=== PATIENT | male | born 1950 | race Caucasian/White ===

== ENCOUNTER 2017-09-23 08:48 | Day surgery (SDC) | payer MEDICARE, BC ==
[2017-09-20 10:02] VITALS: BMI 47.3
[~2017-09-23 08:48] MED LIST: DEXAMETHASONE SOD PHOSPHATE 10 MG/ML 1 ML VIAL IV ONE; HEPARIN SODIUM,PORCINE 5,000 UNIT/ML 1 ML VIAL SQ ONE; LIDOCAINE 1% 20 ML VIAL (10MG/ML) FOR IV START INTRADERMA PRN; ONDANSETRON 4 MG/2 ML VIAL IVP ONE; SCOPOLAMINE 1.5MG/72HR PATCH TRANSDERM ONE; ceFAZolin 3 GM in SODIUM CHLORIDE 0.9% 100 ML IVPB ONE
[2017-09-23 09:59] LABS: Glucose,Whole Blood 196 mg/dL (75-99)
[2017-09-23] MEDS: LACTATED RINGERS 1,000 ML IV SCH (09:59)
--- NOTE | 2017-09-23 10:13 | P.GSHP ---
History of Present Illness H&P Date: 09/23/17 Chief Complaint: Right upper quadrant pain, cholelithiasis This is a 66-year-old male cut. Patient notes today for laparoscopic cholecystectomy. He's had issues with rectal quadrant pain. Patient was seen at [facility] and found have evidence of cholelithiasis. Past Medical History Past Medical History: Heart Failure, COPD, Diabetes Mellitus, Hyperlipidemia, Hypertension, Prostate Disorder, Sleep Apnea/CPAP/BIPAP Additional Past Medical History / Comment(s): hx of christianne leg neuropathy, hx. colon polyps, hx of sepsis post tonsillitis 04/2017 History of Any Multi-Drug Resistant Organisms: None Reported Past Surgical History: Hernia Repair, Orthopedic Surgery Additional Past Surgical History / Comment(s): carpal tunnel left wrist, TURP, umbilical hernia repair Past Anesthesia/Blood Transfusion Reactions: No Reported Reaction Smoking Status: Former smoker - Past Family History Mother Family Medical History: No Reported History Medications and Allergies Home Medications Medication Instructions Recorded Confirmed Type Atorvastatin [Lipitor] 40 mg PO HS 09/11/14 09/20/17 History Furosemide [Lasix] 40 mg PO BID 09/11/14 09/20/17 History Quinapril HCl [Accupril] 10 mg PO BID 09/11/14 09/20/17 History Tamsulosin HCl [Flomax] 0.4 mg PO BID 09/11/14 09/20/17 History Omeprazole [PriLOSEC] 20 mg PO AC-BRKFST 09/03/15 09/20/17 History Acetaminophen with Codeine 0.5 - 1 tab PO Q6HR PRN 09/20/17 09/20/17 History [Tylenol w/codeine #4] Albuterol Nebulized [Ventolin 2.5 mg INHALATION Q6H PRN 09/20/17 09/20/17 History Nebulized] Albuterol Sulfate [Proair 1 puff INHALATION QID PRN 09/20/17 09/23/17 History Respiclick] Beclomethasone Dipropionate [Qvar 1 puff INHALATION DAILY PRN 09/20/17 09/20/17 History 80 mcg] Calcitriol 0.5 mcg PO MO 09/20/17 09/23/17 History Ciprofloxacin HCl [Cipro] 500 mg PO Q12HR 09/20/17 09/20/17 History Insulin NPH/Reg Insulin 70/30 100 unit SQ AC-LUNCH 09/20/17 09/20/17 History [humuLIN 70/30 VIAL] Insulin NPH/Reg Insulin 70/30 126 unit SQ BID 09/20/17 09/20/17 History [humuLIN 70/30 VIAL] Miconazole Nitrate [Lotrimin AF 1 applic TOPICAL DAILY PRN 09/20/17 09/20/17 History Powder] Montelukast Sodium [Singulair] 10 mg PO HS 09/20/17 09/20/17 History Multivitamins, Thera [Multivitamin 1 tab PO DAILY 09/20/17 09/20/17 History (formulary)] Omeprazole 20 mg PO DAILY 09/20/17 09/20/17 History Ondansetron [Zofran] 4 mg PO Q8HR PRN 09/20/17 09/23/17 History Tamsulosin [Flomax] 0.4 mg PO BID 09/20/17 09/20/17 History amLODIPine BESYLATE [Norvasc] 5 mg PO BID 09/20/17 09/20/17 History metroNIDAZOLE [Flagyl] 500 mg PO TID 09/20/17 09/20/17 History Allergies Allergy/AdvReac Type Severity Reaction Status Date / Time No Known Allergies Allergy Verified 09/23/17 09:43 Surgical - Exam Vital Signs Temp Pulse Resp BP Pulse Ox 98 F 102 H 18 163/66 95 09/23/17 09:40 09/23/17 09:40 09/23/17 09:40 09/23/17 09:40 09/23/17 09:40 - General well developed, no distress - Eyes PERRL - ENT normal pinna - Neck no masses - Respiratory normal expansion - Cardiovascular Rhythm: regular - Abdomen Abdomen: soft, non tender Results - Labs Abnormal Lab Results - Last 24 Hours (Table) 09/23/17 Range/Units 09:48 POC Glucose (mg/dL) 196 H (75-99) mg/dL Assessment and Plan Assessment: Right upper quadrant pain Cholelithiasis We'll perform laparoscopic cholecystectomy
[2017-09-23] MEDS ORDERED: GLYCOPYRROLATE 0.2 MG/ML 2 ML VIAL ONE (10:42)
[2017-09-23] MEDS ORDERED: PROPOFOL 10 MG/ML 20 ML VIAL IV ONE (10:42)
[2017-09-23] MEDS ORDERED: NEOSTIGMINE 1 MG/ML 10 ML VIAL ONE (10:42)
[2017-09-23] MEDS ORDERED: ROCURONIUM BROMIDE 10 MG/ML 10 ML VIAL IV ONE (10:42)
[2017-09-23] MEDS ORDERED: SUCCINYLCHOLINE CHLORIDE 100 MG/5 ML SYR IV ONE (10:42)
[2017-09-23] MEDS ORDERED: MIDAZOLAM 2 MG/2 ML VIAL ONE (10:42)
[2017-09-23] MEDS ORDERED: ePHEDrine SULFATE/0.9% NACL/PF 50 MG/5 ML SYRINGE IV ONE (10:42)
[2017-09-23] MEDS ORDERED: LIDOCAINE 1% INJ 10MG/ML (20 ML MDV) ONE (10:42)
[2017-09-23] MEDS ORDERED: fentaNYL (PF) 50 MCG/ML 2 ML AMP ONE (10:42)
[2017-09-23] MEDS ORDERED: BUPIVACAINE (PF) 0.25% 30 ML VIAL SQ ONE ×2 (10:55→11:11)
[2017-09-23] MEDS ORDERED: ACETAMINOPHEN TAB 325 MG TAB PO PRN (11:44)
[2017-09-23] MEDS ORDERED: ONDANSETRON 4 MG/2 ML VIAL IVP PRN (11:44)
[2017-09-23] MEDS ORDERED: LACTATED RINGERS 1,000 ML IV ONE (11:44)
[2017-09-23] MEDS ORDERED: HYDROcodone/APAP 5-325MG 1 EACH TAB PO PRN (11:44)
[2017-09-23] MEDS ORDERED: NALOXONE 0.4 MG/ML 1 ML VIAL IV PRN (11:44)
--- NOTE | 2017-09-23 12:08 | P.OP ---
Date of Procedure: 09/23/17 Preoperative Diagnosis: Cholelithiasis Postoperative Diagnosis: Cholelithiasis Cirrhosis of liver Procedure(s) Performed: Laparoscopic cholecystectomy Anesthesia: ERIC Surgeon: Jean Ayala Estimated Blood Loss (ml): 20 Pathology: other (Gallbladder) Condition: stable Disposition: PACU Description of Procedure: The patient was placed on the operating table. The patient received a general endotracheal tube anesthesia. The patients abdomen was prepped and draped in the usual sterile fashion. Through an infraumbilical stab incision, the fascia of the anterior abdominal wall was grasped with a pair of Kochers and then the Veress needle was placed in the peritoneal cavity. Position of the Veress needle was confirmed with positive drop test. The abdomen was then insufflated. After adequate insufflation, the 10 mm trocar was placed in the peritoneal cavity. Following this the laparoscope was placed in the peritoneal cavity. The patient was placed in the head-up, right side up position and then a 5 mm trocar was placed in the right lateral and right subcostal position under direct visualization. A 8 mm trocar was placed in the epigastric position. The gallbladder was grasped in the fundus and infundibulum. Traction on the gallbladder was placed in the lateral and the cephalad positions. The liver was quite large. There is evidence of fatty liver with cirrhosis. The liver was firm and was not easily removed. The triangle of Calot was visualized.. The cystic duct was bluntly dissected until the union of the cystic duct and common bile duct was seen. The cystic duct was visualized and then the cystic duct was ligated with a 2 Ethibond and a timeout device. 2 sutures were used to ligate the cystic duct. The cystic duct was then divided and sealed with the Harmonic scissors. . The cystic artery divided and sealed with the Harmonic scissors. The gallbladder was then removed from the liver bed using Harmonic scissors. The gallbladder was then extracted through the epigastric port site. Operative field was checked for any bleeding spots and Harmonic scissors was used to coagulate the liver bed. The abdomen was irrigated. The trocars were removed. The skin was closed using interrupted 3-0 Vicryl suture. Dermabond dressing were applied. The patient tolerated the procedure well. He was sent to recovery room stable condition.
[2017-09-23] MEDS: HYDROmorphone 0.5 MG/0.5 ML SYRINGE IVP PRN ×5 (12:20→20:34)
[2017-09-23 12:29] LABS: Glucose,Whole Blood 256 mg/dL (75-99)
[2017-09-23] MEDS ORDERED: INSULIN ASPART 100 UNIT/ML 1 ML 10 ML VIAL SQ ONE (12:30)
[2017-09-23] MEDS ORDERED: NYSTATIN 100,000 UNIT/GM POWD 15 GM TOPICAL PRN (15:11)
[2017-09-23] MEDS ORDERED: ALBUTEROL NEBULIZED 2.5 MG/3 ML INHALATION PRN (15:11)
[2017-09-23] MEDS ORDERED: BECLOMETHASONE DIP 80 MCG/PUFF INHALER INHALATION PRN (15:11)
--- NOTE | 2017-09-23 15:57 | P.CONS ---
History of Present Illness - Reason for Consult Consult date: 09/23/17 medical management - Chief Complaint SOB, Hyperglycemia - History of Present Illness 66 years old male the past medical history ofcongestive heart failure , unknown ejection fraction, COPD, obstructive sleep apnea on CPAP, type 2 diabetes on insulin, hyperlipidemia, hypertension, prostate enlargement presents for an elective laparoscopic cholecystectomy today with Dr. Ayala. Patient is evaluated postoperatively, lying comfortably in bed. Patient is currently on 3 L of oxygen with saturations 93-95%. He complains of shortness of breath, diffuse abdominal soreness but denies any chest pain, nausea or vomiting. Patient wears no oxygen at home but does wear CPAP in the night. he denies any fever or chills.no postoperative complications. Glucose 196 and 256 per charting. Review of Systems Constitutional: Denies chills, Denies fever, Denies lethargy, Denies malaise, Denies poor appetite, Denies weakness, Denies weight loss Eyes: denies decreased vision, denies diplopia, denies discharge, denies pain Ears: deny: decreased hearing Ears, nose, mouth and throat: Denies dental pain, Denies headache, Denies nasal discharge, Denies nose pain Cardiovascular: Denies chest pain, Denies decreased exercise tolerance, Denies edema, Denies high blood pressure, Denies irregular heart beat, Denies palpitations, Denies paroxysmal nocturnal dyspnea, Denies rapid heart beat, endorses shortness of breath Respiratory: Denies congestion, Denies cough, Denies cough with sputum, Denies home oxygen, Denies wheezing Gastrointestinal: endorsesabdominal pain, Denies change in bowel habits, Denies coffee ground emesis, Denies early satiety, Denies excessive gas, Denies heartburn, Denies hematemesis, Denies hematochezia, Denies loss of appetite, Denies nausea, Denies vomiting Genitourinary: Denies dysuria, Denies flank pain, Denies kidney stones, Denies menorrhagia, Denies urgency, Denies urinary frequency Musculoskeletal: Denies gait dysfunction, Denies limitation of motion, Denies morning stiffness, Denies muscle cramps Integumentary: Denies rash, Denies wounds, Denies brittle nails, Denies change in hair/nails, Denies darkening of skin Neurological: Denies balance difficulties, Denies change in speech, Denies double vision, Denies gait dysfunction, Denies loss of vision, Denies motor disturbance, Denies numbness, Denies paralysis, Denies paresthesias, Denies seizures Psychiatric: Denies anxiety, Denies depression Endocrine: Denies excessive sweating, Denies excessive thirst, Denies high blood sugars, Denies palpitations Hematologic/Lymphatic: Denies easy bruising, Denies lymphadenopathy Past Medical History Past Medical History: Heart Failure, COPD, Diabetes Mellitus, Hyperlipidemia, Hypertension, Prostate Disorder, Sleep Apnea/CPAP/BIPAP Additional Past Medical History / Comment(s): hx of christianne leg neuropathy, hx. colon polyps, hx of sepsis post tonsillitis 04/2017 History of Any Multi-Drug Resistant Organisms: None Reported Past Surgical History: Hernia Repair, Orthopedic Surgery Additional Past Surgical History / Comment(s): carpal tunnel left wrist, TURP, umbilical hernia repair Past Anesthesia/Blood Transfusion Reactions: No Reported Reaction Past Psychological History: No Psychological Hx Reported Smoking Status: Former smoker (smoked 20 years ago, 2-3 packs a day) Past Alcohol Use History: None Reported Additional Past Alcohol Use History / Comment(s): quit smoking approx 1996, smoked almost 3ppd from age 16 (1966) Past Drug Use History: None Reported - Past Family History Mother Family Medical History: No Reported History, Dementia (Parkinson disease) Additional Family Medical History / Comment(s): father is alive, 87 years old, no medical problems. Patient has a sister with no significant medical history. He is has 2 kids, son has type 2 diabetes, daughter had gestational diabetes Medications and Allergies Home Medications Medication Instructions Recorded Confirmed Type Atorvastatin [Lipitor] 40 mg PO HS 09/11/14 09/20/17 History Furosemide [Lasix] 40 mg PO BID 09/11/14 09/20/17 History Quinapril HCl [Accupril] 10 mg PO BID 09/11/14 09/20/17 History Tamsulosin HCl [Flomax] 0.4 mg PO BID 09/11/14 09/20/17 History Omeprazole [PriLOSEC] 20 mg PO AC-BRKFST 09/03/15 09/20/17 History Acetaminophen with Codeine 0.5 - 1 tab PO Q6HR PRN 09/20/17 09/20/17 History [Tylenol w/codeine #4] Albuterol Nebulized [Ventolin 2.5 mg INHALATION Q6H PRN 09/20/17 09/20/17 History Nebulized] Albuterol Sulfate [Proair 1 puff INHALATION QID PRN 09/20/17 09/23/17 History Respiclick] Beclomethasone Dipropionate [Qvar 1 puff INHALATION DAILY PRN 09/20/17 09/20/17 History 80 mcg] Calcitriol 0.5 mcg PO MO 09/20/17 09/23/17 History Ciprofloxacin HCl [Cipro] 500 mg PO Q12HR 09/20/17 09/20/17 History Insulin NPH/Reg Insulin 70/30 100 unit SQ AC-LUNCH 09/20/17 09/20/17 History [humuLIN 70/30 VIAL] Insulin NPH/Reg Insulin 70/30 126 unit SQ BID 09/20/17 09/20/17 History [humuLIN 70/30 VIAL] Miconazole Nitrate [Lotrimin AF 1 applic TOPICAL DAILY PRN 09/20/17 09/20/17 History Powder] Montelukast Sodium [Singulair] 10 mg PO HS 09/20/17 09/20/17 History Multivitamins, Thera [Multivitamin 1 tab PO DAILY 09/20/17 09/20/17 History (formulary)] Omeprazole 20 mg PO DAILY 09/20/17 09/20/17 History Ondansetron [Zofran] 4 mg PO Q8HR PRN 09/20/17 09/23/17 History Tamsulosin [Flomax] 0.4 mg PO BID 09/20/17 09/20/17 History amLODIPine BESYLATE [Norvasc] 5 mg PO BID 09/20/17 09/20/17 History metroNIDAZOLE [Flagyl] 500 mg PO TID 09/20/17 09/20/17 History Docusate [Colace] 100 mg PO BID #20 capsule 09/23/17 Rx HYDROcodone/APAP 7.5-325MG [[place] 1 each PO Q4H PRN #30 tab 09/23/17 Rx 7.5] Allergies Allergy/AdvReac Type Severity Reaction Status Date / Time No Known Allergies Allergy Verified 09/23/17 09:43 Physical Exam Vitals: Vital Signs Temp Pulse Pulse Pulse Resp BP BP 09/23/17 14:01 98.5 F 87 18 153/71 09/23/17 13:30 83 16 152/67 09/23/17 13:15 81 16 151/67 09/23/17 13:00 82 16 154/69 09/23/17 12:45 85 16 151/67 09/23/17 12:30 84 16 152/69 09/23/17 12:15 90 16 148/67 09/23/17 12:00 100 20 167/76 09/23/17 09:40 98 F 102 H 18 BP Pulse Ox 09/23/17 14:01 93 L 09/23/17 13:30 97 09/23/17 13:15 97 09/23/17 13:00 95 09/23/17 12:45 93 L 09/23/17 12:30 96 09/23/17 12:15 93 L 09/23/17 12:00 94 L 09/23/17 09:40 163/66 95 Intake and Output 09/23/17 09/23/17 09/23/17 06:59 14:59 22:59 Intake Total 1200 Output Total 10 Balance 1190 Intake: IV 1200 Output: Estimated Blood Loss 10 - Constitutional General appearance: cooperative, no acute distress, obese - EENT Eyes: anicteric sclerae, PERRLA, normal appearance ENT: hearing grossly normal - Neck Neck: no lymphadenopathy, normal ROM, no other, no rigidity, no stridor, no thyromegaly - Respiratory Respiratory: bilateral diminished, no crackles, rales, rhonchiappreciated due to body habitus - Cardiovascular Rhythm: regular Heart sounds: normal: S1, S2 Abnormal Heart Sounds: no systolic murmur, no diastolic murmur, no rub, no S3 Gallop, no S4 Gallop, no click, no other - Gastrointestinal General gastrointestinal: normal bowel sounds, soft,, tender to palpate diffusely, incision sites without any sign of infection with mild inflammation and erythema at the site of LAPAROSCOPIC port - Integumentary Integumentary: no rash, chronic venous stasis bilaterally, with 1+ pitting edema on the right, trace pitting edema on the left lower extremity - Neurologic Neurologic: CNII-XII intact - Musculoskeletal Musculoskeletal: gait not assessed, strength equal bilaterally - Psychiatric Psychiatric: A&O x's 3, appropriate affect Results Labs: Abnormal Lab Results - Last 24 Hours (Table) 09/23/17 09/23/17 Range/Units 09:48 12:26 POC Glucose (mg/dL) 196 H 256 H (75-99) mg/dL Assessment and Plan Plan: #1 postoperative day 0 laparoscopic cholecystectomy for cholelithiasis - continue PT OT, pain management, incentive spirometry,pantoprazole 20 for GI prophylaxis and enoxaparin for DVT prophylaxis #2 acute hypoxic respiratory failure on 3 L, patient does complain of shortness of breath would evaluate with a chest x-ray. Continue Lasix 40 mg twice daily, monitor I&O's daily weight #3 type 2 insulin-dependent diabetes-patient on 100 units with lunch 70/30, 126 units BID, glucose check before meals and at bedtime, patient sees Dr. Jones from endocrinolgy. We will switch to Lantus 35 units twice a day, NovoLog 10 units with meal along with sliding scale as patient is on clear liquid diet, suggest depending upon glucose numbers #4 congestive heart failure- continue Lasix 40 milligrams twice daily quinapril 10 mg twice a day, Lipitor 40 mg daily, amlodipine 5 mg twice daily, maintain daily weights and strict I and os #5 BPH continue Flomax, patient has a history of TURP in the past #6 hypertension - continue Norvasc, quinapril and Lasix #7 CODE STATUS full code Thank you for the consult. We will be happy to assist the medical needs of the patient. Let us know if he could be of any other help.
--- NOTE | 2017-09-23 16:38 | XR ---
EXAMINATION TYPE: XR chest 1V DATE OF EXAM: 09/23/2017 COMPARISON: NONE HISTORY: Acute hypoxic respiratory failure TECHNIQUE: Single frontal view of the chest is obtained. FINDINGS: There is no focal air space opacity, pleural effusion, or pneumothorax seen. Copious soft tissues partially obscure the lung bases The cardiac silhouette size is enlarged. The osseous stru ctures are intact. Mild multilevel degenerative changes of the thoracic spine, right acromio clavicul ar joint and right glenohumeral joint are noted. IMPRESSION: Obscuration of the left cardiophrenic angle is likely due to copious overlying soft tiss ues. No focal consolidation or acute cardiac pulmonary process is seen.
[2017-09-23 16:47] LABS: Anion Gap 9 mmol/L; Blood Urea Nitrogen 23 mg/dL (9-20); Calcium 8.5 mg/dL (8.4-10.2); Carbon Dioxide 23 mmol/L (22-30); Chloride 101 mmol/L (98-107); Glucose 343 mg/dL (74-99); Non-African American GFR(MDRD) 58 (>60 ml/min/1.73 sqM); Potassium 5.9 mmol/L (3.5-5.1); Sodium 133 mmol/L (137-145)
[2017-09-23 17:18] LABS: Glucose,Whole Blood 366 mg/dL (75-99)
[2017-09-23] MEDS: INSULIN ASPART 100 UNIT/ML 1 ML 10 ML VIAL SQ SCH ×3 (17:26→21:45)
[2017-09-23] MEDS: FUROSEMIDE 40 MG TAB PO SCH (17:27)
[2017-09-23] MEDS ORDERED: INSULIN ASPART 100 UNIT/ML 1 ML 10 ML VIAL SQ SCH (17:30)
[2017-09-23 20:35] LABS: Glucose,Whole Blood 399 mg/dL (75-99)
[2017-09-23] MEDS: amLODIPine 5 MG TAB PO SCH (20:39)
[2017-09-23] MEDS: LISINOPRIL 10 MG TAB PO SCH (20:39)
[2017-09-23] MEDS: TAMSULOSIN 0.4 MG CAP.ER.24H PO SCH (20:39)
[2017-09-23] MEDS ORDERED: ATORVASTATIN 40 MG TAB PO SCH (21:00)
[2017-09-23] MEDS ORDERED: MONTELUKAST 10 MG TAB PO SCH (21:00)
[2017-09-23] MEDS: INSULIN DETEMIR 100 UNIT/ML 10 ML VIAL SQ SCH (21:45)
[2017-09-23 22:41] VITALS: RESP 18
[2017-09-24] MEDS: LACTATED RINGERS 1,000 ML IV SCH (02:08)
[2017-09-24] MEDS: HYDROmorphone 0.5 MG/0.5 ML SYRINGE IVP PRN (06:52)
[2017-09-24 07:00] LABS: Glucose,Whole Blood 404 mg/dL (75-99)
[2017-09-24] MEDS ORDERED: PANTOPRAZOLE 40 MG TABLET PO SCH (07:30)
[2017-09-24] MEDS: INSULIN ASPART 100 UNIT/ML 1 ML 10 ML VIAL SQ SCH ×4 (07:31→12:23)
[2017-09-24] MEDS: FUROSEMIDE 40 MG TAB PO SCH (07:35)
[2017-09-24] MEDS: amLODIPine 5 MG TAB PO SCH (07:35)
[2017-09-24] MEDS: LISINOPRIL 10 MG TAB PO SCH (07:35)
[2017-09-24] MEDS: TAMSULOSIN 0.4 MG CAP.ER.24H PO SCH (07:35)
[2017-09-24] MEDS ORDERED: ENOXAPARIN 40 MG/0.4 ML SYRINGE SQ SCH (09:00)
[2017-09-24] MEDS: INSULIN DETEMIR 100 UNIT/ML 10 ML VIAL SQ SCH (09:36)
[2017-09-24] MEDS ORDERED: DOCUSATE 100 MG CAP PO SCH (09:45)
[2017-09-24] MEDS ORDERED: MULTIVITAMINS, THERA 1 EACH TAB PO SCH (12:00)
[2017-09-24 12:01] LABS: Glucose,Whole Blood 418 mg/dL (75-99)
--- NOTE | 2017-09-24 12:29 | P.PN ---
Subjective Progress Note Date: 09/24/17 66 years old male the past medical history ofcongestive heart failure , unknown ejection fraction, COPD, obstructive sleep apnea on CPAP, type 2 diabetes on insulin, hyperlipidemia, hypertension, prostate enlargement presents for an elective laparoscopic cholecystectomy today with Dr. Ayala. Patient is evaluated postoperatively, lying comfortably in bed. Patient is currently on 3 L of oxygen with saturations 93-95%. He complains of shortness of breath, diffuse abdominal soreness but denies any chest pain, nausea or vomiting. Patient wears no oxygen at home but does wear CPAP in the night. he denies any fever or chills.no postoperative complications. Glucose 196 and 256 per charting. 09/24: He is now off oxygen and denies any shortness of breath, cough, chest pain. Chest x-ray was negative for any acute findings. He states he is hungry and wants to eat more than clear liquids. Patient did have nausea and vomiting this morning for which he is improved with Zofran. Blood sugars have been quite elevated for which his insulins have been adjusted while he is here. Patient may resume his home regime at discharge. Medically patient is stable for discharge home today. Objective - Vital Signs Vital signs: Vital Signs Temp 97.8 F 09/24/17 04:00 Pulse 100 09/24/17 04:00 Resp 18 09/24/17 04:00 BP 185/67 09/24/17 04:00 Pulse Ox 98 09/24/17 04:00 Intake & Output 09/23/17 09/24/17 09/24/17 18:59 06:59 18:59 Intake Total 1610 1050 Output Total 10 2160 Balance 1600 -1110 Intake: IV 1200 Intake, IV Titration 50 200 Amount Lactated Ringers 1,000 ml 50 @ 100 mls/hr IV .Q10H ONE Rx#:[id number] Lactated Ringers 1,000 ml 200 @ 20 mls/hr IV .Q24H ROLAND Rx#:[id number] Oral 360 850 Output: Urine 2160 Estimated Blood Loss 10 Other: # Voids 2 # Emeses 1 - Exam General appearance: cooperative, no acute distress, obese - EENT Eyes: anicteric sclerae, PERRLA, normal appearance ENT: hearing grossly normal - Neck Neck: no lymphadenopathy, normal ROM, no other, no rigidity, no stridor, no thyromegaly - Respiratory Respiratory: bilateral diminished, no crackles, rales, rhonchi appreciated due to body habitus - Cardiovascular Rhythm: regular Heart sounds: normal: S1, S2 Abnormal Heart Sounds: no systolic murmur, no diastolic murmur, no rub, no S3 Gallop, no S4 Gallop, no click, no other - Gastrointestinal General gastrointestinal: normal bowel sounds, soft,, tender to palpate diffusely, incision sites without any sign of infection with mild inflammation and erythema at the site of LAPAROSCOPIC port - Integumentary Integumentary: no rash, chronic venous stasis bilaterally, with 1+ pitting edema on the right, trace pitting edema on the left lower extremity - Neurologic Neurologic: CNII-XII intact - Musculoskeletal Musculoskeletal: gait not assessed, strength equal bilaterally - Psychiatric Psychiatric: A&O x's 3, appropriate affect - Labs CBC & Chem 7: 09/23/17 15:59 Labs: Abnormal Lab Results - Last 24 Hours (Table) 09/23/17 09/23/17 09/23/17 Range/Units 09:48 12:26 15:59 Sodium 133 L (137-145) mmol/L Potassium 5.9 H (3.5-5.1) mmol/L BUN 23 H (9-20) mg/dL Creatinine 1.26 H (0.66-1.25) mg/dL Glucose 343 H (74-99) mg/dL POC Glucose (mg/dL) 196 H 256 H (75-99) mg/dL 09/23/17 09/23/17 09/24/17 Range/Units 17:02 20:27 06:58 Sodium (137-145) mmol/L Potassium (3.5-5.1) mmol/L BUN (9-20) mg/dL Creatinine (0.66-1.25) mg/dL Glucose (74-99) mg/dL POC Glucose (mg/dL) 366 H 399 H 404 H (75-99) mg/dL Assessment and Plan Plan: #1 status post laparoscopic cholecystectomy for cholelithiasis - continue PT OT , pain management, incentive spirometry,pantoprazole 20 for GI prophylaxis and enoxaparin for DVT prophylaxis #2 acute hypoxic respiratory failure on 3 L, patient does complain of shortness of breath would evaluate with a chest x-ray negative. Continue Lasix 40 mg twice daily, monitor I&O's daily weight #3 type 2 insulin-dependent diabetes-patient on 100 units with lunch 70/30, 126 units BID, glucose check before meals and at bedtime, patient sees Dr. Jones from endocrinolgy. Levemir increased to 75 units twice a day, NPH 50 units at lunch , NovoLog 10 units with meal along with sliding scale as patient is on clear liquid diet and advance by Dr. Ayala #4 congestive heart failure- continue Lasix 40 milligrams twice daily quinapril 10 mg twice a day, Lipitor 40 mg daily, amlodipine 5 mg twice daily, maintain daily weights and strict I and os #5 BPH continue Flomax, patient has a history of TURP in the past #6 hypertension - continue Norvasc, quinapril and Lasix #7 CODE STATUS full code Impression and plan of care have been directed as dictated by the signing physician. Candy Magana nurse practitioner acting as scribe for signing physician.
[2017-09-24 12:30] VITALS: BP 162/66; PULSE 86; TEMP 98
[2017-09-24] MEDS ORDERED: INSULIN NPH/REG INSULIN 70/30 300 UNIT/3 ML VIAL SQ SCH (12:30)
--- NOTE | 2017-09-24 12:54 | P.PN ---
Subjective Progress Note Date: 09/24/17 Principal diagnosis: Cholecystitis Patient's postoperative day 1 from left scalp cholecystectomy. He states he's feeling much better today he is ambulating back to his baseline he says is baseline shortness of breath after ambulating. He is sitting up in bed cooperating comfortable. He is requesting more food and tolerating his clear liquid diet. No fevers or chills no shortness of breath or chest pain no other complaints Objective - Vital Signs Vital signs: Vital Signs Temp 98.0 F 09/24/17 12:00 Pulse 86 09/24/17 12:00 Resp 18 09/24/17 12:00 BP 162/66 09/24/17 12:00 Pulse Ox 95 09/24/17 12:00 Intake & Output 09/23/17 09/24/17 09/24/17 18:59 06:59 18:59 Intake Total 1610 1050 Output Total 10 2160 900 Balance 1600 -1110 -900 Intake: IV 1200 Intake, IV Titration 50 200 Amount Lactated Ringers 1,000 ml 50 @ 100 mls/hr IV .Q10H ONE Rx#:[id number] Lactated Ringers 1,000 ml 200 @ 20 mls/hr IV .Q24H ROLAND Rx#:[id number] Oral 360 850 Output: Urine 2160 900 Estimated Blood Loss 10 Other: # Voids 2 # Emeses 1 - Constitutional General appearance: Present: cooperative - EENT Eyes: Present: PERRLA - Respiratory Details: Nonlabored breathing - Cardiovascular Rhythm: regular - Gastrointestinal Gastrointestinal Comment(s): Soft nontender nondistended incisions are clean dry and intact - Musculoskeletal Musculoskeletal: Present: gait normal - Psychiatric Psychiatric: Present: A&O x's 3 - Labs CBC & Chem 7: 09/23/17 15:59 Labs: Abnormal Lab Results - Last 24 Hours (Table) 09/23/17 09/23/17 09/23/17 Range/Units 15:59 17:02 20:27 Sodium 133 L (137-145) mmol/L Potassium 5.9 H (3.5-5.1) mmol/L BUN 23 H (9-20) mg/dL Creatinine 1.26 H (0.66-1.25) mg/dL Glucose 343 H (74-99) mg/dL POC Glucose (mg/dL) 366 H 399 H (75-99) mg/dL 09/24/17 09/24/17 Range/Units 06:58 11:59 Sodium (137-145) mmol/L Potassium (3.5-5.1) mmol/L BUN (9-20) mg/dL Creatinine (0.66-1.25) mg/dL Glucose (74-99) mg/dL POC Glucose (mg/dL) 404 H 418 H (75-99) mg/dL Assessment and Plan Assessment: Postop day 1 endoscopic cholecystectomy Plan: I'll advance patient a soft diet. Diabetic and cardiac diet. If he tolerates this and is still able to ambulate later today he may be discharged.
[2017-09-24] MEDS ORDERED: INSULIN DETEMIR 100 UNIT/ML 10 ML VIAL SQ SCH (21:00)
[2017-09-26] MEDS ORDERED: CALCITRIOL 0.25 MCG CAP PO SCH (09:00)
== END 2017-09-24 14:07 | disposition home or self-care (01) ==
LOC: OR 08:48 → 3OBS 12:00 → OR 09-24 14:07
PROVIDERS: ATTEND Surgery
DX: K80.10 Calculus of gallbladder with chronic cholecystitis without obstruction (principal); J96.01 Acute respiratory failure with hypoxia; K76.0 Fatty (change of) liver, not elsewhere classified; K74.60 Unspecified cirrhosis of liver; R11.2 Nausea with vomiting, unspecified; E11.9 Type 2 diabetes mellitus without complications; I11.0 Hypertensive heart disease with heart failure; I50.9 Heart failure, unspecified; N40.0 Benign prostatic hyperplasia without lower urinary tract symptoms; J44.9 Chronic obstructive pulmonary disease, unspecified; G47.33 Obstructive sleep apnea (adult) (pediatric); E78.00 Pure hypercholesterolemia, unspecified; R26.9 Unspecified abnormalities of gait and mobility; G56.02 Carpal tunnel syndrome, left upper limb; M54.5 Low back pain; M62.81 Muscle weakness (generalized); Z99.89 Dependence on other enabling machines and devices; K21.9 Gastro-esophageal reflux disease without esophagitis; Z79.4 Long term (current) use of insulin; Z79.899 Other long term (current) drug therapy; Z79.2 Long term (current) use of antibiotics; Z79.51 Long term (current) use of inhaled steroids; Z87.891 Personal history of nicotine dependence
CPT/HCPCS: 88304; 83880; 80048; 83036; 71010; 47562; J2250; J1644; J1100; J2710; J0690; J2405; J2001; J1650; J3010; J0330; J2704; J1170 ×2

== ENCOUNTER → 2017-10-24 | Outpatient (CLI) | payer MEDICARE, BC ==
[2017-10-24 14:46] VITALS: BP 177/57; PULSE 98; RESP 16; TEMP 97.9; BMI 50.0
[2017-10-24 16:10] LABS: Anisocytosis Slight; CH 26.7; CHCM 31.1; HDW 3.33; Hypochromasia Moderate; MCH 26.6 pg (25.0-35.0); MCHC 30.9 g/dL (31.0-37.0); Mean Platelet Volume 8.6; RBC 3.38 m/uL (4.30-5.90); RDW 17.8 % (11.5-15.5); WBC 6.8 k/uL (3.8-10.6)
--- NOTE | 2017-10-24 16:21 | P.HPBAR ---
Bariatric H&P - History & Physicial H&P Date: 10/24/17 History & Physicial: Visit/CC: sleeve consult (Attended seminar 10/2017) Patient initial contact: Initial weight: 171.912 kg Initial weight in pounds: 379.00 Height: 6 ft 1 in Initial BMI: 50.0 Last weight: Current weight: 171.912 kg Current weight in pounds: 379.00 Current BMI: 50.0 [place] body weight (based on NIH guidelines): 83.461 kg Excess body weight loss: 0.0% The patient is a 66 year-old M who presents for Bariatric Assessment. A # presents today for new patient consultation for laparoscopic sleeve gastrectomy. Patient has had lifetime problems obesity. His BMI is 50. He has multiple comorbidities related to morbid obesity. The patient states he partially went through the bariatric program at [facility]. He Has Not Done a Psychologic Evaluation. Past Medical History Past Medical History: Heart Failure, COPD, Diabetes Mellitus, Hyperlipidemia, Hypertension, Prostate Disorder, Sleep Apnea/CPAP/BIPAP Additional Past Medical History / Comment(s): hx of christianne leg neuropathy, hx. colon polyps, hx of sepsis post tonsillitis 04/2017 History of Any Multi-Drug Resistant Organisms: None Reported Past Surgical History: Cholecystectomy, Hernia Repair, Orthopedic Surgery Additional Past Surgical History / Comment(s): carpal tunnel left wrist, TURP, umbilical hernia repair x2 (developed infection after 1st repair), Cholecystectomy 2016 Past Anesthesia/Blood Transfusion Reactions: No Reported Reaction Past Psychological History: No Psychological Hx Reported Smoking Status: Former smoker Past Alcohol Use History: None Reported Additional Past Alcohol Use History / Comment(s): quit smoking approx 1996, smoked almost 3ppd from age 16 (1966). Patient states he "partied a lot" when he was younger, has not had a drink since 1983 Past Drug Use History: None Reported - Past Family History Mother Family Medical History: No Reported History, Dementia Additional Family Medical History / Comment(s): father is alive, 87 years old, no medical problems. Patient has a sister with no significant medical history. He is has 2 kids, son has type 2 diabetes, daughter had gestational diabetes Surgical - Exam Vital Signs Temp Pulse Resp BP 97.9 F 98 16 177/57 10/24/17 14:39 10/24/17 14:39 10/24/17 14:39 10/24/17 14:39 BMI 50 - General well developed, no distress - Eyes PERRL - ENT normal pinna - Neck no masses - Respiratory normal expansion - Cardiovascular Rhythm: regular - Abdomen Abdomen: soft, non tender Results - Labs 10/24/17 15:57 Abnormal Lab Results - Last 24 Hours (Table) 10/24/17 Range/Units 15:57 RBC 3.38 L (4.30-5.90) m/uL Hgb 9.0 L (13.0-17.5) gm/dL Hct 29.0 L (39.0-53.0) % MCHC 30.9 L (31.0-37.0) g/dL RDW 17.8 H (11.5-15.5) % Plt Count 146 L (150-450) k/uL Bariatric Assessment & Plan Plan: Morbid obesity with multiple coronary disease. Patient will undergo EGD. He' ll follow-up in 8 weeks. We will attempt insurance authorization once his paperwork is completed. Bariatric Checklist Checklist: Plan: Checklist: EGD: 1. Hiatal hernia: 2. H. Pylori: HgbA1c: Vitamin D: Smoking: Former smoker Primary care physician referral: Dr. Benjamin Johnson Psychiatry clearance: Cardiology clearance: Sleep study: Diet journal: VTE risk score: VTE risk level: Rehab needs at discharge:
[2017-10-24 16:25] LABS: ALT 44 U/L (21-72); AST 31 U/L (17-59); Alkaline Phosphatase 123 U/L (38-126); Anion Gap 12 mmol/L; Blood Urea Nitrogen 19 mg/dL (9-20); Calcium 9.2 mg/dL (8.4-10.2); Carbon Dioxide 26 mmol/L (22-30); Chloride 97 mmol/L (98-107); Glucose 376 mg/dL (74-99); Non-African American GFR(MDRD) >60 (>60 ml/min/1.73 sqM); Potassium 4.4 mmol/L (3.5-5.1); Sodium 135 mmol/L (137-145); Total Bilirubin 0.5 mg/dL (0.2-1.3); Total Protein 7.3 g/dL (6.3-8.2)
== END | disposition home or self-care (01) ==
LOC: BARWHC3 14:21
PROVIDERS: ATTEND Surgery
DX: E66.01 Morbid (severe) obesity due to excess calories (principal); I25.10 Atherosclerotic heart disease of native coronary artery without angina pectoris; G47.30 Sleep apnea, unspecified; E55.9 Vitamin D deficiency, unspecified; E44.0 Moderate protein-calorie malnutrition; Z68.43 Body mass index [BMI] 50.0-59.9, adult; Z98.890 Other specified postprocedural states; Z99.89 Dependence on other enabling machines and devices; Z90.49 Acquired absence of other specified parts of digestive tract
CPT/HCPCS: 80053; 84443; 85027; 82306; 83036; 36415; G0463; 99211

== ENCOUNTER → 2017-11-21 | Day surgery (SDC) | payer MEDICARE, BC ==
[2017-11-18 11:09] VITALS: BMI 46.8
[~2017-11-21] MED LIST changes: -DEXAMETHASONE SOD PHOSPHATE 10 MG/ML 1 ML VIAL IV ONE; -HEPARIN SODIUM,PORCINE 5,000 UNIT/ML 1 ML VIAL SQ ONE; +KETAMINE 10 MG/ML 20 ML VIAL ONE; +LIDOCAINE 1% 20 ML VIAL (10MG/ML) FOR IV START INTRADERMA ONE; -LIDOCAINE 1% 20 ML VIAL (10MG/ML) FOR IV START INTRADERMA PRN; +MIDAZOLAM 2 MG/2 ML VIAL ONE; -ONDANSETRON 4 MG/2 ML VIAL IVP ONE; +PROPOFOL 10 MG/ML 20 ML VIAL IV ONE; -SCOPOLAMINE 1.5MG/72HR PATCH TRANSDERM ONE; +SODIUM CHLORIDE 0.9% 1,000 ML IV ONE; -ceFAZolin 3 GM in SODIUM CHLORIDE 0.9% 100 ML IVPB ONE
[2017-11-21 10:58] VITALS: PULSE 89; RESP 16; TEMP 98.4
[2017-11-21 11:12] LABS: Glucose,Whole Blood 241 mg/dL (75-99)
--- NOTE | 2017-11-21 12:22 | P.GSHP ---
History of Present Illness H&P Date: 11/21/17 Chief Complaint: GERD, screening colonoscopy Is a 67-year-old male referred from Dr. mohamud. Patient presents today for EGD and screening colonoscopy. He's had complaints of GERD. He is currently undergoing workup for sleeve gastrectomy. He is morbidly obese BMI 47. Past Medical History Past Medical History: Heart Failure, COPD, Diabetes Mellitus, Hyperlipidemia, Hypertension, Prostate Disorder, Sleep Apnea/CPAP/BIPAP Additional Past Medical History / Comment(s): hx of christianne leg neuropathy, hx. colon polyps, hx of sepsis post tonsillitis 04/2017 History of Any Multi-Drug Resistant Organisms: None Reported Past Surgical History: Cholecystectomy, Hernia Repair, Orthopedic Surgery Additional Past Surgical History / Comment(s): carpal tunnel left wrist, TURP, umbilical hernia repair x2 (developed infection after 1st repair), Cholecystectomy 2016, COLONOSCOPY Past Anesthesia/Blood Transfusion Reactions: No Reported Reaction Smoking Status: Former smoker - Past Family History Mother Family Medical History: No Reported History, Dementia Additional Family Medical History / Comment(s): father is alive, 87 years old, no medical problems. Patient has a sister with no significant medical history. He is has 2 kids, son has type 2 diabetes, daughter had gestational diabetes Medications and Allergies Home Medications Medication Instructions Recorded Confirmed Type Atorvastatin [Lipitor] 40 mg PO HS 09/11/14 11/18/17 History Furosemide [Lasix] 40 mg PO BID 09/11/14 11/18/17 History Quinapril HCl [Accupril] 10 mg PO BID 09/11/14 11/18/17 History Omeprazole [PriLOSEC] 20 mg PO AC-BRKFST 09/03/15 11/18/17 History Acetaminophen with Codeine 0.5 - 1 tab PO Q6HR PRN 09/20/17 11/21/17 History [Tylenol w/codeine #4] Albuterol Nebulized [Ventolin 2.5 mg INHALATION Q6H PRN 09/20/17 11/21/17 History Nebulized] Albuterol Sulfate [Proair 1 puff INHALATION QID PRN 09/20/17 11/21/17 History Respiclick] Beclomethasone Dipropionate [Qvar 1 puff INHALATION DAILY PRN 09/20/17 11/21/17 History 80 mcg] Calcitriol 0.5 mcg PO MO 09/20/17 11/18/17 History Insulin NPH/Reg Insulin 70/30 100 unit SQ AC-LUNCH 09/20/17 11/18/17 History [humuLIN 70/30 VIAL] Insulin NPH/Reg Insulin 70/30 126 unit SQ BID 09/20/17 11/18/17 History [humuLIN 70/30 VIAL] Montelukast Sodium [Singulair] 10 mg PO HS 09/20/17 11/18/17 History Multivitamins, Thera [Multivitamin 1 tab PO DAILY 09/20/17 11/18/17 History (formulary)] Tamsulosin [Flomax] 0.4 mg PO HS 09/20/17 11/18/17 History amLODIPine BESYLATE [Norvasc] 5 mg PO BID 09/20/17 11/18/17 History Gabapentin [Neurontin] 300 mg PO BID 10/24/17 11/18/17 History Allergies Allergy/AdvReac Type Severity Reaction Status Date / Time No Known Allergies Allergy Verified 11/18/17 11:06 Surgical - Exam Vital Signs Temp Pulse Resp BP Pulse Ox 98.4 F 89 16 202/75 98 11/21/17 10:55 11/21/17 10:55 11/21/17 10:55 11/21/17 10:55 11/21/17 10:55 - General well developed, no distress - Eyes PERRL - ENT normal pinna - Neck no masses - Respiratory normal expansion - Cardiovascular Rhythm: regular - Abdomen Abdomen: soft, non tender Results - Labs Abnormal Lab Results - Last 24 Hours (Table) 11/21/17 Range/Units 11:09 POC Glucose (mg/dL) 241 H (75-99) mg/dL Assessment and Plan Assessment: GERD, morbid obesity we'll perform EGD and screening colonoscopy.
--- NOTE | 2017-11-21 12:46 | P.OP ---
Date of Procedure: 11/21/17 Preoperative Diagnosis: Morbid obesity GERD Screening colonoscopy Postoperative Diagnosis: Morbid obesity Antral gastritis Small sliding hiatal hernia Mild esophagitis Internal and external hemorrhoids Procedure(s) Performed: EGD Colonoscopy Anesthesia: MAC Surgeon: Jean Ayala Pathology: other (Antrum, esophagus) Condition: stable Disposition: PACU Description of Procedure: A shunt placed on the endoscopy table in the lateral position. He received IV sedation. The gastric was placed oropharynx and passed in the esophagus into the stomach. Scope was then placed through the pylorus. The first and second portion of duodenum appeared normal. Scope was then brought back the antrum. Mildly inflamed. A biopsies performed. Cold was then retroflexed and remainder stomach appeared normal. There was a small sliding hiatal hernia. The GE junction was at 39 cm. Distal esophagus was minimal inflamed and a biopsy performed. The proximal esophagus appeared normal. Scope was then withdrawn for patient. Next digital rectal exam was performed which revealed internal and external hemorrhoids. The flexible colonoscope then placed patient anus passed throughout the entire colon. The ileocecal valve was visualized. The cecum, ascending and transverse colon appeared normal. The descending; appeared normal. The scope was brought back the sigmoid colon was normal. Scope was brought back the rectum and this was normal the scope was withdrawn for patient to the rectum appeared normal. The internal shunt was removed noted.
[2017-11-21 12:57] VITALS: BP 145/66
[2017-11-21 13:10] LABS: Glucose,Whole Blood 246 mg/dL (75-99)
== END ==
LOC: ORWHC2ENDO 10:10
PROVIDERS: ATTEND Surgery
DX: Z12.11 Encounter for screening for malignant neoplasm of colon (principal); K29.70 Gastritis, unspecified, without bleeding; K44.9 Diaphragmatic hernia without obstruction or gangrene; K21.0 Gastro-esophageal reflux disease with esophagitis; K64.8 Other hemorrhoids; K64.4 Residual hemorrhoidal skin tags; Z86.010 Personal history of colon polyps; E66.01 Morbid (severe) obesity due to excess calories; Z68.42 Body mass index [BMI] 45.0-49.9, adult; I11.0 Hypertensive heart disease with heart failure; I50.9 Heart failure, unspecified; J44.9 Chronic obstructive pulmonary disease, unspecified; E11.9 Type 2 diabetes mellitus without complications; E78.5 Hyperlipidemia, unspecified; N40.0 Benign prostatic hyperplasia without lower urinary tract symptoms; N28.9 Disorder of kidney and ureter, unspecified; G47.33 Obstructive sleep apnea (adult) (pediatric); Z99.89 Dependence on other enabling machines and devices; Z79.4 Long term (current) use of insulin; Z79.51 Long term (current) use of inhaled steroids; Z79.899 Other long term (current) drug therapy; Z87.891 Personal history of nicotine dependence
CPT/HCPCS: 88305; 88342; 43239; J2250; J2704; G0105; 45378

== ENCOUNTER → 2017-12-22 | Outpatient (CLI) | payer MEDICARE, BC ==
[2017-12-22 15:21] LABS: Blood Urea Nitrogen 20 mg/dL (9-20)
--- NOTE | 2017-12-22 18:55 | CT ---
EXAMINATION TYPE: CT ChestAbdPelvis w con DATE OF EXAM: 12/22/2017 COMPARISON: NONE HISTORY: SOB, abd/pelvic pain. CT DLP: 3405.8 mGycm Automated exposure control for dose reduction was used. CONTRAST: CT scan of the chest, abdomen and pelvis is performed with Oral Contrast and with IV Contrast, patien t injected with 80ml mL of Visipaque 320. FINDINGS: The lungs are clear of consolidation. There is some mild reticular infiltrate in the right paraspinal right lower lobe in the superior segment. There is no evidence of a pulmonary mass. There is no pleu ral effusion. Heart size is fairly normal. There is no mediastinal adenopathy. There is no evidence o f bronchial adenopathy. Thoracic aorta has normal size. There is a small hiatal hernia. The liver appears normal. The spleen is enlarged and measures 20 cm i n length. Bile ducts are not dilated. There are clips from cholecystectomy. There is no evidence of a pancreatic mass. There is no adrenal mass. Exam is limited by the patient's size. There is a 2 cm low-density area in the posterior right kidney that is probably a cortical cyst. There is no retroperitoneal adenopathy. There is no hydronephrosis. There is no sign of ascites. Bladder distends smoothly. I see no intestin al wall thickening. There are no dilated loops. There is mild fat stranding in the right lower quadrant that is posterior to the cecum. Appendix is n ot definitely visualized. There is no evidence of a pelvic mass. I see no bony destructive process. U rinary bladder is mildly dilated. IMPRESSION: Mildly dilated urinary bladder could relate to bladder outlet obstruction. There is probably a cyst or a lipoma on the posterior right kidney. There is some fat stranding posterior to the cecum in the right lower quadrant. This is localized inf lammatory process and the possibility of appendicitis should be considered. The appendix is not defin itely visualized. Splenomegaly. Minimal reticular right lower lobe pulmonary infiltrate.
== END | disposition home or self-care (01) ==
LOC: RADCTMAIN 14:40
PROVIDERS: ATTEND Internal Medicine Hematology & Oncology
DX: N32.89 Other specified disorders of bladder (principal); R16.1 Splenomegaly, not elsewhere classified
CPT/HCPCS: 82565; 84520; 71260; 74177; 36415; Q9967

== ENCOUNTER → 2018-01-09 | Outpatient (CLI) | payer MEDICARE, BC ==
[2018-01-09 14:39] VITALS: BP 157/60; PULSE 95; RESP 15; TEMP 97.9; BMI 51.4
--- NOTE | 2018-01-09 15:09 | P.HPBAR ---
Bariatric H&P - History & Physicial H&P Date: 01/09/18 History & Physicial: Visit/CC: sleeve consult Patient initial contact: 10/17/17 Initial weight: 171.912 kg Initial weight in pounds: 379.00 Height: 6 ft 1 in Initial BMI: 50.0 Last weight: Current weight: 176.81 kg Current weight in pounds: 389.80 Current BMI: 51.4 [place] body weight (based on NIH guidelines): 83.461 kg Excess body weight loss: The patient is a 67 year-old M who presents for Bariatric Assessment. Patient presents today for preoperative consultation. He has been performed his psychiatric evaluation. The report is still pending. He is undergone EGD and colonoscopy. He is still morbidly obese with BMI 51. He has GERD. Past Medical History Past Medical History: Heart Failure, COPD, Diabetes Mellitus, Hyperlipidemia, Hypertension, Prostate Disorder, Sleep Apnea/CPAP/BIPAP Additional Past Medical History / Comment(s): hx of christianne leg neuropathy, hx. colon polyps, hx of sepsis post tonsillitis 04/2017 History of Any Multi-Drug Resistant Organisms: None Reported Past Surgical History: Cholecystectomy, Hernia Repair, Orthopedic Surgery Additional Past Surgical History / Comment(s): carpal tunnel left wrist, TURP, umbilical hernia repair x2 (developed infection after 1st repair), Cholecystectomy 2016, COLONOSCOPY Past Anesthesia/Blood Transfusion Reactions: No Reported Reaction Past Psychological History: No Psychological Hx Reported Smoking Status: Former smoker Past Alcohol Use History: None Reported Additional Past Alcohol Use History / Comment(s): quit smoking approx 1996, smoked almost 3ppd from age 16 (1966). Patient states he "partied a lot" when he was younger, has not had a drink since 1983 Past Drug Use History: None Reported - Past Family History Mother Family Medical History: No Reported History, Dementia Additional Family Medical History / Comment(s): father is alive, 87 years old, no medical problems. Patient has a sister with no significant medical history. He is has 2 kids, son has type 2 diabetes, daughter had gestational diabetes Surgical - Exam Vital Signs Temp Pulse Resp BP 97.9 F 95 15 157/60 01/09/18 14:30 01/09/18 14:30 01/09/18 14:30 01/09/18 14:30 - General well developed, no distress - Eyes PERRL - ENT normal pinna - Neck no masses - Respiratory normal expansion - Abdomen Abdomen: soft, non tender Bariatric Assessment & Plan Plan: Morbid obesity with BMI 51. GERD. Patient will be scheduled for sleeve gastrectomy once his report has been completed and his insurance has been authorized. He'll follow-up in 4 weeks. Bariatric Checklist Checklist: Plan: Checklist: EGD: 1. Hiatal hernia: 2. H. Pylori: HgbA1c: Vitamin D: Smoking: Former smoker Primary care physician referral: Dr. Benjamin Johnson Psychiatry clearance: Cardiology clearance: Sleep study: Diet journal: VTE risk score: VTE risk level: Rehab needs at discharge:
== END | disposition home or self-care (01) ==
LOC: BARWHC3 13:52
PROVIDERS: ATTEND Surgery
DX: E66.01 Morbid (severe) obesity due to excess calories (principal); K21.9 Gastro-esophageal reflux disease without esophagitis; I11.0 Hypertensive heart disease with heart failure; I50.9 Heart failure, unspecified; J44.9 Chronic obstructive pulmonary disease, unspecified; E78.5 Hyperlipidemia, unspecified; G47.30 Sleep apnea, unspecified; N42.9 Disorder of prostate, unspecified; E11.40 Type 2 diabetes mellitus with diabetic neuropathy, unspecified; Z90.49 Acquired absence of other specified parts of digestive tract; Z99.89 Dependence on other enabling machines and devices; Z68.43 Body mass index [BMI] 50.0-59.9, adult; Z98.890 Other specified postprocedural states; Z87.891 Personal history of nicotine dependence
CPT/HCPCS: 99211

== ENCOUNTER → 2018-01-16 | Outpatient (CLI) | payer MEDICARE, BC ==
[2018-01-16 10:51] VITALS: BMI 51.0
== END | disposition home or self-care (01) ==
LOC: BARWHC3 08:19
PROVIDERS: ATTEND Surgery
DX: E66.01 Morbid (severe) obesity due to excess calories (principal)
CPT/HCPCS: 97804

== ENCOUNTER 2018-02-13 10:32 | Inpatient (IN) | payer MEDICARE, BC ==
[2018-02-13] MEDS ORDERED: ASPIRIN 81 MG PO STA (11:05)
[2018-02-13] MEDS ORDERED: NITROGLYCERIN OINT 1 INCH/GM PACKET TOPICAL STA (11:05)
--- NOTE | 2018-02-13 11:10 | ED ---
General Adult HPI - General Chief complaint: Chest Pain Stated complaint: gurpreet x 1 week Time Seen by Provider: 02/13/18 10:45 Source: patient, RN notes reviewed Mode of arrival: ambulatory Limitations: no limitations - History of Present Illness Initial comments: This is a 67-year-old male with a past medical history significant for congestive heart failure diabetes high cholesterol high blood pressure. Patient states over the last week he's having intermittent chest pain which is described as a heaviness on his chest. Patient states she's also short of breath. Patient states over the last 2 days been almost constant. Patient states lying down makes the difficulty breathing worsen heaviness worse. Patient denies any radiation of the pain. Patient denies any nausea. Patient denies any sweating. Patient denies any recent fever chills or cough. Patient denies abdominal pain patient denies nausea vomiting diarrhea. Patient denies lightheadedness dizziness or near syncopal episode. Patient denies a headache patient denies any numbness or weakness. Patient denies any increased edema to his legs. Patient states she's got chronic cellulitis and as of this morning his legs look the same as they always do. agrees with this. - Related Data Home Medications Medication Instructions Recorded Confirmed Atorvastatin [Lipitor] 40 mg PO HS 09/11/14 02/13/18 Furosemide [Lasix] 40 mg PO BID 09/11/14 02/13/18 Omeprazole [PriLOSEC] 20 mg PO AC-BRKFST 09/03/15 02/13/18 Albuterol Nebulized [Ventolin 2.5 mg INHALATION Q6H PRN 09/20/17 02/13/18 Nebulized] Albuterol Sulfate [Proair 1 puff INHALATION RT-QID PRN 09/20/17 02/13/18 Respiclick] Beclomethasone Dipropionate [Qvar 1 puff INHALATION RT-BID PRN 09/20/17 02/13/18 80 mcg] Calcitriol 0.5 mcg PO MO 09/20/17 02/13/18 Montelukast Sodium [Singulair] 10 mg PO HS 09/20/17 02/13/18 Multivitamins, Thera [Multivitamin 1 tab PO DAILY 09/20/17 02/13/18 (formulary)] Tamsulosin [Flomax] 0.4 mg PO HS 09/20/17 02/13/18 amLODIPine BESYLATE [Norvasc] 10 mg PO QAM 09/20/17 02/13/18 Gabapentin [Neurontin] 300 mg PO BID 10/24/17 02/13/18 Cholecalciferol (Vitamin D3) 10,000 unit PO DAILY 01/09/18 02/13/18 [Vitamin D3] Ferrous Sulfate [Feosol] 650 mg PO DAILY 01/09/18 02/13/18 amLODIPine [Norvasc] 5 mg PO AC-SUPPER 01/09/18 02/13/18 metFORMIN HCL 1,000 mg PO BID 01/09/18 02/13/18 Insulin NPH Hum/Reg Insulin Hm 100 unit SQ AC-LUNCH 02/13/18 02/13/18 [NovoLIN 70-30 100 UNIT/ML VIAL] Insulin NPH Hum/Reg Insulin Hm 126 unit SQ AC-BRKFST 02/13/18 02/13/18 [NovoLIN 70-30 100 UNIT/ML VIAL] Insulin NPH Hum/Reg Insulin Hm 126 unit SQ AC-SUPPER 02/13/18 02/13/18 [NovoLIN 70-30 100 UNIT/ML VIAL] Ipratropium-Albuterol Nebulize 3 ml INHALATION RT-QID PRN 02/13/18 02/13/18 [Duoneb 0.5 mg-3 mg/3 ml Soln] Magnesium Oxide [Mag-Oxide] 200 mg PO DAILY 02/13/18 02/13/18 Quinapril HCl 10 mg PO HS 02/13/18 02/13/18 Quinapril HCl 20 mg PO DAILY 02/13/18 02/13/18 Allergies Allergy/AdvReac Type Severity Reaction Status Date / Time No Known Allergies Allergy Verified 02/13/18 11:06 Review of Systems ROS Statement: Those systems with pertinent positive or pertinent negative responses have been documented in the HPI. ROS Other: All systems not noted in ROS Statement are negative. Past Medical History Past Medical History: Heart Failure, COPD, Diabetes Mellitus, Hyperlipidemia, Hypertension, Prostate Disorder, Sleep Apnea/CPAP/BIPAP Additional Past Medical History / Comment(s): hx of christianne leg neuropathy, hx. colon polyps, hx of sepsis post tonsillitis 04/2017 History of Any Multi-Drug Resistant Organisms: None Reported Past Surgical History: Cholecystectomy, Hernia Repair, Orthopedic Surgery Additional Past Surgical History / Comment(s): carpal tunnel left wrist, TURP, umbilical hernia repair x2 (developed infection after 1st repair), Cholecystectomy 2016, COLONOSCOPY Past Anesthesia/Blood Transfusion Reactions: No Reported Reaction Past Psychological History: No Psychological Hx Reported Smoking Status: Former smoker Past Alcohol Use History: None Reported Past Drug Use History: None Reported - Past Family History Mother Family Medical History: No Reported History, Dementia Additional Family Medical History / Comment(s): father is alive, 87 years old, no medical problems. Patient has a sister with no significant medical history. He is has 2 kids, son has type 2 diabetes, daughter had gestational diabetes General Exam - General Exam Comments Initial Comments: GENERAL: Patient is well-developed and well-nourished. Patient is nontoxic and well- hydrated and is in mild distress. ENT: Neck is soft and supple. No significant lymphadenopathy is noted. Oropharynx is clear. Moist mucous membranes. Neck has full range of motion without eliciting any pain. EYES: The sclera were anicteric and conjunctiva were pink and moist. Extraocular movements were intact and pupils were equal round and reactive to light. Eyelids were unremarkable. PULMONARY: Unlabored respirations. Patient has diminished breath sounds on the right base CARDIOVASCULAR: There is a regular rate and rhythm without any murmurs gallops or rubs. ABDOMEN: Soft and nontender with normal bowel sounds. No palpable organomegaly was noted. There is no palpable pulsatile mass. SKIN: Skin is clear with no lesions or rashes and otherwise unremarkable. NEUROLOGIC: Patient is alert and oriented x3. Cranial nerves II through XII are grossly intact. Motor and sensory are also intact. Normal speech, volume and content. Symmetrical smile. MUSCULOSKELETAL: Normal extremities with adequate strength and full range of motion. Patient's chronic cellulitis bilateral legs. LYMPHATICS: No significant lymphadenopathy is noted PSYCHIATRIC: Normal psychiatric evaluation. Normal interpersonal interactions appears functionally intact in deals appropriately with others. No signs of depression. No signs of anxiety. Limitations: no limitations Course Vital Signs 02/13/18 02/13/18 02/13/18 10:42 11:03 11:45 Temperature 98.7 F Pulse Rate 96 95 Pulse Rate [ 65 Jtac ] Respiratory 18 22 18 Rate Blood Pressure 146/65 162/71 O2 Sat by Pulse 96 96 Oximetry Medical Decision Making - Medical Decision Making EKG shows normal sinus rhythm at [address] interval is 170 QRS is 80 QT interval 460 QTC is 469. Patient's EKG shows no ST segment elevation. Chest x-ray shows some fullness in the right hilar area but the patient is not complaining of coughing and there is no white count to correlate for pneumonia. Patient's chest pain is intermittent and unusual for the patient so I believe he is having unstable angina so I will start the patient on heparin. I spoke with Dr. Covington she agrees to admit the patient I wrote admitting orders to continue the heparin Nitropaste and aspirin on the floor. I also consult to cardiology. - Lab Data Result diagrams: 02/13/18 10:50 02/13/18 10:50 Lab Results 02/13/18 02/13/18 02/13/18 Range/Units 10:50 10:50 10:50 WBC 7.3 (3.8-10.6) k/uL RBC 3.33 L (4.30-5.90) m/uL Hgb 8.9 L (13.0-17.5) gm/dL Hct 28.2 L (39.0-53.0) % MCV 84.6 (80.0-100.0) fL MCH 26.6 (25.0-35.0) pg MCHC 31.4 (31.0-37.0) g/dL RDW 18.1 H (11.5-15.5) % Plt Count 153 (150-450) k/uL Neutrophils % 78 % Lymphocytes % 16 % Monocytes % 4 % Eosinophils % 1 % Basophils % 0 % Neutrophils # 5.7 (1.3-7.7) k/uL Lymphocytes # 1.1 (1.0-4.8) k/uL Monocytes # 0.3 (0-1.0) k/uL Eosinophils # 0.1 (0-0.7) k/uL Basophils # 0.0 (0-0.2) k/uL Hypochromasia Moderate Anisocytosis Slight PT (9.0-12.0) sec INR (<1.2) APTT (22.0-30.0) sec Sodium 142 (137-145) mmol/L Potassium 4.3 (3.5-5.1) mmol/L Chloride 102 (98-107) mmol/L Carbon Dioxide 23 (22-30) mmol/L Anion Gap 17 mmol/L BUN 20 (9-20) mg/dL Creatinine 1.54 H (0.66-1.25) mg/dL Est GFR (CKD-EPI)AfAm 54 (>60 ml/min/1.73 sqM) Est GFR (CKD-EPI)NonAf 47 (>60 ml/min/1.73 sqM) Glucose 142 H (74-99) mg/dL Calcium 8.6 (8.4-10.2) mg/dL Magnesium 1.4 L (1.6-2.3) mg/dL Total Bilirubin 0.6 (0.2-1.3) mg/dL AST 32 (17-59) U/L ALT 34 (21-72) U/L Alkaline Phosphatase 108 (38-126) U/L Total Creatine Kinase 211 H (55-170) U/L CK-MB (CK-2) 2.4 (0.0-2.4) ng/mL CK-MB (CK-2) Rel Index 1.1 Troponin I <0.012 (0.000-0.034) ng/mL Total Protein 7.3 (6.3-8.2) g/dL Albumin 3.6 (3.5-5.0) g/dL 02/13/18 Range/Units 10:50 WBC (3.8-10.6) k/uL RBC (4.30-5.90) m/uL Hgb (13.0-17.5) gm/dL Hct (39.0-53.0) % MCV (80.0-100.0) fL MCH (25.0-35.0) pg MCHC (31.0-37.0) g/dL RDW (11.5-15.5) % Plt Count (150-450) k/uL Neutrophils % % Lymphocytes % % Monocytes % % Eosinophils % % Basophils % % Neutrophils # (1.3-7.7) k/uL Lymphocytes # (1.0-4.8) k/uL Monocytes # (0-1.0) k/uL Eosinophils # (0-0.7) k/uL Basophils # (0-0.2) k/uL Hypochromasia Anisocytosis PT 9.8 (9.0-12.0) sec INR 1.0 (<1.2) APTT 24.1 (22.0-30.0) sec Sodium (137-145) mmol/L Potassium (3.5-5.1) mmol/L Chloride (98-107) mmol/L Carbon Dioxide (22-30) mmol/L Anion Gap mmol/L BUN (9-20) mg/dL Creatinine (0.66-1.25) mg/dL Est GFR (CKD-EPI)AfAm (>60 ml/min/1.73 sqM) Est GFR (CKD-EPI)NonAf (>60 ml/min/1.73 sqM) Glucose (74-99) mg/dL Calcium (8.4-10.2) mg/dL Magnesium (1.6-2.3) mg/dL Total Bilirubin (0.2-1.3) mg/dL AST (17-59) U/L ALT (21-72) U/L Alkaline Phosphatase (38-126) U/L Total Creatine Kinase (55-170) U/L CK-MB (CK-2) (0.0-2.4) ng/mL CK-MB (CK-2) Rel Index Troponin I (0.000-0.034) ng/mL Total Protein (6.3-8.2) g/dL Albumin (3.5-5.0) g/dL Critical Care Time Critical Care Time: Yes Total Critical Care Time: 35 Disposition Clinical Impression: Unstable angina pectoris Disposition: ADMITTED IP TO THIS HOSP Referrals: Benjamin Johnson MD [Primary Care Provider] - 1-2 days Time of Disposition: 13:20
[2018-02-13 11:30] LABS: Anisocytosis Slight; Basophils % (A) 0 %; Eosinophils # (A) 0.1 k/uL (0-0.7); Eosinophils % (A) 1 %; HCT 28.2 % (39.0-53.0); HGB 8.9 gm/dL (13.0-17.5); Hypochromasia Moderate; Lymphocytes # (A) 1.1 k/uL (1.0-4.8); Lymphocytes % (A) 16 %; MCH 26.6 pg (25.0-35.0); MCHC 31.4 g/dL (31.0-37.0); MCV 84.6 fL (80.0-100.0); Mean Platelet Volume 8.4; Monocytes # (A) 0.3 k/uL (0-1.0); Monocytes % (A) 4 %; Neutrophils # (A) 5.7 k/uL (1.3-7.7); Neutrophils % (A) 78 %; Platelet Count 153 k/uL (150-450); RBC 3.33 m/uL (4.30-5.90); RDW 18.1 % (11.5-15.5); WBC 7.3 k/uL (3.8-10.6)
--- NOTE | 2018-02-13 11:46 | XR ---
EXAMINATION TYPE: XR chest 2V DATE OF EXAM: 02/13/2018 COMPARISON: NONE HISTORY: Shortness of breath TECHNIQUE: Frontal and lateral views of the chest are obtained. FINDINGS: Scattered senescent parenchymal changes noted. Right upper lobe and right perihilar infiltrate noted. Correlate for pneumonia. Follow-up until resol ution is advised to exclude other processes. Heart size is stable. Mediastinal structures are stable and grossly unremarkable. No evidence for hilar prominence. Degenerative changes dorsal spine. IMPRESSION: 1. Right upper lobe and right perihilar infiltrate noted. Correlate for pneumonia. Follow-up until re solution is advised to exclude other processes.
[2018-02-13 11:47] LABS: Albumin 3.6 g/dL (3.5-5.0); Calcium 8.6 mg/dL (8.4-10.2); Magnesium 1.4 mg/dL (1.6-2.3); Potassium 4.3 mmol/L (3.5-5.1); Total Bilirubin 0.6 mg/dL (0.2-1.3); Total Protein 7.3 g/dL (6.3-8.2)
[2018-02-13 11:55] LABS: Partial Thromboplastin Time 24.1 sec (22.0-30.0); Prothrombin Time 9.8 sec (9.0-12.0)
[2018-02-13 11:57] LABS: Creatine Kinase 211 U/L (55-170)
[2018-02-13 12:09] LABS: Creatine Kinase MB 2.4 ng/mL (0.0-2.4); Troponin I <0.012 ng/mL (0.000-0.034)
[2018-02-13] MEDS ORDERED: NITROGLYCERIN SL TABS 0.4 MG TAB SUBLINGUAL PRN (13:21)
[2018-02-13] MEDS ORDERED: HEPARIN SODIUM,PORCINE 5,000 UNIT/ML 1 ML VIAL IV ONE (14:02)
[2018-02-13] MEDS ORDERED: HEPARIN SOD,PORK IN 0.45% NACL 25,000 UNIT in 0.45% NACL 1 500ML.BAG IV SCH (14:15)
[2018-02-13] MEDS ORDERED: Magnesium Replacement Protocol 1 EACH MISC MISCELLANE PRN (14:45)
[2018-02-13] MEDS ORDERED: PNEUMOCOCCAL VACC-PNEUMOVAX 23 25 MCG/0.5 ML VIAL IM ONE (14:46)
[2018-02-13 14:48] LABS: Glucose,Whole Blood 80 mg/dL (75-99)
[2018-02-13] MEDS: MAGNESIUM SULFATE-D5W PMX 1 GM in DEXTROSE/WATER 1 100ML.BAG IVPB SCH ×3 (17:14→19:06)
[2018-02-13] MEDS: NITROGLYCERIN OINT 1 INCH/GM PACKET TOPICAL SCH (17:18)
[2018-02-13 17:19] LABS: Glucose,Whole Blood 166 mg/dL (75-99)
[2018-02-13] MEDS: amLODIPine 5 MG TAB PO SCH (18:02)
[2018-02-13 18:09] LABS: Creatine Kinase 207 U/L (55-170)
[2018-02-13 18:22] LABS: Troponin I <0.012 ng/mL (0.000-0.034)
[2018-02-13 18:23] LABS: Creatine Kinase MB 2.6 ng/mL (0.0-2.4)
[2018-02-13] MEDS: ACETAMINOPHEN TAB 325 MG TAB PO PRN (19:06)
[2018-02-13] MEDS: LISINOPRIL 10 MG TAB PO SCH (19:54)
[2018-02-13] MEDS: TAMSULOSIN 0.4 MG CAP.ER.24H PO SCH (19:55)
[2018-02-13] MEDS: ATORVASTATIN 40 MG TAB PO SCH (19:55)
[2018-02-13] MEDS: MONTELUKAST 10 MG TAB PO SCH (19:55)
[2018-02-13] MEDS: GABAPENTIN 300 MG CAP PO SCH (19:55)
[2018-02-13 20:58] LABS: Glucose,Whole Blood 279 mg/dL (75-99)
[2018-02-13] MEDS: IPRATROPIUM-ALBUTEROL 3 ML NEB INHALATION PRN (21:31)
[2018-02-13] MEDS: INSULIN ASPART 100 UNIT/ML 1 ML 10 ML VIAL SQ SCH (21:47)
[2018-02-13 23:04] LABS: Creatine Kinase 233 U/L (55-170)
[2018-02-13 23:15] LABS: Troponin I <0.012 ng/mL (0.000-0.034)
[2018-02-13 23:16] LABS: Creatine Kinase MB 2.8 ng/mL (0.0-2.4)
[2018-02-14] MEDS: NITROGLYCERIN OINT 1 INCH/GM PACKET TOPICAL SCH ×2 (01:05→05:54)
[2018-02-14] MEDS: ACETAMINOPHEN TAB 325 MG TAB PO PRN (01:07)
[2018-02-14 06:48] LABS: Glucose,Whole Blood 261 mg/dL (75-99)
[2018-02-14] MEDS: IPRATROPIUM-ALBUTEROL 3 ML NEB INHALATION PRN (07:05)
[2018-02-14] MEDS ORDERED: BUDESONIDE 0.5 MG/2 ML NEBU INHALATION PRN (08:49)
[2018-02-14] MEDS ORDERED: ASPIRIN 325 MG TAB PO SCH (09:00)
--- NOTE | 2018-02-14 10:04 | P.CNPUL ---
<Sirena Macdonald E - Last Filed: 02/14/18 14:40> History of Present Illness Consult date: 02/14/18 Requesting physician: Donald Covington Reason for consult: dyspnea Chief complaint: shortness of breath History of present illness: This is a 67-year-old male patient well known to our services. This patient was in the office yesterday with increasing severity of shortness of breath that had been ongoing over the past week. He also complained of some chest pain that was intermittent over the last few days as well. Patient was directed to the emergency room for further evaluation and workup. EKG was performed and showed no ST segment elevation. His chest x-ray did reveal some right hilar area possible infiltrate however has no fevers, chills, cough or white count at this time. Upon workup in the emergency room the patient was found to have some unstable angina and was admitted for further evaluation. Patient was put on a heparin drip and Nitropaste which seemed to help. Cardiology was put on consult as well. Echocardiogram is currently pending. His magnesium was noted to be 1.4 and is currently being replaced. His troponins were negative however there was an increase in his CK-MB. Upon examination today the patient's resting up in bed on 3 L of supplemental oxygen via nasal cannula. The patient does not utilize home oxygen. He did utilize his CPAP overnight. Patient is an ex-smoker and smoked approximately 1 pack per day for over 30 years. He continues to have some shortness of breath with exertion and activity. Denies any cough or sputum production at this time. He is afebrile, chest heaviness has improved. No further complaints. Review of Systems 14 point review of systems was completed and is negative unless noted above in the HPI Past Medical History Past Medical History: Heart Failure, COPD, Diabetes Mellitus, GERD/Reflux, Hyperlipidemia, Hypertension, Prostate Disorder, Skin Disorder, Sleep Apnea/CPAP /BIPAP Additional Past Medical History / Comment(s): IDDM type II, bilateral lower leg/ feet neuropathy, cellulitis bilateral lower legs bilaterally, GIOVANY with Cpap, BPH , hiatal hernia, urine incontinence/wears depends, benign colon polyp, 2017 tonsillitis with sepsis and had renal failure and temporary dialysis. History of Any Multi-Drug Resistant Organisms: None Reported Past Surgical History: Cholecystectomy, Hernia Repair, Orthopedic Surgery, Prostate Surgery Additional Past Surgical History / Comment(s): Carpal tunnel left wrist, TURP, umbilical hernia repair x2 (developed infection after 1st repair), COLONOSCOPIES/BENIGN POLYPECTOMY, egd. Past Anesthesia/Blood Transfusion Reactions: No Reported Reaction Additional Past Anesthesia/Blood Transfusion Reaction / Comment(s): Pt has received blood in past without reaction. Smoking Status: Former smoker Additional Drug Use History / Comment(s): Patient quit smoking in 1996 and had been a smoker of 3 packs per day since 1966. Possible alcohol abuse and quit drinking in 1983. - Past Family History Mother Family Medical History: Dementia, Neurologic Disorder Additional Family Medical History / Comment(s): Mother has parkinson's dx. Father Family Medical History: No Reported History Additional Family Medical History / Comment(s): Father is alive and 88yrs old with no major medical problems. Son(s) Family Medical History: Diabetes Mellitus Additional Family Medical History / Comment(s): Son has type II diabetes. Daughter(s) Additional Family Medical History / Comment(s): Patient has one daughter with gestational diabetes. Sister(s) Additional Family Medical History / Comment(s): Patient has 1 sister with no significant medical history. Medications and Allergies Home Medications Medication Instructions Recorded Confirmed Type Atorvastatin [Lipitor] 40 mg PO HS 09/11/14 02/13/18 History Furosemide [Lasix] 40 mg PO BID 09/11/14 02/13/18 History Omeprazole [PriLOSEC] 20 mg PO AC-BRKFST 09/03/15 02/13/18 History Albuterol Nebulized [Ventolin 2.5 mg INHALATION Q6H PRN 09/20/17 02/13/18 History Nebulized] Albuterol Sulfate [Proair 1 puff INHALATION RT-QID PRN 09/20/17 02/13/18 History Respiclick] Beclomethasone Dipropionate [Qvar 1 puff INHALATION RT-BID PRN 09/20/17 History 80 mcg] Calcitriol 0.5 mcg PO MO 09/20/17 02/13/18 History Montelukast Sodium [Singulair] 10 mg PO HS 09/20/17 02/13/18 History Multivitamins, Thera [Multivitamin 1 tab PO DAILY 09/20/17 02/13/18 History (formulary)] Tamsulosin [Flomax] 0.4 mg PO HS 09/20/17 02/13/18 History amLODIPine BESYLATE [Norvasc] 10 mg PO QAM 09/20/17 02/13/18 History Gabapentin [Neurontin] 300 mg PO BID 10/24/17 02/13/18 History Cholecalciferol (Vitamin D3) 10,000 unit PO DAILY 01/09/18 02/13/18 History [Vitamin D3] Ferrous Sulfate [Feosol] 650 mg PO DAILY 01/09/18 02/13/18 History amLODIPine [Norvasc] 5 mg PO AC-SUPPER 01/09/18 02/13/18 History metFORMIN HCL 1,000 mg PO BID 01/09/18 02/13/18 History Insulin NPH Hum/Reg Insulin Hm 100 unit SQ AC-LUNCH 02/13/18 02/13/18 History [NovoLIN 70-30 100 UNIT/ML VIAL] Insulin NPH Hum/Reg Insulin Hm 126 unit SQ AC-BRKFST 02/13/18 02/13/18 History [NovoLIN 70-30 100 UNIT/ML VIAL] Insulin NPH Hum/Reg Insulin Hm 126 unit SQ AC-SUPPER 02/13/18 02/13/18 History [NovoLIN 70-30 100 UNIT/ML VIAL] Ipratropium-Albuterol Nebulize 3 ml INHALATION RT-QID PRN 02/13/18 02/13/18 History [Duoneb 0.5 mg-3 mg/3 ml Soln] Magnesium Oxide [Mag-Oxide] 200 mg PO DAILY 02/13/18 02/13/18 History Quinapril HCl 10 mg PO HS 02/13/18 02/13/18 History Quinapril HCl 20 mg PO DAILY 02/13/18 02/13/18 History Aspirin 81 mg PO DAILY chew 02/14/18 Rx Collagenase [Santyl] 1 applic TOPICAL DAILY #1 tube 02/14/18 Rx Levofloxacin [Levaquin] 750 mg PO DAILY #7 tab 02/14/18 Rx Allergies Allergy/AdvReac Type Severity Reaction Status Date / Time No Known Allergies Allergy Verified 02/13/18 11:06 Physical Exam Vitals: Vital Signs Temp Pulse Pulse Pulse Resp BP BP 02/14/18 08:00 98.4 F 96 18 182/72 02/14/18 07:12 96 02/14/18 07:06 95 02/14/18 04:45 166/81 02/14/18 04:00 98.3 F 92 16 183/73 02/14/18 03:42 91 18 02/13/18 23:59 98.2 F 93 18 164/68 02/13/18 23:12 93 16 02/13/18 21:43 90 02/13/18 21:32 91 02/13/18 20:00 95 16 02/13/18 19:39 98.9 F 97 16 174/69 02/13/18 17:30 82 18 153/85 02/13/18 16:00 98 18 02/13/18 14:49 97.6 F 98 18 198/84 02/13/18 13:51 97.5 F L 93 18 160/70 02/13/18 11:45 95 18 162/71 02/13/18 11:03 65 22 02/13/18 10:42 98.7 F 96 18 146/65 Pulse Ox 02/14/18 08:00 93 L 02/14/18 07:12 02/14/18 07:06 95 02/14/18 04:45 02/14/18 04:00 96 02/14/18 03:42 02/13/18 23:59 92 L 02/13/18 23:12 02/13/18 21:43 02/13/18 21:32 02/13/18 20:00 02/13/18 19:39 93 L 02/13/18 17:30 98 02/13/18 16:00 02/13/18 14:49 98 02/13/18 13:51 93 L 02/13/18 11:45 96 02/13/18 11:03 02/13/18 10:42 96 Intake and Output 02/13/18 02/14/18 02/14/18 22:59 06:59 14:59 Intake Total 240 199.226 Balance 240 199.226 Intake: Intake, IV Titration 199.226 Amount Heparin Sod,Pork in 0.45% 199.226 NaCl 25,000 unit In 0.45 % NaCl 1 500ml.bag @ 5.8 UNITS/KG/HR 20.09 mls/hr IV .Q24H [facility] Rx#: [id number] Oral 240 Other: Voiding Method Urinal Urinal # Voids 3 Weight 182.4 kg GENERAL EXAM: Alert, comfortable in no apparent distress. HEAD: Normocephalic. EYES: Normal reaction of pupils, equal size. NOSE: Clear with pink turbinates. THROAT: No erythema or exudates. NECK: No masses, no JVD. CHEST: No chest wall deformity. LUNGS: Poor air entry with no crackles, wheeze, rhonchi or dullness. CVS: S1 and S2 normal with no audible mumurs, regular rhythm. ABDOMEN: No hepatosplenomegaly, normal bowel sounds, no guarding or rigidity. EXTREMITIES: +1 edema noted, pedal pulses palpable. Chronic bilateral lower action a cellulitis CENTRAL NERVOUS SYSTEM: No focal deficits, tone is normal in all 4 extremities. Results - Laboratory Findings CBC and BMP: 02/13/18 10:50 02/13/18 10:50 PT/INR, D-dimer PT 9.8 sec (9.0-12.0) 02/13/18 10:50 INR 1.0 (<1.2) 02/13/18 10:50 Abnormal lab findings: Abnormal Labs 02/13/18 02/13/18 02/13/18 10:50 10:50 10:50 RBC 3.33 L Hgb 8.9 L Hct 28.2 L RDW 18.1 H Creatinine 1.54 H Glucose 142 H POC Glucose (mg/dL) Magnesium 1.4 L Total Creatine Kinase 211 H CK-MB (CK-2) HDL Cholesterol 02/13/18 02/13/18 02/13/18 17:13 17:16 20:56 RBC Hgb Hct RDW Creatinine Glucose POC Glucose (mg/dL) 166 H 279 H Magnesium Total Creatine Kinase 207 H CK-MB (CK-2) 2.6 H* HDL Cholesterol 02/13/18 02/14/18 02/14/18 22:13 06:46 08:20 RBC Hgb Hct RDW Creatinine Glucose POC Glucose (mg/dL) 261 H Magnesium Total Creatine Kinase 233 H CK-MB (CK-2) 2.8 H* HDL Cholesterol 39 L - Diagnostic Findings Chest x-ray: report reviewed, image reviewed Assessment and Plan Assessment: Assessment Unstable angina Acute hypoxic respiratory failure requiring supplemental oxygen Right side pneumonia COPD Hypomagnesemia GIOVANY Diabetes mellitus Hyperlipidemia Hypertension History of CHF Plan Medications have been reviewed and will be continued as ordered. Antibiotics. We 'll add scheduled DuoNeb to his current nebulizer treatments. Heparin per cardiology's recommendations. Continue to monitor and replace electrolytes. Echocardiogram pending. Continue with pulmonary hygiene, coughing and deep breathing exercises, and supportive care. Supplemental oxygen to maintain oxygen saturations of 92% or better. Use his home CPAP every night. Continue nebulizer treatments. GI and DVT prophylaxis. We will continue to monitor labs/ results and adjust treatment as necessary. Further recommendations pending. I performed an examination of the patient and discussed their management with the nurse practitioner. I have reviewed the nurse practitioner's note and agree with the documented findings and plan of care. <Ame Oneil - Last Filed: 02/14/18 15:15> Physical Exam Osteopathic Statement: *. No significant issues noted on an osteopathic structural exam other than those noted in the History and Physical/Consult. Vitals: Vital Signs Temp Pulse Pulse Pulse Resp BP Pulse Ox 02/14/18 13:45 88 L 02/14/18 11:56 97.5 F L 98 18 184/72 95 02/14/18 11:00 93 02/14/18 10:52 92 02/14/18 08:00 98.4 F 96 18 182/72 93 L 02/14/18 07:12 96 02/14/18 07:06 95 95 02/14/18 04:45 166/81 02/14/18 04:00 98.3 F 92 16 183/73 96 02/14/18 03:42 91 18 02/13/18 23:59 98.2 F 93 18 164/68 92 L 02/13/18 23:12 93 16 02/13/18 21:43 90 02/13/18 21:32 91 02/13/18 20:00 95 16 02/13/18 19:39 98.9 F 97 16 174/69 93 L 02/13/18 17:30 82 18 153/85 98 02/13/18 16:00 98 18 Intake and Output 02/14/18 02/14/18 02/14/18 06:59 14:59 22:59 Intake Total 199.226 360 Balance 199.226 360 Intake: Intake, IV Titration 199.226 Amount Heparin Sod,Pork in 0.45% 199.226 NaCl 25,000 unit In 0.45 % NaCl 1 500ml.bag @ 5.8 UNITS/KG/HR 20.09 mls/hr IV .Q24H [facility] Rx#: [id number] Oral 360 Other: Voiding Method Urinal # Voids 3 Weight 182.4 kg Results - Laboratory Findings CBC and BMP: 02/13/18 10:50 02/13/18 10:50 PT/INR, D-dimer PT 9.8 sec (9.0-12.0) 02/13/18 10:50 INR 1.0 (<1.2) 02/13/18 10:50 D-Dimer 1.49 mg/L FEU (<0.60) H 02/14/18 08:20 Abnormal lab findings: Abnormal Labs 02/13/18 02/13/18 02/13/18 10:50 10:50 10:50 RBC 3.33 L Hgb 8.9 L Hct 28.2 L RDW 18.1 H D-Dimer Creatinine 1.54 H Glucose 142 H POC Glucose (mg/dL) Hemoglobin A1c Magnesium 1.4 L Total Creatine Kinase 211 H CK-MB (CK-2) HDL Cholesterol 02/13/18 02/13/18 02/13/18 17:13 17:16 20:56 RBC Hgb Hct RDW D-Dimer Creatinine Glucose POC Glucose (mg/dL) 166 H 279 H Hemoglobin A1c Magnesium Total Creatine Kinase 207 H CK-MB (CK-2) 2.6 H* HDL Cholesterol 02/13/18 02/13/18 02/14/18 22:13 22:13 06:46 RBC Hgb Hct RDW D-Dimer Creatinine Glucose POC Glucose (mg/dL) 261 H Hemoglobin A1c 7.8 H Magnesium Total Creatine Kinase 233 H CK-MB (CK-2) 2.8 H* HDL Cholesterol 02/14/18 02/14/18 02/14/18 08:20 08:20 12:19 RBC Hgb Hct RDW D-Dimer 1.49 H Creatinine Glucose POC Glucose (mg/dL) 346 H Hemoglobin A1c Magnesium Total Creatine Kinase CK-MB (CK-2) HDL Cholesterol 39 L Assessment and Plan Assessment: Doubt PE, Wells Score 0, low risk group. We will order lower extremity dopplers. Continue ABX. Repeat CXR in AM. Increase Pulmicort to 1mg BID. Avoid systemic steroids due to hyperglycemia and uncontrolled DM2. CPAP nightly. Sputum culture. ~Ame Oneil DO
[2018-02-14] MEDS: INSULIN ASPART 100 UNIT/ML 1 ML 10 ML VIAL SQ SCH ×5 (10:05→20:40)
[2018-02-14] MEDS: amLODIPine 10 MG TAB PO SCH (10:07)
[2018-02-14] MEDS: ASPIRIN 81 MG PO SCH (10:07)
[2018-02-14] MEDS: PANTOPRAZOLE 40 MG TABLET PO SCH (10:07)
[2018-02-14] MEDS: CHOLECALCIFEROL 1,000 UNIT TAB PO SCH (10:08)
[2018-02-14] MEDS: GABAPENTIN 300 MG CAP PO SCH ×2 (10:09→20:39)
[2018-02-14] MEDS: FERROUS SULFATE 325 MG TAB PO SCH (10:09)
[2018-02-14] MEDS: LISINOPRIL 20 MG TAB PO SCH (10:09)
[2018-02-14] MEDS: MAGNESIUM OXIDE 400 MG TAB PO SCH (10:10)
--- NOTE | 2018-02-14 10:40 | ECHOF ---
Referral Reason:cp, sob MEASUREMENTS -------- HEIGHT: 190.5 cm WEIGHT: 181.4 kg BP: 198/84 RVIDd: 4.0 cm (< 3.3) IVSd: 1.1 cm (0.6 - 1.1) LVIDd: 5.7 cm (3.9 - 5.3) LVPWd: 1.0 cm (0.6 - 1.1) IVSs: 1.6 cm LVIDs: 2.7 cm LVPWs: 1.5 cm LAESV Index (A-L): 24.43 ml/m Ao Diam: 3.5 cm (2.0 - 3.7) AV Cusp: 2.0 cm (1.5 - 2.6) LA Diam: 3.4 cm (2.7 - 3.8) MV E Rogelio: 1.37 m/s MV DecT: 354 ms MV A Rogelio: 0.98 m/s MV E/A Ratio: 1.39 AV maxP.08 mmHg AV meanP.62 mmHg RAP: 5.00 mmHg RVSP: 15.22 mmHg FINDINGS -------- Sinus rhythm. This was a technically difficult study with suboptimal views. The left ventricular size is normal. Left ventricular wall thickness is normal. Overall left vent ricular systolic function is normal with, an EF between 60 - 65 %. The right ventricle is moderately enlarged. Normal LA size by volume 22+/-6 ml/m2. The right atrium is normal in size. 3ml of Lumason was utilized for enhancement of images. There is mild aortic valve sclerosis. There is no evidence of aortic regurgitation. There is no e vidence of aortic stenosis. The mitral valve leaflets are mildly thickened. There is trace to mild mitral regurgitation. Trace tricuspid regurgitation present. Right ventricular systolic pressure is normal at < 35 mmHg. There is no evidence of pulmonary hypertension. The pulmonic valve was not well visualized. The aortic root size is normal. IVC Not well visulized. There is no pericardial effusion. CONCLUSIONS -------- 1. Sinus rhythm. 2. This was a technically difficult study with suboptimal views. 3. The left ventricular size is normal. 4. Left ventricular wall thickness is normal. 5. Overall left ventricular systolic function is normal with, an EF between 60 - 65 %. 6. The right ventricle is moderately enlarged. 7. Normal LA size by volume 22+/-6 ml/m2. 8. 3ml of Lumason was utilized for enhancement of images. 9. There is mild aortic valve sclerosis. 10. The mitral valve leaflets are mildly thickened. 11. There is trace to mild mitral regurgitation. 12. Trace tricuspid regurgitation present. 13. Right ventricular systolic pressure is normal at < 35 mmHg. 14. There is no evidence of pulmonary hypertension. 15. The pulmonic valve was not well visualized. 16. The aortic root size is normal. 17. IVC Not well visulized. 18. There is no pericardial effusion. CIRCULATION TENDER: Fernandez Dsouza RDCS
[2018-02-14] MEDS: IPRATROPIUM-ALBUTEROL 3 ML NEB INHALATION SCH ×2 (10:52→20:18)
--- NOTE | 2018-02-14 11:51 | P.CRDCN ---
History of Present Illness Consult date: 02/14/18 History of present illness: Mr. Castaneda is a pleasant 67-year-old male past medical history significant for COPD, diabetes mellitus, hyperlipidemia, hypertension, sleep apnea, former tobacco use and morbid obesity. He follows with Dr. Fierro in the office. He was just seen in the office in December for pre-surgical clearance for a gastric sleeve procedure and was cleared for surgery. We have been asked to see him today for complaints of chest pain. 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 He states since around Tuesday of last week he has been feeling increasingly short of breath, worse than his baseline, along with a heavy feeling in his chest in the left precordial region. The pain was intermittent in nature and seemed to be associated with his breathing. The pain is worse with deep inspiration and worse when he is trying to catch his breath. Since being admitted he has been receiving breathing treatments and has been bringing up yellow sputum with tinges of red. He denies any further symptoms of chest heaviness although continues to have shortness of breath. He states his chest feels as though things are breaking up but he is continuing to cough. EKG reveals sinus mechanism with non-specific ST abnormalities, these are consistent with old EKGs. Chest xray reveals evidence of right upper lobe infiltrate. Echocardiogram performed reveals preserved left ventricular systolic function with ejection fraction 60-65%. Laboratory data reviewed, cardiac enzymes negative 3, LDL 33, hemoglobin 8.9, platelets 153, creatinine 1.54, potassium 4.3, magnesium on admission 1.4 was replaced repeat this morning 2.0. Current cardiac medications include atorvastatin 40 mg daily, Lasix 40 mg twice a day, quinapril 20 mg in the morning 10 mg at night and amlodipine 10 mg in the morning and 5 mg at night. Most recent Lexiscan stress test performed March 2017 was negative for reversible cardiac ischemia. Review of Systems At the time my exam: CONSTITUTIONAL: Denies fever. Complains of chills. EYES: Denies blurred vision. Denies vision changes. Denies eye pain. EARS, NOSE, MOUTH & THROAT: Denies headache. Denies sore throat. Denies ear pain. CARDIOVASCULAR: Denies chest pain. Complains of shortness of breath. Denies orthopnea. Denies PND. Denies palpitations. RESPIRATORY: Complains of cough. GASTROINTESTINAL: Denies abdominal pain. Denies diarrhea. Denies constipation. Denies nausea. Denies vomiting. MUSCULOSKELETAL: Denies myalgias. INTEGUMENTARY: Denies pruitis. Denies rash. NEUROLOGIC: Denies numbness. Denies tingling. Denies weakness. PSYCHIATRIC: Denies anxiety. Denies depression. ENDOCRINE: Denies fatigue. Denies weight change. Denies polydipsia. Denies polyurina. GENITOURINARY: Denies burning, hematuria or urgency with micturation. HEMATOLOGIC: Denies history of anemia. Denies bleeding. Past Medical History Past Medical History: Heart Failure, COPD, Diabetes Mellitus, GERD/Reflux, Hyperlipidemia, Hypertension, Prostate Disorder, Skin Disorder, Sleep Apnea/CPAP /BIPAP Additional Past Medical History / Comment(s): IDDM type II, bilateral lower leg/ feet neuropathy, cellulitis bilateral lower legs bilaterally, GIOVANY with Cpap, BPH , hiatal hernia, urine incontinence/wears depends, benign colon polyp, 2017 tonsillitis with sepsis and had renal failure and temporary dialysis. History of Any Multi-Drug Resistant Organisms: None Reported Past Surgical History: Cholecystectomy, Hernia Repair, Orthopedic Surgery, Prostate Surgery Additional Past Surgical History / Comment(s): Carpal tunnel left wrist, TURP, umbilical hernia repair x2 (developed infection after 1st repair), COLONOSCOPIES/BENIGN POLYPECTOMY, egd. Past Anesthesia/Blood Transfusion Reactions: No Reported Reaction Additional Past Anesthesia/Blood Transfusion Reaction / Comment(s): Pt has received blood in past without reaction. Smoking Status: Former smoker - Past Family History Mother Family Medical History: Dementia, Neurologic Disorder Additional Family Medical History / Comment(s): Mother has parkinson's dx. Father Family Medical History: No Reported History Additional Family Medical History / Comment(s): Father is alive and 88yrs old. Son(s) Family Medical History: Diabetes Mellitus Additional Family Medical History / Comment(s): Son has type II diabetes. Daughter(s) Additional Family Medical History / Comment(s): Patient has one daughter with gestational diabetes. Sister(s) Additional Family Medical History / Comment(s): Patient has 1 sister with no significant medical history. Medications and Allergies Home Medications Medication Instructions Recorded Confirmed Type Atorvastatin [Lipitor] 40 mg PO HS 09/11/14 02/13/18 History Furosemide [Lasix] 40 mg PO BID 09/11/14 02/13/18 History Omeprazole [PriLOSEC] 20 mg PO AC-BRKFST 09/03/15 02/13/18 History Albuterol Nebulized [Ventolin 2.5 mg INHALATION Q6H PRN 09/20/17 02/13/18 History Nebulized] Albuterol Sulfate [Proair 1 puff INHALATION RT-QID PRN 09/20/17 02/13/18 History Respiclick] Beclomethasone Dipropionate [Qvar 1 puff INHALATION RT-BID PRN 09/20/17 History 80 mcg] Calcitriol 0.5 mcg PO MO 09/20/17 02/13/18 History Montelukast Sodium [Singulair] 10 mg PO HS 09/20/17 02/13/18 History Multivitamins, Thera [Multivitamin 1 tab PO DAILY 09/20/17 02/13/18 History (formulary)] Tamsulosin [Flomax] 0.4 mg PO HS 09/20/17 02/13/18 History amLODIPine BESYLATE [Norvasc] 10 mg PO QAM 09/20/17 02/13/18 History Gabapentin [Neurontin] 300 mg PO BID 10/24/17 02/13/18 History Cholecalciferol (Vitamin D3) 10,000 unit PO DAILY 01/09/18 02/13/18 History [Vitamin D3] Ferrous Sulfate [Feosol] 650 mg PO DAILY 01/09/18 02/13/18 History amLODIPine [Norvasc] 5 mg PO AC-SUPPER 01/09/18 02/13/18 History metFORMIN HCL 1,000 mg PO BID 01/09/18 02/13/18 History Insulin NPH Hum/Reg Insulin Hm 100 unit SQ AC-LUNCH 02/13/18 02/13/18 History [NovoLIN 70-30 100 UNIT/ML VIAL] Insulin NPH Hum/Reg Insulin Hm 126 unit SQ AC-BRKFST 02/13/18 02/13/18 History [NovoLIN 70-30 100 UNIT/ML VIAL] Insulin NPH Hum/Reg Insulin Hm 126 unit SQ AC-SUPPER 02/13/18 02/13/18 History [NovoLIN 70-30 100 UNIT/ML VIAL] Ipratropium-Albuterol Nebulize 3 ml INHALATION RT-QID PRN 02/13/18 02/13/18 History [Duoneb 0.5 mg-3 mg/3 ml Soln] Magnesium Oxide [Mag-Oxide] 200 mg PO DAILY 02/13/18 02/13/18 History Quinapril HCl 10 mg PO HS 02/13/18 02/13/18 History Quinapril HCl 20 mg PO DAILY 02/13/18 02/13/18 History Allergies Allergy/AdvReac Type Severity Reaction Status Date / Time No Known Allergies Allergy Verified 02/13/18 11:06 Physical Exam Vitals: Vital Signs Temp Pulse Pulse Pulse Resp BP BP 02/14/18 07:12 96 02/14/18 07:06 95 02/14/18 04:45 166/81 02/14/18 04:00 98.3 F 92 16 183/73 02/14/18 03:42 91 18 02/13/18 23:59 98.2 F 93 18 164/68 02/13/18 23:12 93 16 02/13/18 21:43 90 02/13/18 21:32 91 02/13/18 20:00 95 16 02/13/18 19:39 98.9 F 97 16 174/69 02/13/18 17:30 82 18 153/85 02/13/18 16:00 98 18 02/13/18 14:49 97.6 F 98 18 198/84 02/13/18 13:51 97.5 F L 93 18 160/70 02/13/18 11:45 95 18 162/71 02/13/18 11:03 65 22 02/13/18 10:42 98.7 F 96 18 146/65 Pulse Ox 02/14/18 07:12 02/14/18 07:06 95 02/14/18 04:45 02/14/18 04:00 96 02/14/18 03:42 02/13/18 23:59 92 L 02/13/18 23:12 02/13/18 21:43 02/13/18 21:32 02/13/18 20:00 02/13/18 19:39 93 L 02/13/18 17:30 98 02/13/18 16:00 02/13/18 14:49 98 04/09/18 13:51 93 L 02/13/18 11:45 96 02/13/18 11:03 02/13/18 10:42 96 Intake and Output 02/13/18 02/14/18 02/14/18 22:59 06:59 14:59 Intake Total 240 199.226 Balance 240 199.226 Intake: Intake, IV Titration 199.226 Amount Heparin Sod,Pork in 0.45% 199.226 NaCl 25,000 unit In 0.45 % NaCl 1 500ml.bag @ 5.8 UNITS/KG/HR 20.09 mls/hr IV .Q24H [facility] Rx#: [id number] Oral 240 Other: Voiding Method Urinal Urinal # Voids 3 Weight 182.4 kg Blood pressure 166/81 heart rate 92 afebrile maintaining oxygen saturation on 3 L nasal cannula GENERAL: This is a 67-year-old occasion male in no apparent distress at the time of my examination. Morbidly obese. HEENT: Head is atraumatic, normocephalic. Pupils are equal, round. Sclerae anicteric. Conjunctivae are clear. Mucous membranes of the mouth are moist. Neck is supple. There is no jugular venous distention. No carotid bruit is heard. LUNGS: Rhonchi. No wheezes or rales. No chest wall tenderness is noted on palpation or with deep breathing. Diminished bilaterally possibly secondary to body habitus. HEART: Regular rate and rhythm without murmurs, rubs or gallops. S1 and S2 heard. ABDOMEN: Soft, nontender. Bowel sounds are heard. No organomegaly noted. EXTREMITIES: No evidence of peripheral edema and no calf tenderness noted. VASCULAR: Radial and dorsalis pedis pulses palpated, no evidence of clubbing. NEUROLOGIC: Patient is awake, alert and oriented x3. Results 02/13/18 10:50 02/13/18 10:50 Cardiac Enzymes 02/13/18 02/13/18 02/13/18 Range/Units 10:50 10:50 17:13 AST 32 (17-59) U/L CK-MB (CK-2) 2.4 2.6 H* (0.0-2.4) ng/mL Troponin I <0.012 <0.012 (0.000-0.034) ng/mL 02/13/18 Range/Units 22:13 AST (17-59) U/L CK-MB (CK-2) 2.8 H* (0.0-2.4) ng/mL Troponin I <0.012 (0.000-0.034) ng/mL Coagulation 02/13/18 02/14/18 Range/Units 10:50 01:14 PT 9.8 (9.0-12.0) sec APTT 24.1 26.6 (22.0-30.0) sec CBC 02/13/18 Range/Units 10:50 WBC 7.3 (3.8-10.6) k/uL RBC 3.33 L (4.30-5.90) m/uL Hgb 8.9 L (13.0-17.5) gm/dL Hct 28.2 L (39.0-53.0) % Plt Count 153 (150-450) k/uL Comprehensive Metabolic Panel 02/13/18 Range/Units 10:50 Sodium 142 (137-145) mmol/L Potassium 4.3 (3.5-5.1) mmol/L Chloride 102 (98-107) mmol/L Carbon Dioxide 23 (22-30) mmol/L BUN 20 (9-20) mg/dL Creatinine 1.54 H (0.66-1.25) mg/dL Glucose 142 H (74-99) mg/dL Calcium 8.6 (8.4-10.2) mg/dL AST 32 (17-59) U/L ALT 34 (21-72) U/L Alkaline Phosphatase 108 (38-126) U/L Total Protein 7.3 (6.3-8.2) g/dL Albumin 3.6 (3.5-5.0) g/dL Current Medications Generic Name Dose Route Start Last Admin Trade Name Freq PRN Reason Stop Dose Admin Acetaminophen 650 mg 02/13/18 18:55 02/14/18 01:07 Tylenol Tab PO 650 mg Q4HR PRN Administration Fever and/ or Pain Albuterol/Ipratropium 3 ml 02/13/18 18:56 02/14/18 07:05 Duoneb 0.5 Mg-3 Mg/3 Ml Soln INHALATION 3 ml RT-QID PRN Administration Shortness Of Breath Amlodipine Besylate 5 mg 02/13/18 17:30 02/13/18 18:02 Norvasc PO 5 mg AC-SUPPER [facility] Administration Amlodipine Besylate 10 mg 02/14/18 09:00 Norvasc PO QAM [facility] Aspirin 81 mg 02/14/18 09:00 Aspirin PO DAILY [facility] Atorvastatin Calcium 40 mg 02/13/18 21:00 02/13/18 19:55 Lipitor PO 40 mg HS [facility] Administration Cholecalciferol 10,000 unit 02/14/18 09:00 Vitamin D3 PO DAILY [facility] Ferrous Sulfate 650 mg 02/14/18 09:00 Feosol PO DAILY [facility] Gabapentin 300 mg 02/13/18 21:00 02/13/18 19:55 Neurontin PO 300 mg BID [facility] Administration Heparin Sodium/Sodium Chloride 500 mls @ 20.09 mls/hr 02/13/18 14:15 02:41 25,000 unit/ Sodium Chloride IV 8.97 units/kg/hr .Q24H [facility] 31.1 mls/hr Protocol Titration 5.8 UNITS/KG/HR Insulin Aspart 0 unit 02/13/18 21:00 02/13/18 21:47 Novolog SQ 11 unit ACHS [facility] Administration Protocol Lisinopril 10 mg 02/13/18 21:00 02/13/18 19:54 Zestril PO 10 mg HS [facility] Administration Lisinopril 20 mg 02/14/18 09:00 Zestril PO DAILY [facility] Magnesium Oxide 200 mg 02/14/18 09:00 Mag-Ox PO DAILY [facility] Miscellaneous Information 1 each 02/13/18 14:45 Magnesium Per Protocol MISCELLANE DAILY PRN Per Protocol Protocol Montelukast Sodium 10 mg 02/13/18 21:00 02/13/18 19:55 Singulair PO 10 mg HS [facility] Administration Multivitamins 1 each 02/14/18 12:00 Theragran PO DAILY@1200 [facility] Nitroglycerin 1 inch 02/13/18 18:00 02/14/18 05:54 Nitro-Bid Oint TOPICAL Not Given Q6HR [facility] Nitroglycerin 0.4 mg 02/13/18 13:21 Nitrostat SUBLINGUAL Q5M PRN Chest Pain Pantoprazole Sodium 40 mg 02/14/18 07:30 Protonix PO AC-BRKFST [facility] Tamsulosin HCl 0.4 mg 02/13/18 21:00 02/13/18 19:55 Flomax PO 0.4 mg HS [facility] Administration Intake and Output 02/13/18 02/14/18 02/14/18 22:59 06:59 14:59 Intake Total 240 199.226 Balance 240 199.226 Intake: Intake, IV Titration 199.226 Amount Heparin Sod,Pork in 0.45% 199.226 NaCl 25,000 unit In 0.45 % NaCl 1 500ml.bag @ 5.8 UNITS/KG/HR 20.09 mls/hr IV .Q24H [facility] Rx#: [id number] Oral 240 Other: Voiding Method Urinal Urinal # Voids 3 Weight 182.4 kg 02/13/18 10:50 02/13/18 10:50 Assessment and Plan Assessment: ASSESSMENT 1. Chest pain, atypical. An acute coronary event has been ruled out with negative cardiac enzymes and no EKG signs of ischemia. 2. Hypertension 3. Hyperlipidemia 4. Diabetes mellitus 5. COPD 6. Former tobacco use 7. Morbid obesity PLAN 2D echocardiogram has been reviewed. An acute coronary event has been ruled out. Check D-dimer. Medical management for probable lung infection causing increasing shortness of breath and pleuritic chest pain. No further cardiac work-up. Follow up with Dr. Fierro. Thank you kindly for this consultation. Nurse Practitioner note has been reviewed, I agree with a documented findings and plan of care. Patient was seen and examined.
[2018-02-14 12:23] LABS: Glucose,Whole Blood 346 mg/dL (75-99)
[2018-02-14] MEDS: MULTIVITAMINS, THERA 1 EACH TAB PO SCH (13:18)
[2018-02-14] MEDS: COLLAGENASE 250 UNIT/GM OINTMENT 30 GM TUBE TOPICAL SCH (13:19)
[2018-02-14 13:50] LABS: Hemoglobin A1C 7.8 % (4.0-6.0)
[2018-02-14] MEDS ORDERED: LEVOFLOXACIN 750MG-D5W PMX 750 MG in DEXTROSE/WATER 1 150ML.BAG IVPB SCH (14:00)
--- NOTE | 2018-02-14 14:01 | P.HPIM ---
History of Present Illness H&P Date: 02/14/18 Chief Complaint: Chest pain difficulty breathing This is a 67-year-old male patient of Dr. Johnson with a past medical history of chronic heart failure, COPD, diabetes mellitus type 2 insulin requiring, hypertension, benign prostatic hypertrophy, gastroesophageal reflux disease, hyperlipidemia, obstructive sleep apnea with CPAP, morbid obesity with planned for gastric sleeve with Dr. Ayala in the near future. Patient complains of heaviness on his chest and his breathing difficulty. He denies any pain with deep breathing. His chest pain occurs when he is laying down. He denies any nausea vomiting or diarrhea. There's been no abdominal pain. He denies any cough or fever or chills. He denies any recent smoke exposure. Patient presented to [facility] emergency center. Chest x-ray showed right upper lobe and right perihilar infiltrate. Correlate for pneumonia. EKG was normal sinus rhythm with no ST elevation. Hemoglobin was 8.9, creatinine 1.54. Troponins have been negative on 3 draws. Patient was started on heparin drip, Nitropaste and aspirin and placed in the observation unit and cardiology consult requested. Consult with pulmonary medicine for shortness of breath, echocardiogram has been ordered as well as lipid panel and hemoglobin A1c. His last hemoglobin A1c in October was 9.6. Repeat hemoglobin A1c will be obtained. Patient is currently on large dose of 7033 times daily with meals and follows with Dr. Schmidt. He last saw her one half to 2 months ago for clearance for his bariatric surgery. He has been diabetic for more than 30 years. Patient was ambulated and pulse ox dropped down to 85% and patient has been started on IV Levaquin for pneumonia as well as nebulizer treatments. Patient has brought his CPAP from home which she is last night. Patient has a diabetic ulcer on the left heel that is present on admission. He states he has had this since last summer when he was in a longterm and he had to move himself by lifting himself with his heels. He does not see anyone for treatment of this. Review of Systems All systems: negative Constitutional: Denies chills, Denies fever Eyes: denies blurred vision, denies pain Ears, nose, mouth and throat: Denies headache, Denies sore throat Cardiovascular: Reports chest pain, Reports decreased exercise tolerance, Reports dyspnea on exertion, Reports leg edema, Reports shortness of breath, Denies lightheadedness, Denies syncope Respiratory: Reports dyspnea, Denies cough, Denies cough with sputum, Denies excessive sputum, Denies hemoptysis, Denies home oxygen, Denies wheezing Gastrointestinal: Denies abdominal pain, Denies diarrhea, Denies nausea, Denies vomiting Musculoskeletal: Denies myalgias Integumentary: Reports wounds, Denies pruritus, Denies rash Neurological: Denies numbness, Denies weakness Psychiatric: Denies anxiety, Denies depression Endocrine: Denies fatigue, Denies weight change Past Medical History Past Medical History: Heart Failure, COPD, Diabetes Mellitus, GERD/Reflux, Hyperlipidemia, Hypertension, Prostate Disorder, Skin Disorder, Sleep Apnea/CPAP /BIPAP Additional Past Medical History / Comment(s): IDDM type II, bilateral lower leg/ feet neuropathy, cellulitis bilateral lower legs bilaterally, GIOVANY with Cpap, BPH , hiatal hernia, urine incontinence/wears depends, benign colon polyp, 2017 tonsillitis with sepsis and had renal failure and temporary dialysis. History of Any Multi-Drug Resistant Organisms: None Reported Past Surgical History: Cholecystectomy, Hernia Repair, Orthopedic Surgery, Prostate Surgery Additional Past Surgical History / Comment(s): Carpal tunnel left wrist, TURP, umbilical hernia repair x2 (developed infection after 1st repair), COLONOSCOPIES/BENIGN POLYPECTOMY, egd. Past Anesthesia/Blood Transfusion Reactions: No Reported Reaction Additional Past Anesthesia/Blood Transfusion Reaction / Comment(s): Pt has received blood in past without reaction. Smoking Status: Former smoker Additional Drug Use History / Comment(s): Patient quit smoking in 1996 and had been a smoker of 3 packs per day since 1966. Possible alcohol abuse and quit drinking in 1983. - Past Family History Mother Family Medical History: Dementia, Neurologic Disorder Additional Family Medical History / Comment(s): Mother has parkinson's dx. Father Family Medical History: No Reported History Additional Family Medical History / Comment(s): Father is alive and 88yrs old with no major medical problems. Son(s) Family Medical History: Diabetes Mellitus Additional Family Medical History / Comment(s): Son has type II diabetes. Daughter(s) Additional Family Medical History / Comment(s): Patient has one daughter with gestational diabetes. Sister(s) Additional Family Medical History / Comment(s): Patient has 1 sister with no significant medical history. Medications and Allergies Home Medications Medication Instructions Recorded Confirmed Type Atorvastatin [Lipitor] 40 mg PO HS 09/11/14 02/13/18 History Furosemide [Lasix] 40 mg PO BID 09/11/14 02/13/18 History Omeprazole [PriLOSEC] 20 mg PO AC-BRKFST 09/03/15 02/13/18 History Albuterol Nebulized [Ventolin 2.5 mg INHALATION Q6H PRN 09/20/17 02/13/18 History Nebulized] Albuterol Sulfate [Proair 1 puff INHALATION RT-QID PRN 09/20/17 02/13/18 History Respiclick] Beclomethasone Dipropionate [Qvar 1 puff INHALATION RT-BID PRN 09/20/17 History 80 mcg] Calcitriol 0.5 mcg PO MO 09/20/17 02/13/18 History Montelukast Sodium [Singulair] 10 mg PO HS 09/20/17 02/13/18 History Multivitamins, Thera [Multivitamin 1 tab PO DAILY 09/20/17 02/13/18 History (formulary)] Tamsulosin [Flomax] 0.4 mg PO HS 09/20/17 02/13/18 History amLODIPine BESYLATE [Norvasc] 10 mg PO QAM 09/20/17 02/13/18 History Gabapentin [Neurontin] 300 mg PO BID 10/24/17 02/13/18 History Cholecalciferol (Vitamin D3) 10,000 unit PO DAILY 01/09/18 02/13/18 History [Vitamin D3] Ferrous Sulfate [Feosol] 650 mg PO DAILY 01/09/18 02/13/18 History amLODIPine [Norvasc] 5 mg PO AC-SUPPER 01/09/18 02/13/18 History metFORMIN HCL 1,000 mg PO BID 01/09/18 02/13/18 History Insulin NPH Hum/Reg Insulin Hm 100 unit SQ AC-LUNCH 02/13/18 02/13/18 History [NovoLIN 70-30 100 UNIT/ML VIAL] Insulin NPH Hum/Reg Insulin Hm 126 unit SQ AC-BRKFST 02/13/18 02/13/18 History [NovoLIN 70-30 100 UNIT/ML VIAL] Insulin NPH Hum/Reg Insulin Hm 126 unit SQ AC-SUPPER 02/13/18 02/13/18 History [NovoLIN 70-30 100 UNIT/ML VIAL] Ipratropium-Albuterol Nebulize 3 ml INHALATION RT-QID PRN 02/13/18 02/13/18 History [Duoneb 0.5 mg-3 mg/3 ml Soln] Magnesium Oxide [Mag-Oxide] 200 mg PO DAILY 02/13/18 02/13/18 History Quinapril HCl 10 mg PO HS 02/13/18 02/13/18 History Quinapril HCl 20 mg PO DAILY 02/13/18 02/13/18 History Aspirin 81 mg PO DAILY chew 02/14/18 Rx Collagenase [Santyl] 1 applic TOPICAL DAILY #1 tube 02/14/18 Rx Levofloxacin [Levaquin] 750 mg PO DAILY #7 tab 02/14/18 Rx Allergies Allergy/AdvReac Type Severity Reaction Status Date / Time No Known Allergies Allergy Verified 02/13/18 11:06 Physical Exam Vitals: Vital Signs Temp Pulse Pulse Pulse Resp BP BP 02/14/18 08:00 98.4 F 96 18 182/72 02/14/18 07:12 96 02/14/18 07:06 95 02/14/18 04:45 166/81 02/14/18 04:00 98.3 F 92 16 183/73 02/14/18 03:42 91 18 02/13/18 23:59 98.2 F 93 18 164/68 02/13/18 23:12 93 16 02/13/18 21:43 90 02/13/18 21:32 91 02/13/18 20:00 95 16 02/13/18 19:39 98.9 F 97 16 174/69 02/13/18 17:30 82 18 153/85 02/13/18 16:00 98 18 02/13/18 14:49 97.6 F 98 18 198/84 02/13/18 13:51 97.5 F L 93 18 160/70 02/13/18 11:45 95 18 162/71 02/13/18 11:03 65 22 02/13/18 10:42 98.7 F 96 18 146/65 Pulse Ox 02/14/18 08:00 93 L 02/14/18 07:12 02/14/18 07:06 95 02/14/18 04:45 02/14/18 04:00 96 02/14/18 03:42 02/13/18 23:59 92 L 02/13/18 23:12 02/13/18 21:43 02/13/18 21:32 02/13/18 20:00 02/13/18 19:39 93 L 02/13/18 17:30 98 02/13/18 16:00 02/13/18 14:49 98 02/13/18 13:51 93 L 02/13/18 11:45 96 02/13/18 11:03 02/13/18 10:42 96 Intake and Output 02/13/18 02/14/18 02/14/18 22:59 06:59 14:59 Intake Total 240 199.226 Balance 240 199.226 Intake: Intake, IV Titration 199.226 Amount Heparin Sod,Pork in 0.45% 199.226 NaCl 25,000 unit In 0.45 % NaCl 1 500ml.bag @ 5.8 UNITS/KG/HR 20.09 mls/hr IV .Q24H [facility] Rx#: [id number] Oral 240 Other: Voiding Method Urinal Urinal # Voids 3 Weight 182.4 kg General appearance: cooperative, no acute distress, morbidly obese - EENT Eyes: anicteric sclerae, PERRLA, normal appearance ENT: hearing grossly normal - Neck Neck: no lymphadenopathy, normal ROM, no other, no rigidity, no stridor, no thyromegaly - Respiratory Respiratory: bilateral diminished, + rhonchi bilateral, diminished bilaterally due to body habitus - Cardiovascular Rhythm: regular Heart sounds: normal: S1, S2 Abnormal Heart Sounds: no systolic murmur, no diastolic murmur, no rub, no S3 Gallop, no S4 Gallop, no click, no other - Gastrointestinal General gastrointestinal: normal bowel sounds, soft, nontender - Integumentary Integumentary: no rash, chronic venous stasis bilaterally, with 1+ pitting edema on the bilateral lower extremity, ulcer to the left heel with serous drainage - Neurologic Neurologic: CNII-XII intact - Musculoskeletal Musculoskeletal: gait not assessed, strength equal bilaterally - Psychiatric Psychiatric: A&O x's 3, appropriate affect Results CBC & Chem 7: 02/16/18 09:11 02/16/18 09:11 Labs: Abnormal Lab Results - Last 24 Hours (Table) 02/13/18 02/13/18 02/13/18 Range/Units 10:50 10:50 10:50 RBC 3.33 L (4.30-5.90) m/uL Hgb 8.9 L (13.0-17.5) gm/dL Hct 28.2 L (39.0-53.0) % RDW 18.1 H (11.5-15.5) % Creatinine 1.54 H (0.66-1.25) mg/dL Glucose 142 H (74-99) mg/dL POC Glucose (mg/dL) (75-99) mg/dL Magnesium 1.4 L (1.6-2.3) mg/dL Total Creatine Kinase 211 H (55-170) U/L CK-MB (CK-2) (0.0-2.4) ng/mL 02/13/18 02/13/18 02/13/18 Range/Units 17:13 17:16 20:56 RBC (4.30-5.90) m/uL Hgb (13.0-17.5) gm/dL Hct (39.0-53.0) % RDW (11.5-15.5) % Creatinine (0.66-1.25) mg/dL Glucose (74-99) mg/dL POC Glucose (mg/dL) 166 H 279 H (75-99) mg/dL Magnesium (1.6-2.3) mg/dL Total Creatine Kinase 207 H (55-170) U/L CK-MB (CK-2) 2.6 H* (0.0-2.4) ng/mL 02/13/18 02/14/18 Range/Units 22:13 06:46 RBC (4.30-5.90) m/uL Hgb (13.0-17.5) gm/dL Hct (39.0-53.0) % RDW (11.5-15.5) % Creatinine (0.66-1.25) mg/dL Glucose (74-99) mg/dL POC Glucose (mg/dL) 261 H (75-99) mg/dL Magnesium (1.6-2.3) mg/dL Total Creatine Kinase 233 H (55-170) U/L CK-MB (CK-2) 2.8 H* (0.0-2.4) ng/mL Thrombosis Risk Factor Assmnt - DVT/VTE Prophylaxis DVT/VTE Prophylaxis: Pharmacologic Prophylaxis ordered - Choose All That Apply Any of the Below Risk Factors Present?: Yes Each Factor Represents 1 point: Abnormal pulmonary function (COPD), Obesity ( BMI >25) Other Risk Factors: Yes Each Risk Factor Represents 2 Points: Age 61-74 years Other congenital or acquired thrombophilia - If yes, enter type in comment: No Thrombosis Risk Factor Assessment Total Risk Factor Score: 4 Thrombosis Risk Factor Assessment Level: Moderate Risk Assessment and Plan Plan: 1. Chest pain with normal troponins. Patient was initially started on heparin drip, aspirin and Nitropaste. Cardiology consult is appreciated. Echocardiogram as above. Acute coronary syndrome has been ruled out. Patient is to follow with Dr. Jefferson 2. Acute on chronic hypoxic respiratory failure with pulse ox of 85% with activity on room air secondary to right-sided pneumonia, possible gram-negative pneumonia. Patient will be started on Levaquin 750 mg IV piggyback every day, DuoNeb treatments 3 times daily scheduled and albuterol as needed. 3. Diabetes mellitus type 2 uncontrolled, insulin requiring with diabetic neuropathy. Patient placed on Humalog scale before meals and at bedtime. Patient will be placed on Lantus 20 units at bedtime and NovoLog 5 units with meals scheduled. Continue gabapentin 300 mg twice daily. Hemoglobin A1c will be checked. Previous one was 9.6 4. Hypertension. Continue Norvasc 10 mg in morning and 5 mg at supper, lisinopril 20 mg daily and 10 mg at bedtime. 5. Hyperlipidemia. Continue Lipitor 40 mg at bedtime. 6. Benign prostatic hypertrophy continue Flomax 0.4 mg at bedtime. 7. Obstructive sleep apnea on CPAP. Patient to continue to use CPAP while hospitalized 8. Diabetic ulcer left heel. Local wound care will be in the form of Santyl. Wound culture to be obtained. [facility] he has [facility] problems. 9. Morbidly obesity with BMI of 50 with plan for bariatric surgery with Dr. Ayala. 10. Chronic kidney disease stage IIIA. Baseline creatinine is 1.5. 11. DVT prophylaxis. Patient on heparin. 12. GI prophylaxis and gastroesophageal reflux disease and hiatal hernia. Continue Protonix. Patient will be admitted to the hospital for a minimum of 2 night stay. Discharge plan: Return home with home care and possibly oxygen. Case management is following Impression and plan of care have been directed as dictated by the signing physician. Candy Magana nurse practitioner acting as scribe for signing physician.
[2018-02-14 17:17] LABS: Glucose,Whole Blood 376 mg/dL (75-99)
[2018-02-14] MEDS: amLODIPine 5 MG TAB PO SCH (18:46)
--- NOTE | 2018-02-14 19:54 | US ---
EXAMINATION TYPE: US venous doppler duplex LE DATE OF EXAM: 02/14/2018 4:35 PM COMPARISON: NONE CLINICAL HISTORY: rule out DVT. SIDE PERFORMED: Bilateral TECHNIQUE: The lower extremity deep venous system is examined utilizing real time linear array sonog chema with graded compression, doppler sonography and color-flow sonography. VESSELS IMAGED: External Iliac Vein (EIV) Common Femoral Vein Deep Femoral Vein Greater Saphenous Vein * Femoral Vein Popliteal Vein Small Saphenous Vein * Proximal Calf Veins (* superficial vessels) Morbidly obese patient over 400lbs. Pitting edema, thick edematous skin, very large abdomen, patient had to sit upright because he was severely short of breath. Severe technical limitations. Right Leg: Unable to visualize EIV, CFV, GSV, SSV, Mid or distal Popliteal v due to limitations liste d above. Only able to see vein with color doppler. No thrombus identified in this severely limited ex am. Left Leg: Unable to visualize EIV, CFV, GSV, SSV, Mid or distal Popliteal v due to limitations liste d above. Only able to see vein with color doppler. No thrombus identified in this severely limited ex am. IMPRESSION: Limited exam. Deep venous thrombosis is not identified.
[2018-02-14] MEDS ORDERED: BUDESONIDE 0.5 MG/2 ML NEBU INHALATION SCH (20:00)
[2018-02-14] MEDS: BUDESONIDE 1 MG/2 ML NEBU INHALATION SCH (20:18)
[2018-02-14 20:34] LABS: Glucose,Whole Blood 346 mg/dL (75-99)
[2018-02-14] MEDS: ATORVASTATIN 40 MG TAB PO SCH (20:39)
[2018-02-14] MEDS: LISINOPRIL 10 MG TAB PO SCH (20:39)
[2018-02-14] MEDS: MONTELUKAST 10 MG TAB PO SCH (20:39)
[2018-02-14] MEDS: TAMSULOSIN 0.4 MG CAP.ER.24H PO SCH (20:39)
[2018-02-14] MEDS ORDERED: INSULIN DETEMIR 100 UNIT/ML 10 ML VIAL SQ SCH (21:00)
[2018-02-14] MEDS ORDERED: RX INFO: IV CONTRAST WAS GIVEN 1 EACH MISC MISCELLANE PRN (21:03)
--- NOTE | 2018-02-14 22:41 | CT ---
EXAMINATION TYPE: CT angio chest DATE OF EXAM: 02/14/2018 10:22 PM COMPARISON: NONE HISTORY: Elevated d-dimer and SOB. CT DLP: 928.2 mGycm Automated exposure control for dose reduction was used. CONTRAST: CTA scan of the thorax is performed with IV Contrast, patient injected with 80ml mL of Isovue M300, p ulmonary embolism protocol. There are 3-D post processed images.. FINDINGS: There are bilateral pleural effusions. Exam is limited by the patient's size. As best as one can tell there are no filling defects in the pulmonary arteries. There is no evidence of thoracic aortic aneu rysm or dissection. I see no mediastinal adenopathy. There are no hilar masses. There is some infiltr ate at the left posterior lung base. There is similar mild change at the right posterior lung base. IMPRESSION: NO EVIDENCE OF PULMONARY EMBOLISM. BILATERAL PLEURAL EFFUSIONS WITH IS A PULMONARY MILD INFILTRATE AN D ATELECTASIS.
[2018-02-15 06:39] LABS: Glucose,Whole Blood 334 mg/dL (75-99)
[2018-02-15 07:51] LABS: Anisocytosis Slight; Basophils % (A) 0 %; Eosinophils # (A) 0.1 k/uL (0-0.7); Eosinophils % (A) 1 %; HCT 26.2 % (39.0-53.0); Hypochromasia Marked; Lymphocytes # (A) 0.9 k/uL (1.0-4.8); Lymphocytes % (A) 15 %; MCH 26.5 pg (25.0-35.0); MCHC 30.5 g/dL (31.0-37.0); MCV 87.1 fL (80.0-100.0); Mean Platelet Volume 8.5; Monocytes # (A) 0.3 k/uL (0-1.0); Monocytes % (A) 5 %; Neutrophils # (A) 4.9 k/uL (1.3-7.7); Neutrophils % (A) 77 %; Platelet Count 156 k/uL (150-450); RBC 3.01 m/uL (4.30-5.90); WBC 6.4 k/uL (3.8-10.6)
[2018-02-15] MEDS: MAGNESIUM OXIDE 400 MG TAB PO SCH (07:59)
[2018-02-15] MEDS: amLODIPine 10 MG TAB PO SCH (08:00)
[2018-02-15] MEDS: ASPIRIN 81 MG PO SCH (08:00)
[2018-02-15] MEDS: GABAPENTIN 300 MG CAP PO SCH ×2 (08:00→21:36)
[2018-02-15] MEDS: LISINOPRIL 20 MG TAB PO SCH (08:00)
[2018-02-15] MEDS: CHOLECALCIFEROL 1,000 UNIT TAB PO SCH (08:00)
[2018-02-15] MEDS: FERROUS SULFATE 325 MG TAB PO SCH (08:00)
[2018-02-15] MEDS: PANTOPRAZOLE 40 MG TABLET PO SCH (08:00)
[2018-02-15] MEDS: INSULIN ASPART 100 UNIT/ML 1 ML 10 ML VIAL SQ SCH ×7 (08:01→21:37)
[2018-02-15 08:04] LABS: Albumin 3.5 g/dL (3.5-5.0); Calcium 8.4 mg/dL (8.4-10.2); Potassium 4.4 mmol/L (3.5-5.1); Total Bilirubin 0.8 mg/dL (0.2-1.3); Total Protein 7.1 g/dL (6.3-8.2)
[2018-02-15] MEDS: IPRATROPIUM-ALBUTEROL 3 ML NEB INHALATION SCH ×3 (09:35→21:42)
[2018-02-15] MEDS: BUDESONIDE 1 MG/2 ML NEBU INHALATION SCH ×2 (09:42→21:42)
--- NOTE | 2018-02-15 09:58 | P.PN ---
<Sirena Macdonald E - Last Filed: 02/15/18 09:51> Subjective Progress Note Date: 02/15/18 HPI: This is a 67-year-old male patient well known to our services. This patient was in the office yesterday with increasing severity of shortness of breath that had been ongoing over the past week. He also complained of some chest pain that was intermittent over the last few days as well. Patient was directed to the emergency room for further evaluation and workup. EKG was performed and showed no ST segment elevation. His chest x-ray did reveal some right hilar area possible infiltrate however has no fevers, chills, cough or white count at this time. Upon workup in the emergency room the patient was found to have some unstable angina and was admitted for further evaluation. Patient was put on a heparin drip and Nitropaste which seemed to help. Cardiology was put on consult as well. Echocardiogram is currently pending. His magnesium was noted to be 1.4 and is currently being replaced. His troponins were negative however there was an increase in his CK-MB. Upon examination today the patient's resting up in bed on 3 L of supplemental oxygen via nasal cannula. The patient does not utilize home oxygen. He did utilize his CPAP overnight. Patient is an ex-smoker and smoked approximately 1 pack per day for over 30 years. He continues to have some shortness of breath with exertion and activity. Denies any cough or sputum production at this time. He is afebrile, chest heaviness has improved. No further complaints. Interval Hx: 02/15/18- patient is being seen and examined and evaluated today on rounds. He states he continues to have significant shortness of breath with activity exertion and extensive conversation. The patient did have an elevated d-dimer yesterday and did go for a CTA which revealed no PE however did show bilateral pleural effusions with mild infiltrates and atelectasis in the left lower base. An ultrasound of the effusions has been ordered. The patient has been educated on the possibility of undergoing a thoracentesis if appropriate pending results of ultrasound. He is afebrile no further complaints. Heparin drip has been stopped. We'll place him on subcu heparin for DVT prophylaxis. Doppler of the bilateral lower extremities revealed no DVT however was a limited exam. Objective - Vital Signs Vital signs: Vital Signs Temp 98.2 F 02/15/18 07:58 Pulse 96 02/15/18 09:42 Resp 18 02/15/18 07:58 BP 171/87 02/15/18 07:58 Pulse Ox 97 02/15/18 09:37 Intake & Output 02/14/18 02/15/18 02/15/18 18:59 06:59 18:59 Intake Total 840 Balance 840 Weight 183.1 kg Intake: Oral 840 Other: Voiding Method Urinal # Voids 3 - Exam GENERAL EXAM: Alert, comfortable in no apparent distress. HEAD: Normocephalic. EYES: Normal reaction of pupils, equal size. NOSE: Clear with pink turbinates. THROAT: No erythema or exudates. NECK: No masses, no JVD. CHEST: No chest wall deformity. LUNGS: Poor air entry with no crackles, wheeze, rhonchi or dullness. CVS: S1 and S2 normal with no audible mumurs, regular rhythm. ABDOMEN: No hepatosplenomegaly, normal bowel sounds, no guarding or rigidity. EXTREMITIES: +1-2 edema noted, pedal pulses palpable. Chronic bilateral lower action a cellulitis CENTRAL NERVOUS SYSTEM: No focal deficits, tone is normal in all 4 extremities. - Labs CBC & Chem 7: 02/15/18 06:58 02/15/18 06:58 Labs: Abnormal Lab Results - Last 24 Hours (Table) 02/13/18 02/14/18 02/14/18 Range/Units 22:13 08:20 12:19 RBC (4.30-5.90) m/uL Hgb (13.0-17.5) gm/dL Hct (39.0-53.0) % MCHC (31.0-37.0) g/dL RDW (11.5-15.5) % Lymphocytes # (1.0-4.8) k/uL D-Dimer 1.49 H (<0.60) mg/L FEU Creatinine (0.66-1.25) mg/dL Glucose (74-99) mg/dL POC Glucose (mg/dL) 346 H (75-99) mg/dL Hemoglobin A1c 7.8 H (4.0-6.0) % 02/14/18 02/14/18 02/15/18 Range/Units 17:04 20:29 06:38 RBC (4.30-5.90) m/uL Hgb (13.0-17.5) gm/dL Hct (39.0-53.0) % MCHC (31.0-37.0) g/dL RDW (11.5-15.5) % Lymphocytes # (1.0-4.8) k/uL D-Dimer (<0.60) mg/L FEU Creatinine (0.66-1.25) mg/dL Glucose (74-99) mg/dL POC Glucose (mg/dL) 376 H 346 H 334 H (75-99) mg/dL Hemoglobin A1c (4.0-6.0) % 02/15/18 02/15/18 Range/Units 06:58 06:58 RBC 3.01 L (4.30-5.90) m/uL Hgb 8.0 L (13.0-17.5) gm/dL Hct 26.2 L (39.0-53.0) % MCHC 30.5 L (31.0-37.0) g/dL RDW 18.0 H (11.5-15.5) % Lymphocytes # 0.9 L (1.0-4.8) k/uL D-Dimer (<0.60) mg/L FEU Creatinine 1.60 H (0.66-1.25) mg/dL Glucose 311 H (74-99) mg/dL POC Glucose (mg/dL) (75-99) mg/dL Hemoglobin A1c (4.0-6.0) % Assessment and Plan Assessment: Assessment Unstable angina Acute hypoxic respiratory failure requiring supplemental oxygen Right side pneumonia COPD Hypomagnesemia GIOVANY Diabetes mellitus Hyperlipidemia Hypertension History of CHF Plan Medications have been reviewed and will be continued as ordered. Antibiotics. We 'll add scheduled DuoNeb to his current nebulizer treatments. Obtain ultrasound of the chest with possible markings for potential thoracentesis, pending results. This procedure risk and benefits have been discussed with the patient, should it be performed. Avoid systemic steroids at this time related to hyperglycemia and uncontrolled diabetes mellitus type 2. Obtain sputum culture. Continue to monitor and replace electrolytes. Echocardiogram pending. Continue with pulmonary hygiene, coughing and deep breathing exercises , and supportive care. Supplemental oxygen to maintain oxygen saturations of 92 % or better. Use his home CPAP every night. Continue nebulizer treatments. GI and DVT prophylaxis. We will continue to monitor labs/results and adjust treatment as necessary. Further recommendations pending. I performed an examination of the patient and discussed their management with the nurse practitioner. I have reviewed the nurse practitioner's note and agree with the documented findings and plan of care. <Ame Oneil - Last Filed: 02/15/18 12:24> Objective - Vital Signs Vital signs: Vital Signs Temp 98.1 F 02/15/18 11:51 Pulse 75 02/15/18 11:51 Resp 18 02/15/18 11:51 BP 154/65 02/15/18 11:51 Pulse Ox 95 02/15/18 11:51 Intake & Output 02/14/18 02/15/18 02/15/18 18:59 06:59 18:59 Intake Total 840 Balance 840 Weight 183.1 kg Intake: Oral 840 Other: Voiding Method Urinal Urinal # Voids 3 - Labs CBC & Chem 7: 02/15/18 06:58 02/15/18 06:58 Labs: Abnormal Lab Results - Last 24 Hours (Table) 02/13/18 02/14/18 02/14/18 Range/Units 22:13 12:19 17:04 RBC (4.30-5.90) m/uL Hgb (13.0-17.5) gm/dL Hct (39.0-53.0) % MCHC (31.0-37.0) g/dL RDW (11.5-15.5) % Lymphocytes # (1.0-4.8) k/uL Creatinine (0.66-1.25) mg/dL Glucose (74-99) mg/dL POC Glucose (mg/dL) 346 H 376 H (75-99) mg/dL Hemoglobin A1c 7.8 H (4.0-6.0) % 02/14/18 02/15/18 02/15/18 Range/Units 20:29 06:38 06:58 RBC 3.01 L (4.30-5.90) m/uL Hgb 8.0 L (13.0-17.5) gm/dL Hct 26.2 L (39.0-53.0) % MCHC 30.5 L (31.0-37.0) g/dL RDW 18.0 H (11.5-15.5) % Lymphocytes # 0.9 L (1.0-4.8) k/uL Creatinine (0.66-1.25) mg/dL Glucose (74-99) mg/dL POC Glucose (mg/dL) 346 H 334 H (75-99) mg/dL Hemoglobin A1c (4.0-6.0) % 02/15/18 02/15/18 Range/Units 06:58 12:06 RBC (4.30-5.90) m/uL Hgb (13.0-17.5) gm/dL Hct (39.0-53.0) % MCHC (31.0-37.0) g/dL RDW (11.5-15.5) % Lymphocytes # (1.0-4.8) k/uL Creatinine 1.60 H (0.66-1.25) mg/dL Glucose 311 H (74-99) mg/dL POC Glucose (mg/dL) 383 H (75-99) mg/dL Hemoglobin A1c (4.0-6.0) % Assessment and Plan Assessment: Patient would benefit from diuresis, however, this needs to be done gently as the patient did receive contrast dye yesterday. No evidence of PE. Consult nephrology given VINH/CKD. Chest ultrasound reviewed, no plan for thoracentesis. ~Ame Oneil DO
--- NOTE | 2018-02-15 10:42 | US ---
EXAMINATION TYPE: US chest DATE OF EXAM: 02/15/2018 COMPARISON: CTA chest from yesterday. CLINICAL HISTORY: bilaterally pl effusions. Shortness of breath EXAM MEASUREMENTS: Right Pleural Effusion fluid pocket: 3.7 cm Right skin to fluid thickness: 6.1 cm Left Pleural Effusion fluid pocket: 3.5 cm Left skin to fluid thickness: 5.8 cm Bilateral chest not marked due to not large enough clear pocket Pulmonologists are able to review the images in the patient?s EMR. Small bilateral pleural effusions are confirmed on 7 images saved which correlates with CT from yeste rday. IMPRESSIONS: As above.
[2018-02-15] MEDS: HEPARIN SODIUM,PORCINE 5,000 UNIT/ML 1 ML VIAL SQ SCH ×2 (10:47→21:37)
[2018-02-15 12:11] LABS: Glucose,Whole Blood 383 mg/dL (75-99)
[2018-02-15] MEDS: MULTIVITAMINS, THERA 1 EACH TAB PO SCH (13:15)
[2018-02-15] MEDS: FUROSEMIDE 10 MG/ML 4 ML VIAL IV SCH ×2 (13:15→22:14)
[2018-02-15] MEDS ORDERED: LEVOFLOXACIN 750 MG TAB PO SCH (14:00)
--- NOTE | 2018-02-15 15:57 | P.PN ---
Subjective Progress Note Date: 02/15/18 This is a 67-year-old male patient of Dr. Johnson with a past medical history of chronic heart failure, COPD, diabetes mellitus type 2 insulin requiring, hypertension, benign prostatic hypertrophy, gastroesophageal reflux disease, hyperlipidemia, obstructive sleep apnea with CPAP, morbid obesity with planned for gastric sleeve with Dr. Ayala in the near future. Patient complains of heaviness on his chest and his breathing difficulty. He denies any pain with deep breathing. His chest pain occurs when he is laying down. He denies any nausea vomiting or diarrhea. There's been no abdominal pain. He denies any cough or fever or chills. He denies any recent smoke exposure. Patient presented to [facility] emergency center. Chest x-ray showed right upper lobe and right perihilar infiltrate. Correlate for pneumonia. EKG was normal sinus rhythm with no ST elevation. Hemoglobin was 8.9, creatinine 1.54. Troponins have been negative on 3 draws. Patient was started on heparin drip, Nitropaste and aspirin and placed in the observation unit and cardiology consult requested. Consult with pulmonary medicine for shortness of breath, echocardiogram has been ordered as well as lipid panel and hemoglobin A1c. His last hemoglobin A1c in October was 9.6. Repeat hemoglobin A1c will be obtained. Patient is currently on large dose of 7033 times daily with meals and follows with Dr. Schmidt. He last saw her one half to 2 months ago for clearance for his bariatric surgery. He has been diabetic for more than 30 years. Patient was ambulated and pulse ox dropped down to 85% and patient has been started on IV Levaquin for pneumonia as well as nebulizer treatments. Patient has brought his CPAP from home which she is last night. Patient has a diabetic ulcer on the left heel that is present on admission. He states he has had this since last summer when he was in a fdc and he had to move himself by lifting himself with his heels. He does not see anyone for treatment of this. 02/15: Echocardiogram reveals EF of 60-65% with mild aortic valve sclerosis, mild mitral regurgitation, trace tricuspid regurgitation, no pulmonary hypertension. Due to elevated d-dimer, lower extremity duplex was negative for DVT. CTA of the chest showed no evidence of pulmonary embolism. Bilateral pleural effusions with pulmonary mild infiltrate and atelectasis. Chest ultrasound revealed mild bilateral pleural effusions. White count is normal, hemoglobin 8.0, creatinine is 1.6. Blood sugars have been elevated in the 300s for which we will increase Lantus to 40 units at bedtime and NovoLog to 10 units 3 times daily along with scale. Pulse ox is 95% on room air at rest. Nursing to check room air pulse ox with ambulation in the morning. Note: Patient gives history that he has heart failure and is on Lasix at home but discussed with cardiology and reviewed patient's records in the hospital and there is been no previous diagnosis of heart failure documented. Objective - Vital Signs Vital signs: Vital Signs Temp 98.1 F 02/15/18 11:51 Pulse 75 02/15/18 11:51 Resp 18 02/15/18 11:51 BP 154/65 02/15/18 11:51 Pulse Ox 95 02/15/18 11:51 Intake & Output 02/14/18 02/15/18 02/15/18 18:59 06:59 18:59 Intake Total 840 Balance 840 Weight 183.1 kg Intake: Oral 840 Other: Voiding Method Urinal Urinal # Voids 3 - Exam General appearance: cooperative, no acute distress, morbidly obese - EENT Eyes: anicteric sclerae, PERRLA, normal appearance ENT: hearing grossly normal - Neck Neck: no lymphadenopathy, normal ROM, no other, no rigidity, no stridor, no thyromegaly - Respiratory Respiratory: bilateral diminished, + rhonchi bilateral, diminished bilaterally due to body habitus - Cardiovascular Rhythm: regular Heart sounds: normal: S1, S2 Abnormal Heart Sounds: no systolic murmur, no diastolic murmur, no rub, no S3 Gallop, no S4 Gallop, no click, no other - Gastrointestinal General gastrointestinal: normal bowel sounds, soft, nontender - Integumentary Integumentary: no rash, chronic venous stasis bilaterally, with 1+ pitting edema on the bilateral lower extremity, ulcer to the left heel with serous drainage - Neurologic Neurologic: CNII-XII intact - Musculoskeletal Musculoskeletal: gait not assessed, strength equal bilaterally - Psychiatric Psychiatric: A&O x's 3, appropriate affect - Labs CBC & Chem 7: 02/15/18 06:58 02/15/18 06:58 Labs: Abnormal Lab Results - Last 24 Hours (Table) 02/13/18 02/14/18 02/14/18 Range/Units 22:13 17:04 20:29 RBC (4.30-5.90) m/uL Hgb (13.0-17.5) gm/dL Hct (39.0-53.0) % MCHC (31.0-37.0) g/dL RDW (11.5-15.5) % Lymphocytes # (1.0-4.8) k/uL Creatinine (0.66-1.25) mg/dL Glucose (74-99) mg/dL POC Glucose (mg/dL) 376 H 346 H (75-99) mg/dL Hemoglobin A1c 7.8 H (4.0-6.0) % 02/15/18 02/15/18 02/15/18 Range/Units 06:38 06:58 06:58 RBC 3.01 L (4.30-5.90) m/uL Hgb 8.0 L (13.0-17.5) gm/dL Hct 26.2 L (39.0-53.0) % MCHC 30.5 L (31.0-37.0) g/dL RDW 18.0 H (11.5-15.5) % Lymphocytes # 0.9 L (1.0-4.8) k/uL Creatinine 1.60 H (0.66-1.25) mg/dL Glucose 311 H (74-99) mg/dL POC Glucose (mg/dL) 334 H (75-99) mg/dL Hemoglobin A1c (4.0-6.0) % 02/15/18 Range/Units 12:06 RBC (4.30-5.90) m/uL Hgb (13.0-17.5) gm/dL Hct (39.0-53.0) % MCHC (31.0-37.0) g/dL RDW (11.5-15.5) % Lymphocytes # (1.0-4.8) k/uL Creatinine (0.66-1.25) mg/dL Glucose (74-99) mg/dL POC Glucose (mg/dL) 383 H (75-99) mg/dL Hemoglobin A1c (4.0-6.0) % Assessment and Plan Plan: 1. Chest pain with normal troponins. Patient was initially started on heparin drip, aspirin and Nitropaste. Cardiology consult is appreciated. Echocardiogram as above. Acute coronary syndrome has been ruled out. Patient is to follow with Dr. Fierro 2. Acute on chronic hypoxic respiratory failure with pulse ox of 85% with activity on room air secondary to right-sided pneumonia, possible gram-negative pneumonia and bilateral pleural effusions canary to pneumonia. Patient will be started on Levaquin 750 mg IV piggyback every day, DuoNeb treatments 3 times daily scheduled and albuterol as needed. 3. Diabetes mellitus type 2 uncontrolled, insulin requiring with diabetic neuropathy. Patient placed on Humalog scale before meals and at bedtime. Patient will be placed on Lantus 40 units at bedtime and NovoLog 10 units with meals scheduled. Continue gabapentin 300 mg twice daily. Hemoglobin A1c will be checked. Previous one was 9.6 4. Hypertension. Continue Norvasc 10 mg in morning and 5 mg at supper, lisinopril 20 mg daily and 10 mg at bedtime. 5. Hyperlipidemia. Continue Lipitor 40 mg at bedtime. 6. Benign prostatic hypertrophy continue Flomax 0.4 mg at bedtime. 7. Obstructive sleep apnea on CPAP. Patient to continue to use CPAP while hospitalized 8. Diabetic ulcer left heel. Local wound care will be in the form of Santyl. Wound culture to be obtained. [facility] as he has transportation problems. 9. Morbidly obesity with BMI of 50 with plan for bariatric surgery with Dr. Ayala. 10. DVT prophylaxis. Patient on heparin. 11. GI prophylaxis and gastroesophageal reflux disease and hiatal hernia. Continue Protonix. Discharge plan: Return home with home care and possibly oxygen. Case management is following Impression and plan of care have been directed as dictated by the signing physician. Candy Magana nurse practitioner acting as scribe for signing physician.
[2018-02-15] MEDS: COLLAGENASE 250 UNIT/GM OINTMENT 30 GM TUBE TOPICAL SCH (16:03)
[2018-02-15 17:57] LABS: Glucose,Whole Blood 415 mg/dL (75-99)
[2018-02-15] MEDS: amLODIPine 5 MG TAB PO SCH (18:05)
[2018-02-15 21:00] LABS: Glucose,Whole Blood 354 mg/dL (75-99)
[2018-02-15] MEDS ORDERED: INSULIN DETEMIR 100 UNIT/ML 10 ML VIAL SQ SCH (21:00)
[2018-02-15] MEDS: MONTELUKAST 10 MG TAB PO SCH (21:36)
[2018-02-15] MEDS: TAMSULOSIN 0.4 MG CAP.ER.24H PO SCH (21:36)
[2018-02-15] MEDS: ATORVASTATIN 40 MG TAB PO SCH (21:36)
[2018-02-16] MEDS: ALBUTEROL NEBULIZED 2.5 MG/3 ML INHALATION PRN (03:57)
[2018-02-16] MEDS: INSULIN ASPART 100 UNIT/ML 1 ML 10 ML VIAL SQ SCH ×5 (07:53→21:45)
[2018-02-16] MEDS: COLLAGENASE 250 UNIT/GM OINTMENT 30 GM TUBE TOPICAL SCH ×2 (07:56→20:48)
[2018-02-16] MEDS: CHOLECALCIFEROL 1,000 UNIT TAB PO SCH (07:56)
[2018-02-16] MEDS: PANTOPRAZOLE 40 MG TABLET PO SCH (07:56)
[2018-02-16] MEDS: amLODIPine 10 MG TAB PO SCH (07:56)
[2018-02-16] MEDS: ASPIRIN 81 MG PO SCH (07:56)
[2018-02-16] MEDS: FERROUS SULFATE 325 MG TAB PO SCH (07:57)
[2018-02-16] MEDS: FUROSEMIDE 10 MG/ML 4 ML VIAL IV SCH ×2 (07:57→20:37)
[2018-02-16] MEDS: GABAPENTIN 300 MG CAP PO SCH ×2 (07:57→20:46)
[2018-02-16] MEDS: MAGNESIUM OXIDE 400 MG TAB PO SCH (07:58)
[2018-02-16] MEDS: HEPARIN SODIUM,PORCINE 5,000 UNIT/ML 1 ML VIAL SQ SCH ×2 (07:58→20:37)
[2018-02-16] MEDS: MULTIVITAMINS, THERA 1 EACH TAB PO SCH (07:59)
[2018-02-16 08:01] LABS: Glucose,Whole Blood 391 mg/dL (75-99)
[2018-02-16] MEDS: IPRATROPIUM-ALBUTEROL 3 ML NEB INHALATION SCH ×3 (08:12→20:24)
[2018-02-16] MEDS: BUDESONIDE 1 MG/2 ML NEBU INHALATION SCH ×2 (08:12→20:24)
[2018-02-16 09:43] LABS: Anisocytosis Slight; Basophils % (A) 1 %; Eosinophils # (A) 0.1 k/uL (0-0.7); Eosinophils % (A) 1 %; HCT 24.1 % (39.0-53.0); HGB 7.4 gm/dL (13.0-17.5); Hypochromasia Marked; Lymphocytes # (A) 1.2 k/uL (1.0-4.8); Lymphocytes % (A) 19 %; MCH 26.7 pg (25.0-35.0); MCHC 30.8 g/dL (31.0-37.0); MCV 86.7 fL (80.0-100.0); Mean Platelet Volume 8.4; Monocytes # (A) 0.3 k/uL (0-1.0); Monocytes % (A) 5 %; Neutrophils # (A) 4.3 k/uL (1.3-7.7); Neutrophils % (A) 71 %; Platelet Count 142 k/uL (150-450); RBC 2.78 m/uL (4.30-5.90)
[2018-02-16 10:01] LABS: Albumin 3.2 g/dL (3.5-5.0); Calcium 8.3 mg/dL (8.4-10.2); Potassium 4.5 mmol/L (3.5-5.1); Total Bilirubin 0.4 mg/dL (0.2-1.3); Total Protein 6.6 g/dL (6.3-8.2)
--- NOTE | 2018-02-16 10:34 | P.PN ---
<Sirena Macdonald E - Last Filed: 02/16/18 10:20> Subjective Progress Note Date: 02/16/18 HPI: This is a 67-year-old male patient well known to our services. This patient was in the office yesterday with increasing severity of shortness of breath that had been ongoing over the past week. He also complained of some chest pain that was intermittent over the last few days as well. Patient was directed to the emergency room for further evaluation and workup. EKG was performed and showed no ST segment elevation. His chest x-ray did reveal some right hilar area possible infiltrate however has no fevers, chills, cough or white count at this time. Upon workup in the emergency room the patient was found to have some unstable angina and was admitted for further evaluation. Patient was put on a heparin drip and Nitropaste which seemed to help. Cardiology was put on consult as well. Echocardiogram is currently pending. His magnesium was noted to be 1.4 and is currently being replaced. His troponins were negative however there was an increase in his CK-MB. Upon examination today the patient's resting up in bed on 3 L of supplemental oxygen via nasal cannula. The patient does not utilize home oxygen. He did utilize his CPAP overnight. Patient is an ex-smoker and smoked approximately 1 pack per day for over 30 years. He continues to have some shortness of breath with exertion and activity. Denies any cough or sputum production at this time. He is afebrile, chest heaviness has improved. No further complaints. Interval Hx: 02/15/18- patient is being seen and examined and evaluated today on rounds. He states he continues to have significant shortness of breath with activity exertion and extensive conversation. The patient did have an elevated d-dimer yesterday and did go for a CTA which revealed no PE however did show bilateral pleural effusions with mild infiltrates and atelectasis in the left lower base. An ultrasound of the effusions has been ordered. The patient has been educated on the possibility of undergoing a thoracentesis if appropriate pending results of ultrasound. He is afebrile no further complaints. Heparin drip has been stopped. We'll place him on subcu heparin for DVT prophylaxis. Doppler of the bilateral lower extremities revealed no DVT however was a limited exam. 02/16/18-patient is being seen and examined and evaluated today on rounds. He is resting up in bed on 3 L of supplemental oxygen via nasal cannula. He states his breathing is somewhat improved today. Patient's wound culture results are currently pending. His labs have been reviewed. His BUN is 26 his creatinine is 2.51, hemoglobin noted to be 7.4 today, denies any overt signs of bleeding. He is hemodynamically stable. We will continue to watch his hemoglobin, as well as kidney function. He continues to have shortness of breath with exertion and activity. Does have an occasional productive cough with TMs sputum. He has been able to give us a sputum which will be sent down to the lab for culture. Objective - Vital Signs Vital signs: Vital Signs Temp 98.2 F 02/16/18 06:25 Pulse 94 02/16/18 08:29 Resp 24 02/16/18 06:25 BP 129/46 02/16/18 06:25 Pulse Ox 92 L 02/16/18 09:48 Intake & Output 02/15/18 02/16/18 02/16/18 18:59 06:59 18:59 Intake Total 100 Output Total 1900 Balance -1800 Weight 184.5 kg Intake: Oral 100 Output: Urine 1900 Straight 1150 Other: Voiding Method Urinal Urinal # Voids 0 - Exam GENERAL EXAM: Alert, comfortable in no apparent distress. HEAD: Normocephalic. EYES: Normal reaction of pupils, equal size. NOSE: Clear with pink turbinates. THROAT: No erythema or exudates. NECK: No masses, no JVD. CHEST: No chest wall deformity. LUNGS: Poor air entry with no crackles, wheeze, rhonchi or dullness. CVS: S1 and S2 normal with no audible mumurs, regular rhythm. ABDOMEN: No hepatosplenomegaly, normal bowel sounds, no guarding or rigidity. EXTREMITIES: +1-2 edema noted, pedal pulses palpable. Chronic bilateral lower action a cellulitis CENTRAL NERVOUS SYSTEM: No focal deficits, tone is normal in all 4 extremities. - Labs CBC & Chem 7: 02/16/18 09:11 02/16/18 09:11 Labs: Abnormal Lab Results - Last 24 Hours (Table) 02/15/18 02/15/18 02/15/18 Range/Units 12:06 17:52 20:56 RBC (4.30-5.90) m/uL Hgb (13.0-17.5) gm/dL Hct (39.0-53.0) % MCHC (31.0-37.0) g/dL RDW (11.5-15.5) % Plt Count (150-450) k/uL BUN (9-20) mg/dL Creatinine (0.66-1.25) mg/dL Glucose (74-99) mg/dL POC Glucose (mg/dL) 383 H 415 H 354 H (75-99) mg/dL Calcium (8.4-10.2) mg/dL Albumin (3.5-5.0) g/dL 02/16/18 02/16/18 02/16/18 Range/Units 07:47 09:11 09:11 RBC 2.78 L (4.30-5.90) m/uL Hgb 7.4 L (13.0-17.5) gm/dL Hct 24.1 L (39.0-53.0) % MCHC 30.8 L (31.0-37.0) g/dL RDW 18.0 H (11.5-15.5) % Plt Count 142 L (150-450) k/uL BUN 26 H (9-20) mg/dL Creatinine 2.51 H (0.66-1.25) mg/dL Glucose 369 H (74-99) mg/dL POC Glucose (mg/dL) 391 H (75-99) mg/dL Calcium 8.3 L (8.4-10.2) mg/dL Albumin 3.2 L (3.5-5.0) g/dL Microbiology - Last 24 Hours (Table) 02/15/18 16:14 Gram Stain - Preliminary Foot - Left Wound Culture - Preliminary 02/15/18 16:14 Anaerobic Culture - Preliminary Foot - Left Assessment and Plan Assessment: Assessment Unstable angina Acute hypoxic respiratory failure requiring supplemental oxygen Right side pneumonia COPD Hypomagnesemia GIOVANY Diabetes mellitus Hyperlipidemia Hypertension History of CHF Plan Medications have been reviewed and will be continued as ordered. Antibiotics. Scheduled DuoNeb and budesonide. Ultrasound of the chest was not significant enough to undergo a thoracentesis at this time. Avoid systemic steroids at this time related to hyperglycemia and uncontrolled diabetes mellitus type 2, as well as reserve kidney function. Obtain sputum culture. Continue to monitor and replace electrolytes. Continue with pulmonary hygiene, coughing and deep breathing exercises, and supportive care. Supplemental oxygen to maintain oxygen saturations of 92% or better. Use his home CPAP every night. Continue nebulizer treatments. GI and DVT prophylaxis. We will continue to monitor labs/ results and adjust treatment as necessary. Further recommendations pending. I performed an examination of the patient and discussed their management with the nurse practitioner. I have reviewed the nurse practitioner's note and agree with the documented findings and plan of care. <Ame Oneil - Last Filed: 02/17/18 13:35> Objective - Vital Signs Vital signs: Vital Signs Temp 97.7 F 02/17/18 06:07 Pulse 92 02/17/18 08:26 Resp 22 02/17/18 06:07 BP 143/74 02/17/18 06:07 Pulse Ox 96 02/17/18 08:15 Intake & Output 02/16/18 02/17/18 02/17/18 18:59 06:59 18:59 Intake Total 240 300 Output Total 300 450 Balance -60 -150 Weight 188 kg 188 kg Intake: Oral 240 300 Output: Urine 300 450 Straight 300 Other: Voiding Method Urinal # Voids 0 1 - Labs CBC & Chem 7: 02/17/18 09:31 02/17/18 09:31 Labs: Abnormal Lab Results - Last 24 Hours (Table) 02/16/18 02/16/18 02/16/18 Range/Units 09:11 17:34 20:38 RBC (4.30-5.90) m/uL Hgb (13.0-17.5) gm/dL Hct (39.0-53.0) % MCHC (31.0-37.0) g/dL RDW (11.5-15.5) % Plt Count (150-450) k/uL Sodium (137-145) mmol/L BUN (9-20) mg/dL Creatinine (0.66-1.25) mg/dL Glucose (74-99) mg/dL POC Glucose (mg/dL) 326 H 213 H (75-99) mg/dL Calcium (8.4-10.2) mg/dL Iron 47 L (65-175) ug/dL C-Reactive Protein (<10.0) mg/L Albumin (3.5-5.0) g/dL Ur Random Sodium (30-90) mmol/L 02/17/18 02/17/18 02/17/18 Range/Units 06:56 09:31 09:31 RBC 2.79 L (4.30-5.90) m/uL Hgb 7.3 L (13.0-17.5) gm/dL Hct 23.9 L (39.0-53.0) % MCHC 30.5 L (31.0-37.0) g/dL RDW 18.5 H (11.5-15.5) % Plt Count 122 L (150-450) k/uL Sodium 136 L (137-145) mmol/L BUN 32 H (9-20) mg/dL Creatinine 3.25 H (0.66-1.25) mg/dL Glucose 184 H (74-99) mg/dL POC Glucose (mg/dL) 159 H (75-99) mg/dL Calcium 8.3 L (8.4-10.2) mg/dL Iron (65-175) ug/dL C-Reactive Protein (<10.0) mg/L Albumin 3.2 L (3.5-5.0) g/dL Ur Random Sodium (30-90) mmol/L 02/17/18 02/17/18 02/17/18 Range/Units 09:31 11:15 11:52 RBC (4.30-5.90) m/uL Hgb (13.0-17.5) gm/dL Hct (39.0-53.0) % MCHC (31.0-37.0) g/dL RDW (11.5-15.5) % Plt Count (150-450) k/uL Sodium (137-145) mmol/L BUN (9-20) mg/dL Creatinine (0.66-1.25) mg/dL Glucose (74-99) mg/dL POC Glucose (mg/dL) 168 H (75-99) mg/dL Calcium (8.4-10.2) mg/dL Iron (65-175) ug/dL C-Reactive Protein 25.2 H (<10.0) mg/L Albumin (3.5-5.0) g/dL Ur Random Sodium 23 L (30-90) mmol/L Microbiology - Last 24 Hours (Table) 02/15/18 16:14 Gram Stain - Preliminary Foot - Left Wound Culture - Preliminary Presumptive Staph aureus Strep agalactiae - (group b) Assessment and Plan Assessment: CPAP adjusted. Hold diuresis, await nephrology recommendations. CPAP nightly. Add Prednisone. Continue ABX. Sputum culture pending. ~Ame Oneil DO
[2018-02-16 12:30] LABS: Glucose,Whole Blood 410 mg/dL (75-99)
--- NOTE | 2018-02-16 12:46 | P.PN ---
Subjective Progress Note Date: 02/16/18 This is a 67-year-old male patient of Dr. Johnson with a past medical history of chronic heart failure, COPD, diabetes mellitus type 2 insulin requiring, hypertension, benign prostatic hypertrophy, gastroesophageal reflux disease, hyperlipidemia, obstructive sleep apnea with CPAP, morbid obesity with planned for gastric sleeve with Dr. Ayala in the near future. Patient complains of heaviness on his chest and his breathing difficulty. He denies any pain with deep breathing. His chest pain occurs when he is laying down. He denies any nausea vomiting or diarrhea. There's been no abdominal pain. He denies any cough or fever or chills. He denies any recent smoke exposure. Patient presented to [facility] emergency center. Chest x-ray showed right upper lobe and right perihilar infiltrate. Correlate for pneumonia. EKG was normal sinus rhythm with no ST elevation. Hemoglobin was 8.9, creatinine 1.54. Troponins have been negative on 3 draws. Patient was started on heparin drip, Nitropaste and aspirin and placed in the observation unit and cardiology consult requested. Consult with pulmonary medicine for shortness of breath, echocardiogram has been ordered as well as lipid panel and hemoglobin A1c. His last hemoglobin A1c in October was 9.6. Repeat hemoglobin A1c will be obtained. Patient is currently on large dose of 7033 times daily with meals and follows with Dr. Schmidt. He last saw her one half to 2 months ago for clearance for his bariatric surgery. He has been diabetic for more than 30 years. Patient was ambulated and pulse ox dropped down to 85% and patient has been started on IV Levaquin for pneumonia as well as nebulizer treatments. Patient has brought his CPAP from home which she is last night. Patient has a diabetic ulcer on the left heel that is present on admission. He states he has had this since last summer when he was in a retirement and he had to move himself by lifting himself with his heels. He does not see anyone for treatment of this. 02/15: Echocardiogram reveals EF of 60-65% with mild aortic valve sclerosis, mild mitral regurgitation, trace tricuspid regurgitation, no pulmonary hypertension. Due to elevated d-dimer, lower extremity duplex was negative for DVT. CTA of the chest showed no evidence of pulmonary embolism. Bilateral pleural effusions with pulmonary mild infiltrate and atelectasis. Chest ultrasound revealed mild bilateral pleural effusions. White count is normal, hemoglobin 8.0, creatinine is 1.6. Blood sugars have been elevated in the 300s for which we will increase Lantus to 40 units at bedtime and NovoLog to 10 units 3 times daily along with scale. Pulse ox is 95% on room air at rest. Nursing to check room air pulse ox with ambulation in the morning. Note: Patient gives history that he has heart failure and is on Lasix at home but discussed with cardiology and reviewed patient's records in the hospital and there is been no previous diagnosis of heart failure documented. 02/16: Patient is noted to have a drop in his hemoglobin and he gives history that he has had a workup with Dr. Webb in the past an unknown reason for the anemia. Occult stool will be ordered. He denies having any blood or dark stools. Iron studies ordered. Patient did require straight cath this morning he is status post TURP. BUN is 26 and creatinine 2.51. Incentive spirometry added. Blood sugars and now in the 304 100s and patient will be resumed on his home dose of 7030 insulin. Room air pulse ox with ambulation was 88%. Patient may require home oxygen. Patient encouraged to use incentive spirometry over the next 24 hours and most likely discharge home. Objective - Vital Signs Vital signs: Vital Signs Temp 98.2 F 02/16/18 06:25 Pulse 94 02/16/18 08:29 Resp 24 02/16/18 06:25 BP 129/46 02/16/18 06:25 Pulse Ox 88 L 02/16/18 09:48 Intake & Output 02/15/18 02/16/18 02/16/18 18:59 06:59 18:59 Intake Total 100 Output Total 1900 300 Balance -1800 -300 Weight 184.5 kg Intake: Oral 100 Output: Urine 1900 300 Straight 1150 300 Other: Voiding Method Urinal Urinal # Voids 0 - Exam General appearance: cooperative, no acute distress, morbidly obese - EENT Eyes: anicteric sclerae, PERRLA, normal appearance ENT: hearing grossly normal - Neck Neck: no lymphadenopathy, normal ROM, no other, no rigidity, no stridor, no thyromegaly - Respiratory Respiratory: bilateral diminished, + rhonchi bilateral, diminished bilaterally due to body habitus - Cardiovascular Rhythm: regular Heart sounds: normal: S1, S2 Abnormal Heart Sounds: no systolic murmur, no diastolic murmur, no rub, no S3 Gallop, no S4 Gallop, no click, no other - Gastrointestinal General gastrointestinal: normal bowel sounds, soft, nontender - Integumentary Integumentary: no rash, chronic venous stasis bilaterally, with 1+ pitting edema on the bilateral lower extremity, ulcer to the left heel with serous drainage - Neurologic Neurologic: CNII-XII intact - Musculoskeletal Musculoskeletal: gait not assessed, strength equal bilaterally - Psychiatric Psychiatric: A&O x's 3, appropriate affect - Labs CBC & Chem 7: 02/16/18 09:11 02/16/18 09:11 Labs: Abnormal Lab Results - Last 24 Hours (Table) 02/15/18 02/15/18 02/16/18 Range/Units 17:52 20:56 07:47 RBC (4.30-5.90) m/uL Hgb (13.0-17.5) gm/dL Hct (39.0-53.0) % MCHC (31.0-37.0) g/dL RDW (11.5-15.5) % Plt Count (150-450) k/uL BUN (9-20) mg/dL Creatinine (0.66-1.25) mg/dL Glucose (74-99) mg/dL POC Glucose (mg/dL) 415 H 354 H 391 H (75-99) mg/dL Calcium (8.4-10.2) mg/dL Albumin (3.5-5.0) g/dL 02/16/18 02/16/18 02/16/18 Range/Units 09:11 09:11 12:28 RBC 2.78 L (4.30-5.90) m/uL Hgb 7.4 L (13.0-17.5) gm/dL Hct 24.1 L (39.0-53.0) % MCHC 30.8 L (31.0-37.0) g/dL RDW 18.0 H (11.5-15.5) % Plt Count 142 L (150-450) k/uL BUN 26 H (9-20) mg/dL Creatinine 2.51 H (0.66-1.25) mg/dL Glucose 369 H (74-99) mg/dL POC Glucose (mg/dL) 410 H (75-99) mg/dL Calcium 8.3 L (8.4-10.2) mg/dL Albumin 3.2 L (3.5-5.0) g/dL Microbiology - Last 24 Hours (Table) 02/15/18 16:14 Gram Stain - Preliminary Foot - Left Wound Culture - Preliminary 02/15/18 16:14 Anaerobic Culture - Preliminary Foot - Left Assessment and Plan Plan: 1. Chest pain with normal troponins. Patient was initially started on heparin drip, aspirin and Nitropaste. Cardiology consult is appreciated. Echocardiogram as above. Acute coronary syndrome has been ruled out. Patient is to follow with Dr. Fierro 2. Acute on chronic hypoxic respiratory failure with pulse ox of 85% with activity on room air secondary to right-sided pneumonia, possible gram-negative pneumonia and bilateral pleural effusions canary to pneumonia. Patient will be started on Levaquin 750 mg IV piggyback every day, DuoNeb treatments 3 times daily scheduled and albuterol as needed. 3. Diabetes mellitus type 2 uncontrolled, insulin requiring with diabetic neuropathy. Patient placed on Humalog scale before meals and at bedtime. Patient will be resumed on his home dose of 7030 with 126 units at breakfast, 100 units at lunch, 126 units at supper. Continue gabapentin 300 mg twice daily. Hemoglobin A1c will be checked. Previous one was 9.6 4. Acute kidney injury with chronic kidney disease stage IIIA. Continue to monitor. 5. Hypertension. Continue Norvasc 10 mg in morning and 5 mg at supper, lisinopril 20 mg daily and 10 mg at bedtime. 6. Hyperlipidemia. Continue Lipitor 40 mg at bedtime. 7. Benign prostatic hypertrophy continue Flomax 0.4 mg at bedtime. 8. Obstructive sleep apnea on CPAP. Patient to continue to use CPAP while hospitalized 9. Diabetic ulcer left heel. Local wound care will be in the form of Santyl. Wound culture to be obtained. [facility] as he has transportation problems. 10. Morbidly obesity with BMI of 50 with plan for bariatric surgery with Dr. Ayala. 11. DVT prophylaxis. Patient on heparin. 12. GI prophylaxis and gastroesophageal reflux disease and hiatal hernia. Continue Protonix. Discharge plan: Return home with home care and possibly oxygen. Case management is following Impression and plan of care have been directed as dictated by the signing physician. Candy Magana nurse practitioner acting as scribe for signing physician.
[2018-02-16] MEDS: INSULIN NPH/REG INSULIN 70/30 300 UNIT/3 ML VIAL SQ SCH ×2 (13:04→18:21)
--- NOTE | 2018-02-16 15:25 | XR ---
EXAMINATION TYPE: XR chest 2V DATE OF EXAM: 02/16/2018 COMPARISON: CTA chest from 2 days ago. Chest x-ray from 3 days ago. HISTORY: Infiltrates. TECHNIQUE: Frontal and lateral views of the chest are obtained. FINDINGS: Exam particular lateral view remains suboptimal secondary to patient's large body habitus. There are persistent small bilateral pleural effusions with blunting of posterior costophrenic angle s. The cardiac silhouette size remains mildly enlarged. No suspicious new focal airspace opacity or pneumothorax is seen bilaterally. The osseous structures are intact. IMPRESSION: Persistent cardiomegaly with small bilateral pleural effusions. Correlate for fluid over load state or CHF exacerbation. No new suspicious focal infiltrate is seen.
[2018-02-16] MEDS: BISACODYL 5 MG TABLET.DR PO PRN (16:38)
[2018-02-16] MEDS: amLODIPine 5 MG TAB PO SCH (16:41)
[2018-02-16 17:01] LABS: Iron Saturation 15.51 (15.00-50.00)
[2018-02-16 17:47] LABS: Glucose,Whole Blood 326 mg/dL (75-99)
[2018-02-16] MEDS: TAMSULOSIN 0.4 MG CAP.ER.24H PO SCH (20:46)
[2018-02-16] MEDS: MONTELUKAST 10 MG TAB PO SCH (20:46)
[2018-02-16] MEDS: ATORVASTATIN 40 MG TAB PO SCH (20:46)
[2018-02-16 20:51] LABS: Glucose,Whole Blood 213 mg/dL (75-99)
[2018-02-17] MEDS: ALBUTEROL NEBULIZED 2.5 MG/3 ML INHALATION PRN (03:19)
[2018-02-17 07:24] LABS: Glucose,Whole Blood 159 mg/dL (75-99)
[2018-02-17] MEDS: FUROSEMIDE 10 MG/ML 4 ML VIAL IV SCH (08:01)
[2018-02-17] MEDS: FERROUS SULFATE 325 MG TAB PO SCH (08:02)
[2018-02-17] MEDS: CHOLECALCIFEROL 1,000 UNIT TAB PO SCH (08:02)
[2018-02-17] MEDS: HEPARIN SODIUM,PORCINE 5,000 UNIT/ML 1 ML VIAL SQ SCH ×2 (08:02→20:46)
[2018-02-17] MEDS: INSULIN NPH/REG INSULIN 70/30 300 UNIT/3 ML VIAL SQ SCH ×3 (08:03→18:03)
[2018-02-17] MEDS: amLODIPine 10 MG TAB PO SCH (08:03)
[2018-02-17] MEDS: PANTOPRAZOLE 40 MG TABLET PO SCH (08:03)
[2018-02-17] MEDS: ASPIRIN 81 MG PO SCH (08:03)
[2018-02-17] MEDS: GABAPENTIN 300 MG CAP PO SCH ×2 (08:03→20:46)
[2018-02-17] MEDS: INSULIN ASPART 100 UNIT/ML 1 ML 10 ML VIAL SQ SCH ×4 (08:04→18:02)
[2018-02-17] MEDS: BUDESONIDE 1 MG/2 ML NEBU INHALATION SCH ×2 (08:13→19:41)
[2018-02-17] MEDS: IPRATROPIUM-ALBUTEROL 3 ML NEB INHALATION SCH ×3 (08:14→19:41)
[2018-02-17] MEDS: BISACODYL 5 MG TABLET.DR PO PRN (08:26)
[2018-02-17 09:45] LABS: Anisocytosis Slight; Basophils % (A) 0 %; Eosinophils # (A) 0.1 k/uL (0-0.7); Eosinophils % (A) 2 %; HCT 23.9 % (39.0-53.0); HGB 7.3 gm/dL (13.0-17.5); Hypochromasia Moderate; Lymphocytes # (A) 1.3 k/uL (1.0-4.8); Lymphocytes % (A) 19 %; MCH 26.2 pg (25.0-35.0); MCHC 30.5 g/dL (31.0-37.0); Mean Platelet Volume 10.6; Monocytes # (A) 0.4 k/uL (0-1.0); Monocytes % (A) 5 %; Neutrophils # (A) 5.1 k/uL (1.3-7.7); Neutrophils % (A) 73 %; Platelet Count 122 k/uL (150-450); RBC 2.79 m/uL (4.30-5.90); RDW 18.5 % (11.5-15.5); WBC 7.1 k/uL (3.8-10.6)
--- NOTE | 2018-02-17 10:10 | P.PN ---
Subjective Progress Note Date: 02/17/18 HPI: This is a 67-year-old male patient well known to our services. This patient was in the office yesterday with increasing severity of shortness of breath that had been ongoing over the past week. He also complained of some chest pain that was intermittent over the last few days as well. Patient was directed to the emergency room for further evaluation and workup. EKG was performed and showed no ST segment elevation. His chest x-ray did reveal some right hilar area possible infiltrate however has no fevers, chills, cough or white count at this time. Upon workup in the emergency room the patient was found to have some unstable angina and was admitted for further evaluation. Patient was put on a heparin drip and Nitropaste which seemed to help. Cardiology was put on consult as well. Echocardiogram is currently pending. His magnesium was noted to be 1.4 and is currently being replaced. His troponins were negative however there was an increase in his CK-MB. Upon examination today the patient's resting up in bed on 3 L of supplemental oxygen via nasal cannula. The patient does not utilize home oxygen. He did utilize his CPAP overnight. Patient is an ex-smoker and smoked approximately 1 pack per day for over 30 years. He continues to have some shortness of breath with exertion and activity. Denies any cough or sputum production at this time. He is afebrile, chest heaviness has improved. No further complaints. Interval Hx: 02/15/18- patient is being seen and examined and evaluated today on rounds. He states he continues to have significant shortness of breath with activity exertion and extensive conversation. The patient did have an elevated d-dimer yesterday and did go for a CTA which revealed no PE however did show bilateral pleural effusions with mild infiltrates and atelectasis in the left lower base. An ultrasound of the effusions has been ordered. The patient has been educated on the possibility of undergoing a thoracentesis if appropriate pending results of ultrasound. He is afebrile no further complaints. Heparin drip has been stopped. We'll place him on subcu heparin for DVT prophylaxis. Doppler of the bilateral lower extremities revealed no DVT however was a limited exam. 02/16/18-patient is being seen and examined and evaluated today on rounds. He is resting up in bed on 3 L of supplemental oxygen via nasal cannula. He states his breathing is somewhat improved today. Patient's wound culture results are currently pending. His labs have been reviewed. His BUN is 26 his creatinine is 2.51, hemoglobin noted to be 7.4 today, denies any overt signs of bleeding. He is hemodynamically stable. We will continue to watch his hemoglobin, as well as kidney function. He continues to have shortness of breath with exertion and activity. Does have an occasional productive cough with TMs sputum. He has been able to give us a sputum which will be sent down to the lab for culture. 02/17/18- patient has been seen and examined and evaluated today on rounds. He is resting up in bed on 3-4 L of supplemental oxygen via nasal cannula. The patient did not utilize his CPAP overnight. States he just was not feeling well and felt like it wasn't giving him enough air study did not use it. Current labs are pending. He does have some preliminary results on his left foot wound and it is positive for staph aureus and positive for strep group B. Patient continues to be short of breath with exertion and activity. Continues to have his cough. Obtain Sputum culture. Objective - Vital Signs Vital signs: Vital Signs Temp 97.7 F 02/17/18 06:07 Pulse 92 02/17/18 08:26 Resp 22 02/17/18 06:07 BP 143/74 02/17/18 06:07 Pulse Ox 96 02/17/18 08:15 Intake & Output 02/16/18 02/17/18 02/17/18 18:59 06:59 18:59 Intake Total 240 300 Output Total 300 450 Balance -60 -150 Weight 188 kg Intake: Oral 240 300 Output: Urine 300 450 Straight 300 Other: Voiding Method Urinal # Voids 0 1 - Exam GENERAL EXAM: Alert, comfortable in no apparent distress. HEAD: Normocephalic. EYES: Normal reaction of pupils, equal size. NOSE: Clear with pink turbinates. THROAT: No erythema or exudates. NECK: No masses, no JVD. CHEST: No chest wall deformity. LUNGS: Poor air entry with no crackles, wheeze, rhonchi or dullness. CVS: S1 and S2 normal with no audible mumurs, regular rhythm. ABDOMEN: No hepatosplenomegaly, normal bowel sounds, no guarding or rigidity. EXTREMITIES: +1-2 edema noted, pedal pulses palpable. Chronic bilateral lower action a cellulitis CENTRAL NERVOUS SYSTEM: No focal deficits, tone is normal in all 4 extremities. - Labs CBC & Chem 7: 02/17/18 09:31 02/16/18 09:11 Labs: Abnormal Lab Results - Last 24 Hours (Table) 02/16/18 02/16/18 02/16/18 Range/Units 09:11 09:11 12:28 RBC (4.30-5.90) m/uL Hgb (13.0-17.5) gm/dL Hct (39.0-53.0) % MCHC (31.0-37.0) g/dL RDW (11.5-15.5) % Plt Count (150-450) k/uL BUN 26 H (9-20) mg/dL Creatinine 2.51 H (0.66-1.25) mg/dL Glucose 369 H (74-99) mg/dL POC Glucose (mg/dL) 410 H (75-99) mg/dL Calcium 8.3 L (8.4-10.2) mg/dL Iron 47 L (65-175) ug/dL Albumin 3.2 L (3.5-5.0) g/dL 02/16/18 02/16/18 02/17/18 Range/Units 17:34 20:38 06:56 RBC (4.30-5.90) m/uL Hgb (13.0-17.5) gm/dL Hct (39.0-53.0) % MCHC (31.0-37.0) g/dL RDW (11.5-15.5) % Plt Count (150-450) k/uL BUN (9-20) mg/dL Creatinine (0.66-1.25) mg/dL Glucose (74-99) mg/dL POC Glucose (mg/dL) 326 H 213 H 159 H (75-99) mg/dL Calcium (8.4-10.2) mg/dL Iron (65-175) ug/dL Albumin (3.5-5.0) g/dL 02/17/18 Range/Units 09:31 RBC 2.79 L (4.30-5.90) m/uL Hgb 7.3 L (13.0-17.5) gm/dL Hct 23.9 L (39.0-53.0) % MCHC 30.5 L (31.0-37.0) g/dL RDW 18.5 H (11.5-15.5) % Plt Count 122 L (150-450) k/uL BUN (9-20) mg/dL Creatinine (0.66-1.25) mg/dL Glucose (74-99) mg/dL POC Glucose (mg/dL) (75-99) mg/dL Calcium (8.4-10.2) mg/dL Iron (65-175) ug/dL Albumin (3.5-5.0) g/dL Microbiology - Last 24 Hours (Table) 02/15/18 16:14 Gram Stain - Preliminary Foot - Left Wound Culture - Preliminary Presumptive Staph aureus Strep agalactiae - (group b) Assessment and Plan Assessment: Assessment Unstable angina Acute hypoxic respiratory failure requiring supplemental oxygen Right side pneumonia COPD Hypomagnesemia GIOVANY Diabetes mellitus Hyperlipidemia Hypertension History of CHF Left foot wound with positive staph aureus and positive strep group B Plan Awaiting pending labs from today. Left foot wound with positive staph aureus and positive strep group B. Medications have been reviewed and will be continued as ordered. Antibiotics. Scheduled DuoNeb and budesonide. Ultrasound of the chest was not significant enough to undergo a thoracentesis at this time. Avoid systemic steroids at this time related to hyperglycemia and uncontrolled diabetes mellitus type 2, as well as reserve kidney function. Obtain sputum culture. Continue to monitor and replace electrolytes. Continue with pulmonary hygiene, coughing and deep breathing exercises, and supportive care. Supplemental oxygen to maintain oxygen saturations of 92% or better. Use his home CPAP every night. Continue nebulizer treatments. GI and DVT prophylaxis. We will continue to monitor labs/results and adjust treatment as necessary. Further recommendations pending. I performed an examination of the patient and discussed their management with the nurse practitioner. I have reviewed the nurse practitioner's note and agree with the documented findings and plan of care.
[2018-02-17 10:14] LABS: Calcium 8.3 mg/dL (8.4-10.2); Potassium 4.2 mmol/L (3.5-5.1); Total Bilirubin 0.5 mg/dL (0.2-1.3); Total Protein 6.7 g/dL (6.3-8.2)
[2018-02-17 10:19] LABS: Albumin 3.2 g/dL (3.5-5.0)
[2018-02-17] MEDS ORDERED: SODIUM CHLORIDE 0.9% 1,000 ML IV SCH ×2 (10:30→10:45)
[2018-02-17] MEDS ORDERED: SODIUM CHLORIDE 0.9% 500 ML IV ONE (10:30)
[2018-02-17 10:34] VITALS: BMI 51.7
--- NOTE | 2018-02-17 11:19 | XR ---
EXAMINATION TYPE: XR foot limited LT DATE OF EXAM: 02/17/2018 COMPARISON: NONE HISTORY: Pain in left foot TECHNIQUE: Three-view left foot. Artifact from the patient's sock is present causing limitation of th e evaluation. FINDINGS: Plantar calcaneal heel spur is present. There is diffuse soft tissue swelling present. An a cute osseous fracture is not identified. Proximal medial distal phalanx great toe cortical erosion is not excluded. Joint spaces appear preserved. IMPRESSION: 1. Cortical erosion along the medial proximal portion distal phalanx left great toe may be present. Correlate for osteomyelitis at this location. 2. Diffuse soft tissue swelling.
[2018-02-17 11:58] LABS: Glucose,Whole Blood 168 mg/dL (75-99)
[2018-02-17] MEDS ORDERED: LEVOFLOXACIN 750 MG TAB PO SCH (12:00)
[2018-02-17] MEDS: MULTIVITAMINS, THERA 1 EACH TAB PO SCH (13:08)
[2018-02-17] MEDS: MAGNESIUM OXIDE 400 MG TAB PO SCH (13:08)
[2018-02-17] MEDS ORDERED: VANCOMYCIN IV PER PHARMACY 1 EACH MISC MISCELLANE PRN (13:24)
[2018-02-17] MEDS ORDERED: VANCOMYCIN IVPB ONE (13:45)
[2018-02-17] MEDS ORDERED: SODIUM CHLORIDE 0.9% IVPB ONE (13:45)
--- NOTE | 2018-02-17 15:03 | P.PN ---
Subjective Progress Note Date: 02/17/18 This is a 67-year-old male patient of Dr. Johnson with a past medical history of chronic heart failure, COPD, diabetes mellitus type 2 insulin requiring, hypertension, benign prostatic hypertrophy, gastroesophageal reflux disease, hyperlipidemia, obstructive sleep apnea with CPAP, morbid obesity with planned for gastric sleeve with Dr. Ayala in the near future. Patient complains of heaviness on his chest and his breathing difficulty. He denies any pain with deep breathing. His chest pain occurs when he is laying down. He denies any nausea vomiting or diarrhea. There's been no abdominal pain. He denies any cough or fever or chills. He denies any recent smoke exposure. Patient presented to [facility] emergency center. Chest x-ray showed right upper lobe and right perihilar infiltrate. Correlate for pneumonia. EKG was normal sinus rhythm with no ST elevation. Hemoglobin was 8.9, creatinine 1.54. Troponins have been negative on 3 draws. Patient was started on heparin drip, Nitropaste and aspirin and placed in the observation unit and cardiology consult requested. Consult with pulmonary medicine for shortness of breath, echocardiogram has been ordered as well as lipid panel and hemoglobin A1c. His last hemoglobin A1c in October was 9.6. Repeat hemoglobin A1c will be obtained. Patient is currently on large dose of 7033 times daily with meals and follows with Dr. Schmidt. He last saw her one half to 2 months ago for clearance for his bariatric surgery. He has been diabetic for more than 30 years. Patient was ambulated and pulse ox dropped down to 85% and patient has been started on IV Levaquin for pneumonia as well as nebulizer treatments. Patient has brought his CPAP from home which she is last night. Patient has a diabetic ulcer on the left heel that is present on admission. He states he has had this since last summer when he was in a correction and he had to move himself by lifting himself with his heels. He does not see anyone for treatment of this. 02/15: Echocardiogram reveals EF of 60-65% with mild aortic valve sclerosis, mild mitral regurgitation, trace tricuspid regurgitation, no pulmonary hypertension. Due to elevated d-dimer, lower extremity duplex was negative for DVT. CTA of the chest showed no evidence of pulmonary embolism. Bilateral pleural effusions with pulmonary mild infiltrate and atelectasis. Chest ultrasound revealed mild bilateral pleural effusions. White count is normal, hemoglobin 8.0, creatinine is 1.6. Blood sugars have been elevated in the 300s for which we will increase Lantus to 40 units at bedtime and NovoLog to 10 units 3 times daily along with scale. Pulse ox is 95% on room air at rest. Nursing to check room air pulse ox with ambulation in the morning. Note: Patient gives history that he has heart failure and is on Lasix at home but discussed with cardiology and reviewed patient's records in the hospital and there is been no previous diagnosis of heart failure documented. 02/16: Patient is noted to have a drop in his hemoglobin and he gives history that he has had a workup with Dr. Webb in the past an unknown reason for the anemia. Occult stool will be ordered. He denies having any blood or dark stools. Iron studies ordered. Patient did require straight cath this morning he is status post TURP. BUN is 26 and creatinine 2.51. Incentive spirometry added. Blood sugars and now in the 304 100s and patient will be resumed on his home dose of 7030 insulin. Room air pulse ox with ambulation was 88%. Patient may require home oxygen. Patient encouraged to use incentive spirometry over the next 24 hours and most likely discharge home. 02/17 patient examined bedside denies any complains of shortness of breath, chest pain, abdominal pain, nausea or vomiting. Denies any decreased urinary output. Hemoglobin 7.3. Fecal occult blood pending. Ferritin, iron, iron binding capacity, reticulocyte ordered. Patient has increasing creatinine from 2.5-3.25 on IV Lasix twice a day. 500 mL of IV fluid given. Monitor input and output. Nephrology agree with holding Lasix and fluid for now and monitoring CMP. Infectious disease was consulted for a draining infective callus. Dr. Reis consulted for further recommendation and possible debridement Objective - Vital Signs Vital signs: Vital Signs Temp 97.7 F 02/17/18 06:07 Pulse 92 02/17/18 08:26 Resp 22 02/17/18 06:07 BP 143/74 02/17/18 06:07 Pulse Ox 96 02/17/18 08:15 Intake & Output 02/16/18 02/17/18 02/17/18 18:59 06:59 18:59 Intake Total 240 300 Output Total 300 450 Balance -60 -150 Weight 188 kg 188 kg Intake: Oral 240 300 Output: Urine 300 450 Straight 300 Other: Voiding Method Urinal # Voids 0 1 - Exam General appearance: cooperative, no acute distress, morbidly obese - EENT Eyes: anicteric sclerae, PERRLA, normal appearance ENT: hearing grossly normal - Neck Neck: no lymphadenopathy, normal ROM, no other, no rigidity, no stridor, no thyromegaly - Respiratory Respiratory: bilateral diminished, + rhonchi bilateral, diminished bilaterally due to body habitus - Cardiovascular Rhythm: regular Heart sounds: normal: S1, S2 Abnormal Heart Sounds: no systolic murmur, no diastolic murmur, no rub, no S3 Gallop, no S4 Gallop, no click, no other - Gastrointestinal General gastrointestinal: normal bowel sounds, soft, nontender - Integumentary Integumentary: no rash, chronic venous stasis bilaterally, with 1+ pitting edema on the bilateral lower extremity, ulcer to the left heel with serous drainage - Neurologic Neurologic: CNII-XII intact - Musculoskeletal Musculoskeletal: gait not assessed, strength equal bilaterally - Psychiatric Psychiatric: A&O x's 3, appropriate affect - Labs CBC & Chem 7: 02/17/18 09:31 02/17/18 09:31 Labs: Abnormal Lab Results - Last 24 Hours (Table) 02/16/18 02/16/18 02/16/18 Range/Units 09:11 17:34 20:38 RBC (4.30-5.90) m/uL Hgb (13.0-17.5) gm/dL Hct (39.0-53.0) % MCHC (31.0-37.0) g/dL RDW (11.5-15.5) % Plt Count (150-450) k/uL ESR (0-15) mm/hr Sodium (137-145) mmol/L BUN (9-20) mg/dL Creatinine (0.66-1.25) mg/dL Glucose (74-99) mg/dL POC Glucose (mg/dL) 326 H 213 H (75-99) mg/dL Calcium (8.4-10.2) mg/dL Iron 47 L (65-175) ug/dL C-Reactive Protein (<10.0) mg/L Albumin (3.5-5.0) g/dL Ur Random Sodium (30-90) mmol/L 02/17/18 02/17/18 02/17/18 Range/Units 06:56 09:31 09:31 RBC 2.79 L (4.30-5.90) m/uL Hgb 7.3 L (13.0-17.5) gm/dL Hct 23.9 L (39.0-53.0) % MCHC 30.5 L (31.0-37.0) g/dL RDW 18.5 H (11.5-15.5) % Plt Count 122 L (150-450) k/uL ESR (0-15) mm/hr Sodium 136 L (137-145) mmol/L BUN 32 H (9-20) mg/dL Creatinine 3.25 H (0.66-1.25) mg/dL Glucose 184 H (74-99) mg/dL POC Glucose (mg/dL) 159 H (75-99) mg/dL Calcium 8.3 L (8.4-10.2) mg/dL Iron (65-175) ug/dL C-Reactive Protein (<10.0) mg/L Albumin 3.2 L (3.5-5.0) g/dL Ur Random Sodium (30-90) mmol/L 02/17/18 02/17/18 02/17/18 Range/Units 09:31 09:31 11:15 RBC (4.30-5.90) m/uL Hgb (13.0-17.5) gm/dL Hct (39.0-53.0) % MCHC (31.0-37.0) g/dL RDW (11.5-15.5) % Plt Count (150-450) k/uL ESR 124 H (0-15) mm/hr Sodium (137-145) mmol/L BUN (9-20) mg/dL Creatinine (0.66-1.25) mg/dL Glucose (74-99) mg/dL POC Glucose (mg/dL) (75-99) mg/dL Calcium (8.4-10.2) mg/dL Iron (65-175) ug/dL C-Reactive Protein 25.2 H (<10.0) mg/L Albumin (3.5-5.0) g/dL Ur Random Sodium 23 L (30-90) mmol/L 02/17/18 Range/Units 11:52 RBC (4.30-5.90) m/uL Hgb (13.0-17.5) gm/dL Hct (39.0-53.0) % MCHC (31.0-37.0) g/dL RDW (11.5-15.5) % Plt Count (150-450) k/uL ESR (0-15) mm/hr Sodium (137-145) mmol/L BUN (9-20) mg/dL Creatinine (0.66-1.25) mg/dL Glucose (74-99) mg/dL POC Glucose (mg/dL) 168 H (75-99) mg/dL Calcium (8.4-10.2) mg/dL Iron (65-175) ug/dL C-Reactive Protein (<10.0) mg/L Albumin (3.5-5.0) g/dL Ur Random Sodium (30-90) mmol/L Microbiology - Last 24 Hours (Table) 02/15/18 16:14 Gram Stain - Preliminary Foot - Left Wound Culture - Preliminary Presumptive Staph aureus Strep agalactiae - (group b) Assessment and Plan Plan: 1. Chest pain with normal troponins. Patient was initially started on heparin drip, aspirin and Nitropaste. Cardiology consult is appreciated. Echocardiogram as above. Acute coronary syndrome has been ruled out. Patient is to follow with Dr. Fierro 2. Acute on chronic hypoxic respiratory failure with pulse ox of 85% with activity on room air secondary to right-sided pneumonia, possible gram-negative pneumonia and bilateral pleural effusions canary to pneumonia. Patient will be started on Levaquin 750 mg IV piggyback every day, DuoNeb treatments 3 times daily scheduled and albuterol as needed. 3. Diabetes mellitus type 2 uncontrolled, insulin requiring with diabetic neuropathy. Patient placed on Humalog scale before meals and at bedtime. Patient will be resumed on his home dose of 7030 with 126 units at breakfast, 100 units at lunch, 126 units at supper. Continue gabapentin 300 mg twice daily. Hemoglobin A1c will be checked. Previous one was 9.6 4. Acute kidney injury with chronic kidney disease stage IIIA. Continue to monitor. 500 mL bolus given. Urine sodium and urine creatinine ordered. Nephrology following 5. Hypertension. Continue Norvasc 10 mg in morning and 5 mg at supper, lisinopril 20 mg daily and 10 mg at bedtime. 6. Hyperlipidemia. Continue Lipitor 40 mg at bedtime. 7. Benign prostatic hypertrophy continue Flomax 0.4 mg at bedtime. 8. Obstructive sleep apnea on CPAP. Patient to continue to use CPAP while hospitalized 9. Diabetic ulcer left heel. Local wound care will be in the form of Santyl. Wound culture positive for probable staph. Dr. Eduardo consulted for debridement and possible imaging patient is [facility] as he has transportation problems. 10. Morbidly obesity with BMI of 50 with plan for bariatric surgery with Dr. Ayala. 11. DVT prophylaxis. Patient on heparin. 12. GI prophylaxis and gastroesophageal reflux disease and hiatal hernia. Continue Protonix. 13. Anemia of chronic disease. Hemoglobin trending down. Iron panel ordered. Nephrology following. Fecal occult ordered pending result Discharge plan: Return home with home care and possibly oxygen. Case management is following
[2018-02-17] MEDS: DOCUSATE 100 MG CAP PO SCH ×2 (15:08→20:47)
[2018-02-17] MEDS: POLYETHYLENE GLYCOL 3350 17 GM POWD.PACK PO SCH (15:08)
[2018-02-17] MEDS: predniSONE 20 MG TAB PO SCH (15:10)
[2018-02-17 15:16] LABS: Reticulocyte % 3.5 % (0.5-2.0)
[2018-02-17] MEDS ORDERED: LIDOCAINE 1% INJ 10MG/ML (20 ML MDV) SQ ONE (15:19)
--- NOTE | 2018-02-17 15:43 | CONS ---
CONSULTATION Mr. Castaneda is a 67-year-old diabetic male who has been admitted with history of chest pain, acute chronic respiratory failure. Patient has had an infected callus on the left heel for more than a year. Patient also has history of chronic venous hypertension. I was consulted for wound debridement. MEDICAL HISTORY: 1. History of obstructive sleep apnea. 2. History of diabetes. 3. History of hypertension. 4. History of acute kidney injury. 5. History of obesity. PHYSICAL EXAMINATION: Patient was seen in his room. NECK: Supple. CHEST: Crackles bilaterally. Abdomen is protuberant. Femorals are 1+. Posterior dorsalis pedis not palpable. Patient has chronic venous hypertension with infected callus on the left heel. PLAN: Debridement of the wound and deep culture. MMODL / IJN: [id number] /
--- NOTE | 2018-02-17 16:55 | OP ---
OPERATIVE REPORT PREOPERATIVE DIAGNOSIS: Necrotic wound with callus formation, left foot heel area. Measurement is 4 x 3 cm. PROCEDURE: Debridement of the wound down to subcutaneous tissue. Deep culture was sent for culture and sensitivity, left heel. DESCRIPTION OF PROCEDURE: This left foot was prepped and draped in usual sterile manner. Lidocaine 1% was infiltrated in the heel area. Using a sharp knife, we excised the necrotic wound down to subcutaneous tissue. All the necrotic tissue was removed. The wound was copiously irrigated with saline and Medihoney was applied to the wound. Dressing applied. No active bleeding was noted. Patient tolerated the procedure well. PLAN: Continue with Medihoney gel, which will be changed daily. Patient will be non- weightbearing on the left heel. If the patient goes home on the weekend, he will follow in the wound clinic. Patient will need a home care nurse for change of dressing. SEUN / ARI: [id number] /
[2018-02-17] MEDS ORDERED: DARBEPOETIN ALFA 40 MCG/0.4 ML SYRINGE SQ SCH (17:00)
--- NOTE | 2018-02-17 17:25 | CONS ---
CONSULTATION REASON FOR CONSULT: Renal failure. HISTORY OF PRESENT ILLNESS: Patient is a 67-year-old male with history of CKD stage III secondary to diabetic kidney disease with baseline creatinine about 1.5 to 1.6 mg/dL. He was admitted to the hospital with complaints of shortness of breath and chest pain. He had chest heaviness. The patient also had increased edema in his lower extremities prior to admission. Patient also has a left heel ulcer which is currently being treated. Chest x-ray on admission showed right upper lobe and right perihilar infiltrate. The patient is maintained on antibiotics. He had a chest CTA which showed no evidence of pulmonary embolism. The contrast was given on 02/14/2018. The patient has not been hypotensive. He was initially diuresed and then subsequently Lasix was decreased, and this morning patient had a 500 mL bolus. Serum creatinine on admission was 1.5 mg/dL. It did go up to 3.25 mg/dL today. The patient has been voiding. He denies any urinary symptoms. PAST MEDICAL HISTORY: 1. CKD stage III secondary to diabetic kidney disease. Baseline creatinine about 1.5 to 1.6 mg/dL. 2. Hypertension. 3. Obesity. 4. Diabetes. 5. COPD. 6. Obstructive sleep apnea. 7. History of BPH. 8. History of dialysis-dependent acute kidney injury with sepsis. 9. Tonsillar abscess. PAST SURGICAL HISTORY: 1. Cholecystectomy. 2. Hernia repair. 3. Prostatic surgery. 4. Carpal tunnel surgery. 5. TURP. 6. Umbilical hernia repair. 7. Colonoscopies. 8. EGD. 9. Polypectomy. SOCIAL HISTORY: Patient is a former smoker. No history of drug abuse or alcohol abuse. MEDICATIONS AT HOME PRIOR TO ADMISSION: 1. Lipitor. 2. Lasix. 3. Prilosec. 4. Calcitriol. 5. Singulair. 6. Flomax. 7. Neurontin. 8. Vitamin D3. 9. Iron. 10.Norvasc. 11.Insulin. 12.Quinapril. 13.Aspirin. 14.Levaquin. 15.Magnesium. 16.DuoNeb. ALLERGIES: NONE. REVIEW OF SYSTEMS: As per HPI. Other systems negative. PHYSICAL EXAMINATION: Patient is currently comfortable, awake. He is not in any acute distress. He wants to go home. Blood pressure was this morning 145/74, heart rate about 90 per minute. Patient is afebrile. EXAMINATION OF THE HEART: S1, S2. EXAMINATION OF LUNGS: Bilateral breath sounds are heard. Decreased breath sounds at bases. ABDOMEN: Soft, morbidly obese. Examination of lower extremities shows chronic edema with chronic skin changes, ulceration. Some lymphedema is also noted. CROSS COUNTRY/[employer] FI[employer]ACH exam is grossly intact. LABS: Sodium 136, potassium 4.2, chloride 99, BUN 22, serum creatinine 3.25, hemoglobin 7.3 g/dL. Calcium was 8.3, random urine sodium 23. ASSESSMENT: 1. Acute kidney injury secondary to contrast nephropathy, currently nonoliguric, and also secondary to anemia. Patient was recently diuresed; however, he did receive a fluid bolus this morning. IV fluids were discontinued. The patient has not been hypotensive. He is currently not on any MARTI inhibitors. I will check a post-void residual and avoid any further nephrotoxic agents. Discontinue IV fluids and hold off on diuretics as well for now. Repeat labs in a.m. Avoid hypotension. Patient is also on vancomycin, should be discontinued if not absolutely indicated. 2. Chronic kidney disease secondary to diabetic kidney disease. Baseline creatinine 1.5 to 1.6 mg/dL. 3. Right lung pneumonia, maintained on antibiotics. 4. Left foot wound with wound cultures positive for Strep agalactiae or group B strep, presumptive Staphylococcus. 5. Morbid obesity. 6. Chest pain on admission, atypical, with negative cardiac enzymes with no EKG changes. PLAN: Continue antibiotics for pneumonia. The patient has received 1 dose of vancomycin. Recommend to avoid further vancomycin if possible. Avoid hypotension. Start patient on Aranesp to treat anemia and rule out iron deficiency. Repeat labs in a.m. Thank you for this consultation. Will continue to follow the patient with you during his hospitalization. MMODL / IJN: [id number] /
[2018-02-17 17:27] LABS: Glucose,Whole Blood 75 mg/dL (75-99)
[2018-02-17 17:55] LABS: Glucose,Whole Blood 85 mg/dL (75-99)
[2018-02-17] MEDS: amLODIPine 5 MG TAB PO SCH (18:03)
[2018-02-17 20:32] LABS: Glucose,Whole Blood 164 mg/dL (75-99)
[2018-02-17] MEDS: MONTELUKAST 10 MG TAB PO SCH (20:46)
[2018-02-17] MEDS: ATORVASTATIN 40 MG TAB PO SCH (20:46)
[2018-02-17] MEDS: TAMSULOSIN 0.4 MG CAP.ER.24H PO SCH (20:47)
--- NOTE | 2018-02-17 22:54 | CONS ---
CONSULTATION DATE OF SERVICE: 02/17/2018. REASON FOR CONSULTATION: Left heel infected pressure ulcer with Staph aureus. HISTORY OF PRESENT ILLNESS: The patient is a 67-year-old morbidly obese diabetic presenting to the [facility] ER on 02/13/2018 for evaluation of chest pain, intermittent, which has been off and on for 2 days prior to admission to the hospital. The patient also complaining of increasing shortness of breath. With worsening symptoms, the patient came to the hospital, where the patient has been evaluated by the ER physician, admitted, subsequently seen by pulmonary service. He did have a CT angiogram that was negative for a PE. Lower extremity Doppler was negative. The patient did have a wound on his left medial foot area which apparently has been going on for about 2 weeks per the patient. The patient said he has been picking on it has been becoming more swollen, red and painful. Pain is more of a dull aching pain 3/10-4/10 and no radiation. The patient did have slight drainage from it. The patient did have cultures obtained from the same, which were showing Staph aureus. Hence, Infectious Disease was consulted for further recommendation regarding antibiotic therapy. REVIEW OF SYSTEMS: CONSTITUTIONAL: Positive for weakness. No fever. EYES: No complaint. ENT: No complaint. RESPIRATORY: As per HPI. CARDIOVASCULAR: As per HPI. GENITOURINARY: No complaint. GASTROINTESTINAL: No complaint. MUSCULOSKELETAL: No complaint. INTEGUMENTARY: As per HPI. PSYCHOLOGICAL: No complaint. ENDOCRINE: No complaint. NEUROLOGIC: No complaint. PAST MEDICAL HISTORY: Hypertension, hyperlipidemia, diabetes mellitus, COPD, history of congestive heart failure, sleep apnea and prostate disorder. PAST SURGICAL HISTORY: Cholecystectomy, hernia repair, carpal tunnel release, TURP, umbilical hernia repair. SOCIAL HISTORY: Remote history of smoking. No drinking or drug use. FAMILY HISTORY: Mother with history of dementia. Father lived to be 87 with no medical problems. ALLERGIES: No known drug allergies. MEDICATIONS: The patient is currently on: 1. Tylenol. 2. Ventolin. 3. DuoNeb. 4. Norvasc. 5. Aspirin. 6. Lipitor. 7. Dulcolax. 8. Pulmicort. 9. Vitamin D3. 10. . 11.Colace. 12.Iron sulfate. 13.Neurontin. 14.Heparin. 15.NovoLog. 16.Levaquin. 17.Mag oxide. 18.Vancomycin. Pharmacy to dose. 19.Singulair 10 mg. 20.Prednisone and. 21.Flomax. EXAMINATION: Blood pressure is 140/62 with a pulse of 90, temperature of 98.8. He is 91% on 4L nasal cannula. General description is an elderly male lying in bed in no distress. No tachypnea or accessory muscle for respiration use. HEENT shows pallor. No scleral icterus. Oral mucous membranes dry. NECK: Trachea central. There is no thyromegaly. LUNGS: Unlabored breathing. Clear to auscultation with decreased breath sounds at the bases. No wheeze or crackle. HEART: S1, S2. Regular rate and rhythm. No added sound. ABDOMEN: Soft. No tenderness. No guarding. No rigidity. No organomegaly. Extremities did show chronic discoloration. No active cellulitis. He did have a wound on the left the medial foot. It is likely an infected callus with some foul-smelling drainage. NEUROLOGICAL: Patient is awake, alert, oriented. Mood and affect normal. LABS: Hemoglobin is 7.8, white count of 7.1. BUN of 32 with a creatinine of 3.25, GFR of 19. Note the patient presented with a creatinine 1.5 on admission. Wound culture with MSSA and group B Strep. Anaerobic culture currently pending. DIAGNOSTIC IMPRESSION: 1. Patient with left diabetic foot infection with an infected callus, left foot medial border. Culture with methicillin-sensitive Staphylococcus aureus likely in a patient noted to have x-rays of the foot that showed diffuse soft tissue swelling, cortical erosion along the medial proximal portion of the distal phalanx left big toe. Patient with left diabetic foot infection. Culture positive for methicillin- sensitive Staphylococcus aureus and group B strep. 2. Infected callus with history of only 2 weeks, making it to be less likely underlying bone infection. X-ray was suspicious for left big toe. Currently, there is no ulceration at that spot and could be related to possible osteoarthritis rather than an infection. 3. The patient with complicating factors of adrenal insufficiency, bringing high risk of nephrotoxicity from the vancomycin. 4. Diabetes mellitus, uncontrolled. PLAN: 1. We will discontinue the vancomycin, as the cultures were finalized with MSSA rather than MRSA. 2. Care was discussed with the admitting physician to get a Vascular Surgery on the case to look into an I and D of this infected callus and to see the depth of the infection. 3. Cefazolin 2 g. Get trough, will adjust to his kidney function. 4. Local wound care with Medihoney and evaluate the wound tomorrow. 5. We will follow up on the clinical condition and culture to further adjust medication if needed. Thank you for this consultation. Will follow this patient along with you. SEUN / IJN: [id number] /
[2018-02-18] MEDS: ACETAMINOPHEN TAB 325 MG TAB PO PRN (00:11)
[2018-02-18] MEDS: ALBUTEROL NEBULIZED 2.5 MG/3 ML INHALATION PRN (01:44)
[2018-02-18 07:12] LABS: Glucose,Whole Blood 295 mg/dL (75-99)
--- NOTE | 2018-02-18 07:42 | XR ---
EXAMINATION TYPE: XR chest 2V DATE OF EXAM: 02/18/2018 HISTORY: shortness of breath. REFERENCE: Previous study dated 02/16/2018. FINDINGS: The heart is upper limits of normal in size. There is vascular congestion and subtle inters titial change. I suspect a small, left-sided effusion.. IMPRESSION: MILD, CONTINUING CHANGES OF PULMONARY EDEMA.
[2018-02-18] MEDS: CHOLECALCIFEROL 1,000 UNIT TAB PO SCH (08:08)
[2018-02-18] MEDS: HEPARIN SODIUM,PORCINE 5,000 UNIT/ML 1 ML VIAL SQ SCH (08:08)
[2018-02-18] MEDS: MAGNESIUM OXIDE 400 MG TAB PO SCH (08:08)
[2018-02-18] MEDS: GABAPENTIN 300 MG CAP PO SCH (08:09)
[2018-02-18] MEDS: predniSONE 20 MG TAB PO SCH (08:09)
[2018-02-18] MEDS: PANTOPRAZOLE 40 MG TABLET PO SCH (08:09)
[2018-02-18] MEDS: ASPIRIN 81 MG PO SCH (08:09)
[2018-02-18] MEDS: DOCUSATE 100 MG CAP PO SCH (08:09)
[2018-02-18] MEDS: amLODIPine 10 MG TAB PO SCH (08:09)
[2018-02-18] MEDS: POLYETHYLENE GLYCOL 3350 17 GM POWD.PACK PO SCH (08:10)
[2018-02-18] MEDS: INSULIN NPH/REG INSULIN 70/30 300 UNIT/3 ML VIAL SQ SCH ×2 (08:14→12:28)
[2018-02-18] MEDS: INSULIN ASPART 100 UNIT/ML 1 ML 10 ML VIAL SQ SCH ×2 (08:14→12:29)
[2018-02-18] MEDS: BUDESONIDE 1 MG/2 ML NEBU INHALATION SCH (08:29)
[2018-02-18] MEDS: IPRATROPIUM-ALBUTEROL 3 ML NEB INHALATION SCH ×2 (08:30→13:31)
[2018-02-18] MEDS ORDERED: ceFAZolin IN SWFI 2 GM/20 ML SYRINGE IVP SCH (09:00)
[2018-02-18 09:05] LABS: Calcium 8.8 mg/dL (8.4-10.2); Potassium 5.5 mmol/L (3.5-5.1)
[2018-02-18] MEDS: FERROUS SULFATE 325 MG TAB PO SCH (09:06)
[2018-02-18 09:10] LABS: Vancomycin,Random 11.7 ug/mL
--- NOTE | 2018-02-18 11:04 | P.PN ---
Subjective Progress Note Date: 02/18/18 Principal diagnosis: This is a patient seen with JUANITA and VINH. Creatinine is better. He claims he is ready to go home. His SOB is at baseline, on O2. uses Bipap at home. good appetite, No Fever chills. has gen weaknesm no change, Objective - Vital Signs Vital signs: Vital Signs Temp 97.5 F L 02/18/18 05:59 Pulse 92 02/18/18 08:33 Resp 18 02/18/18 08:00 BP 154/72 02/18/18 05:59 Pulse Ox 95 02/18/18 08:33 Intake & Output 02/17/18 02/18/18 02/18/18 18:59 06:59 18:59 Intake Total 200 Output Total 900 800 Balance -900 -800 200 Weight 188 kg 189.5 kg Intake: Oral 200 Output: Urine 900 800 Other: Voiding Method Urinal Urinal Urinal # Voids 2 1 # Bowel Movements 1 HEENT: Normal No JVP HS: mormal S1 and S2. Judith murmur gallop rub Lungs; Clear To Auscultation and percussion Abd; Soft, Obese, non tender Ext: Chronic stasis edema, CULINARY MANAGER: gen weakness stable - Labs CBC & Chem 7: 02/17/18 09:31 02/18/18 09:56 Labs: Abnormal Lab Results - Last 24 Hours (Table) 02/17/18 02/17/18 02/17/18 Range/Units 09:31 09:31 09:31 ESR 124 H (0-15) mm/hr Retic Count (0.5-2.0) % Sodium (137-145) mmol/L Potassium (3.5-5.1) mmol/L Carbon Dioxide (22-30) mmol/L BUN (9-20) mg/dL Creatinine (0.66-1.25) mg/dL Glucose (74-99) mg/dL POC Glucose (mg/dL) (75-99) mg/dL Iron 39 L (65-175) ug/dL Iron Saturation 13.00 L (15.00-50.00) C-Reactive Protein 25.2 H (<10.0) mg/L Ur Random Sodium (30-90) mmol/L 02/17/18 02/17/18 02/17/18 Range/Units 09:31 11:15 11:52 ESR (0-15) mm/hr Retic Count 3.5 H (0.5-2.0) % Sodium (137-145) mmol/L Potassium (3.5-5.1) mmol/L Carbon Dioxide (22-30) mmol/L BUN (9-20) mg/dL Creatinine (0.66-1.25) mg/dL Glucose (74-99) mg/dL POC Glucose (mg/dL) 168 H (75-99) mg/dL Iron (65-175) ug/dL Iron Saturation (15.00-50.00) C-Reactive Protein (<10.0) mg/L Ur Random Sodium 23 L (30-90) mmol/L 02/17/18 02/18/18 02/18/18 Range/Units 20:31 06:53 07:48 ESR (0-15) mm/hr Retic Count (0.5-2.0) % Sodium 134 L (137-145) mmol/L Potassium 5.5 H (3.5-5.1) mmol/L Carbon Dioxide 20 L (22-30) mmol/L BUN 36 H (9-20) mg/dL Creatinine 2.60 H (0.66-1.25) mg/dL Glucose 284 H (74-99) mg/dL POC Glucose (mg/dL) 164 H 295 H (75-99) mg/dL Iron (65-175) ug/dL Iron Saturation (15.00-50.00) C-Reactive Protein (<10.0) mg/L Ur Random Sodium (30-90) mmol/L 02/18/18 Range/Units 09:56 ESR (0-15) mm/hr Retic Count (0.5-2.0) % Sodium (137-145) mmol/L Potassium 5.2 H (3.5-5.1) mmol/L Carbon Dioxide (22-30) mmol/L BUN (9-20) mg/dL Creatinine (0.66-1.25) mg/dL Glucose (74-99) mg/dL POC Glucose (mg/dL) (75-99) mg/dL Iron (65-175) ug/dL Iron Saturation (15.00-50.00) C-Reactive Protein (<10.0) mg/L Ur Random Sodium (30-90) mmol/L Microbiology - Last 24 Hours (Table) 02/17/18 16:00 Gram Stain - Preliminary Foot - Left Tissue Culture - Preliminary 02/17/18 16:00 Anaerobic Culture - Preliminary Foot - Left 02/15/18 16:14 Gram Stain - Final Foot - Left Wound Culture - Final Staphylococcus aureus Strep agalactiae - (group b) Assessment and Plan Assessment: IMP: 1. VINH sec to JUANITA, beter with creat down to 2.6 from 3.2 2. Chronic stasis edema, 3. Chrnic GIOVANY, on Bipap 4. Obesity Plan: Ok for Discharge FU office next week
[2018-02-18 11:48] LABS: Glucose,Whole Blood 392 mg/dL (75-99)
[2018-02-18] MEDS: MULTIVITAMINS, THERA 1 EACH TAB PO SCH (12:31)
--- NOTE | 2018-02-18 15:14 | PN ---
PROGRESS NOTE DATE OF SERVICE: 02/18/18 He was seen on 02/18/2018. He has been hemodynamically stable. He continues to have some shortness of breath. PHYSICAL EXAMINATION: On physical examination respiratory rate is 18, pulse rate of 98, temperature 97.5, blood pressure 150/72, O2 saturation on 3 L by nasal cannula is 97%. HEENT reveals no new changes. Chest is decreased breath sounds at bases. Cardiovascular system is S1, S2. Abdomen is soft. There is 2+ pedal edema. Sodium is 134, potassium 5.5, chloride 98, bicarb 20, BUN 36, creatinine of 2.6, glucose 392. IMPRESSION: 1. Severe obstructive sleep apnea. Continue CPAP. 2. Unstable angina. 3. Pneumonia. 4. Congestive heart failure. 5. Left foot infection with Staph aureus and Strep group B. Continue local wound care, oxygen, CPAP. Optimize his fluid status. Increase activity level. His prognosis at this time is fair. MMODL / IJN: [id number] /
[2018-02-18 15:25] VITALS: RESP 16
[2018-02-18 15:50] VITALS: BP 153/74; PULSE 96; TEMP 97
--- NOTE | 2018-02-18 16:50 | PN ---
PROGRESS NOTE DATE OF SERVICE: 02/18/2018. REASON FOR FOLLOWUP: Left heel diabetic foot infection. INTERVAL HISTORY: The patient is afebrile. He is breathing comfortably. Denies having any chest pain, shortness of breath, no cough, no abdominal pain, or any pain in his left heel area. EXAMINATION: Blood pressure is 153/74 with a pulse of 96, temperature 97. He is 93% on room air. General description is an elderly male up in the bed in no distress. Respiratory system unlabored breathing. Clear to auscultation anteriorly. Heart S1, S2. Regular rate and rhythm. Abdomen soft, no tenderness. Left heel wound looks superficial with some swelling but no redness. LABS: BUN of 36, creatinine 2.60. DIAGNOSTIC IMPRESSION AND PLAN: Patient with left heel infected callus, status post removal of the same. Clinically doubt deep infection as wound looks superficial and there was no abnormality on the axis of the heel or the affect site. The patient is insisting on going home. Antibiotic was switched over to p.o. Keflex 500 mg 3 times a day for another 10 days. Script was sent to the pharmacy. Local wound care to continue with [facility] per the surgeon. Continue supportive care. MMODL / IJN: [id number] /
--- NOTE | 2018-02-18 19:26 | P.DS ---
Providers Date of admission: 02/14/18 14:01 Attending physician: Donald Covington MD Consults: 02/13/18 13:21 Consult Physician Urgent Consulting Provider: [facility] Consult Reason/Comments: Unstable angina Do you want consulting provider notified?: Yes 02/13/18 16:22 Consult Physician Routine Consulting Provider: Ame Oneil Consult Reason/Comments: shortness of breath Do you want consulting provider notified?: Yes 02/16/18 13:02 Consult Physician Routine Consulting Provider: Jemma Connor Consult Reason/Comments: VINH/CKD Do you want consulting provider notified?: Yes 02/17/18 10:33 Consult Physician Routine Consulting Provider: Fernando Ruiz Consult Reason/Comments: left pressure ulcer, draining Do you want consulting provider notified?: Yes 02/17/18 13:23 Consult Physician Routine Consulting Provider: Deepak Eduardo Consult Reason/Comments: infected callus wound debridement Do you want consulting provider notified?: Yes Primary care physician: Benjamin Johnson [place] [facility] Course: This is a 67-year-old male patient of Dr. Johnson with a past medical history of chronic heart failure, COPD, diabetes mellitus type 2 insulin requiring, hypertension, benign prostatic hypertrophy, gastroesophageal reflux disease, hyperlipidemia, obstructive sleep apnea with CPAP, morbid obesity with planned for gastric sleeve with Dr. Ayala in the near future. Patient complains of heaviness on his chest and his breathing difficulty. He denies any pain with deep breathing. His chest pain occurs when he is laying down. He denies any nausea vomiting or diarrhea. There's been no abdominal pain. He denies any cough or fever or chills. He denies any recent smoke exposure. Patient presented to [facility] emergency center. Chest x-ray showed right upper lobe and right perihilar infiltrate. Correlate for pneumonia. EKG was normal sinus rhythm with no ST elevation. Hemoglobin was 8.9, creatinine 1.54. Troponins have been negative on 3 draws. Patient was started on heparin drip, Nitropaste and aspirin and placed in the observation unit and cardiology consult requested. Consult with pulmonary medicine for shortness of breath, echocardiogram has been ordered as well as lipid panel and hemoglobin A1c. His last hemoglobin A1c in October was 9.6. Repeat hemoglobin A1c will be obtained. Patient is currently on large dose of 7033 times daily with meals and follows with Dr. Schmidt. He last saw her one half to 2 months ago for clearance for his bariatric surgery. He has been diabetic for more than 30 years. Patient was ambulated and pulse ox dropped down to 85% and patient has been started on IV Levaquin for pneumonia as well as nebulizer treatments. Patient has brought his CPAP from home which she is last night. Patient has a diabetic ulcer on the left heel that is present on admission. He states he has had this since last summer when he was in a penitentiary and he had to move himself by lifting himself with his heels. He does not see anyone for treatment of this. 02/15: Echocardiogram reveals EF of 60-65% with mild aortic valve sclerosis, mild mitral regurgitation, trace tricuspid regurgitation, no pulmonary hypertension. Due to elevated d-dimer, lower extremity duplex was negative for DVT. CTA of the chest showed no evidence of pulmonary embolism. Bilateral pleural effusions with pulmonary mild infiltrate and atelectasis. Chest ultrasound revealed mild bilateral pleural effusions. White count is normal, hemoglobin 8.0, creatinine is 1.6. Blood sugars have been elevated in the 300s for which we will increase Lantus to 40 units at bedtime and NovoLog to 10 units 3 times daily along with scale. Pulse ox is 95% on room air at rest. Nursing to check room air pulse ox with ambulation in the morning. Note: Patient gives history that he has heart failure and is on Lasix at home but discussed with cardiology and reviewed patient's records in the hospital and there is been no previous diagnosis of heart failure documented. 02/16: Patient is noted to have a drop in his hemoglobin and he gives history that he has had a workup with Dr. Webb in the past an unknown reason for the anemia. Occult stool will be ordered. He denies having any blood or dark stools. Iron studies ordered. Patient did require straight cath this morning he is status post TURP. BUN is 26 and creatinine 2.51. Incentive spirometry added. Blood sugars and now in the 304 100s and patient will be resumed on his home dose of 7030 insulin. Room air pulse ox with ambulation was 88%. Patient may require home oxygen. Patient encouraged to use incentive spirometry over the next 24 hours and most likely discharge home. 02/17 patient examined bedside denies any complains of shortness of breath, chest pain, abdominal pain, nausea or vomiting. Denies any decreased urinary output. Hemoglobin 7.3. Fecal occult blood pending. Ferritin, iron, iron binding capacity, reticulocyte ordered. Patient has increasing creatinine from 2.5-3.25 on IV Lasix twice a day. 500 mL of IV fluid given. Monitor input and output. Nephrology agree with holding Lasix and fluid for now and monitoring CMP. Infectious disease was consulted for a draining infective callus. Dr. Reis consulted for further recommendation and possible debridement 02/18, patient is doing well, patient is anticipating his discharge to home today , Dr. Ruiz recommended cephalexin 10 days for MSSA, cleared by Dr. Eduardo for discharge, grade by pulmonary for discharge, oral tapering prednisone with outpatient monitoring and wound clinic, home O2 today prior to discharge, patient has CPAP at home FINAL DIAGNOSIS 1. Chest pain with normal troponins. Patient was initially started on heparin drip, aspirin and Nitropaste. Cardiology consult is appreciated. Echocardiogram as above. Acute coronary syndrome has been ruled out. Patient is to follow with Dr. Fierro 2. Acute on chronic hypoxic respiratory failure with pulse ox of 85% with activity on room air secondary to right-sided pneumonia, possible gram-negative pneumonia and bilateral pleural effusions canary to pneumonia. Patient will be started on Levaquin 750 mg IV piggyback every day, DuoNeb treatments 3 times daily scheduled and albuterol as needed. Oral tapering prednisone on discharge 3. Diabetes mellitus type 2 uncontrolled, insulin requiring with diabetic neuropathy. Patient placed on Humalog scale before meals and at bedtime. Patient will be resumed on his home dose of 7030 with 126 units at breakfast, 100 units at lunch, 126 units at supper. Continue gabapentin 300 mg twice daily. Hemoglobin A1c will be checked. Previous one was 9.6 4. Acute kidney injury with chronic kidney disease stage IIIA. Continue to monitor. Nephrology following as an outpatient 5. Hypertension. Continue Norvasc 10 mg in morning and 5 mg at supper, lisinopril 20 mg daily and 10 mg at bedtime. 6. Hyperlipidemia. Continue Lipitor 40 mg at bedtime. 7. Benign prostatic hypertrophy continue Flomax 0.4 mg at bedtime. 8. Obstructive sleep apnea on CPAP. Patient to continue to use CPAP while hospitalized 9. Diabetic ulcer left heel MSSA on culture status post debridement by Dr. Eduardo outpatient follow-up with [facility], Dr. Eduardo and Dr Ruiz managing mainly honey on discharge, Santyl was discontinued. Home care nurse. he has transportation problems., Left surgical shoe with offloading weight on the heel 10. Morbidly obesity with BMI of 50 with plan for bariatric surgery with Dr. Ayala. 11. DVT prophylaxis. Patient on heparin. 12. GI prophylaxis and gastroesophageal reflux disease and hiatal hernia. Continue Protonix. 13. Anemia of chronic disease. Hemoglobin trending down. Iron panel ordered. Nephrology following. Discharge plan: Return home with home care and with oxygen. Case management is following Discharge Medication List Atorvastatin [Lipitor] 40 mg PO HS 09/11/14 [History] Furosemide [Lasix] 40 mg PO BID 09/11/14 [History] Omeprazole [PriLOSEC] 20 mg PO AC-BRKFST 09/03/15 [History] Albuterol Nebulized [Ventolin Nebulized] 2.5 mg INHALATION Q6H PRN 09/20/17 [ History] Albuterol Sulfate [Proair Respiclick] 1 puff INHALATION RT-QID PRN 09/20/17 [ History] Beclomethasone Dipropionate [Qvar 80 mcg] 1 puff INHALATION RT-BID PRN 09/20/17 [History] Calcitriol 0.5 mcg PO MO 09/20/17 [History] Montelukast Sodium [Singulair] 10 mg PO HS 09/20/17 [History] Multivitamins, Thera [Multivitamin (formulary)] 1 tab PO DAILY 09/20/17 [History ] Tamsulosin [Flomax] 0.4 mg PO HS 09/20/17 [History] amLODIPine BESYLATE [Norvasc] 10 mg PO QAM 09/20/17 [History] Gabapentin [Neurontin] 300 mg PO BID 10/24/17 [History] Cholecalciferol (Vitamin D3) [Vitamin D3] 10,000 unit PO DAILY 01/09/18 [History ] Ferrous Sulfate [Feosol] 650 mg PO DAILY 01/09/18 [History] amLODIPine [Norvasc] 5 mg PO AC-SUPPER 01/09/18 [History] metFORMIN HCL 1,000 mg PO BID 01/09/18 [History] Insulin NPH Hum/Reg Insulin Hm [NovoLIN 70-30 100 UNIT/ML VIAL] 100 unit SQ AC- LUNCH 02/13/18 [History] Insulin NPH Hum/Reg Insulin Hm [NovoLIN 70-30 100 UNIT/ML VIAL] 126 unit SQ AC- BRKFST 02/13/18 [History] Insulin NPH Hum/Reg Insulin Hm [NovoLIN 70-30 100 UNIT/ML VIAL] 126 unit SQ AC- SUPPER 02/13/18 [History] Ipratropium-Albuterol Nebulize [Duoneb 0.5 mg-3 mg/3 ml Soln] 3 ml INHALATION RT -QID PRN 02/13/18 [History] Magnesium Oxide [Mag-Oxide] 200 mg PO DAILY 02/13/18 [History] Quinapril HCl 10 mg PO HS 02/13/18 [History] Quinapril HCl 20 mg PO DAILY 02/13/18 [History] Aspirin 81 mg PO DAILY chew 02/14/18 [Rx] Collagenase [Santyl] 1 applic TOPICAL DAILY #1 tube 02/14/18 [Rx] Cephalexin [Keflex] 500 mg PO Q8HR #30 cap 02/18/18 [Rx] Docusate [Colace] 100 mg PO BID cap 02/18/18 [Rx] Polyethylene Glycol 3350 [Miralax] 17 gm PO DAILY powd.pack 02/18/18 [Rx] predniSONE 60 mg PO DAILY #33 tab 02/18/18 [Rx] Plan - Discharge Summary Discharge Rx Participant: No New Discharge Prescriptions: New Aspirin 81 mg PO DAILY chew Collagenase [Santyl] 1 applic TOPICAL DAILY #1 tube Cephalexin [Keflex] 500 mg PO Q8HR #30 cap Docusate [Colace] 100 mg PO BID cap Polyethylene Glycol 3350 [Miralax] 17 gm PO DAILY powd.pack predniSONE 60 mg PO DAILY #33 tab Continue Furosemide [Lasix] 40 mg PO BID Atorvastatin [Lipitor] 40 mg PO HS Omeprazole [PriLOSEC] 20 mg PO AC-BRKFST Multivitamins, Thera [Multivitamin (formulary)] 1 tab PO DAILY Montelukast Sodium [Singulair] 10 mg PO HS Albuterol Nebulized [Ventolin Nebulized] 2.5 mg INHALATION Q6H PRN PRN Reason: Shortness Of Breath amLODIPine BESYLATE [Norvasc] 10 mg PO QAM Tamsulosin [Flomax] 0.4 mg PO HS Calcitriol 0.5 mcg PO MO Beclomethasone Dipropionate [Qvar 80 mcg] 1 puff INHALATION RT-BID PRN PRN Reason: Shortness Of Breath Albuterol Sulfate [Proair Respiclick] 1 puff INHALATION RT-QID PRN PRN Reason: Shortness Of Breath Gabapentin [Neurontin] 300 mg PO BID metFORMIN HCL 1,000 mg PO BID Ferrous Sulfate [Feosol] 650 mg PO DAILY amLODIPine [Norvasc] 5 mg PO AC-SUPPER Cholecalciferol (Vitamin D3) [Vitamin D3] 10,000 unit PO DAILY Insulin NPH Hum/Reg Insulin Hm [NovoLIN 70-30 100 UNIT/ML VIAL] 100 unit SQ AC-LUNCH Insulin NPH Hum/Reg Insulin Hm [NovoLIN 70-30 100 UNIT/ML VIAL] 126 unit SQ AC-SUPPER Insulin NPH Hum/Reg Insulin Hm [NovoLIN 70-30 100 UNIT/ML VIAL] 126 unit SQ AC-BRKFST Ipratropium-Albuterol Nebulize [Duoneb 0.5 mg-3 mg/3 ml Soln] 3 ml INHALATION RT-QID PRN PRN Reason: Shortness Of Breath Magnesium Oxide [Mag-Oxide] 200 mg PO DAILY Quinapril HCl 20 mg PO DAILY Quinapril HCl 10 mg PO HS Discharge Medication List Atorvastatin [Lipitor] 40 mg PO HS 09/11/14 [History] Furosemide [Lasix] 40 mg PO BID 09/11/14 [History] Omeprazole [PriLOSEC] 20 mg PO AC-BRKFST 09/03/15 [History] Albuterol Nebulized [Ventolin Nebulized] 2.5 mg INHALATION Q6H PRN 09/20/17 [ History] Albuterol Sulfate [Proair Respiclick] 1 puff INHALATION RT-QID PRN 09/20/17 [ History] Beclomethasone Dipropionate [Qvar 80 mcg] 1 puff INHALATION RT-BID PRN 09/20/17 [History] Calcitriol 0.5 mcg PO MO 09/20/17 [History] Montelukast Sodium [Singulair] 10 mg PO HS 09/20/17 [History] Multivitamins, Thera [Multivitamin (formulary)] 1 tab PO DAILY 09/20/17 [History ] Tamsulosin [Flomax] 0.4 mg PO HS 09/20/17 [History] amLODIPine BESYLATE [Norvasc] 10 mg PO QAM 09/20/17 [History] Gabapentin [Neurontin] 300 mg PO BID 10/24/17 [History] Cholecalciferol (Vitamin D3) [Vitamin D3] 10,000 unit PO DAILY 01/09/18 [History ] Ferrous Sulfate [Feosol] 650 mg PO DAILY 01/09/18 [History] amLODIPine [Norvasc] 5 mg PO AC-SUPPER 01/09/18 [History] metFORMIN HCL 1,000 mg PO BID 01/09/18 [History] Insulin NPH Hum/Reg Insulin Hm [NovoLIN 70-30 100 UNIT/ML VIAL] 100 unit SQ AC- LUNCH 02/13/18 [History] Insulin NPH Hum/Reg Insulin Hm [NovoLIN 70-30 100 UNIT/ML VIAL] 126 unit SQ AC- BRKFST 02/13/18 [History] Insulin NPH Hum/Reg Insulin Hm [NovoLIN 70-30 100 UNIT/ML VIAL] 126 unit SQ AC- SUPPER 02/13/18 [History] Ipratropium-Albuterol Nebulize [Duoneb 0.5 mg-3 mg/3 ml Soln] 3 ml INHALATION RT -QID PRN 02/13/18 [History] Magnesium Oxide [Mag-Oxide] 200 mg PO DAILY 02/13/18 [History] Quinapril HCl 10 mg PO HS 02/13/18 [History] Quinapril HCl 20 mg PO DAILY 02/13/18 [History] Aspirin 81 mg PO DAILY chew 02/14/18 [Rx] Collagenase [Santyl] 1 applic TOPICAL DAILY #1 tube 02/14/18 [Rx] Cephalexin [Keflex] 500 mg PO Q8HR #30 cap 02/18/18 [Rx] Docusate [Colace] 100 mg PO BID cap 02/18/18 [Rx] Polyethylene Glycol 3350 [Miralax] 17 gm PO DAILY powd.pack 02/18/18 [Rx] predniSONE 60 mg PO DAILY #33 tab 02/18/18 [Rx] Follow up Appointment(s)/Referral(s): Ame Oneil DO [Doctor of Osteopathic Medicine] - 1 Week [facility], [NON-STAFF] - Benjamin Johnson MD [Primary Care Provider] - 1 Week Vinayak Ortiz DO [STAFF PHYSICIAN] - 1 Week Deepak Eduardo MD [STAFF PHYSICIAN] - 10 Days Fernando Ruiz MD [STAFF PHYSICIAN] - 1 Week Patient Instructions/Handouts: Type 2 Diabetes in Adults (DC), Diabetic Foot Ulcers (DC) Activity/Diet/Wound Care/Special Instructions: [facility] to be contacted to deliver the Oxygen Concentrator at time of discharge. Their contact number is [phone]. Patient instructed to wear 3L at all times. Per Dr. Eduardo patient needs off-loading boot. Patient to Follow up in wound clinic with Dr. Eduardo post D/C Discharge Disposition: HOME WITH HOME HEALTH SERVICES
--- NOTE | 2018-02-20 16:46 | CDI ---
Last Revision, October 2017 Documentation Clarification Form Date: 02/19/18 From: Acrina Remi Gloria Berman, [employer] Machine Operator between 8:30 am & 5 pm Spike Admit Date: 02/14/2018 2:01:00 PM Patient Name: Mauricio Castaneda Visit Number: [id number] Discharge Date: 02/18/18 ATTENTION: The Clinical Documentation Specialists (CDI) and [facility] Coding Staff appreciate your assistance in clarifying documentation. Please respond to the clarification below the line at the bottom and electronically sign. The CDI & [facility] Coding staff will review the response and follow-up if needed. Please note: Queries are made part of the Legal Health Record. If you have any questions, please contact the author of this message via ITS. Dr. Denys Saunders He has CHF, home meds-Lasix 40mg po BID. BNP: 457. Echo: Systolic function is normal, 60-65% EF. 02/[address]: bilateral pleural effusions 02/16 CXR: persistent cardiomegaly with small bilateral pleural effusions. Correlate for fluid overload state or CHF exacerbation. 02/15 Lasix 40 mg IV Q12HR In your professional opinion, can you please clarify the acuity and type of CHF if known? Type Systolic Heart Failure: Diastolic Heart Failure: Systolic & Diastolic Heart Failure: Acuity Acute Chronic Acute on chronic Unable to Determine Other, please specify Please continue to document in your progress notes and discharge summary in order to capture severity of illness and risk of mortality. Include clinical findings that support your diagnosis. Documentation clarification by Dr. Molina I saw the patient for chest pain and signed off thereafter since it was my medical opinion that chest pain was noncardiac. Unable to determine Clarification Deferred to admitting physicians MARQUES
--- NOTE | 2018-02-24 15:47 | CDI ---
Last Revision, October 2017 Documentation Clarification Form Date: 02/24/18 From: Carina Remi Gloria Berman, Milling Supervisor between 8:30 am & 5 pm Spike Admit Date: 02/14/2018 2:01:00 PM Patient Name: Mauricio Castaneda Visit Number: [id number] Discharge Date: 02/18/18 ATTENTION: The Clinical Documentation Specialists (CDI) and [facility] Coding Staff appreciate your assistance in clarifying documentation. Please respond to the clarification below the line at the bottom and electronically sign. The CDI & [facility] Coding staff will review the response and follow-up if needed. Please note: Queries are made part of the Legal Health Record. If you have any questions, please contact the author of this message via ITS. Dr. Donald Saunders deferrd query to attending physician. He has CHF, home meds-Lasix 40mg po BID. BNP: 457. Echo: Systolic function is normal, 60-65% EF. 02/[address]: bilateral pleural effusions 02/16 CXR: persistent cardiomegaly with small bilateral pleural effusions. Correlate for fluid overload state or CHF exacerbation. 02/15 Lasix 40 mg IV Q12HR In your professional opinion, can you please clarify the acuity and type of CHF if known? Type Systolic Heart Failure: Diastolic Heart Failure: Systolic & Diastolic Heart Failure: Acuity Acute Chronic Acute on chronic Unable to Determine Other, please specify Please continue to document in your progress notes and discharge summary in order to capture severity of illness and risk of mortality. Include clinical findings that support your diagnosis. __Please see documentation in my notes: __Note: Patient gives history that he has heart failure and is on Lasix at home but discussed with cardiology and reviewed patient's records in the hospital and there is been no previous diagnosis of heart failure documented. MTDD
== END 2018-02-18 17:03 | disposition home health service (06) | DRG 166 ==
LOC: EC 10:32 → 3OBS 13:21 → OBSVTOIN 02-14 14:01 → 4MS4W 02-15 22:49
PROVIDERS: ADMIT Internal Medicine; ATTEND Internal Medicine
PROC: 3E0234Z Introduction of Serum, Toxoid and Vaccine into Muscle, Percutaneous Approach (ICD-10-PCS; 2018-02-13)
PROC: 0JBR0ZZ Excision of Left Foot Subcutaneous Tissue and Fascia, Open Approach (ICD-10-PCS; principal; 2018-02-17)
DX: J15.6 Pneumonia due to other Gram-negative bacteria (principal); J96.21 Acute and chronic respiratory failure with hypoxia; N17.9 Acute kidney failure, unspecified; E27.40 Unspecified adrenocortical insufficiency; L03.115 Cellulitis of right lower limb; E11.22 Type 2 diabetes mellitus with diabetic chronic kidney disease; Z68.43 Body mass index [BMI] 50.0-59.9, adult; I13.0 Hypertensive heart and chronic kidney disease with heart failure and stage 1 through stage 4 chronic kidney disease, or unspecified chronic kidney disease; L03.116 Cellulitis of left lower limb; I87.312 Chronic venous hypertension (idiopathic) with ulcer of left lower extremity; J44.0 Chronic obstructive pulmonary disease with (acute) lower respiratory infection; J98.11 Atelectasis; E66.01 Morbid (severe) obesity due to excess calories; Z23 Encounter for immunization; L89.622 Pressure ulcer of left heel, stage 2; E11.621 Type 2 diabetes mellitus with foot ulcer; I50.9 Heart failure, unspecified; E11.41 Type 2 diabetes mellitus with diabetic mononeuropathy; E11.65 Type 2 diabetes mellitus with hyperglycemia; E83.42 Hypomagnesemia; N14.1 Nephropathy induced by other drugs, medicaments and biological substances; N18.3 Chronic kidney disease, stage 3 (moderate); N40.1 Benign prostatic hyperplasia with lower urinary tract symptoms; N39.498 Other specified urinary incontinence; K21.9 Gastro-esophageal reflux disease without esophagitis; I08.0 Rheumatic disorders of both mitral and aortic valves; G47.33 Obstructive sleep apnea (adult) (pediatric); T50.8X5A Adverse effect of diagnostic agents, initial encounter; D63.8 Anemia in other chronic diseases classified elsewhere; K44.9 Diaphragmatic hernia without obstruction or gangrene; F10.11 Alcohol abuse, in remission; E78.5 Hyperlipidemia, unspecified; Z79.4 Long term (current) use of insulin; Z79.51 Long term (current) use of inhaled steroids; Z79.899 Other long term (current) drug therapy; Z86.010 Personal history of colon polyps; Z87.891 Personal history of nicotine dependence; Z71.3 Dietary counseling and surveillance; Z90.49 Acquired absence of other specified parts of digestive tract; Z90.79 Acquired absence of other genital organ(s); Z81.8 Family history of other mental and behavioral disorders; Z83.3 Family history of diabetes mellitus; Z82.0 Family history of epilepsy and other diseases of the nervous system
CPT/HCPCS: 36415; 71046; 71275; 76604; 80048; 80053; 80061; 80202; 82550; 82553; 82728; 83036; 83540; 83550; 83735; 83880; 84132; 84300; 84466; 84484; 85025; 85045; 85379; 85610; 85652; 85730; 86140; 87070; 87075; 87077; 87186; 87205; 93005; 93306; 93970; 94640; 94760; 99291

== ENCOUNTER 2018-03-16 16:00 | Inpatient (IN) | payer MEDICARE, BC ==
[2018-03-16] MEDS ORDERED: SODIUM CHLORIDE 0.9% 500 ML IV STA (17:21)
--- NOTE | 2018-03-16 18:01 | ED ---
SOB HPI - General Chief Complaint: Shortness of Breath Stated Complaint: WOUND ON LEFT HEAL, AND VANESSA Time Seen by Provider: 03/16/18 16:59 Source: patient, family, RN notes reviewed, old records reviewed Mode of arrival: wheelchair Limitations: no limitations - History of Present Illness Initial Comments: Patient is a 67-year-old male with a history of heart failure COPD, diabetes type 2 insulin, hypertension, BPH, GERD hyperlipidemia and sleep apnea with CPAP obesity. He presents today with worsening infection over his right heel. He reports that since discontinuing antibiotics earlier this week she's had a foul odor from his foot. He states he is followed with Dr. louis with a infectious disease. Sayed sent him here for further evaluation. He also reports that he has been having some chest pain in difficulty breathing with lying down. Denies any nausea or vomiting or abdominal pain. No cough. Patient reports that at home he's had to use his oxygen over the past week. He reports that he is discharged from hospital on his last admission he did have to use oxygen. He reports 3 L are not enough. His oxygen saturation was in the upper 80s last night. - Related Data Home Medications Medication Instructions Recorded Confirmed Atorvastatin [Lipitor] 40 mg PO HS 09/11/14 03/16/18 Furosemide [Lasix] 40 mg PO BID 09/11/14 03/16/18 Omeprazole [PriLOSEC] 20 mg PO AC-BRKFST 09/03/15 03/16/18 Albuterol Sulfate [Proair 1 puff INHALATION RT-QID PRN 09/20/17 03/16/18 Respiclick] Beclomethasone Dipropionate [Qvar 1 puff INHALATION RT-BID 09/20/17 03/16/18 80 mcg] Calcitriol 0.5 mcg PO MO 09/20/17 03/16/18 Montelukast Sodium [Singulair] 10 mg PO DAILY 09/20/17 03/16/18 Multivitamins, Thera [Multivitamin 1 tab PO DAILY 09/20/17 03/16/18 (formulary)] Tamsulosin [Flomax] 0.4 mg PO HS 09/20/17 03/16/18 Gabapentin [Neurontin] 300 mg PO BID 10/24/17 03/16/18 Cholecalciferol (Vitamin D3) 10,000 unit PO DAILY 01/09/18 03/16/18 [Vitamin D3] Ferrous Sulfate [Feosol] 325 mg PO BID 01/09/18 03/16/18 amLODIPine [Norvasc] 5 mg PO BID 01/09/18 03/16/18 metFORMIN HCL 1,000 mg PO BID 01/09/18 03/16/18 Insulin NPH Hum/Reg Insulin Hm 100 unit SQ AC-LUNCH 02/13/18 03/16/18 [NovoLIN 70-30 100 UNIT/ML VIAL] Insulin NPH Hum/Reg Insulin Hm 126 unit SQ AC-BRKFST 02/13/18 03/16/18 [NovoLIN 70-30 100 UNIT/ML VIAL] Insulin NPH Hum/Reg Insulin Hm 126 unit SQ AC-SUPPER 02/13/18 03/16/18 [NovoLIN 70-30 100 UNIT/ML VIAL] Ipratropium-Albuterol Nebulize 3 ml INHALATION RT-QID PRN 02/13/18 03/16/18 [Duoneb 0.5 mg-3 mg/3 ml Soln] Magnesium Oxide [Mag-Oxide] 200 mg PO DAILY 02/13/18 03/16/18 Quinapril HCl 10 mg PO HS 02/13/18 03/16/18 Quinapril HCl 20 mg PO DAILY 02/13/18 03/16/18 Allergies Allergy/AdvReac Type Severity Reaction Status Date / Time No Known Allergies Allergy Verified 03/16/18 17:05 Review of Systems ROS Statement: Those systems with pertinent positive or pertinent negative responses have been documented in the HPI. ROS Other: All systems not noted in ROS Statement are negative. Past Medical History Past Medical History: Heart Failure, COPD, Diabetes Mellitus, GERD/Reflux, Hyperlipidemia, Hypertension, Prostate Disorder, Skin Disorder, Sleep Apnea/CPAP /BIPAP Additional Past Medical History / Comment(s): IDDM type II, bilateral lower leg/ feet neuropathy, cellulitis bilateral lower legs bilaterally, GIOVANY with Cpap, BPH , hiatal hernia, urine incontinence/wears depends, benign colon polyp, 2017 tonsillitis with sepsis and had renal failure and temporary dialysis. History of Any Multi-Drug Resistant Organisms: None Reported Past Surgical History: Cholecystectomy, Hernia Repair, Orthopedic Surgery, Prostate Surgery Additional Past Surgical History / Comment(s): Carpal tunnel left wrist, TURP, umbilical hernia repair x2 (developed infection after 1st repair), COLONOSCOPIES/BENIGN POLYPECTOMY, egd. Past Anesthesia/Blood Transfusion Reactions: No Reported Reaction Additional Past Anesthesia/Blood Transfusion Reaction / Comment(s): Pt has received blood in past without reaction. Past Psychological History: No Psychological Hx Reported Smoking Status: Former smoker Past Alcohol Use History: None Reported Past Drug Use History: None Reported - Past Family History Mother Family Medical History: Dementia, Neurologic Disorder Additional Family Medical History / Comment(s): Mother has parkinson's dx. Father Family Medical History: No Reported History Additional Family Medical History / Comment(s): Father is alive and 88yrs old with no major medical problems. Son(s) Family Medical History: Diabetes Mellitus Additional Family Medical History / Comment(s): Son has type II diabetes. Daughter(s) Additional Family Medical History / Comment(s): Patient has one daughter with gestational diabetes. Sister(s) Additional Family Medical History / Comment(s): Patient has 1 sister with no significant medical history. General Exam - General Exam Comments Initial Comments: 67-year-old male. has morbid obesity. Limitations: no limitations General appearance: alert, in no apparent distress Head exam: Present: atraumatic, normocephalic, normal inspection Eye exam: Present: normal appearance, PERRL, EOMI. Absent: scleral icterus, conjunctival injection, periorbital swelling ENT exam: Present: normal exam, mucous membranes moist Neck exam: Present: normal inspection. Absent: tenderness, meningismus, lymphadenopathy Respiratory exam: Present: decreased breath sounds, other (Labored breathing. On 4 L of oxygen.). Absent: normal lung sounds bilaterally, respiratory distress, wheezes, rales, rhonchi, stridor Cardiovascular Exam: Present: regular rate, normal rhythm, normal heart sounds. Absent: systolic murmur, diastolic murmur, rubs, gallop, clicks GI/Abdominal exam: Present: soft, normal bowel sounds. Absent: distended, tenderness, guarding, rebound, rigid Extremities exam: Present: normal inspection, full ROM, pedal edema, other ( Patient has a 3 cm x 4 cm ulceration with foul odor of the left heel. Thickened skin on bilateral lower extremities.). Absent: tenderness, normal capillary refill, joint swelling, calf tenderness Back exam: Present: normal inspection Neurological exam: Present: alert, oriented X3, CN II-XII intact Psychiatric exam: Present: normal affect, normal mood Skin exam: Present: warm, dry, intact, normal color. Absent: rash Course Vital Signs 03/16/18 03/16/18 16:02 19:26 Temperature 98.4 F Pulse Rate 98 89 Respiratory 20 20 Rate Blood Pressure 170/91 146/65 O2 Sat by Pulse 94 L 92 L Oximetry Medical Decision Making - Medical Decision Making 67-year-old male with history of multiple comorbidities presents with chest pain , shortness of breath. He's been having shortness of breath since his last discharge. Reports is feeling like is filling up with fluid. Also complains of increased infection and pain over his left heel. He was sent here by his infectious disease doctor for further evaluation. Patient reports no fever, no significant cough. Chest x-ray shows evidence of pleural effusion concerning for heart failure. BNP elevated at 907. Normal troponin. No significant changes on EKG. Patient white count was within normal limits. He was found to be hypoglycemic at one time here. Given orange juice. We'll start the patient on a heart failure protocol. Nitro paste and Lasix. Also started on vancomycin and Zosyn for infected left heel. Foot x-ray showed no evidence of osteomyelitis. - Lab Data Result diagrams: 03/16/18 17:49 03/16/18 17:49 Lab Results 03/16/18 03/16/18 03/16/18 Range/Units 17:49 17:49 17:49 WBC 6.7 (3.8-10.6) k/uL RBC 3.12 L (4.30-5.90) m/uL Hgb 8.2 L (13.0-17.5) gm/dL Hct 26.6 L (39.0-53.0) % MCV 85.3 (80.0-100.0) fL MCH 26.4 (25.0-35.0) pg MCHC 31.0 (31.0-37.0) g/dL RDW 17.7 H (11.5-15.5) % Plt Count 161 (150-450) k/uL Neutrophils % 75 % Lymphocytes % 16 % Monocytes % 5 % Eosinophils % 2 % Basophils % 0 % Neutrophils # 5.0 (1.3-7.7) k/uL Lymphocytes # 1.1 (1.0-4.8) k/uL Monocytes # 0.3 (0-1.0) k/uL Eosinophils # 0.1 (0-0.7) k/uL Basophils # 0.0 (0-0.2) k/uL Hypochromasia Moderate Anisocytosis Slight PT (9.0-12.0) sec INR (<1.2) APTT (22.0-30.0) sec Sodium 143 (137-145) mmol/L Potassium 4.7 (3.5-5.1) mmol/L Chloride 104 (98-107) mmol/L Carbon Dioxide 26 (22-30) mmol/L Anion Gap 13 mmol/L BUN 36 H (9-20) mg/dL Creatinine 1.50 H (0.66-1.25) mg/dL Est GFR (CKD-EPI)AfAm 56 (>60 ml/min/1.73 sqM) Est GFR (CKD-EPI)NonAf 48 (>60 ml/min/1.73 sqM) Glucose 88 (74-99) mg/dL POC Glucose (mg/dL) (75-99) mg/dL POC Glu Fox Farmer ID Calcium 8.6 (8.4-10.2) mg/dL Magnesium 2.1 (1.6-2.3) mg/dL Total Bilirubin 0.6 (0.2-1.3) mg/dL AST 27 (17-59) U/L ALT 35 (21-72) U/L Alkaline Phosphatase 88 (38-126) U/L Total Creatine Kinase 116 (55-170) U/L CK-MB (CK-2) 3.5 H* (0.0-2.4) ng/mL CK-MB (CK-2) Rel Index 3.0 Troponin I <0.012 (0.000-0.034) ng/mL NT-Pro-B Natriuret Pep pg/mL Total Protein 6.6 (6.3-8.2) g/dL Albumin 3.6 (3.5-5.0) g/dL Amylase 34 (30-110) U/L Lipase 27 (23-300) U/L 03/16/18 03/16/18 03/16/18 Range/Units 17:49 17:49 19:40 WBC (3.8-10.6) k/uL RBC (4.30-5.90) m/uL Hgb (13.0-17.5) gm/dL Hct (39.0-53.0) % MCV (80.0-100.0) fL MCH (25.0-35.0) pg MCHC (31.0-37.0) g/dL RDW (11.5-15.5) % Plt Count (150-450) k/uL Neutrophils % % Lymphocytes % % Monocytes % % Eosinophils % % Basophils % % Neutrophils # (1.3-7.7) k/uL Lymphocytes # (1.0-4.8) k/uL Monocytes # (0-1.0) k/uL Eosinophils # (0-0.7) k/uL Basophils # (0-0.2) k/uL Hypochromasia Anisocytosis PT 9.5 (9.0-12.0) sec INR 1.0 (<1.2) APTT 21.4 L (22.0-30.0) sec Sodium (137-145) mmol/L Potassium (3.5-5.1) mmol/L Chloride (98-107) mmol/L Carbon Dioxide (22-30) mmol/L Anion Gap mmol/L BUN (9-20) mg/dL Creatinine (0.66-1.25) mg/dL Est GFR (CKD-EPI)AfAm (>60 ml/min/1.73 sqM) Est GFR (CKD-EPI)NonAf (>60 ml/min/1.73 sqM) Glucose (74-99) mg/dL POC Glucose (mg/dL) 54 L (75-99) mg/dL POC Glu Fox Farmer ID Alek, Joanne Calcium (8.4-10.2) mg/dL Magnesium (1.6-2.3) mg/dL Total Bilirubin (0.2-1.3) mg/dL AST (17-59) U/L ALT (21-72) U/L Alkaline Phosphatase (38-126) U/L Total Creatine Kinase (55-170) U/L CK-MB (CK-2) (0.0-2.4) ng/mL CK-MB (CK-2) Rel Index Troponin I (0.000-0.034) ng/mL NT-Pro-B Natriuret Pep 907 pg/mL Total Protein (6.3-8.2) g/dL Albumin (3.5-5.0) g/dL Amylase (30-110) U/L Lipase (23-300) U/L 03/16/18 Range/Units 20:04 WBC (3.8-10.6) k/uL RBC (4.30-5.90) m/uL Hgb (13.0-17.5) gm/dL Hct (39.0-53.0) % MCV (80.0-100.0) fL MCH (25.0-35.0) pg MCHC (31.0-37.0) g/dL RDW (11.5-15.5) % Plt Count (150-450) k/uL Neutrophils % % Lymphocytes % % Monocytes % % Eosinophils % % Basophils % % Neutrophils # (1.3-7.7) k/uL Lymphocytes # (1.0-4.8) k/uL Monocytes # (0-1.0) k/uL Eosinophils # (0-0.7) k/uL Basophils # (0-0.2) k/uL Hypochromasia Anisocytosis PT (9.0-12.0) sec INR (<1.2) APTT (22.0-30.0) sec Sodium (137-145) mmol/L Potassium (3.5-5.1) mmol/L Chloride (98-107) mmol/L Carbon Dioxide (22-30) mmol/L Anion Gap mmol/L BUN (9-20) mg/dL Creatinine (0.66-1.25) mg/dL Est GFR (CKD-EPI)AfAm (>60 ml/min/1.73 sqM) Est GFR (CKD-EPI)NonAf (>60 ml/min/1.73 sqM) Glucose (74-99) mg/dL POC Glucose (mg/dL) 60 L (75-99) mg/dL POC Glu Fox Farmer ID Joanne Gaston Calcium (8.4-10.2) mg/dL Magnesium (1.6-2.3) mg/dL Total Bilirubin (0.2-1.3) mg/dL AST (17-59) U/L ALT (21-72) U/L Alkaline Phosphatase (38-126) U/L Total Creatine Kinase (55-170) U/L CK-MB (CK-2) (0.0-2.4) ng/mL CK-MB (CK-2) Rel Index Troponin I (0.000-0.034) ng/mL NT-Pro-B Natriuret Pep pg/mL Total Protein (6.3-8.2) g/dL Albumin (3.5-5.0) g/dL Amylase (30-110) U/L Lipase (23-300) U/L 03/16/18 18:01 EKG at 1725 shows normal sinus rhythm with PACs. Nonspecific T wave abnormality. Abnormal EKG noted. Ventricular rate of 91 bpm. VA interval is 156. QRS duration 86. QT QTc is 334/410 ms. - Radiology Data Radiology results: report reviewed Correlate for CHF exacerbation cardiomegaly with suspected new bilateral pleural effusions more prominent on the mild to moderate central vascular congestion. No convincing radiographic evidence for osteomyelitis. Clinical suspicion persists further investigation with bone scan or MRI be warranted. Slightly suboptimal with demineralization. Soft tissue swelling. Localization of not healing well. Provided on order sheet. Disposition Clinical Impression: Unstable angina pectoris, Congestive heart failure, Diabetic ulcer of left heel , Hypoglycemia Disposition: ADMITTED IP TO THIS HOSP Condition: Stable Is patient prescribed a controlled substance at d/c from ED?: No If prescribed controlled substance>3 days was MAPS reviewed?: No When asked, does pt state using other controlled substances?: No Referrals: Benjamin Johnson MD [Primary Care Provider] - 1-2 days Time of Disposition: 20:02
[2018-03-16 18:15] LABS: Anisocytosis Slight; Basophils % (A) 0 %; Eosinophils # (A) 0.1 k/uL (0-0.7); Eosinophils % (A) 2 %; HCT 26.6 % (39.0-53.0); HGB 8.2 gm/dL (13.0-17.5); Hypochromasia Moderate; Lymphocytes # (A) 1.1 k/uL (1.0-4.8); Lymphocytes % (A) 16 %; MCH 26.4 pg (25.0-35.0); MCV 85.3 fL (80.0-100.0); Mean Platelet Volume 8.4; Monocytes # (A) 0.3 k/uL (0-1.0); Monocytes % (A) 5 %; Neutrophils % (A) 75 %; Platelet Count 161 k/uL (150-450); RBC 3.12 m/uL (4.30-5.90); RDW 17.7 % (11.5-15.5); WBC 6.7 k/uL (3.8-10.6)
[2018-03-16 18:25] LABS: Albumin 3.6 g/dL (3.5-5.0); Calcium 8.6 mg/dL (8.4-10.2); Magnesium 2.1 mg/dL (1.6-2.3); Potassium 4.7 mmol/L (3.5-5.1); Total Bilirubin 0.6 mg/dL (0.2-1.3); Total Protein 6.6 g/dL (6.3-8.2)
[2018-03-16 18:27] LABS: Creatine Kinase 116 U/L (55-170)
[2018-03-16 18:40] LABS: Prothrombin Time 9.5 sec (9.0-12.0); Troponin I <0.012 ng/mL (0.000-0.034)
[2018-03-16 18:43] LABS: Creatine Kinase MB 3.5 ng/mL (0.0-2.4)
--- NOTE | 2018-03-16 18:43 | XR ---
EXAMINATION TYPE: XR chest 1V DATE OF EXAM: 03/16/2018 COMPARISON: Chest x-ray February 18, 2018 HISTORY: Chest pain. TECHNIQUE: Single frontal view of the chest is obtained. FINDINGS: There is cardiomegaly with central vascular congestion and suspected small bilateral pleur al effusions identified on current study. No pneumothorax is seen bilaterally. The osseous structur es are intact. IMPRESSION: Correlate for CHF exacerbation as there is cardiomegaly with suspected new small to tiny bilateral pleural effusions and more prominent mild to moderate central vascular congestion.
--- NOTE | 2018-03-16 18:47 | XR ---
EXAMINATION TYPE: XR foot limited LT DATE OF EXAM: 03/16/2018 CLINICAL HISTORY: Nonhealing wounds left foot. TECHNIQUE: Frontal and lateral images of the left foot are obtained. COMPARISON: Left foot x-ray February 17, 2018 FINDINGS: Osseous structures are demineralized which is noted to lower radiographic sensitivity. The re is moderate to severe diffuse soft tissue swelling redemonstrated. No acute fracture or dislocatio n is seen. There is moderate joint space loss first metatarsal-phalangeal joint. There is pes planus deformity with moderate inferior calcaneal spur. Plantar vascular calcification is seen. No definitiv e new cortical destruction or periosteal reaction. IMPRESSION: There is no convincing radiographic evidence for acute osteomyelitis. If clinical suspic ion persists further investigation with 3 phase bone scan or MRI would be warranted. Slightly subopti mal with demineralization, prominent soft tissue swelling, and location of nonhealing wounds not prov ided on order sheet.
[2018-03-16 18:48] LABS: Partial Thromboplastin Time 21.4 sec (22.0-30.0)
[2018-03-16 19:45] LABS: Glucose,Whole Blood 54 mg/dL (75-99)
[2018-03-16] MEDS ORDERED: ASPIRIN 325 MG TAB PO STA (19:48)
[2018-03-16] MEDS ORDERED: VANCOMYCIN IV PER PHARMACY 1 EACH MISC MISCELLANE PRN (19:57)
[2018-03-16] MEDS ORDERED: PIPERACILLIN-TAZOBACTAM 3.375 GM in DEXTROSE/WATER 1 50ML.BAG IVPB STA (19:57)
[2018-03-16] MEDS ORDERED: FUROSEMIDE 10 MG/ML 10 ML VIAL IV STA (19:59)
[2018-03-16] MEDS ORDERED: ALBUTEROL SULFATE INHALATION PRN (20:04)
[2018-03-16 20:06] LABS: Glucose,Whole Blood 60 mg/dL (75-99)
[2018-03-16] MEDS ORDERED: DEXTROSE 50%-WATER 50 ML SYRINGE IVP STA (20:24)
[2018-03-16 20:29] LABS: Glucose,Whole Blood 85 mg/dL (75-99)
[2018-03-16] MEDS: SODIUM CHLORIDE 0.9% 1,000 ML IV SCH (20:32)
[2018-03-16] MEDS ORDERED: VANCOMYCIN 2,500 MG in SODIUM CHLORIDE 0.9% 500 ML IVPB SCH (21:00)
[2018-03-16] MEDS ORDERED: FUROSEMIDE 40 MG TAB PO SCH (21:00)
[2018-03-16] MEDS: FUROSEMIDE 10 MG/ML 4 ML VIAL IV SCH ×3 (23:11→23:13)
[2018-03-16] MEDS: TAMSULOSIN 0.4 MG CAP.ER.24H PO SCH (23:41)
[2018-03-16] MEDS: amLODIPine 5 MG TAB PO SCH (23:41)
[2018-03-16] MEDS: ATORVASTATIN 40 MG TAB PO SCH (23:41)
[2018-03-16] MEDS: GABAPENTIN 300 MG CAP PO SCH (23:41)
[2018-03-16] MEDS: LISINOPRIL 10 MG TAB PO SCH (23:41)
[2018-03-16] MEDS: FERROUS SULFATE 325 MG TAB PO SCH (23:41)
[2018-03-16] MEDS: INSULIN ASPART 100 UNIT/ML 1 ML 10 ML VIAL SQ SCH (23:46)
[2018-03-16] MEDS: NITROGLYCERIN OINT 1 INCH/GM PACKET TOPICAL SCH (23:47)
[2018-03-17] MEDS ORDERED: IOPAMIDOL-300 CONTRAST 30 ML VIAL (ORAL USE) PO PRN (00:11)
[2018-03-17] MEDS ORDERED: RX INFO: IV CONTRAST WAS GIVEN 1 EACH MISC MISCELLANE PRN (00:11)
[2018-03-17] MEDS: IPRATROPIUM-ALBUTEROL 3 ML NEB INHALATION PRN ×5 (00:33→19:47)
[2018-03-17 00:50] LABS: Troponin I <0.012 ng/mL (0.000-0.034)
[2018-03-17 00:56] LABS: Creatine Kinase MB 4.1 ng/mL (0.0-2.4)
[2018-03-17 01:45] LABS: Hemoglobin A1C 7.4 % (4.0-6.0)
[2018-03-17 06:14] LABS: Glucose,Whole Blood 111 mg/dL (75-99)
[2018-03-17] MEDS: INSULIN ASPART 100 UNIT/ML 1 ML 10 ML VIAL SQ SCH ×4 (06:22→21:16)
[2018-03-17] MEDS: PANTOPRAZOLE 40 MG TABLET PO SCH (06:23)
[2018-03-17 06:24] LABS: Anisocytosis Slight; Basophils % (A) 0 %; Eosinophils # (A) 0.1 k/uL (0-0.7); Eosinophils % (A) 2 %; HCT 25.9 % (39.0-53.0); HGB 7.8 gm/dL (13.0-17.5); Hypochromasia Marked; Lymphocytes # (A) 0.8 k/uL (1.0-4.8); Lymphocytes % (A) 13 %; MCH 26.1 pg (25.0-35.0); MCV 86.9 fL (80.0-100.0); Mean Platelet Volume 8.1; Monocytes # (A) 0.3 k/uL (0-1.0); Monocytes % (A) 5 %; Neutrophils # (A) 4.5 k/uL (1.3-7.7); Neutrophils % (A) 77 %; Platelet Count 150 k/uL (150-450); RBC 2.99 m/uL (4.30-5.90); RDW 17.6 % (11.5-15.5); WBC 5.9 k/uL (3.8-10.6)
[2018-03-17] MEDS: FUROSEMIDE 10 MG/ML 4 ML VIAL IV SCH ×2 (06:29→11:19)
[2018-03-17 06:30] LABS: Albumin 3.3 g/dL (3.5-5.0); Calcium 8.5 mg/dL (8.4-10.2); Potassium 4.7 mmol/L (3.5-5.1); Total Bilirubin 0.5 mg/dL (0.2-1.3); Total Protein 6.1 g/dL (6.3-8.2)
[2018-03-17 06:39] LABS: Troponin I <0.012 ng/mL (0.000-0.034)
[2018-03-17 06:42] LABS: Creatine Kinase MB 3.7 ng/mL (0.0-2.4)
[2018-03-17] MEDS ORDERED: metFORMIN 500 MG TAB PO SCH (07:30)
[2018-03-17] MEDS ORDERED: BUDESONIDE 0.5 MG/2 ML NEBU INHALATION SCH (08:00)
[2018-03-17] MEDS: CHOLECALCIFEROL 1,000 UNIT TAB PO SCH (09:36)
[2018-03-17] MEDS: amLODIPine 5 MG TAB PO SCH ×2 (09:36→20:31)
[2018-03-17] MEDS: GABAPENTIN 300 MG CAP PO SCH ×2 (09:37→20:31)
[2018-03-17] MEDS: LISINOPRIL 20 MG TAB PO SCH (09:37)
[2018-03-17] MEDS: FERROUS SULFATE 325 MG TAB PO SCH ×2 (09:37→20:31)
[2018-03-17] MEDS: MAGNESIUM OXIDE 400 MG TAB PO SCH (09:38)
[2018-03-17] MEDS: MONTELUKAST 10 MG TAB PO SCH (09:38)
[2018-03-17] MEDS: NITROGLYCERIN OINT 1 INCH/GM PACKET TOPICAL SCH ×2 (09:39→13:12)
--- NOTE | 2018-03-17 10:14 | P.CNPUL ---
<Sirena Macdonald E - Last Filed: 03/17/18 09:57> History of Present Illness Consult date: 03/17/18 Requesting physician: Bhavna Her Reason for consult: COPD Chief complaint: shortness of breath History of present illness: This is a 67-year-old male patient being seen examined and evaluated today for consultation. This patient is well-known to our services. This patient was then to see his infectious disease doctor for his left heel ulcer yesterday when he was noted to have some dyspnea and desaturations with his oxygen. He was sent over to the emergency room for evaluation and treatment. Patient states he is also been having some chest pain that has been happening for over a week and he has had difficulty breathing when laying down as well. Patient does utilize home oxygen at night with his CPAP and has been using it during the day as well but it has not been enough. Patient states he has been using his CPAP each night for approximately 8 hours and his compliance has been 100%. Patient states he was taking breathing treatments at home 3-4 times per day via nebulizer which was not helping as well. Chest x-ray was reviewed and does show correlation for CHF exacerbation, cardiomegaly with suspected new small tiny bilateral pleural effusions more prominent mild to moderate central vascular congestion. Patient was admitted to the hospital for further evaluation and treatment. Cardiology was also put on consult. Patient had some elevated CK-MB. Patient also complains that his left heel ulcer has been having a more significant foul smell with more drainage. Infectious disease on consult. Denies any fevers nausea vomiting. Upon examination the patient's resting up in bed on 5 L of supplemental oxygen via nasal cannula. He can point of shortness of breath cough congestion and is unable to bring up any secretions. He also has had some generalized abdominal discomfort complaints and is scheduled to go for a CT of the abdomen per primary services. Review of Systems 14 point review of systems was completed and is negative unless on above in the HPI. Past Medical History Past Medical History: Heart Failure, COPD, Diabetes Mellitus, GERD/Reflux, Hyperlipidemia, Hypertension, Prostate Disorder, Skin Disorder, Sleep Apnea/CPAP /BIPAP Additional Past Medical History / Comment(s): IDDM type II, bilateral lower leg/ feet neuropathy, cellulitis bilateral lower legs bilaterally, GIOVANY with Cpap, BPH , hiatal hernia, urine incontinence/wears depends, benign colon polyp, 2017 tonsillitis with sepsis and had renal failure and temporary dialysis. History of Any Multi-Drug Resistant Organisms: None Reported Past Surgical History: Cholecystectomy, Hernia Repair, Orthopedic Surgery, Prostate Surgery Additional Past Surgical History / Comment(s): Carpal tunnel left wrist, TURP, umbilical hernia repair x2 (developed infection after 1st repair), COLONOSCOPIES/BENIGN POLYPECTOMY, egd. Past Anesthesia/Blood Transfusion Reactions: No Reported Reaction Additional Past Anesthesia/Blood Transfusion Reaction / Comment(s): Pt has received blood in past without reaction. Past Psychological History: No Psychological Hx Reported Additional Psychological History / Comment(s): Pt resides with his spouse, their daughter and son and 3 grand daughters. Pt is independent. Smoking Status: Former smoker Past Alcohol Use History: None Reported Additional Past Alcohol Use History / Comment(s): Patient has history of smoking 3 packs per day for 30 years and quit in 1996. Possible alcohol abuse. Patient states he "partied a lot" when he was younger, has not had a drink since 1983. Past Drug Use History: None Reported - Past Family History Mother Family Medical History: Dementia, Neurologic Disorder Additional Family Medical History / Comment(s): Mother has parkinson's dx. Father Family Medical History: No Reported History Additional Family Medical History / Comment(s): Father is alive and 88yrs old with no major medical problems. Son(s) Family Medical History: Diabetes Mellitus Additional Family Medical History / Comment(s): Son has type II diabetes. Daughter(s) Additional Family Medical History / Comment(s): Patient has one daughter with gestational diabetes. Sister(s) Additional Family Medical History / Comment(s): Patient has 1 sister with no significant medical history. Medications and Allergies Home Medications Medication Instructions Recorded Confirmed Type Atorvastatin [Lipitor] 40 mg PO HS 09/11/14 03/16/18 History Furosemide [Lasix] 40 mg PO BID 09/11/14 03/16/18 History Omeprazole [PriLOSEC] 20 mg PO AC-BRKFST 09/03/15 03/16/18 History Albuterol Sulfate [Proair 1 puff INHALATION RT-QID PRN 09/20/17 03/16/18 History Respiclick] Beclomethasone Dipropionate [Qvar 1 puff INHALATION RT-BID 09/20/17 03/16/18 History 80 mcg] Calcitriol 0.5 mcg PO MO 09/20/17 03/16/18 History Montelukast Sodium [Singulair] 10 mg PO DAILY 09/20/17 03/16/18 History Multivitamins, Thera [Multivitamin 1 tab PO DAILY 09/20/17 03/16/18 History (formulary)] Tamsulosin [Flomax] 0.4 mg PO HS 09/20/17 03/16/18 History Gabapentin [Neurontin] 300 mg PO BID 10/24/17 03/16/18 History Cholecalciferol (Vitamin D3) 10,000 unit PO DAILY 01/09/18 03/16/18 History [Vitamin D3] Ferrous Sulfate [Feosol] 325 mg PO BID 01/09/18 03/16/18 History amLODIPine [Norvasc] 5 mg PO BID 01/09/18 03/16/18 History metFORMIN HCL 1,000 mg PO BID 01/09/18 03/16/18 History Insulin NPH Hum/Reg Insulin Hm 100 unit SQ AC-LUNCH 02/13/18 03/16/18 History [NovoLIN 70-30 100 UNIT/ML VIAL] Insulin NPH Hum/Reg Insulin Hm 126 unit SQ AC-BRKFST 02/13/18 03/16/18 History [NovoLIN 70-30 100 UNIT/ML VIAL] Insulin NPH Hum/Reg Insulin Hm 126 unit SQ AC-SUPPER 02/13/18 03/16/18 History [NovoLIN 70-30 100 UNIT/ML VIAL] Ipratropium-Albuterol Nebulize 3 ml INHALATION RT-QID PRN 02/13/18 03/16/18 History [Duoneb 0.5 mg-3 mg/3 ml Soln] Magnesium Oxide [Mag-Oxide] 200 mg PO DAILY 02/13/18 03/16/18 History Quinapril HCl 10 mg PO HS 02/13/18 03/16/18 History Quinapril HCl 20 mg PO DAILY 02/13/18 03/16/18 History Allergies Allergy/AdvReac Type Severity Reaction Status Date / Time No Known Allergies Allergy Verified 03/16/18 17:05 Physical Exam Vitals: Vital Signs Temp Pulse Pulse Resp BP BP Pulse Ox 03/17/18 09:41 88 03/17/18 09:16 88 03/17/18 08:00 96.7 F L 95 22 150/72 92 L 03/17/18 04:00 91 20 136/62 92 L 03/17/18 00:45 76 03/17/18 00:34 87 95 03/17/18 00:00 91 20 03/16/18 23:37 85 24 179/76 96 03/16/18 22:06 83 20 162/71 93 L 03/16/18 20:40 98.0 F 87 18 156/64 94 L 03/16/18 19:26 89 20 146/65 92 L 03/16/18 16:02 98.4 F 98 20 170/91 94 L Intake and Output 03/16/18 03/17/18 03/17/18 22:59 06:59 14:59 Output Total 600 Balance -600 Output: Urine 600 Other: Voiding Method Indwelling Catheter Indwelling Catheter Weight 181.437 kg 197 kg GENERAL EXAM: Alert, active, comfortable in no apparent distress. Morbidly obese HEAD: Normocephalic. EYES: Normal reaction of pupils, equal size. NOSE: Clear with pink turbinates. THROAT: No erythema or exudates. NECK: No masses, no JVD. CHEST: No chest wall deformity. LUNGS: Poor air entry, tight, with expiratory wheezing noted throughout. Bases diminished CVS: S1 and S2 normal with no audible mumurs, regular rhythm. ABDOMEN: No hepatosplenomegaly, normal bowel sounds, no guarding or rigidity. EXTREMITIES: +1 edema noted. Chronic bilateral lower extremity cellulitis. Left lower heel wound, wrapped clean dry and intact CENTRAL NERVOUS SYSTEM: No focal deficits, tone is normal in all 4 extremities. Results - Laboratory Findings CBC and BMP: 03/17/18 05:50 03/17/18 05:50 PT/INR, D-dimer PT 9.5 sec (9.0-12.0) 03/16/18 17:49 INR 1.0 (<1.2) 03/16/18 17:49 Abnormal lab findings: Abnormal Labs 03/16/18 03/16/18 03/16/18 17:49 17:49 17:49 RBC 3.12 L Hgb 8.2 L Hct 26.6 L MCHC RDW 17.7 H Lymphocytes # APTT BUN 36 H Creatinine 1.50 H Glucose POC Glucose (mg/dL) Hemoglobin A1c CK-MB (CK-2) 3.5 H* Total Protein Albumin 03/16/18 03/16/18 03/16/18 17:49 17:49 19:40 RBC Hgb Hct MCHC RDW Lymphocytes # APTT 21.4 L BUN Creatinine Glucose POC Glucose (mg/dL) 54 L Hemoglobin A1c 7.4 H CK-MB (CK-2) Total Protein Albumin 03/16/18 03/17/18 03/17/18 20:04 00:09 05:50 RBC Hgb Hct MCHC RDW Lymphocytes # APTT BUN Creatinine Glucose POC Glucose (mg/dL) 60 L Hemoglobin A1c CK-MB (CK-2) 4.1 H* 3.7 H* Total Protein Albumin 03/17/18 03/17/18 03/17/18 05:50 05:50 06:12 RBC 2.99 L Hgb 7.8 L Hct 25.9 L MCHC 30.0 L RDW 17.6 H Lymphocytes # 0.8 L APTT BUN 35 H Creatinine 1.50 H Glucose 110 H POC Glucose (mg/dL) 111 H Hemoglobin A1c CK-MB (CK-2) Total Protein 6.1 L Albumin 3.3 L - Diagnostic Findings Chest x-ray: report reviewed, image reviewed Assessment and Plan Assessment: Assessment Acute hypoxic respiratory failure required supplemental oxygen Unstable angina Acute exacerbation of CHF Acute exacerbation of COPD GIOVANY/OHS Diabetes mellitus Left heel wound History of hypertension History of hyperlipidemia Nonspecific diffuse abdominal pain Plan Medications have been reviewed and will be continued as ordered. Continue with antibiotics, we will add steroids. Decrease IV fluids to KVO. Cardiology on consult. Infectious disease on consult. Wound care per infectious disease. Continue with pulmonary hygiene, coughing and deep breathing exercises, and supportive care. Supplemental oxygen to maintain oxygen saturations of 92% or better. Uses home CPAP every night and with naps. Sputum culture. Initiate and encourage incentive spirometer use. Continue nebulizer treatments, increase budesonide to 1 mg. GI and DVT prophylaxis. PT and OT. We will continue to monitor labs/results and adjust treatment as necessary. Further recommendations pending. I performed an examination of the patient and discussed their management with the nurse practitioner. I have reviewed the nurse practitioner's note and agree with the documented findings and plan of care. <Ame Oneil - Last Filed: 03/17/18 16:19> Physical Exam Osteopathic Statement: *. No significant issues noted on an osteopathic structural exam other than those noted in the History and Physical/Consult. Vitals: Vital Signs Temp Pulse Pulse Resp BP BP Pulse Ox 03/17/18 16:08 100 03/17/18 13:49 92 03/17/18 13:33 92 03/17/18 12:00 97 F L 98 20 145/66 91 L 03/17/18 09:41 88 03/17/18 09:16 88 03/17/18 08:00 96.7 F L 95 22 150/72 92 L 03/17/18 04:00 91 20 136/62 92 L 03/17/18 00:45 76 03/17/18 00:34 87 95 03/17/18 00:00 91 20 03/16/18 23:37 85 24 179/76 96 03/16/18 22:06 83 20 162/71 93 L 03/16/18 20:40 98.0 F 87 18 156/64 94 L 03/16/18 19:26 89 20 146/65 92 L Intake and Output 03/17/18 03/17/18 03/17/18 06:59 14:59 22:59 Intake Total 600 Output Total 600 700 Balance -600 -100 Intake: Oral 600 Output: Urine 600 700 Other: Voiding Method Indwelling Catheter Indwelling Catheter # Bowel Movements 1 Weight 197 kg 197 kg Results - Laboratory Findings CBC and BMP: 03/17/18 05:50 03/17/18 05:50 PT/INR, D-dimer PT 9.5 sec (9.0-12.0) 03/16/18 17:49 INR 1.0 (<1.2) 03/16/18 17:49 Abnormal lab findings: Abnormal Labs 03/16/18 03/16/18 03/16/18 17:49 17:49 17:49 RBC 3.12 L Hgb 8.2 L Hct 26.6 L MCHC RDW 17.7 H Lymphocytes # APTT BUN 36 H Creatinine 1.50 H Glucose POC Glucose (mg/dL) Hemoglobin A1c CK-MB (CK-2) 3.5 H* Total Protein Albumin 03/16/18 03/16/18 03/16/18 17:49 17:49 19:40 RBC Hgb Hct MCHC RDW Lymphocytes # APTT 21.4 L BUN Creatinine Glucose POC Glucose (mg/dL) 54 L Hemoglobin A1c 7.4 H CK-MB (CK-2) Total Protein Albumin 03/16/18 03/17/18 03/17/18 20:04 00:09 05:50 RBC Hgb Hct MCHC RDW Lymphocytes # APTT BUN Creatinine Glucose POC Glucose (mg/dL) 60 L Hemoglobin A1c CK-MB (CK-2) 4.1 H* 3.7 H* Total Protein Albumin 03/17/18 03/17/18 03/17/18 05:50 05:50 06:12 RBC 2.99 L Hgb 7.8 L Hct 25.9 L MCHC 30.0 L RDW 17.6 H Lymphocytes # 0.8 L APTT BUN 35 H Creatinine 1.50 H Glucose 110 H POC Glucose (mg/dL) 111 H Hemoglobin A1c CK-MB (CK-2) Total Protein 6.1 L Albumin 3.3 L 03/17/18 11:24 RBC Hgb Hct MCHC RDW Lymphocytes # APTT BUN Creatinine Glucose POC Glucose (mg/dL) 225 H Hemoglobin A1c CK-MB (CK-2) Total Protein Albumin Assessment and Plan Assessment: Patient seen and examined. Patient has anasarca. He was recently started on Lasix drip. The patient states he is very short of breath with minimal exertion. He denies fevers and chills. He did have an occasional nonproductive cough. He was wearing his CPAP every night at home. He does admit that he adds salt to his food sometimes. Sodium extraction is discussed with the patient at length. Continue antibiotics per ID, steroids, Pulmicort, DuoNeb's, Singulair. The patient states he was also too sick to make his Xolair appointment. This will be rescheduled for him once he is out of the hospital. Sputum cultures pending. Incentive spirometry and pulmonary hygiene. Consult PT and OT. ~Ame Oneil DO
[2018-03-17] MEDS: methylPREDNISolone SOD SUCCI 125 MG/2 ML VIAL IV SCH ×3 (11:18→22:54)
[2018-03-17] MEDS: guaiFENesin 600 MG TABLET.ER PO SCH ×2 (11:19→20:31)
[2018-03-17] MEDS: MULTIVITAMINS, THERA 1 EACH TAB PO SCH (11:19)
[2018-03-17 11:56] VITALS: BMI 54.3
[2018-03-17 11:59] LABS: Glucose,Whole Blood 225 mg/dL (75-99)
[2018-03-17] MEDS ORDERED: FUROSEMIDE 10 MG/ML 10 ML VIAL IV SCH (12:00)
--- NOTE | 2018-03-17 13:58 | P.HPIM ---
History of Present Illness H&P Date: 03/17/18 Chief Complaint: Shortness of breath This is a 67-year-old male patient of Dr. Johnson with a past medical history of chronic heart failure, COPD, diabetes mellitus type 2 insulin requiring, hypertension, benign prostatic hypertrophy, gastroesophageal reflux disease, hyperlipidemia, obstructive sleep apnea with CPAP, super morbid obesity with plan for gastric sleeve with Dr. Ayala in the near future, chronic anemia seen by Dr. Webb in the past. He had a recent hospitalization for chest pain, acute on chronic hypoxic respiratory failure due to right-sided pneumonia and bilateral pleural effusions and acute kidney injury. Patient was discharged home with home care and oxygen. On last admission, echocardiogram reveals EF of 60-65% with mild aortic valve sclerosis, mild mitral regurgitation , trace tricuspid regurgitation, no pulmonary hypertension. Due to elevated d- dimer, lower extremity duplex was negative for DVT. CTA of the chest showed no evidence of pulmonary embolism. Bilateral pleural effusions with pulmonary mild infiltrate and atelectasis. Chest ultrasound revealed mild bilateral pleural effusions. Patient complains of abdominal bloating and has not have increased anasarca. His weight is up but he is not sure how much as he does not have a scale at home. He currently has home care in place. He does have a cough that he states is nonproductive. He denies any blood in his stool or urine. He has followed up with Dr. Oneil about a week ago. He is supposed to be on Xolair but has been off for quite a while. He has been does diagnosed with asthma and COPD by Dr. Oneil. Patient presented to [facility] emergency [facility] and found to be afebrile, white count was normal, BUN 36 and creatinine 1.5 chest x-ray shows evidence of pleural effusion concerning for heart failure. BNP was 907. Troponin was normal. Foot x-ray did not show osteomyelitis. Blood sugar was 54 and treated with orange juice. EKG was in normal sinus rhythm. Patient was admitted to the selective care unit and consults were requested with Dr. Oneil, cardiology and Dr. Ruiz. Echocardiogram ordered as well as CT of the abdomen and pelvis. Blood culture was obtained. Repeat troponins were negative on 2 draws. His recent hemoglobin A1c was 7.4. A bone scan has been ordered. Consult with Dr. Connor for chronic kidney disease. Patient did require Quinones catheter placement for retention of greater than 1 L. Review of Systems All systems: negative Constitutional: Reports fatigue, Denies chills, Denies fever Eyes: denies blurred vision, denies pain Ears, nose, mouth and throat: Denies headache, Denies sore throat, Denies vertigo Cardiovascular: Reports chest pain, Reports decreased exercise tolerance, Reports dyspnea on exertion, Reports edema, Reports leg edema, Reports shortness of breath Respiratory: Reports cough, Reports dyspnea, Reports home oxygen, Denies cough with sputum, Denies excessive sputum, Denies hemoptysis, Denies wheezing Gastrointestinal: Denies abdominal pain, Denies diarrhea, Denies nausea, Denies vomiting Musculoskeletal: Denies myalgias Integumentary: Reports wounds, Denies pruritus, Denies rash Neurological: Denies numbness, Denies weakness Psychiatric: Denies anxiety, Denies depression Endocrine: Denies fatigue, Denies weight change Past Medical History Past Medical History: Heart Failure, COPD, Diabetes Mellitus, GERD/Reflux, Hyperlipidemia, Hypertension, Prostate Disorder, Skin Disorder, Sleep Apnea/CPAP /BIPAP Additional Past Medical History / Comment(s): IDDM type II, bilateral lower leg/ feet neuropathy, cellulitis bilateral lower legs bilaterally, GIOVANY with Cpap, BPH , hiatal hernia, urine incontinence/wears depends, benign colon polyp, 2017 tonsillitis with sepsis and had renal failure and temporary dialysis. History of Any Multi-Drug Resistant Organisms: None Reported Past Surgical History: Cholecystectomy, Hernia Repair, Orthopedic Surgery, Prostate Surgery Additional Past Surgical History / Comment(s): Carpal tunnel left wrist, TURP, umbilical hernia repair x2 (developed infection after 1st repair), COLONOSCOPIES/BENIGN POLYPECTOMY, egd. Past Anesthesia/Blood Transfusion Reactions: No Reported Reaction Additional Past Anesthesia/Blood Transfusion Reaction / Comment(s): Pt has received blood in past without reaction. Past Psychological History: No Psychological Hx Reported Additional Psychological History / Comment(s): Pt resides with his spouse, their daughter and son and 3 grand daughters. Pt is independent. Smoking Status: Former smoker Past Alcohol Use History: None Reported Additional Past Alcohol Use History / Comment(s): Patient has history of smoking 3 packs per day for 30 years and quit in 1996. Possible alcohol abuse. Patient states he "partied a lot" when he was younger, has not had a drink since 1983. Past Drug Use History: None Reported - Past Family History Mother Family Medical History: Dementia, Neurologic Disorder Additional Family Medical History / Comment(s): Mother has parkinson's dx. Father Family Medical History: No Reported History Additional Family Medical History / Comment(s): Father is alive and 88yrs old with no major medical problems. Son(s) Family Medical History: Diabetes Mellitus Additional Family Medical History / Comment(s): Son has type II diabetes. Daughter(s) Additional Family Medical History / Comment(s): Patient has one daughter with gestational diabetes. Sister(s) Additional Family Medical History / Comment(s): Patient has 1 sister with no significant medical history. Medications and Allergies Home Medications Medication Instructions Recorded Confirmed Type Atorvastatin [Lipitor] 40 mg PO HS 09/11/14 03/16/18 History Furosemide [Lasix] 40 mg PO BID 09/11/14 03/16/18 History Omeprazole [PriLOSEC] 20 mg PO AC-BRKFST 09/03/15 03/16/18 History Albuterol Sulfate [Proair 1 puff INHALATION RT-QID PRN 09/20/17 03/16/18 History Respiclick] Beclomethasone Dipropionate [Qvar 1 puff INHALATION RT-BID 09/20/17 03/16/18 History 80 mcg] Calcitriol 0.5 mcg PO MO 09/20/17 03/16/18 History Montelukast Sodium [Singulair] 10 mg PO DAILY 09/20/17 03/16/18 History Multivitamins, Thera [Multivitamin 1 tab PO DAILY 09/20/17 03/16/18 History (formulary)] Tamsulosin [Flomax] 0.4 mg PO HS 09/20/17 03/16/18 History Gabapentin [Neurontin] 300 mg PO BID 10/24/17 03/16/18 History Cholecalciferol (Vitamin D3) 10,000 unit PO DAILY 01/09/18 03/16/18 History [Vitamin D3] Ferrous Sulfate [Feosol] 325 mg PO BID 01/09/18 03/16/18 History amLODIPine [Norvasc] 5 mg PO BID 01/09/18 03/16/18 History metFORMIN HCL 1,000 mg PO BID 01/09/18 03/16/18 History Insulin NPH Hum/Reg Insulin Hm 100 unit SQ AC-LUNCH 02/13/18 03/16/18 History [NovoLIN 70-30 100 UNIT/ML VIAL] Insulin NPH Hum/Reg Insulin Hm 126 unit SQ AC-BRKFST 02/13/18 03/16/18 History [NovoLIN 70-30 100 UNIT/ML VIAL] Insulin NPH Hum/Reg Insulin Hm 126 unit SQ AC-SUPPER 02/13/18 03/16/18 History [NovoLIN 70-30 100 UNIT/ML VIAL] Ipratropium-Albuterol Nebulize 3 ml INHALATION RT-QID PRN 02/13/18 03/16/18 History [Duoneb 0.5 mg-3 mg/3 ml Soln] Magnesium Oxide [Mag-Oxide] 200 mg PO DAILY 02/13/18 03/16/18 History Quinapril HCl 10 mg PO HS 02/13/18 03/16/18 History Quinapril HCl 20 mg PO DAILY 02/13/18 03/16/18 History Allergies Allergy/AdvReac Type Severity Reaction Status Date / Time No Known Allergies Allergy Verified 03/16/18 17:05 Physical Exam Vitals: Vital Signs Temp Pulse Pulse Resp BP BP Pulse Ox 03/17/18 04:00 91 20 136/62 92 L 03/17/18 00:45 76 03/17/18 00:34 87 95 03/17/18 00:00 91 20 03/16/18 23:37 85 24 179/76 96 03/16/18 22:06 83 20 162/71 93 L 03/16/18 20:40 98.0 F 87 18 156/64 94 L 03/16/18 19:26 89 20 146/65 92 L 03/16/18 16:02 98.4 F 98 20 170/91 94 L Intake and Output 03/16/18 03/17/18 03/17/18 22:59 06:59 14:59 Output Total 600 Balance -600 Output: Urine 600 Other: Voiding Method Indwelling Catheter Weight 181.437 kg 197 kg General appearance: cooperative, no acute distress, morbidly obese - EENT Eyes: anicteric sclerae, PERRLA, normal appearance ENT: hearing grossly normal - Neck Neck: no lymphadenopathy, normal ROM, no other, no rigidity, no stridor, no thyromegaly - Respiratory Respiratory: bilateral diminished, + rhonchi bilateral, diminished bilaterally due to body habitus - Cardiovascular Rhythm: regular Heart sounds: normal: S1, S2 Abnormal Heart Sounds: no systolic murmur, no diastolic murmur, no rub, no S3 Gallop, no S4 Gallop, no click, no other - Gastrointestinal General gastrointestinal: normal bowel sounds, soft, nontender - Integumentary Integumentary: no rash, chronic venous stasis bilaterally, with 2+ pitting edema on the bilateral lower extremity, ulcer to the left heel with serous drainage and foul order. Patient has generalized anasarca - Neurologic Neurologic: CNII-XII intact - Musculoskeletal Musculoskeletal: gait not assessed, strength equal bilaterally - Psychiatric Psychiatric: A&O x's 3, appropriate affect Results CBC & Chem 7: 03/17/18 05:50 03/17/18 05:50 Labs: Abnormal Lab Results - Last 24 Hours (Table) 03/16/18 03/16/18 03/16/18 Range/Units 17:49 17:49 17:49 RBC 3.12 L (4.30-5.90) m/uL Hgb 8.2 L (13.0-17.5) gm/dL Hct 26.6 L (39.0-53.0) % MCHC (31.0-37.0) g/dL RDW 17.7 H (11.5-15.5) % Lymphocytes # (1.0-4.8) k/uL APTT (22.0-30.0) sec BUN 36 H (9-20) mg/dL Creatinine 1.50 H (0.66-1.25) mg/dL Glucose (74-99) mg/dL POC Glucose (mg/dL) (75-99) mg/dL Hemoglobin A1c (4.0-6.0) % CK-MB (CK-2) 3.5 H* (0.0-2.4) ng/mL Total Protein (6.3-8.2) g/dL Albumin (3.5-5.0) g/dL 03/16/18 03/16/18 03/16/18 Range/Units 17:49 17:49 19:40 RBC (4.30-5.90) m/uL Hgb (13.0-17.5) gm/dL Hct (39.0-53.0) % MCHC (31.0-37.0) g/dL RDW (11.5-15.5) % Lymphocytes # (1.0-4.8) k/uL APTT 21.4 L (22.0-30.0) sec BUN (9-20) mg/dL Creatinine (0.66-1.25) mg/dL Glucose (74-99) mg/dL POC Glucose (mg/dL) 54 L (75-99) mg/dL Hemoglobin A1c 7.4 H (4.0-6.0) % CK-MB (CK-2) (0.0-2.4) ng/mL Total Protein (6.3-8.2) g/dL Albumin (3.5-5.0) g/dL 03/16/18 03/17/18 03/17/18 Range/Units 20:04 00:09 05:50 RBC (4.30-5.90) m/uL Hgb (13.0-17.5) gm/dL Hct (39.0-53.0) % MCHC (31.0-37.0) g/dL RDW (11.5-15.5) % Lymphocytes # (1.0-4.8) k/uL APTT (22.0-30.0) sec BUN (9-20) mg/dL Creatinine (0.66-1.25) mg/dL Glucose (74-99) mg/dL POC Glucose (mg/dL) 60 L (75-99) mg/dL Hemoglobin A1c (4.0-6.0) % CK-MB (CK-2) 4.1 H* 3.7 H* (0.0-2.4) ng/mL Total Protein (6.3-8.2) g/dL Albumin (3.5-5.0) g/dL 03/17/18 03/17/18 03/17/18 Range/Units 05:50 05:50 06:12 RBC 2.99 L (4.30-5.90) m/uL Hgb 7.8 L (13.0-17.5) gm/dL Hct 25.9 L (39.0-53.0) % MCHC 30.0 L (31.0-37.0) g/dL RDW 17.6 H (11.5-15.5) % Lymphocytes # 0.8 L (1.0-4.8) k/uL APTT (22.0-30.0) sec BUN 35 H (9-20) mg/dL Creatinine 1.50 H (0.66-1.25) mg/dL Glucose 110 H (74-99) mg/dL POC Glucose (mg/dL) 111 H (75-99) mg/dL Hemoglobin A1c (4.0-6.0) % CK-MB (CK-2) (0.0-2.4) ng/mL Total Protein 6.1 L (6.3-8.2) g/dL Albumin 3.3 L (3.5-5.0) g/dL Thrombosis Risk Factor Assmnt - DVT/VTE Prophylaxis DVT/VTE Prophylaxis: Pharmacologic Prophylaxis ordered Assessment and Plan Plan: 1. Chest pain with normal troponins. Continue, aspirin and Nitropaste. Cardiology consult is appreciated. Echocardiogram was recently done on last admission. Patient follows with Dr. Fierro. 2. Acute on chronic hypoxic respiratory failure secondary to acute on chronic diastolic heart failure and pleural effusions with generalized anasarca and COPD not in exacerbation as well as abdominal distention. Consult Dr. Oneil and cardiology. IV Lasix increased to 60 mg every 8 hours. DuoNeb treatments 4 times daily as needed and Pulmicort twice daily. 3. Diabetes mellitus type 2 uncontrolled, insulin requiring with diabetic neuropathy. Patient presented with hypoglycemia. NovoLog scale only for now. Continue gabapentin 300 mg twice daily. Hemoglobin A1c as above. 4. Abdominal distention. CAT scan of the abdomen and pelvis without contrast ordered. 5. Hypertension. Continue Norvasc 5 mg twice daily, lisinopril 20 mg daily and 10 mg at bedtime. 6. Hyperlipidemia. Continue Lipitor 40 mg at bedtime. 7. Urinary retention secondary to benign prostatic hypertrophy continue Flomax 0.4 mg at bedtime. Quinones catheter 8. Obstructive sleep apnea on CPAP. Patient to continue to use CPAP while hospitalized 9. Diabetic ulcer left heel. Local wound care will be in the form of Santyl. Wound culture to be obtained. [facility] as he has transportation problems. Consult Dr. Ruiz and completed recent antibiotics. Continue vancomycin for now. Patient received 1 dose of Zosyn in the ER. 10. Morbidly obesity with BMI of 50 with plan for bariatric surgery with Dr. Ayala. 11. Chronic kidney disease stage IIIA. Baseline creatinine is 1.5. 12. Moderate persistent asthma, stable. Patient follows with Dr. Breauxs. Continue DuoNeb treatments, Pulmicort, Singulair. 13. DVT prophylaxis. Patient on heparin subcu. 14. GI prophylaxis and gastroesophageal reflux disease and hiatal hernia. Continue Protonix. Patient will be admitted to the hospital for a minimum of 3 night stay. Discharge plan: PT has recommended subacute rehab. Patient verbalizes agreement for subacute rehab. Case management following. Impression and plan of care have been directed as dictated by the signing physician. Candy Magana nurse practitioner acting as scribe for signing physician.
--- NOTE | 2018-03-17 14:47 | P.CRDCN ---
History of Present Illness Consult date: 03/17/18 Requesting physician: Bhavna Her Consult reason: shortness of breath Chief complaint: Shortness of breath History of present illness: This is a 67-year-old gentleman who follows with Dr. Fierro in the office. He has a known history of COPD, diabetes, hypertension, hyperlipidemia , sleep apnea, prior nicotine dependence, morbid obesity, BPH, chronic anemia, seen by Dr. Webb in the past, patient had a recent hospitalization in February of this year for complaints of chest pain, was found to have a right-sided pneumonia. Patient was seen in consultation on that visit by Dr. Holland. He had an echocardiogram with Doppler study performed at that time which revealed an ejection fraction of 60-65% with mild aortic valve sclerosis, mild mitral regurgitation, trace of tricuspid regurg, no pulmonary hypertension. A CTA was also performed last month on that admission which was negative for a pulmonary embolism. Patient presents to the hospital on this occasion with symptoms of abdominal bloating as well as a generally not feeling well, symptoms of shortness of breath and chills. EKG on presentation here showed a normal sinus rhythm with nonspecific ST-T wave changes. Chest x-ray suggests CHF exacerbation with moderate central vascular congestion. Foot x-ray was performed which did not reveal any convincing radiographic evidence for acute osteomyelitis. Blood pressure 150/70, 92% on 5 L of oxygen, heart rate in the 80s to 90s. White blood cell count 5.9, hemoglobin 7.8, platelet count 150. Sodium 142, potassium 4.7, BUN 35, creatinine 1.5. Troponins are negative 2. BNP level 907. At the time of my examination, patient is sitting up at his bedside, complains of feeling extremely chilled, does state that his breathing has improved from yesterday. Patient is currently on IV Lasix. Past Medical History Past Medical History: Heart Failure, COPD, Diabetes Mellitus, GERD/Reflux, Hyperlipidemia, Hypertension, Prostate Disorder, Skin Disorder, Sleep Apnea/CPAP /BIPAP Additional Past Medical History / Comment(s): IDDM type II, bilateral lower leg/ feet neuropathy, cellulitis bilateral lower legs bilaterally, GIOVANY with Cpap, BPH , hiatal hernia, urine incontinence/wears depends, benign colon polyp, 2017 tonsillitis with sepsis and had renal failure and temporary dialysis. History of Any Multi-Drug Resistant Organisms: None Reported Past Surgical History: Cholecystectomy, Hernia Repair, Orthopedic Surgery, Prostate Surgery Additional Past Surgical History / Comment(s): Carpal tunnel left wrist, TURP, umbilical hernia repair x2 (developed infection after 1st repair), COLONOSCOPIES/BENIGN POLYPECTOMY, egd. Past Anesthesia/Blood Transfusion Reactions: No Reported Reaction Additional Past Anesthesia/Blood Transfusion Reaction / Comment(s): Pt has received blood in past without reaction. Past Psychological History: No Psychological Hx Reported Additional Psychological History / Comment(s): Pt resides with his spouse, their daughter and son and 3 grand daughters. Pt is independent. Smoking Status: Former smoker Past Alcohol Use History: None Reported Additional Past Alcohol Use History / Comment(s): Patient has history of smoking 3 packs per day for 30 years and quit in 1996. Possible alcohol abuse. Patient states he "partied a lot" when he was younger, has not had a drink since 1983. Past Drug Use History: None Reported - Past Family History Mother Family Medical History: Dementia, Neurologic Disorder Additional Family Medical History / Comment(s): Mother has parkinson's dx. Father Family Medical History: No Reported History Additional Family Medical History / Comment(s): Father is alive and 88yrs old with no major medical problems. Son(s) Family Medical History: Diabetes Mellitus Additional Family Medical History / Comment(s): Son has type II diabetes. Daughter(s) Additional Family Medical History / Comment(s): Patient has one daughter with gestational diabetes. Sister(s) Additional Family Medical History / Comment(s): Patient has 1 sister with no significant medical history. Medications and Allergies Home Medications Medication Instructions Recorded Confirmed Type Atorvastatin [Lipitor] 40 mg PO HS 09/11/14 03/16/18 History Furosemide [Lasix] 40 mg PO BID 09/11/14 03/16/18 History Omeprazole [PriLOSEC] 20 mg PO AC-BRKFST 09/03/15 03/16/18 History Albuterol Sulfate [Proair 1 puff INHALATION RT-QID PRN 09/20/17 03/16/18 History Respiclick] Beclomethasone Dipropionate [Qvar 1 puff INHALATION RT-BID 09/20/17 03/16/18 History 80 mcg] Calcitriol 0.5 mcg PO MO 09/20/17 03/16/18 History Montelukast Sodium [Singulair] 10 mg PO DAILY 09/20/17 03/16/18 History Multivitamins, Thera [Multivitamin 1 tab PO DAILY 09/20/17 03/16/18 History (formulary)] Tamsulosin [Flomax] 0.4 mg PO HS 09/20/17 03/16/18 History Gabapentin [Neurontin] 300 mg PO BID 10/24/17 03/16/18 History Cholecalciferol (Vitamin D3) 10,000 unit PO DAILY 01/09/18 03/16/18 History [Vitamin D3] Ferrous Sulfate [Feosol] 325 mg PO BID 01/09/18 03/16/18 History amLODIPine [Norvasc] 5 mg PO BID 01/09/18 03/16/18 History metFORMIN HCL 1,000 mg PO BID 01/09/18 03/16/18 History Insulin NPH Hum/Reg Insulin Hm 100 unit SQ AC-LUNCH 02/13/18 03/16/18 History [NovoLIN 70-30 100 UNIT/ML VIAL] Insulin NPH Hum/Reg Insulin Hm 126 unit SQ AC-BRKFST 02/13/18 03/16/18 History [NovoLIN 70-30 100 UNIT/ML VIAL] Insulin NPH Hum/Reg Insulin Hm 126 unit SQ AC-SUPPER 02/13/18 03/16/18 History [NovoLIN 70-30 100 UNIT/ML VIAL] Ipratropium-Albuterol Nebulize 3 ml INHALATION RT-QID PRN 02/13/18 03/16/18 History [Duoneb 0.5 mg-3 mg/3 ml Soln] Magnesium Oxide [Mag-Oxide] 200 mg PO DAILY 02/13/18 03/16/18 History Quinapril HCl 10 mg PO HS 02/13/18 03/16/18 History Quinapril HCl 20 mg PO DAILY 02/13/18 03/16/18 History Allergies Allergy/AdvReac Type Severity Reaction Status Date / Time No Known Allergies Allergy Verified 03/16/18 17:05 Physical Exam Vitals: Vital Signs Temp Pulse Pulse Resp BP BP Pulse Ox 03/17/18 13:49 92 03/17/18 13:33 92 03/17/18 12:00 97 F L 98 20 145/66 91 L 03/17/18 09:41 88 03/17/18 09:16 88 05/11/18 08:00 96.7 F L 95 22 150/72 92 L 03/17/18 04:00 91 20 136/62 92 L 03/17/18 00:45 76 03/17/18 00:34 87 95 03/17/18 00:00 91 20 03/16/18 23:37 85 24 179/76 96 03/16/18 22:06 83 20 162/71 93 L 03/16/18 20:40 98.0 F 87 18 156/64 94 L 03/16/18 19:26 89 20 146/65 92 L 03/16/18 16:02 98.4 F 98 20 170/91 94 L Intake and Output 03/16/18 03/17/18 03/17/18 22:59 06:59 14:59 Intake Total 600 Output Total 600 700 Balance -600 -100 Intake: Oral 600 Output: Urine 600 700 Other: Voiding Method Indwelling Catheter Indwelling Catheter # Bowel Movements 1 Weight 181.437 kg 197 kg 197 kg PHYSICAL EXAMINATION: HEENT: Head is atraumatic, normocephalic. Pupils equal, round. Neck is supple. There is no elevated jugular venous pressure. HEART EXAMINATION: Heart S1, S2 normal. No murmur or gallop heard. CHEST EXAMINATION: Lungs reveal scattered coarse rhonchi throughout with diminished air entry to the bases. ABDOMEN: Soft, obese ,nontender. Bowel sounds are heard. No organomegaly noted. EXTREMITIES: 1+ peripheral pulses with evidence of bilateral chronic venous stasis, 2-3+ pitting edema in the bilateral lower extremities, ulcer to the left heel with serous drainage and foul order. Generalized anasarca.. NEUROLOGIC patient is awake, alert and oriented -3. . Results 03/17/18 05:50 03/17/18 05:50 Cardiac Enzymes 03/16/18 03/16/18 03/17/18 Range/Units 17:49 17:49 00:09 AST 27 (17-59) U/L CK-MB (CK-2) 3.5 H* 4.1 H* (0.0-2.4) ng/mL Troponin I <0.012 <0.012 (0.000-0.034) ng/mL 03/17/18 03/17/18 Range/Units 05:50 05:50 AST 25 (17-59) U/L CK-MB (CK-2) 3.7 H* (0.0-2.4) ng/mL Troponin I <0.012 (0.000-0.034) ng/mL Coagulation 03/16/18 Range/Units 17:49 PT 9.5 (9.0-12.0) sec APTT 21.4 L (22.0-30.0) sec CBC 03/16/18 03/17/18 Range/Units 17:49 05:50 WBC 6.7 5.9 (3.8-10.6) k/uL RBC 3.12 L 2.99 L (4.30-5.90) m/uL Hgb 8.2 L 7.8 L (13.0-17.5) gm/dL Hct 26.6 L 25.9 L (39.0-53.0) % Plt Count 161 150 (150-450) k/uL Comprehensive Metabolic Panel 03/16/18 03/17/18 Range/Units 17:49 05:50 Sodium 143 142 (137-145) mmol/L Potassium 4.7 4.7 (3.5-5.1) mmol/L Chloride 104 103 (98-107) mmol/L Carbon Dioxide 26 27 (22-30) mmol/L BUN 36 H 35 H (9-20) mg/dL Creatinine 1.50 H 1.50 H (0.66-1.25) mg/dL Glucose 88 110 H (74-99) mg/dL Calcium 8.6 8.5 (8.4-10.2) mg/dL AST 27 25 (17-59) U/L ALT 35 46 (21-72) U/L Alkaline Phosphatase 88 84 (38-126) U/L Total Protein 6.6 6.1 L (6.3-8.2) g/dL Albumin 3.6 3.3 L (3.5-5.0) g/dL Current Medications Generic Name Dose Route Start Last Admin Trade Name Freq PRN Reason Stop Dose Admin Albuterol/Ipratropium 3 ml 03/16/18 20:04 03/17/18 13:32 Duoneb 0.5 Mg-3 Mg/3 Ml Soln INHALATION 3 ml RT-QID PRN Administration Shortness Of Breath Amlodipine Besylate 5 mg 03/16/18 21:00 03/17/18 09:36 Norvasc PO 5 mg BID ROLAND Administration Atorvastatin Calcium 40 mg 03/16/18 21:00 03/16/18 23:41 Lipitor PO 40 mg HS ROLAND Administration Budesonide 1 mg 03/17/18 20:00 Pulmicort INHALATION RT-BID ROLAND Calcitriol 0.5 mcg 03/20/18 09:00 Rocaltrol PO MO ROLAND Cholecalciferol 10,000 unit 03/17/18 09:00 03/17/18 09:36 Vitamin D3 PO 10,000 unit DAILY ROLAND Administration Ferrous Sulfate 325 mg 03/16/18 21:00 03/17/18 09:37 Feosol PO 325 mg BID ROLAND Administration Furosemide 60 mg 03/17/18 12:00 03/17/18 13:13 Lasix IV Not Given Q8H ROLAND Gabapentin 300 mg 03/16/18 21:00 03/17/18 09:37 Neurontin PO 300 mg BID ROLAND Administration Guaifenesin 1,200 mg 03/17/18 10:15 03/17/18 11:19 Mucinex PO 1,200 mg Q12HR ROLAND Administration Heparin Sodium (Porcine) 5,000 unit 03/17/18 16:00 Heparin SQ Q8HR ROLAND Sodium Chloride 1,000 mls @ 20 mls/hr 03/16/18 19:45 03/16/18 20:32 Saline 0.9% IV 100 mls/hr .Q24H ROLAND Administration Ampicillin Sodium/Sulbactam 100 mls @ 100 mls/hr 03/17/18 18:00 Sodium 3 gm/ Sodium Chloride IVPB Q6HR [facility] Insulin Aspart 0 unit 03/16/18 21:00 03/17/18 13:12 Novolog SQ 225 unit ACHS ROLAND Administration Protocol Iopamidol 30 ml 03/17/18 00:11 03/17/18 06:23 Isovue-300 30 Ml (For Oral Use) PO 03/18/18 00:12 30 ml Q60M PRN Administration CT Scan Lisinopril 10 mg 03/16/18 21:00 03/16/18 23:41 Zestril PO 10 mg HS ROLAND Administration Lisinopril 20 mg 03/17/18 09:00 03/17/18 09:37 Zestril PO 20 mg DAILY ROLAND Administration Magnesium Oxide 200 mg 03/17/18 09:00 03/17/18 09:38 Mag-Ox PO 200 mg DAILY ROLAND Administration Methylprednisolone Sodium Succinate 60 mg 03/17/18 09:45 03/17/18 11:18 Solu-Medrol IV 60 mg Q8HR ROLAND Administration Miscellaneous Information 1 each 03/17/18 00:11 Rx Info: Iv Contrast Was Given MISCELLANE 03/19/18 00:12 DAILY PRN Per Protocol Montelukast Sodium 10 mg 03/17/18 09:00 03/17/18 09:38 Singulair PO 10 mg DAILY ROLAND Administration Multivitamins 1 each 03/17/18 12:00 03/17/18 11:19 Theragran PO 1 each DAILY@1200 ROLAND Administration Nitroglycerin 1 inch 03/16/18 22:00 03/17/18 13:12 Nitro-Bid Oint TOPICAL 1 inch QID ROLAND Administration Pantoprazole Sodium 40 mg 03/17/18 07:30 03/17/18 06:23 Protonix PO 40 mg AC-BRKFST ROLAND Administration Tamsulosin HCl 0.4 mg 03/16/18 21:00 03/16/18 23:41 Flomax PO 0.4 mg HS ROLAND Administration Intake and Output 03/16/18 03/17/18 03/17/18 22:59 06:59 14:59 Intake Total 600 Output Total 600 700 Balance -600 -100 Intake: Oral 600 Output: Urine 600 700 Other: Voiding Method Indwelling Catheter Indwelling Catheter # Bowel Movements 1 Weight 181.437 kg 197 kg 197 kg Patient Weight 03/18/18 06:59 Weight 197 kg 03/17/18 05:50 03/17/18 05:50 EKG Interpretations (text) EKG shows normal sinus rhythm with PACs. Assessment and Plan Plan: Assessment and plan #1 acute on chronic hypoxic respiratory failure, secondary to acute on chronic diastolic heart failure and pleural effusions with generalized anasarca. Exacerbation of COPD. Patient currently on IV Lasix. #2 hypertension #3 hyperlipidemia #4 obstructive sleep apnea # 5 morbid obesity, hoping to undergo bariatric surgery with Dr. Ulises james #6 asthma #7 acute on chronic kidney disease #8 acute on chronic anemia #9 former tobacco use Plan We will discontinue the IV Lasix and start the patient on IV Lasix drip. We will also give the patient one time dose of Zaroxolyn. Maintain accurate intake and daily weights. We will not repeat the echocardiogram with Doppler study as this was performed less than one month ago. Further recommendations to follow. DNP note has been reviewed, I agree with a documented findings and plan of care. Patient was seen and examined.
[2018-03-17] MEDS ORDERED: METOLAZONE 5 MG TAB PO STA (14:49)
[2018-03-17] MEDS: FUROSEMIDE 250 MG in SODIUM CHLORIDE 0.9% 225 ML IVP SCH (15:29)
[2018-03-17] MEDS: SPIRONOLACTONE 25 MG TAB PO SCH (15:33)
[2018-03-17] MEDS: HEPARIN SODIUM,PORCINE 5,000 UNIT/ML 1 ML VIAL SQ SCH ×2 (15:57→22:54)
[2018-03-17 16:53] LABS: Glucose,Whole Blood 228 mg/dL (75-99)
[2018-03-17] MEDS: INSULIN NPH/REG INSULIN 70/30 300 UNIT/3 ML VIAL SQ SCH (17:33)
[2018-03-17] MEDS: AMPICILLIN-SULBACTAM 3 GM in SODIUM CHLORIDE 0.9% 100 ML IVPB SCH ×2 (18:28→22:53)
[2018-03-17 18:50] LABS: Iron Saturation 12.26 (15.00-50.00)
[2018-03-17] MEDS: BUDESONIDE 1 MG/2 ML NEBU INHALATION SCH (19:47)
[2018-03-17] MEDS: SODIUM CHLORIDE 0.9% 1,000 ML IV SCH (20:31)
[2018-03-17] MEDS: LISINOPRIL 10 MG TAB PO SCH (20:31)
[2018-03-17] MEDS: ATORVASTATIN 40 MG TAB PO SCH (20:31)
[2018-03-17] MEDS: TAMSULOSIN 0.4 MG CAP.ER.24H PO SCH (20:32)
[2018-03-17 21:21] LABS: Glucose,Whole Blood 324 mg/dL (75-99)
--- NOTE | 2018-03-17 23:03 | CONS ---
CONSULTATION DATE OF SERVICE: 03/17/2018 REASON FOR CONSULTATION: Left heel infected ulcer. HISTORY OF PRESENT ILLNESS: The patient is a 67-year-old male, admitted to the hospital back in February of 2018, when the patient had a left foot median heel infected callus. Cultures were positive for Streptococcus agalactiae in addition to Staph aureus. The patient was discharged home on oral antibiotic therapy, which the patient completed. He did have a follow-up visit and did have overall resolution of his cellulitis. The patient called the office yesterday complaining of more foul-smelling drainage from his left heel wound area that is currently non-healing. The patient did have more swelling in his left leg area but denies any high-grade fever or chills. The patient was advised to come to the office for followup; however, instead the patient came to the [facility] ER. The patient also mentioned that he was supposed to be seen in the wound care center by Dr. Eduardo; however, he missed 2 of his appointments. One time he was sick. The second time he said he was unable to fit in his 's van. Patient at this time denies having any fever or any chills. He did have foul-smelling drainage from his left foot medial wound with some swelling and redness extending to the leg area. The patient denies having any chest pain. He did have shortness of breath with minimal exertion. No cough or sputum production. No abdominal pain. No diarrhea. REVIEW OF SYSTEMS: CONSTITUTIONAL: Positive for weakness. No high-grade fever. EYES: No complaint. ENT: No complaint. RESPIRATORY: As per HPI. CARDIOVASCULAR: No complaint. GENITOURINARY: No complaint. GASTROINTESTINAL: No complaint. MUSCULOSKELETAL: As per HPI. INTEGUMENTARY: As per HPI. PSYCHOLOGICAL: No complaint. ENDOCRINE: No complaint. NEUROLOGICAL: No complaint. PAST MEDICAL HISTORY: 1. Diabetes mellitus. 2. Hypertension. 3. Hyperlipidemia. 4. COPD. 5. Congestive heart failure. 6. Sleep apnea. 7. Benign prostatic hypertrophy. 8. Infected left foot ulcer. PAST SURGICAL HISTORY: 1. Cholecystectomy. 2. Hernia repair. 3. Carpal tunnel release. 4. TURP. 5. Umbilical hernia repair. SOCIAL HISTORY: Remote history of smoking. No drinking or drug use. He is , lives with his . FAMILY HISTORY: Father lived to be 87 with no medical problems. Mother with history of dementia. ALLERGIES: NO KNOWN DRUG ALLERGIES. CURRENT MEDICATIONS: 1. Vancomycin, Pharmacy to dose. 2. Stevens. 3. DuoNeb. 4. Norvasc. 5. Lipitor. 6. Pulmicort. 7. Rocaltrol. 8. Vitamin D3. 9. Iron sulfate. 10.Lasix drip. 11.Neurontin. 12.Mucinex. 13.Heparin. 14.NovoLog. 15.Humulin 70/30. 16.Zestril. 17.Singulair. 18.Theragran. 19.Protonix. 20.Aldactone. 21.Flomax. PHYSICAL EXAMINATION: Blood pressure is 173/83 with a pulse of 99, temperature 97.3. He is 95% on 2 L nasal cannula. General description is an elderly male up in the chair in no distress. No tachypnea or accessory muscles of respiration use. HEENT EXAMINATION: Pallor. No scleral icterus. Oral mucosa membrane is dry. No pharyngeal erythema or thrush. NECK: Trachea is central. No thyromegaly. LUNGS: Unlabored breathing. Decreased breath sounds at the bases. No wheeze. HEART: S1, S2. Regular rate and rhythm. No added sound. ABDOMEN: Soft. No tenderness. No guarding or rigidity. EXTREMITIES: Left leg swelling, minimal redness. Slightly warm to touch. He did have a foul-smelling wound on the left medial ankle area. Neurologically the patient is awake, alert x3. Mood and affect normal. LABS: Hemoglobin 7.8, white count 5.9 with a BUN of 35, creatinine 1.50. X-ray of the foot was negative for any bony changes. DIAGNOSTIC IMPRESSION AND PLAN: Patient with left diabetic foot ulcer, medial left ankle area. The previous cultures were positive for Streptococcus agalactiae MSSA and anaerobic Gram-negative bacilli. Could have been pathogen. The patient does have borderline kidney function and high risk of nephrotoxicity from the vancomycin that currently the patient is on. PLAN: 1. Would request surgery evaluation and debridement of this wound and deep culture. 2. We will discontinue vancomycin. 3. Start the patient on Unasyn 3 grams q.6 hours. 4. Local wound care with [facility] to apply daily. 5. Will follow up on the clinical condition and cultures to further adjust medication if needed. Thank you for this consultation. Will follow this patient along with you. MMODL / IJN: [id number] /
[2018-03-18] MEDS: AMPICILLIN-SULBACTAM 3 GM in SODIUM CHLORIDE 0.9% 100 ML IVPB SCH ×4 (05:53→23:06)
[2018-03-18 05:57] LABS: Glucose,Whole Blood 268 mg/dL (75-99)
[2018-03-18 06:33] LABS: Calcium 9.1 mg/dL (8.4-10.2)
[2018-03-18] MEDS: PANTOPRAZOLE 40 MG TABLET PO SCH (07:17)
[2018-03-18] MEDS: INSULIN NPH/REG INSULIN 70/30 300 UNIT/3 ML VIAL SQ SCH ×3 (07:22→17:47)
[2018-03-18] MEDS: INSULIN ASPART 100 UNIT/ML 1 ML 10 ML VIAL SQ SCH ×4 (07:23→21:13)
[2018-03-18] MEDS: MAGNESIUM OXIDE 400 MG TAB PO SCH (08:33)
[2018-03-18] MEDS: CHOLECALCIFEROL 1,000 UNIT TAB PO SCH (08:33)
[2018-03-18] MEDS: FERROUS SULFATE 325 MG TAB PO SCH ×2 (08:34→20:40)
[2018-03-18] MEDS: guaiFENesin 600 MG TABLET.ER PO SCH ×2 (08:34→20:41)
[2018-03-18] MEDS: SPIRONOLACTONE 25 MG TAB PO SCH (08:34)
[2018-03-18] MEDS: GABAPENTIN 300 MG CAP PO SCH ×2 (08:34→20:40)
[2018-03-18] MEDS: LISINOPRIL 20 MG TAB PO SCH (08:34)
[2018-03-18] MEDS: methylPREDNISolone SOD SUCCI 125 MG/2 ML VIAL IV SCH ×3 (08:34→23:07)
[2018-03-18] MEDS: MONTELUKAST 10 MG TAB PO SCH (08:34)
[2018-03-18] MEDS: amLODIPine 5 MG TAB PO SCH ×2 (08:34→20:40)
[2018-03-18] MEDS: HEPARIN SODIUM,PORCINE 5,000 UNIT/ML 1 ML VIAL SQ SCH ×3 (08:35→23:07)
[2018-03-18] MEDS: IPRATROPIUM-ALBUTEROL 3 ML NEB INHALATION PRN ×3 (09:25→20:14)
[2018-03-18] MEDS: BUDESONIDE 1 MG/2 ML NEBU INHALATION SCH ×2 (09:25→20:14)
[2018-03-18] MEDS ORDERED: hydrALAZINE HCL 20 MG/ML 1 ML VIAL IVP PRN (09:39)
[2018-03-18] MEDS ORDERED: DEXTROSE 50%-WATER 50 ML SYRINGE IVP STA (09:40)
[2018-03-18] MEDS ORDERED: INSULIN REGULAR 100 UNIT/ML VIAL IV ONE (09:40)
--- NOTE | 2018-03-18 10:26 | P.NPCON ---
History of Present Illness - Reason for Consult acute renal failure - History of Present Illness Reason for consultation: Acute kidney injury and volume overload History of present illness: Patient is a 67-year-old male seen in consultation for acute kidney injury. Patient's creatinine is 1.5 on admission and is up to 1.59 today. His creatinine in May 2017 was 0.95. Patient does have history of diastolic CHF. Patient presented to the hospital with left foot ulcer. Patient states he completed it and it diuretics and did see infectious disease as an outpatient. He was noted to have active drainage with foul odor and was advised to come to the hospital. Patient also states that he was taking Lasix 40 mg twice daily at home but has been progressively gaining weight and feels edematous. Does admit to orthopnea. Patient's chest x-ray is suggestive of volume overload. He is currently maintained on Lasix drip at 10 mL an hour and has good urine output. Denies vomiting. Does have loose bowel movements. His potassium is elevated at 6.0 today. He is maintained on lisinopril as well as Aldactone. Denies use of NSAIDs. He has long-standing history of diabetes mellitus. He is currently maintained on IV Unasyn. Vital signs are stable. General: The patient appeared well nourished and normally developed. HEENT: Head exam is unremarkable. Neck is without jugular venous distension. LUNGS: Lungs are clear to auscultation and percussion. Breath sounds decreased. HEART: Rate and Rhythm are regular. First and second heart sounds normal. No murmurs, rubs or gallops. ABDOMEN: Abdominal exam reveals normal bowel sounds. Non-tender and non- distended. No evidence of peritonitis. EXTREMITITES: 1+ edema. Left foot wrapped. Chronic changes noted. Past Medical History Past Medical History: Heart Failure, COPD, Diabetes Mellitus, GERD/Reflux, Hyperlipidemia, Hypertension, Prostate Disorder, Skin Disorder, Sleep Apnea/CPAP /BIPAP Additional Past Medical History / Comment(s): IDDM type II, bilateral lower leg/ feet neuropathy, cellulitis bilateral lower legs bilaterally, GIOVANY with Cpap, BPH , hiatal hernia, urine incontinence/wears depends, benign colon polyp, 2017 tonsillitis with sepsis and had renal failure and temporary dialysis. History of Any Multi-Drug Resistant Organisms: None Reported Past Surgical History: Cholecystectomy, Hernia Repair, Orthopedic Surgery, Prostate Surgery Additional Past Surgical History / Comment(s): Carpal tunnel left wrist, TURP, umbilical hernia repair x2 (developed infection after 1st repair), COLONOSCOPIES/BENIGN POLYPECTOMY, egd. Past Anesthesia/Blood Transfusion Reactions: No Reported Reaction Additional Past Anesthesia/Blood Transfusion Reaction / Comment(s): Pt has received blood in past without reaction. Past Psychological History: No Psychological Hx Reported Additional Psychological History / Comment(s): Pt resides with his spouse, their daughter and son and 3 grand daughters. Pt is independent. Smoking Status: Former smoker Past Alcohol Use History: None Reported Additional Past Alcohol Use History / Comment(s): Patient has history of smoking 3 packs per day for 30 years and quit in 1996. Possible alcohol abuse. Patient states he "partied a lot" when he was younger, has not had a drink since 1983. Past Drug Use History: None Reported - Past Family History Mother Family Medical History: Dementia, Neurologic Disorder Additional Family Medical History / Comment(s): Mother has parkinson's dx. Father Family Medical History: No Reported History Additional Family Medical History / Comment(s): Father is alive and 88yrs old with no major medical problems. Son(s) Family Medical History: Diabetes Mellitus Additional Family Medical History / Comment(s): Son has type II diabetes. Daughter(s) Additional Family Medical History / Comment(s): Patient has one daughter with gestational diabetes. Sister(s) Additional Family Medical History / Comment(s): Patient has 1 sister with no significant medical history. Medications and Allergies Home Medications Medication Instructions Recorded Confirmed Type Atorvastatin [Lipitor] 40 mg PO HS 09/11/14 03/16/18 History Furosemide [Lasix] 40 mg PO BID 09/11/14 03/16/18 History Omeprazole [PriLOSEC] 20 mg PO AC-BRKFST 09/03/15 03/16/18 History Albuterol Sulfate [Proair 1 puff INHALATION RT-QID PRN 09/20/17 03/16/18 History Respiclick] Beclomethasone Dipropionate [Qvar 1 puff INHALATION RT-BID 09/20/17 03/16/18 History 80 mcg] Calcitriol 0.5 mcg PO MO 09/20/17 03/16/18 History Montelukast Sodium [Singulair] 10 mg PO DAILY 09/20/17 03/16/18 History Multivitamins, Thera [Multivitamin 1 tab PO DAILY 09/20/17 03/16/18 History (formulary)] Tamsulosin [Flomax] 0.4 mg PO HS 09/20/17 03/16/18 History Gabapentin [Neurontin] 300 mg PO BID 10/24/17 03/16/18 History Cholecalciferol (Vitamin D3) 10,000 unit PO DAILY 01/09/18 03/16/18 History [Vitamin D3] Ferrous Sulfate [Feosol] 325 mg PO BID 01/09/18 03/16/18 History amLODIPine [Norvasc] 5 mg PO BID 01/09/18 03/16/18 History metFORMIN HCL 1,000 mg PO BID 01/09/18 03/16/18 History Insulin NPH Hum/Reg Insulin Hm 100 unit SQ AC-LUNCH 02/13/18 03/16/18 History [NovoLIN 70-30 100 UNIT/ML VIAL] Insulin NPH Hum/Reg Insulin Hm 126 unit SQ AC-BRKFST 02/13/18 03/16/18 History [NovoLIN 70-30 100 UNIT/ML VIAL] Insulin NPH Hum/Reg Insulin Hm 126 unit SQ AC-SUPPER 02/13/18 03/16/18 History [NovoLIN 70-30 100 UNIT/ML VIAL] Ipratropium-Albuterol Nebulize 3 ml INHALATION RT-QID PRN 02/13/18 03/16/18 History [Duoneb 0.5 mg-3 mg/3 ml Soln] Magnesium Oxide [Mag-Oxide] 200 mg PO DAILY 02/13/18 03/16/18 History Quinapril HCl 10 mg PO HS 02/13/18 03/16/18 History Quinapril HCl 20 mg PO DAILY 02/13/18 03/16/18 History Allergies Allergy/AdvReac Type Severity Reaction Status Date / Time No Known Allergies Allergy Verified 03/16/18 17:05 Physical Exam Vitals: Vital Signs Temp Pulse Pulse Resp BP Pulse Ox 03/18/18 09:39 105 H 03/18/18 09:25 102 H 95 03/18/18 08:00 98.3 F 98 20 187/79 03/18/18 04:00 97.6 F 103 H 18 161/75 91 L 03/17/18 23:57 93 18 05/11/18 23:48 97.0 F L 93 18 156/67 93 L 03/17/18 20:03 98 03/17/18 20:00 97.3 F L 99 18 173/83 95 03/17/18 19:47 98 03/17/18 16:23 100 03/17/18 16:08 100 03/17/18 16:00 97.4 F L 94 18 139/62 96 03/17/18 13:49 92 03/17/18 13:33 92 03/17/18 12:00 97 F L 98 20 145/66 91 L Intake and Output 03/17/18 03/18/18 03/18/18 22:59 06:59 14:59 Intake Total 440 Output Total 1375 1200 Balance 440 -1375 -1200 Intake: Intake, IV Titration 20 Amount Furosemide 250 mg In 20 Sodium Chloride 0.9% 225 ml @ 10 MG/HR 10 mls/hr IVP .Q24H [facility] Rx#: [id number] Oral 420 Output: Urine 1375 1200 Other: Voiding Method Indwelling Catheter Indwelling Catheter Indwelling Catheter # Bowel Movements 1 Results - Lab Results Most recent lab results Calcium 9.1 mg/dL (8.4-10.2) 03/18/18 05:32 Magnesium 2.1 mg/dL (1.6-2.3) 03/16/18 17:49 03/17/18 05:50 03/18/18 05:32 Assessment and Plan Plan: Assessment: 1. Nonoliguric acute kidney injury mostly prerenal secondary to cardiorenal syndrome. Creatinine up to 1.59 today. Creatinine in May 2017 was 0.95. 2. Rule out chronic kidney disease. Prior UA does reveal proteinuria which is likely secondary to underlying diabetic kidney disease. 3. Hyperkalemia secondary to acute kidney injury and further worsened with the use of lisinopril and Aldactone. 4. Diastolic CHF. 5. Volume overload. 6. Left foot diabetic ulcer. Maintain on antibiotics per infectious disease recommendations. 7. Insulin-dependent diabetes mellitus. 8. Anemia. Rule out iron deficiency. Plan: I will increase Lasix drip to 15 mL an hour. Add metolazone 5 mg daily. I will give him 10 units of IV insulin with amp of D50 now. Low potassium diet. 1.5 L fluid restriction. Recheck potassium level at 1 PM today. Discontinue lisinopril and Aldactone. Add hydralazine 25 mg 3 times daily. Check iron studies. Repeat electrolytes in the morning. Thank you for the consultation. I will continue to follow the patient with you during his hospital stay.
[2018-03-18] MEDS: METOLAZONE 5 MG TAB PO SCH (11:42)
[2018-03-18 11:58] LABS: Glucose,Whole Blood 328 mg/dL (75-99)
[2018-03-18] MEDS: MULTIVITAMINS, THERA 1 EACH TAB PO SCH (12:42)
--- NOTE | 2018-03-18 13:06 | P.PN ---
Subjective Progress Note Date: 03/18/18 This is a 67-year-old gentleman who follows with Dr. Fierro in the office. He has a known history of COPD, diabetes, hypertension, hyperlipidemia , sleep apnea, prior nicotine dependence, morbid obesity, BPH, chronic anemia, seen by Dr. Webb in the past, patient had a recent hospitalization in February of this year for complaints of chest pain, was found to have a right-sided pneumonia. Patient was seen in consultation on that visit by Dr. Holland. He had an echocardiogram with Doppler study performed at that time which revealed an ejection fraction of 60-65% with mild aortic valve sclerosis, mild mitral regurgitation, trace of tricuspid regurg, no pulmonary hypertension. A CTA was also performed last month on that admission which was negative for a pulmonary embolism. Patient presents to the hospital on this occasion with symptoms of abdominal bloating as well as a generally not feeling well, symptoms of shortness of breath and chills. EKG on presentation here showed a normal sinus rhythm with nonspecific ST-T wave changes. Chest x-ray suggests CHF exacerbation with moderate central vascular congestion. Foot x-ray was performed which did not reveal any convincing radiographic evidence for acute osteomyelitis. Blood pressure 150/70, 92% on 5 L of oxygen, heart rate in the 80s to 90s. White blood cell count 5.9, hemoglobin 7.8, platelet count 150. Sodium 142, potassium 4.7, BUN 35, creatinine 1.5. Troponins are negative 2. BNP level 907. At the time of my examination, patient is sitting up at his bedside, complains of feeling extremely chilled, does state that his breathing has improved from yesterday. Patient is currently on IV Lasix. 03/18/2018 Patient was initiated on an IV Lasix drip yesterday, he has diuresed well over the night last night, however his weight is not reflective of this this morning. He has diuresed over 3000 through the night last night and currently has a full catheter bag. Sodium 141, potassium 6.0, BUN 38, creatinine 1.5. is currently on a Lasix drip at 15 mg per hour, metolazone daily was also added today. Objective - Vital Signs Vital signs: Vital Signs Temp 98.3 F 03/18/18 08:00 Pulse 105 H 03/18/18 09:39 Resp 20 03/18/18 08:00 BP 187/79 03/18/18 08:00 Pulse Ox 95 03/18/18 09:25 Intake & Output 03/17/18 03/18/18 03/18/18 18:59 06:59 18:59 Intake Total 1040 561.833 Output Total 700 1375 1200 Balance 340 -1375 -638.167 Weight 197 kg Intake: Intake, IV Titration 20 201.833 Amount Furosemide 250 mg In 20 201.833 Sodium Chloride 0.9% 225 ml @ 15 MG/HR 15 mls/hr IVP .[id number] [facility] Rx#: [id number] Oral 1020 360 Output: Urine 700 1375 1200 Other: Voiding Method Indwelling Catheter Indwelling Catheter Indwelling Catheter # Bowel Movements 1 1 - Exam PHYSICAL EXAMINATION: HEENT: Head is atraumatic, normocephalic. Pupils equal, round. Neck is supple. There is no elevated jugular venous pressure. HEART EXAMINATION: Heart S1, S2 normal. No murmur or gallop heard. CHEST EXAMINATION: Lungs reveal scattered coarse rhonchi throughout with diminished air entry to the bases. ABDOMEN: Soft, obese ,nontender. Bowel sounds are heard. No organomegaly noted. EXTREMITIES: 1+ peripheral pulses with evidence of bilateral chronic venous stasis, 2-3+ pitting edema in the bilateral lower extremities, ulcer to the left heel with serous drainage and foul order. Generalized anasarca.. NEUROLOGIC patient is awake, alert and oriented -3. . - Labs CBC & Chem 7: 03/17/18 05:50 03/18/18 05:32 Labs: Abnormal Lab Results - Last 24 Hours (Table) 03/17/18 03/17/18 03/17/18 Range/Units 05:50 16:26 21:11 Potassium (3.5-5.1) mmol/L BUN (9-20) mg/dL Creatinine (0.66-1.25) mg/dL Glucose (74-99) mg/dL POC Glucose (mg/dL) 228 H 324 H (75-99) mg/dL Iron 39 L (65-175) ug/dL Iron Saturation 12.26 L (15.00-50.00) 03/18/18 03/18/18 03/18/18 Range/Units 05:32 05:56 11:55 Potassium 6.0 H (3.5-5.1) mmol/L BUN 38 H (9-20) mg/dL Creatinine 1.59 H (0.66-1.25) mg/dL Glucose 246 H (74-99) mg/dL POC Glucose (mg/dL) 268 H 328 H (75-99) mg/dL Iron (65-175) ug/dL Iron Saturation (15.00-50.00) Microbiology - Last 24 Hours (Table) 03/16/18 17:49 Blood Culture - Preliminary Blood No Growth after 24 hours Assessment and Plan Plan: Assessment and plan #1 acute on chronic hypoxic respiratory failure, secondary to acute on chronic diastolic heart failure and pleural effusions with generalized anasarca. Exacerbation of COPD. Patient currently on IV Lasix drip. #2 hypertension #3 hyperlipidemia #4 obstructive sleep apnea # 5 morbid obesity, hoping to undergo bariatric surgery with Dr. Ulises james #6 asthma #7 acute on chronic kidney disease #8 acute on chronic anemia #9 former tobacco use Plan IV Lasix drip has been increased to 15 mg per hour and daily Zaroxolyn has also been added by nephrology. We will continue to monitor accurate intake and output along with daily weights daily lytes BUN and creatinine. DNP note has been reviewed, I agree with a documented findings and plan of care. Patient was seen and examined.
--- NOTE | 2018-03-18 13:31 | PN ---
PROGRESS NOTE DATE OF SERVICE: 03/18/2018. He is less short of breath and is able to lie flat. He is diuresing quite well. On physical examination: Respiratory rate is 21, pulse rate 98, temperature 98.3, blood pressure 187/79, O2 saturation on 3 L by nasal cannula is 95%. HEENT is unremarkable. Chest reveals decreased breath sounds, but no wheeze. Cardiovascular system reveals a S1, S2. Abdomen is soft. There is 1+ to 2+ pedal edema. Sodium is 141, potassium 6, chloride 100, bicarb 28, BUN 38, creatinine 1.59. IMPRESSION: At this time: 1. Congestive heart failure with acute exacerbation. 2. Bronchospasm secondary to asthma with chronic obstructive pulmonary disease. 3. Obstructive sleep apnea. 4. Morbid obesity. 5. Cellulitis of the lower extremities. Continue to attempt to keep him in negative fluid balance. Correct his hyperkalemia. We will defer to Nephrology regarding that. Continue CPAP. May benefit from Xolair which he had been previously counseled about. MMODL / IJN: [id number] /
[2018-03-18 14:26] LABS: Appearance,Urine Clear (Clear); Bacteria,Urine Rare /hpf; Bilirubin,Urine Negative (Negative); Blood,Urine Small (Negative); Color,Urine Light Yellow; Glucose,Urine (UA) 2+ (Negative); Hyaline Casts,Urine 3 /lpf (0-2); Ketones,Urine Negative (Negative); Leukocyte Esterase,Urine Small (Negative); Mucus,Urine Rare /hpf; Nitrite,Urine Negative (Negative); PH, Urine 5.5 (5.0-8.0); Protein,Urine 2+ (Negative); RBC,Urine 8 /hpf (0-5); Specific Gravity,Urine 1.009 (1.001-1.035); Urobilinogen,Urine <2.0 mg/dL (<2.0); WBC,Urine 14 /hpf (0-5)
--- NOTE | 2018-03-18 16:14 | P.PN ---
Subjective Progress Note Date: 03/18/18 This is a 67-year-old male patient of Dr. Johnson with a past medical history of chronic heart failure, COPD, diabetes mellitus type 2 insulin requiring, hypertension, benign prostatic hypertrophy, gastroesophageal reflux disease, hyperlipidemia, obstructive sleep apnea with CPAP, super morbid obesity with plan for gastric sleeve with Dr. Ayala in the near future, chronic anemia seen by Dr. Webb in the past. He had a recent hospitalization for chest pain, acute on chronic hypoxic respiratory failure due to right-sided pneumonia and bilateral pleural effusions and acute kidney injury. Patient was discharged home with home care and oxygen. On last admission, echocardiogram reveals EF of 60-65% with mild aortic valve sclerosis, mild mitral regurgitation , trace tricuspid regurgitation, no pulmonary hypertension. Due to elevated d- dimer, lower extremity duplex was negative for DVT. CTA of the chest showed no evidence of pulmonary embolism. Bilateral pleural effusions with pulmonary mild infiltrate and atelectasis. Chest ultrasound revealed mild bilateral pleural effusions. Patient complains of abdominal bloating and has not have increased anasarca. His weight is up but he is not sure how much as he does not have a scale at home. He currently has home care in place. He does have a cough that he states is nonproductive. He denies any blood in his stool or urine. He has followed up with Dr. Oneil about a week ago. He is supposed to be on Xolair but has been off for quite a while. He has been does diagnosed with asthma and COPD by Dr. Oneil. Patient presented to [facility] emergency center and found to be afebrile, white count was normal, BUN 36 and creatinine 1.5 chest x-ray shows evidence of pleural effusion concerning for heart failure. BNP was 907. Troponin was normal. Foot x-ray did not show osteomyelitis. Blood sugar was 54 and treated with orange juice. EKG was in normal sinus rhythm. Patient was admitted to the selective care unit and consults were requested with Dr. Oneil, cardiology and Dr. Ruiz. Echocardiogram ordered as well as CT of the abdomen and pelvis. Blood culture was obtained. Repeat troponins were negative on 2 draws. His recent hemoglobin A1c was 7.4. A bone scan has been ordered. Consult with Dr. Connor for chronic kidney disease. Patient did require Quinones catheter placement for retention of greater than 1 L. 5/12 Patient examined bedside. Still complains of significant shortness of breath requiring 5 L of oxygen. Currently on 15 mg per hour of Lasix drip. Nephrology recommending holding lisinopril and Aldactone and continue with Lasix drip when metolazone. Patient was evaluated by infectious disease who recommended initiating patient on Unasyn and surgery consult for possible debridement. Creatinine is significantly increased from 0.95-1.59 likely secondary to cardiorenal syndrome. Objective - Vital Signs Vital signs: Vital Signs Temp 98.3 F 03/18/18 08:00 Pulse 98 03/18/18 15:54 Resp 22 03/18/18 12:00 BP 164/69 03/18/18 12:00 Pulse Ox 95 03/18/18 09:25 Intake & Output 03/17/18 03/18/18 03/18/18 18:59 06:59 18:59 Intake Total 1040 561.833 Output Total 700 1375 1200 Balance 340 -1375 -638.167 Weight 197 kg Intake: Intake, IV Titration 20 201.833 Amount Furosemide 250 mg In 20 201.833 Sodium Chloride 0.9% 225 ml @ 15 MG/HR 15 mls/hr IVP .[id number] COUNT [facility]CLUDES [facility] Rx#: [id number] Oral 1020 360 Output: Urine 700 1375 1200 Other: Voiding Method Indwelling Catheter Indwelling Catheter Indwelling Catheter # Bowel Movements 1 1 - Constitutional General appearance: Present: average body habitus, cooperative, mild distress - EENT Eyes: Present: EOMI, PERRLA ENT: Present: hearing grossly normal, normal oropharynx Ears: bilateral: normal - Neck Neck: Present: normal ROM. Absent: lymphadenopathy Carotids: bilateral: upstroke normal - Respiratory Respiratory: bilateral: diminished, rhonchi - Cardiovascular Rhythm: regular Heart sounds: normal: S1, S2 Abnormal Heart Sounds: Absent: systolic murmur, diastolic murmur, rub, click - Peripheral edema leg Peripheral Edema: bilateral: 2+ (with open draining heel ulcer on the left leg ) - Gastrointestinal General gastrointestinal: Present: distended, soft. Absent: hepatomegaly, tenderness - Integumentary Integumentary: Absent: calor, cyanotic - Neurologic Neurologic: Present: CNII-XII intact - Musculoskeletal Musculoskeletal: Present: generalized weakness, strength equal bilaterally - Psychiatric Psychiatric: Present: A&O x's 3, appropriate affect - Labs CBC & Chem 7: 03/17/18 05:50 03/18/18 12:55 Labs: Abnormal Lab Results - Last 24 Hours (Table) 03/17/18 03/17/18 03/17/18 Range/Units 05:50 16:26 21:11 Potassium (3.5-5.1) mmol/L BUN (9-20) mg/dL Creatinine (0.66-1.25) mg/dL Glucose (74-99) mg/dL POC Glucose (mg/dL) 228 H 324 H (75-99) mg/dL Iron 39 L (65-175) ug/dL Iron Saturation 12.26 L (15.00-50.00) Urine Protein (Negative) Urine Glucose (UA) (Negative) Urine Blood (Negative) Ur Leukocyte Esterase (Negative) Urine RBC (0-5) /hpf Urine WBC (0-5) /hpf Urine WBC Clumps (None) /hpf Urine Bacteria (None) /hpf Hyaline Casts (0-2) /lpf Urine Mucus (None) /hpf 03/18/18 03/18/18 03/18/18 Range/Units 05:32 05:56 11:55 Potassium 6.0 H (3.5-5.1) mmol/L BUN 38 H (9-20) mg/dL Creatinine 1.59 H (0.66-1.25) mg/dL Glucose 246 H (74-99) mg/dL POC Glucose (mg/dL) 268 H 328 H (75-99) mg/dL Iron (65-175) ug/dL Iron Saturation (15.00-50.00) Urine Protein (Negative) Urine Glucose (UA) (Negative) Urine Blood (Negative) Ur Leukocyte Esterase (Negative) Urine RBC (0-5) /hpf Urine WBC (0-5) /hpf Urine WBC Clumps (None) /hpf Urine Bacteria (None) /hpf Hyaline Casts (0-2) /lpf Urine Mucus (None) /hpf 03/18/18 03/18/18 Range/Units 12:55 14:00 Potassium 5.7 H (3.5-5.1) mmol/L BUN (9-20) mg/dL Creatinine (0.66-1.25) mg/dL Glucose (74-99) mg/dL POC Glucose (mg/dL) (75-99) mg/dL Iron (65-175) ug/dL Iron Saturation (15.00-50.00) Urine Protein 2+ H (Negative) Urine Glucose (UA) 2+ H (Negative) Urine Blood Small H (Negative) Ur Leukocyte Esterase Small H (Negative) Urine RBC 8 H (0-5) /hpf Urine WBC 14 H (0-5) /hpf Urine WBC Clumps Rare H (None) /hpf Urine Bacteria Rare H (None) /hpf Hyaline Casts 3 H (0-2) /lpf Urine Mucus Rare H (None) /hpf Microbiology - Last 24 Hours (Table) 03/16/18 17:49 Blood Culture - Preliminary Blood No Growth after 24 hours Assessment and Plan Plan: 1. Chest pain with normal troponins. Continue, aspirin and Nitropaste. Cardiology consult is appreciated. Echocardiogram was recently done on last admission. Patient follows with Dr. Fierro. 2. Acute on chronic hypoxic respiratory failure secondary to acute on chronic diastolic heart failure and pleural effusions with generalized anasarca and COPD not in exacerbation as well as abdominal distention. Consult Dr. Oneil and cardiology. Lasix drip when metolazone DuoNeb treatments 4 times daily as needed and Pulmicort twice daily. 3. Diabetes mellitus type 2 uncontrolled, insulin requiring with diabetic neuropathy. Patient presented with hypoglycemia. Continue home NPH/regular dosing as patient was hyperglycemic NovoLog scale only for now. Continue gabapentin 300 mg twice daily. Hemoglobin A1c 7.7 4. Abdominal distention. Improving. Likely secondary to anasarca 5. Hypertension. Continue Norvasc 5 mg twice daily, lisinopril held due to creatinine dysfunction 6. Hyperlipidemia. Continue Lipitor 40 mg at bedtime. 7. Urinary retention secondary to benign prostatic hypertrophy continue Flomax 0.4 mg at bedtime. Quinones catheter 8. Obstructive sleep apnea on CPAP. Patient to continue to use CPAP while hospitalized 9. Diabetic ulcer left heel. Local wound care will be in the form of Santyl. Wound culture to be obtained. [facility] as he has transportation problems. Consult Dr. Ruiz and completed recent antibiotics. Continue vancomycin for now. Patient received 1 dose of Zosyn in the ER. 10. Morbidly obesity with BMI of 50 with plan for bariatric surgery with Dr. Ayala. 11. Chronic kidney disease stage IIIA. Baseline creatinine 0.95 in May 2017 and has gradually increased to 1.5 12. Moderate persistent asthma, stable. Patient follows with Dr. Breauxs. Continue DuoNeb treatments, Pulmicort, Singulair. 13. DVT prophylaxis. Patient on heparin subcu. 14. GI prophylaxis and gastroesophageal reflux disease and hiatal hernia. Continue Protonix. Patient will be admitted to the hospital for a minimum of 3 night stay. Discharge plan: PT has recommended subacute rehab. Patient verbalizes agreement for subacute rehab. Case management following.
[2018-03-18 16:52] LABS: Glucose,Whole Blood 333 mg/dL (75-99)
[2018-03-18] MEDS: hydrALAZINE HCL 25 MG TAB PO SCH ×2 (17:48→21:14)
[2018-03-18] MEDS: FUROSEMIDE 250 MG in SODIUM CHLORIDE 0.9% 225 ML IVP SCH (17:49)
[2018-03-18] MEDS: ATORVASTATIN 40 MG TAB PO SCH (20:40)
[2018-03-18] MEDS: SODIUM CHLORIDE 0.9% 1,000 ML IV SCH (20:40)
[2018-03-18] MEDS: TAMSULOSIN 0.4 MG CAP.ER.24H PO SCH (20:41)
[2018-03-18 20:58] LABS: Glucose,Whole Blood 164 mg/dL (75-99)
--- NOTE | 2018-03-18 22:52 | PN ---
PROGRESS NOTE DATE OF SERVICE: 03/18/2018. REASON FOR FOLLOWUP: Left diabetic foot infection with secondary cellulitis. INTERVAL HISTORY: The patient is afebrile, has been breathing comfortably. Denies having any chest pain. Occasional cough. No abdominal pain or any worsening pain to the left leg area, which did have some drainage. Awaiting Vascular Surgery evaluation and debridement. EXAMINATION: Blood pressure is 139/63 with a pulse of 90, temperature of 99. He is 93% on 4L nasal cannula. General description is a elderly male up in the chair in no distress. RESPIRATORY SYSTEM: Unlabored breathing. Clear to auscultation anteriorly. HEART: S1, S2. Regular rate and rhythm. ABDOMEN: Soft. No tenderness. Left leg swelling, redness, 90 degrees, minimal drainage on the dressing. LABS: BUN of 38, creatinine is 1.59. DIAGNOSTIC IMPRESSION AND PLAN: Patient with a left diabetic foot infection with an infected callus on the left medial ankle area. Awaiting Vascular Surgery evaluation for possible debridement. Continue the patient on Unasyn. Continue supportive care. MMODL / IJN: [id number] /
[2018-03-18 23:21] LABS: Glucose,Whole Blood 152 mg/dL (75-99)
[2018-03-19] MEDS: FUROSEMIDE 250 MG in SODIUM CHLORIDE 0.9% 225 ML IVP SCH ×2 (04:38→20:12)
[2018-03-19] MEDS: AMPICILLIN-SULBACTAM 3 GM in SODIUM CHLORIDE 0.9% 100 ML IVPB SCH ×4 (05:15→23:26)
[2018-03-19 05:35] LABS: Glucose,Whole Blood 133 mg/dL (75-99)
[2018-03-19 06:24] LABS: Calcium 9.4 mg/dL (8.4-10.2); Magnesium 2.2 mg/dL (1.6-2.3); Potassium 5.4 mmol/L (3.5-5.1)
[2018-03-19] MEDS: INSULIN ASPART 100 UNIT/ML 1 ML 10 ML VIAL SQ SCH ×4 (06:24→21:03)
[2018-03-19] MEDS: PANTOPRAZOLE 40 MG TABLET PO SCH (06:33)
[2018-03-19] MEDS: methylPREDNISolone SOD SUCCI 125 MG/2 ML VIAL IV SCH ×3 (07:58→23:26)
[2018-03-19] MEDS: INSULIN NPH/REG INSULIN 70/30 300 UNIT/3 ML VIAL SQ SCH ×3 (07:58→17:27)
[2018-03-19] MEDS: HEPARIN SODIUM,PORCINE 5,000 UNIT/ML 1 ML VIAL SQ SCH ×3 (07:58→23:26)
[2018-03-19] MEDS: CHOLECALCIFEROL 1,000 UNIT TAB PO SCH (07:59)
[2018-03-19] MEDS: amLODIPine 5 MG TAB PO SCH ×2 (07:59→20:05)
[2018-03-19] MEDS: FERROUS SULFATE 325 MG TAB PO SCH (07:59)
[2018-03-19] MEDS: guaiFENesin 600 MG TABLET.ER PO SCH ×2 (08:00→20:05)
[2018-03-19] MEDS: hydrALAZINE HCL 25 MG TAB PO SCH ×3 (08:00→20:05)
[2018-03-19] MEDS: GABAPENTIN 300 MG CAP PO SCH ×2 (08:00→20:05)
[2018-03-19] MEDS: MAGNESIUM OXIDE 400 MG TAB PO SCH (08:00)
[2018-03-19] MEDS: METOLAZONE 5 MG TAB PO SCH (08:02)
[2018-03-19] MEDS: MONTELUKAST 10 MG TAB PO SCH (08:02)
[2018-03-19] MEDS: BUDESONIDE 1 MG/2 ML NEBU INHALATION SCH ×2 (09:20→20:18)
--- NOTE | 2018-03-19 09:48 | P.PN ---
Subjective Patient is seen in follow-up for acute kidney injury on chronic kidney disease. Creatinine is up to 1.91 today. Patient's currently being treated for left foot ulcer. He was noted to be in severe volume overload and is currently maintained on Lasix drip along with metolazone. His urine output in the last 24 hours was over 6 L. Dyspnea is improved. Edema is also gradually improving. Oral intake is good. No vomiting or diarrhea. Vital signs are stable. General: The patient appeared well nourished and normally developed. HEENT: Head exam is unremarkable. Neck is without jugular venous distension. LUNGS: Breath sounds decreased. HEART: Rate and Rhythm are regular. First and second heart sounds normal. No murmurs, rubs or gallops. ABDOMEN: Abdominal exam reveals normal bowel sounds. Non-tender and non- distended. No evidence of peritonitis. EXTREMITITES: 1+ edema. Chronic changes noted. No obvious drainage. Objective - Vital Signs Vital signs: Vital Signs Temp 97.4 F L 03/19/18 07:49 Pulse 98 03/19/18 07:50 Resp 18 03/19/18 07:50 BP 175/76 03/19/18 07:49 Pulse Ox 95 03/18/18 09:25 Intake & Output 03/18/18 03/19/18 03/19/18 18:59 06:59 18:59 Intake Total 1090.000 322.25 Output Total 2900 3675 Balance -1810.000 -3352.75 Weight 197 kg Intake: IV 80 Furosemide 250 mg In 80 Sodium Chloride 0.9% 225 ml @ 15 MG/HR 15 mls/hr IVP .[id number] [facility] Rx#: [id number] Intake, IV Titration 250.000 242.25 Amount Furosemide 250 mg In 250.000 162.25 Sodium Chloride 0.9% 225 ml @ 15 MG/HR 15 mls/hr IVP .[id number] [facility] Rx#: [id number] Sodium Chloride 0.9% 1, 80 000 ml @ 20 mls/hr IV . Q24H [facility] Rx#:[id number] Oral 840 Output: Urine 2900 3675 Other: Voiding Method Indwelling Catheter Indwelling Catheter Indwelling Catheter - Labs CBC & Chem 7: 03/17/18 05:50 03/19/18 05:16 Labs: Abnormal Lab Results - Last 24 Hours (Table) 05/12/18 05/12/18 05/12/18 Range/Units 11:55 12:55 14:00 Potassium 5.7 H (3.5-5.1) mmol/L Carbon Dioxide (22-30) mmol/L BUN (9-20) mg/dL Creatinine (0.66-1.25) mg/dL Glucose (74-99) mg/dL POC Glucose (mg/dL) 328 H (75-99) mg/dL Urine Protein 2+ H (Negative) Urine Glucose (UA) 2+ H (Negative) Urine Blood Small H (Negative) Ur Leukocyte Esterase Small H (Negative) Urine RBC 8 H (0-5) /hpf Urine WBC 14 H (0-5) /hpf Urine WBC Clumps Rare H (None) /hpf Urine Bacteria Rare H (None) /hpf Hyaline Casts 3 H (0-2) /lpf Urine Mucus Rare H (None) /hpf 03/18/18 03/18/18 03/18/18 Range/Units 16:47 20:57 23:10 Potassium (3.5-5.1) mmol/L Carbon Dioxide (22-30) mmol/L BUN (9-20) mg/dL Creatinine (0.66-1.25) mg/dL Glucose (74-99) mg/dL POC Glucose (mg/dL) 333 H 164 H 152 H (75-99) mg/dL Urine Protein (Negative) Urine Glucose (UA) (Negative) Urine Blood (Negative) Ur Leukocyte Esterase (Negative) Urine RBC (0-5) /hpf Urine WBC (0-5) /hpf Urine WBC Clumps (None) /hpf Urine Bacteria (None) /hpf Hyaline Casts (0-2) /lpf Urine Mucus (None) /hpf 03/19/18 03/19/18 Range/Units 05:16 05:33 Potassium 5.4 H (3.5-5.1) mmol/L Carbon Dioxide 31 H (22-30) mmol/L BUN 47 H (9-20) mg/dL Creatinine 1.91 H (0.66-1.25) mg/dL Glucose 121 H (74-99) mg/dL POC Glucose (mg/dL) 133 H (75-99) mg/dL Urine Protein (Negative) Urine Glucose (UA) (Negative) Urine Blood (Negative) Ur Leukocyte Esterase (Negative) Urine RBC (0-5) /hpf Urine WBC (0-5) /hpf Urine WBC Clumps (None) /hpf Urine Bacteria (None) /hpf Hyaline Casts (0-2) /lpf Urine Mucus (None) /hpf Microbiology - Last 24 Hours (Table) 03/16/18 17:49 Blood Culture - Preliminary Blood No Growth after 48 hours Assessment and Plan Plan: Assessment: 1. Nonoliguric acute kidney injury mostly prerenal secondary to cardiorenal syndrome. Creatinine up to 1.91 today. Creatinine in May 2017 was 0.95. 2. Rule out chronic kidney disease. Prior UA does reveal proteinuria which is likely secondary to underlying diabetic kidney disease. 3. Hyperkalemia secondary to acute kidney injury and further worsened with the use of lisinopril and Aldactone. Improved with medical management. 4. Diastolic CHF. 5. Volume overload. Gradually improving. Maintaining net negative fluid balance. 6. Left foot diabetic ulcer. Maintain on antibiotics per infectious disease recommendations. 7. Insulin-dependent diabetes mellitus. 8. Anemia. Iron deficiency noted. Plan: Continue Lasix drip at 15 mL an hour - can likely decrease dose starting tomorrow. Maintain metolazone 5 mg daily. Low potassium diet. 1.5 L fluid restriction. Continue to hold lisinopril and Aldactone. Ferrlecit 125 mg IV daily for 3 days. First dose today. Repeat electrolytes in the morning.
[2018-03-19] MEDS: SODIUM FERRIC GLUCONAT-SUCROSE 125 MG in SODIUM CHLORIDE 0.9% 100 ML IVPB SCH (10:47)
[2018-03-19 11:58] LABS: Glucose,Whole Blood 227 mg/dL (75-99)
--- NOTE | 2018-03-19 12:09 | P.PN ---
Subjective Progress Note Date: 03/19/18 This is a 67-year-old gentleman with known case of COPD, diabetes, hypertension , hyperlipidemia and also morbid obesity who was admitted to the hospital with increasing fluid overload shortness of breath and possible pneumonia. His echocardiogram showed an ejection fraction of 60-65% with mild mitral regurgitation. Patient has been IV Lasix and also metolazone. His creatinine has gone up. Patient however is diuresing well and feeling better. Nephrology is following and adjusting the dose of the diuretics Objective - Vital Signs Vital signs: Vital Signs Temp 97.4 F L 03/19/18 07:49 Pulse 96 03/19/18 10:59 Resp 20 03/19/18 10:59 BP 154/67 03/19/18 10:57 Pulse Ox 93 L 03/19/18 10:57 Intake & Output 03/18/18 03/19/18 03/19/18 18:59 06:59 18:59 Intake Total 1090.000 322.25 Output Total 2900 3675 2200 Balance -1810.000 -3352.75 -2200 Weight 197 kg Intake: IV 80 Furosemide 250 mg In 80 Sodium Chloride 0.9% 225 ml @ 15 MG/HR 15 mls/hr IVP .[id number] [facility] Rx#: [id number] Intake, IV Titration 250.000 242.25 Amount Furosemide 250 mg In 250.000 162.25 Sodium Chloride 0.9% 225 ml @ 15 MG/HR 15 mls/hr IVP .[id number] [facility] Rx#: [id number] Sodium Chloride 0.9% 1, 80 000 ml @ 20 mls/hr IV . Q24H [facility] Rx#:[id number] Oral 840 Output: Urine 2900 3675 2200 Other: Voiding Method Indwelling Catheter Indwelling Catheter Indwelling Catheter - Exam GENERAL EXAM: Patient is alert and oriented and doesn't appear to be in any acute distress HEENT: Normocephalic. Normal reaction of pupils, equal size, normal range of extraocular motion. No erythema or exudates in the throat. NECK: No masses, no nuchal rigidity. CHEST: No chest wall deformity. LUNGS: Diminished air exchange HEART: S1 and S2 normal with no audible mumurs or gallops. Regular rhythm, femorals equal on both sides.. ABDOMEN: No hepatosplenomegaly, normal bowel sounds, no guarding or rigidity. SKIN: No rashes CENTRAL NERVOUS SYSTEM: No focal deficits. EXTREMITIES: Moderate edema, seems to be resolving - Labs CBC & Chem 7: 03/17/18 05:50 03/19/18 05:16 Labs: Abnormal Lab Results - Last 24 Hours (Table) 03/18/18 03/18/18 03/18/18 Range/Units 12:55 14:00 16:47 Potassium 5.7 H (3.5-5.1) mmol/L Carbon Dioxide (22-30) mmol/L BUN (9-20) mg/dL Creatinine (0.66-1.25) mg/dL Glucose (74-99) mg/dL POC Glucose (mg/dL) 333 H (75-99) mg/dL Urine Protein 2+ H (Negative) Urine Glucose (UA) 2+ H (Negative) Urine Blood Small H (Negative) Ur Leukocyte Esterase Small H (Negative) Urine RBC 8 H (0-5) /hpf Urine WBC 14 H (0-5) /hpf Urine WBC Clumps Rare H (None) /hpf Urine Bacteria Rare H (None) /hpf Hyaline Casts 3 H (0-2) /lpf Urine Mucus Rare H (None) /hpf 03/18/18 03/18/18 03/19/18 Range/Units 20:57 23:10 05:16 Potassium 5.4 H (3.5-5.1) mmol/L Carbon Dioxide 31 H (22-30) mmol/L BUN 47 H (9-20) mg/dL Creatinine 1.91 H (0.66-1.25) mg/dL Glucose 121 H (74-99) mg/dL POC Glucose (mg/dL) 164 H 152 H (75-99) mg/dL Urine Protein (Negative) Urine Glucose (UA) (Negative) Urine Blood (Negative) Ur Leukocyte Esterase (Negative) Urine RBC (0-5) /hpf Urine WBC (0-5) /hpf Urine WBC Clumps (None) /hpf Urine Bacteria (None) /hpf Hyaline Casts (0-2) /lpf Urine Mucus (None) /hpf 03/19/18 03/19/18 Range/Units 05:33 11:52 Potassium (3.5-5.1) mmol/L Carbon Dioxide (22-30) mmol/L BUN (9-20) mg/dL Creatinine (0.66-1.25) mg/dL Glucose (74-99) mg/dL POC Glucose (mg/dL) 133 H 227 H (75-99) mg/dL Urine Protein (Negative) Urine Glucose (UA) (Negative) Urine Blood (Negative) Ur Leukocyte Esterase (Negative) Urine RBC (0-5) /hpf Urine WBC (0-5) /hpf Urine WBC Clumps (None) /hpf Urine Bacteria (None) /hpf Hyaline Casts (0-2) /lpf Urine Mucus (None) /hpf Microbiology - Last 24 Hours (Table) 03/16/18 17:49 Blood Culture - Preliminary Blood No Growth after 48 hours Assessment and Plan (1) Diastolic CHF Current Visit: Yes Status: Acute Code(s): I50.30 - UNSPECIFIED DIASTOLIC ( CONGESTIVE) HEART FAILURE SNOMED Code(s): 854853799 (2) COPD (chronic obstructive pulmonary disease) Current Visit: Yes Status: Acute Code(s): J44.9 - CHRONIC OBSTRUCTIVE PULMONARY DISEASE, UNSPECIFIED SNOMED Code(s): 44546742 (3) Right-sided heart failure Current Visit: Yes Status: Acute Code(s): I50.810 - RIGHT HEART FAILURE, UNSPECIFIED SNOMED Code(s): 943003477 (4) Obesity Current Visit: Yes Status: Acute Code(s): E66.9 - OBESITY, UNSPECIFIED SNOMED Code(s): 281156465 Plan: Continue current management. Agree holding lisinopril. Strict input and output measurements. Close nephrology follow-up
[2018-03-19] MEDS: MULTIVITAMINS, THERA 1 EACH TAB PO SCH (12:14)
[2018-03-19 14:51] LABS: Anisocytosis Slight; Basophils % (A) 0 %; Eosinophils % (A) 0 %; HCT 25.7 % (39.0-53.0); HGB 7.9 gm/dL (13.0-17.5); Hypochromasia Marked; Lymphocytes # (A) 0.6 k/uL (1.0-4.8); Lymphocytes % (A) 7 %; MCHC 30.7 g/dL (31.0-37.0); Mean Platelet Volume 8.8; Monocytes # (A) 0.4 k/uL (0-1.0); Monocytes % (A) 4 %; Neutrophils # (A) 8.2 k/uL (1.3-7.7); Neutrophils % (A) 88 %; Platelet Count 170 k/uL (150-450); RBC 2.93 m/uL (4.30-5.90); RDW 18.2 % (11.5-15.5); WBC 9.3 k/uL (3.8-10.6)
--- NOTE | 2018-03-19 15:23 | P.PN ---
Subjective Progress Note Date: 03/19/18 This is a 67-year-old male patient of Dr. Johnson with a past medical history of chronic heart failure, COPD, diabetes mellitus type 2 insulin requiring, hypertension, benign prostatic hypertrophy, gastroesophageal reflux disease, hyperlipidemia, obstructive sleep apnea with CPAP, super morbid obesity with plan for gastric sleeve with Dr. Ayala in the near future, chronic anemia seen by Dr. Webb in the past. He had a recent hospitalization for chest pain, acute on chronic hypoxic respiratory failure due to right-sided pneumonia and bilateral pleural effusions and acute kidney injury. Patient was discharged home with home care and oxygen. On last admission, echocardiogram reveals EF of 60-65% with mild aortic valve sclerosis, mild mitral regurgitation , trace tricuspid regurgitation, no pulmonary hypertension. Due to elevated d- dimer, lower extremity duplex was negative for DVT. CTA of the chest showed no evidence of pulmonary embolism. Bilateral pleural effusions with pulmonary mild infiltrate and atelectasis. Chest ultrasound revealed mild bilateral pleural effusions. Patient complains of abdominal bloating and has not have increased anasarca. His weight is up but he is not sure how much as he does not have a scale at home. He currently has home care in place. He does have a cough that he states is nonproductive. He denies any blood in his stool or urine. He has followed up with Dr. Oneil about a week ago. He is supposed to be on Xolair but has been off for quite a while. He has been does diagnosed with asthma and COPD by Dr. Oneil. Patient presented to [facility] emergency center and found to be afebrile, white count was normal, BUN 36 and creatinine 1.5 chest x-ray shows evidence of pleural effusion concerning for heart failure. BNP was 907. Troponin was normal. Foot x-ray did not show osteomyelitis. Blood sugar was 54 and treated with orange juice. EKG was in normal sinus rhythm. Patient was admitted to the selective care unit and consults were requested with Dr. Oneil, cardiology and Dr. Ruiz. Echocardiogram ordered as well as CT of the abdomen and pelvis. Blood culture was obtained. Repeat troponins were negative on 2 draws. His recent hemoglobin A1c was 7.4. A bone scan has been ordered. Consult with Dr. Connor for chronic kidney disease. Patient did require Quinones catheter placement for retention of greater than 1 L. 5/12 Patient examined bedside. Still complains of significant shortness of breath requiring 5 L of oxygen. Currently on 15 mg per hour of Lasix drip. Nephrology recommending holding lisinopril and Aldactone and continue with Lasix drip when metolazone. Patient was evaluated by infectious disease who recommended initiating patient on Unasyn and surgery consult for possible debridement. Creatinine is significantly increased from 0.95-1.59 likely secondary to cardiorenal syndrome. 03/19 {patient assessed bedside. SOB has improved, still requiring 3 l of nasal cannula. Continue lasix drip based on I/ O. Does have abdominal distention with abdomonial wall swelling. Pending vascular surgery evaluation fro debridement Objective - Vital Signs Vital signs: Vital Signs Temp 97.4 F L 03/19/18 07:49 Pulse 96 03/19/18 10:59 Resp 20 03/19/18 10:59 BP 154/67 03/19/18 10:57 Pulse Ox 93 L 03/19/18 10:57 Intake & Output 03/18/18 03/19/18 03/19/18 18:59 06:59 18:59 Intake Total 1090.000 322.25 480 Output Total 2900 3675 3400 Balance -1810.000 -3352.75 -2920 Weight 197 kg Intake: IV 80 Furosemide 250 mg In 80 Sodium Chloride 0.9% 225 ml @ 15 MG/HR 15 mls/hr IVP .[id number] [facility] Rx#: [id number] Intake, IV Titration 250.000 242.25 Amount Furosemide 250 mg In 250.000 162.25 Sodium Chloride 0.9% 225 ml @ 15 MG/HR 15 mls/hr IVP .[id number] [facility] Rx#: [id number] Sodium Chloride 0.9% 1, 80 000 ml @ 20 mls/hr IV . Q24H [facility] Rx#:[id number] Oral 840 480 Output: Urine 2900 3675 3400 Other: Voiding Method Indwelling Catheter Indwelling Catheter Indwelling Catheter - Exam - Constitutional General appearance: Present: average body habitus, cooperative, mild distress - EENT Eyes: Present: EOMI, PERRLA ENT: Present: hearing grossly normal, normal oropharynx Ears: bilateral: normal - Neck Neck: Present: normal ROM. Absent: lymphadenopathy Carotids: bilateral: upstroke normal - Respiratory Respiratory: bilateral: diminished, rhonchi - Cardiovascular Rhythm: regular Heart sounds: normal: S1, S2 Abnormal Heart Sounds: Absent: systolic murmur, diastolic murmur, rub, click - Peripheral edema leg Peripheral Edema: bilateral: 2+ (with open draining heel ulcer on the left leg ) - Gastrointestinal General gastrointestinal: Present: distended, soft. Absent: hepatomegaly, tenderness - Integumentary Integumentary: Absent: calor, cyanotic - Neurologic Neurologic: Present: CNII-XII intact - Musculoskeletal Musculoskeletal: Present: generalized weakness, strength equal bilaterally - Psychiatric Psychiatric: Present: A&O x's 3, appropriate affect - Labs CBC & Chem 7: 03/19/18 05:30 03/19/18 05:16 Labs: Abnormal Lab Results - Last 24 Hours (Table) 03/18/18 03/18/18 03/18/18 Range/Units 16:47 20:57 23:10 RBC (4.30-5.90) m/uL Hgb (13.0-17.5) gm/dL Hct (39.0-53.0) % MCHC (31.0-37.0) g/dL RDW (11.5-15.5) % Neutrophils # (1.3-7.7) k/uL Lymphocytes # (1.0-4.8) k/uL Potassium (3.5-5.1) mmol/L Carbon Dioxide (22-30) mmol/L BUN (9-20) mg/dL Creatinine (0.66-1.25) mg/dL Glucose (74-99) mg/dL POC Glucose (mg/dL) 333 H 164 H 152 H (75-99) mg/dL 03/19/18 03/19/18 03/19/18 Range/Units 05:16 05:30 05:33 RBC 2.93 L (4.30-5.90) m/uL Hgb 7.9 L (13.0-17.5) gm/dL Hct 25.7 L (39.0-53.0) % MCHC 30.7 L (31.0-37.0) g/dL RDW 18.2 H (11.5-15.5) % Neutrophils # 8.2 H (1.3-7.7) k/uL Lymphocytes # 0.6 L (1.0-4.8) k/uL Potassium 5.4 H (3.5-5.1) mmol/L Carbon Dioxide 31 H (22-30) mmol/L BUN 47 H (9-20) mg/dL Creatinine 1.91 H (0.66-1.25) mg/dL Glucose 121 H (74-99) mg/dL POC Glucose (mg/dL) 133 H (75-99) mg/dL 03/19/18 Range/Units 11:52 RBC (4.30-5.90) m/uL Hgb (13.0-17.5) gm/dL Hct (39.0-53.0) % MCHC (31.0-37.0) g/dL RDW (11.5-15.5) % Neutrophils # (1.3-7.7) k/uL Lymphocytes # (1.0-4.8) k/uL Potassium (3.5-5.1) mmol/L Carbon Dioxide (22-30) mmol/L BUN (9-20) mg/dL Creatinine (0.66-1.25) mg/dL Glucose (74-99) mg/dL POC Glucose (mg/dL) 227 H (75-99) mg/dL Microbiology - Last 24 Hours (Table) 03/16/18 17:49 Blood Culture - Preliminary Blood No Growth after 48 hours Assessment and Plan Plan: 1. Chest pain with normal troponins. Continue, aspirin and Nitropaste. Cardiology consult is appreciated. Echocardiogram was recently done on last admission. Patient follows with Dr. Fierro. 2. Acute on chronic hypoxic respiratory failure secondary to acute on chronic diastolic heart failure and pleural effusions with generalized anasarca and COPD not in exacerbation as well as abdominal distention. Consult Dr. Oneil and cardiology. Lasix drip when metolazone DuoNeb treatments 4 times daily as needed and Pulmicort twice daily. 3. Diabetes mellitus type 2 uncontrolled, insulin requiring with diabetic neuropathy. Patient presented with hypoglycemia. Continue home NPH/regular dosing as patient was hyperglycemic NovoLog scale only for now. Continue gabapentin 300 mg twice daily. Hemoglobin A1c 7.7 4. Abdominal distention. Improving. Likely secondary to anasarca 5. Hypertension. Continue Norvasc 5 mg twice daily, lisinopril held due to creatinine dysfunction 6. Hyperlipidemia. Continue Lipitor 40 mg at bedtime. 7. Urinary retention secondary to benign prostatic hypertrophy continue Flomax 0.4 mg at bedtime. Quinones catheter 8. Obstructive sleep apnea on CPAP. Patient to continue to use CPAP while hospitalized 9. Diabetic ulcer left heel. Local wound care will be in the form of Santyl. Wound culture to be obtained. [facility] as he has transportation problems. Consult Dr. Ruiz and completed recent antibiotics. Continue vancomycin for now. Patient received 1 dose of Zosyn in the ER. 10. Morbidly obesity with BMI of 50 with plan for bariatric surgery with Dr. Ayala. 11. Chronic kidney disease stage IIIA. Baseline creatinine 0.95 in May 2017 and has gradually increased to 1.5 12. Moderate persistent asthma, stable. Patient follows with Dr. Saavedra's. Continue DuoNeb treatments, Pulmicort, Singulair. 13. DVT prophylaxis. Patient on heparin subcu. 14. GI prophylaxis and gastroesophageal reflux disease and hiatal hernia. Continue Protonix. Patient will be admitted to the hospital for a minimum of 3 night stay. Discharge plan: PT has recommended subacute rehab. Patient verbalizes agreement for subacute rehab. Case management following.
--- NOTE | 2018-03-19 16:58 | US ---
EXAMINATION TYPE: US venous doppler duplex UE LT DATE OF EXAM: 03/19/2018 COMPARISON: NONE CLINICAL HISTORY: Left upper extremity swelling. Extremely difficult and limited exam due to patient body habitus (434 lbs) and swelling. Exam done portable SIDE PERFORMED: Left Grayscale, color doppler, spectral doppler imaging performed of the deep veins of the left upper extr emity. There is normal flow, compressibility and vascular waveforms. Left Arm: Negative for DVT as visualized IMPRESSION: No sonographic evidence of deep venous thrombosis within the left upper extremity althoug h the exam is slightly limited given patient body habitus.
[2018-03-19 17:03] LABS: Glucose,Whole Blood 192 mg/dL (75-99)
[2018-03-19] MEDS: TAMSULOSIN 0.4 MG CAP.ER.24H PO SCH (20:05)
[2018-03-19] MEDS: ATORVASTATIN 40 MG TAB PO SCH (20:05)
[2018-03-19] MEDS: SODIUM CHLORIDE 0.9% 1,000 ML IV SCH (20:06)
[2018-03-19] MEDS: IPRATROPIUM-ALBUTEROL 3 ML NEB INHALATION PRN (20:18)
[2018-03-19 20:36] LABS: Glucose,Whole Blood 213 mg/dL (75-99)
--- NOTE | 2018-03-19 22:20 | PN ---
PROGRESS NOTE DATE OF SERVICE: March 19, 2018. He is less short of breath, but has more swelling of his left upper extremity. On physical examination, his blood pressure is 154/67, respiratory rate 20, pulse rate 96, O2 saturation on 3 L by nasal cannula is 98%. HEENT reveals pupils are equal. Chest reveals decreased breath sounds in the bases. Cardiovascular system is S1, S2. Abdomen is soft. There is 2+ pedal edema. There is tense edema of his left upper extremity. IMPRESSION: 1. Acute on chronic respiratory failure. 2. Asthma. 3. Congestive heart failure. 4. Cellulitis of the lower extremities. Increases activity level. Keep him in negative fluid balance. He and his were counseled regarding his condition and this approach. MMODL / IJN: [id number] /
--- NOTE | 2018-03-19 22:41 | PN ---
PROGRESS NOTE DATE OF SERVICE: 03/19/2018 REASON FOR FOLLOWUP: Left medial ankle wound with secondary cellulitis. INTERVAL HISTORY: The patient is afebrile, he seems to be breathing comfortably. Denies having any chest pain, cough, no abdominal pain. in the left leg area. EXAMINATION: Blood pressure is 154/57, pulse of 99, temperature is 97.8, 93% on 3 L nasal cannula. GENERAL DESCRIPTION: An elderly male lying in bed in no distress. RESPIRATORY SYSTEM: Unlabored breathing, clear to auscultation. HEART: S1, S2. Regular rate and rhythm. EXTREMITIES: Left leg swelling is slightly decreased. Wound with minimal drainage on the dressing. LABS: Hemoglobin is 7.9, white count 9.3, BUN of 47, creatinine 1.91. DIAGNOSTIC IMPRESSION AND PLAN: Patient with left diabetic foot infection with secondary cellulitis, currently on Unasyn. Continue local wound care with [facility]. Await the vascular surgery evaluation. Possible debridement of the wound with deep cultures. Continue supportive care. MMODL / IJN: [id number] /
[2018-03-20] MEDS: HYDROcodone/APAP 7.5-325MG 1 EACH TAB PO PRN ×2 (01:03→20:16)
[2018-03-20] MEDS: AMPICILLIN-SULBACTAM 3 GM in SODIUM CHLORIDE 0.9% 100 ML IVPB SCH ×4 (05:27→23:36)
[2018-03-20 06:01] LABS: Glucose,Whole Blood 181 mg/dL (75-99)
[2018-03-20 07:06] LABS: Potassium 5.1 mmol/L (3.5-5.1)
[2018-03-20] MEDS: INSULIN NPH/REG INSULIN 70/30 300 UNIT/3 ML VIAL SQ SCH ×3 (07:08→17:23)
[2018-03-20] MEDS: PANTOPRAZOLE 40 MG TABLET PO SCH (07:08)
[2018-03-20] MEDS: INSULIN ASPART 100 UNIT/ML 1 ML 10 ML VIAL SQ SCH ×4 (07:08→20:47)
[2018-03-20 07:50] LABS: Anisocytosis Slight; Basophils % (A) 0 %; Eosinophils % (A) 0 %; HCT 30.2 % (39.0-53.0); Hypochromasia Moderate; Lymphocytes # (A) 0.6 k/uL (1.0-4.8); Lymphocytes % (A) 6 %; MCH 26.6 pg (25.0-35.0); MCHC 31.3 g/dL (31.0-37.0); Mean Platelet Volume 8.3; Monocytes # (A) 0.4 k/uL (0-1.0); Monocytes % (A) 5 %; Neutrophils # (A) 8.3 k/uL (1.3-7.7); Neutrophils % (A) 88 %; Platelet Count 191 k/uL (150-450); RBC 3.56 m/uL (4.30-5.90); RDW 18.3 % (11.5-15.5); WBC 9.4 k/uL (3.8-10.6)
[2018-03-20 07:52] LABS: HGB 9.4 gm/dL (13.0-17.5)
[2018-03-20] MEDS: IPRATROPIUM-ALBUTEROL 3 ML NEB INHALATION PRN (08:00)
[2018-03-20] MEDS: BUDESONIDE 1 MG/2 ML NEBU INHALATION SCH ×2 (08:00→19:26)
[2018-03-20] MEDS: HEPARIN SODIUM,PORCINE 5,000 UNIT/ML 1 ML VIAL SQ SCH ×3 (08:06→23:36)
[2018-03-20] MEDS: methylPREDNISolone SOD SUCCI 125 MG/2 ML VIAL IV SCH (08:06)
[2018-03-20] MEDS: CHOLECALCIFEROL 1,000 UNIT TAB PO SCH (09:09)
[2018-03-20] MEDS: CALCITRIOL 0.25 MCG CAP PO SCH (09:09)
[2018-03-20] MEDS: GABAPENTIN 300 MG CAP PO SCH ×2 (09:10→20:16)
[2018-03-20] MEDS: hydrALAZINE HCL 25 MG TAB PO SCH ×3 (09:10→20:16)
[2018-03-20] MEDS: amLODIPine 5 MG TAB PO SCH ×2 (09:10→20:16)
[2018-03-20] MEDS: MONTELUKAST 10 MG TAB PO SCH (09:10)
[2018-03-20] MEDS: guaiFENesin 600 MG TABLET.ER PO SCH ×2 (09:10→20:16)
[2018-03-20] MEDS: METOLAZONE 5 MG TAB PO SCH (09:10)
[2018-03-20] MEDS: MAGNESIUM OXIDE 400 MG TAB PO SCH (09:11)
[2018-03-20] MEDS: SODIUM FERRIC GLUCONAT-SUCROSE 125 MG in SODIUM CHLORIDE 0.9% 100 ML IVPB SCH (09:22)
[2018-03-20] MEDS ORDERED: methylPREDNISolone SOD SUCCI 40 MG/ML 1 ML VIAL IV SCH (10:17)
--- NOTE | 2018-03-20 10:20 | P.PN ---
Subjective Progress Note Date: 03/20/18 HPI: This is a 67-year-old male patient being seen examined and evaluated today for consultation. This patient is well-known to our services. This patient was then to see his infectious disease doctor for his left heel ulcer yesterday when he was noted to have some dyspnea and desaturations with his oxygen. He was sent over to the emergency room for evaluation and treatment. Patient states he is also been having some chest pain that has been happening for over a week and he has had difficulty breathing when laying down as well. Patient does utilize home oxygen at night with his CPAP and has been using it during the day as well but it has not been enough. Patient states he has been using his CPAP each night for approximately 8 hours and his compliance has been 100%. Patient states he was taking breathing treatments at home 3-4 times per day via nebulizer which was not helping as well. Chest x-ray was reviewed and does show correlation for CHF exacerbation, cardiomegaly with suspected new small tiny bilateral pleural effusions more prominent mild to moderate central vascular congestion. Patient was admitted to the hospital for further evaluation and treatment. Cardiology was also put on consult. Patient had some elevated CK-MB. Patient also complains that his left heel ulcer has been having a more significant foul smell with more drainage. Infectious disease on consult. Denies any fevers nausea vomiting. Upon examination the patient's resting up in bed on 5 L of supplemental oxygen via nasal cannula. He can point of shortness of breath cough congestion and is unable to bring up any secretions. He also has had some generalized abdominal discomfort complaints and is scheduled to go for a CT of the abdomen per primary services. 03/18-03/19/18- Please see Dr. JUAN ANTONIO Jones notes 03/20/18- patient being seen examined and evaluated today on rounds. He is resting up in bed on 3-4 L of supplement oxygen via nasal cannula. He continues to use his incentive spirometer pulling volumes of approximately 1500 MLS. Patient states he feels his breathing is slightly better. Continue following with infectious disease and wound care. Patient is being worked up for possible debridement. He is afebrile no further complaints. All labs and appointment been reviewed. Objective - Vital Signs Vital signs: Vital Signs Temp 97.3 F L 03/20/18 08:00 Pulse 88 03/20/18 08:20 Resp 19 03/20/18 08:00 BP 156/71 03/20/18 08:00 Pulse Ox 96 03/20/18 08:00 Intake & Output 03/19/18 03/20/18 03/20/18 18:59 06:59 18:59 Intake Total 720 233.5 240 Output Total 5200 4775 1200 Balance -4480 -4541.5 -960 Weight 188.9 kg Intake: Intake, IV Titration 233.5 Amount Furosemide 250 mg In 233.5 Sodium Chloride 0.9% 225 ml @ 15 MG/HR 15 mls/hr IVP .[id number] [facility] Rx#: [id number] Oral 720 0 240 Output: Urine 5200 4775 1200 Other: Voiding Method Indwelling Catheter Indwelling Catheter Indwelling Catheter - Exam GENERAL EXAM: Alert, active, comfortable in no apparent distress. Morbidly obese HEAD: Normocephalic. EYES: Normal reaction of pupils, equal size. NOSE: Clear with pink turbinates. THROAT: No erythema or exudates. NECK: No masses, no JVD. CHEST: No chest wall deformity. LUNGS: Poor air entry, tight, with expiratory wheezing noted throughout. Bases diminished CVS: S1 and S2 normal with no audible mumurs, regular rhythm. ABDOMEN: No hepatosplenomegaly, normal bowel sounds, no guarding or rigidity. EXTREMITIES: +1 edema noted. Chronic bilateral lower extremity cellulitis. Left lower heel wound, wrapped clean dry and intact CENTRAL NERVOUS SYSTEM: No focal deficits, tone is normal in all 4 extremities. - Labs CBC & Chem 7: 03/20/18 06:58 03/20/18 06:18 Labs: Abnormal Lab Results - Last 24 Hours (Table) 03/19/18 03/19/18 03/19/18 Range/Units 05:30 11:52 17:01 RBC 2.93 L (4.30-5.90) m/uL Hgb 7.9 L (13.0-17.5) gm/dL Hct 25.7 L (39.0-53.0) % MCHC 30.7 L (31.0-37.0) g/dL RDW 18.2 H (11.5-15.5) % Neutrophils # 8.2 H (1.3-7.7) k/uL Lymphocytes # 0.6 L (1.0-4.8) k/uL Chloride (98-107) mmol/L Carbon Dioxide (22-30) mmol/L BUN (9-20) mg/dL Creatinine (0.66-1.25) mg/dL Glucose (74-99) mg/dL POC Glucose (mg/dL) 227 H 192 H (75-99) mg/dL 03/19/18 03/20/18 03/20/18 Range/Units 20:35 06:00 06:18 RBC (4.30-5.90) m/uL Hgb (13.0-17.5) gm/dL Hct (39.0-53.0) % MCHC (31.0-37.0) g/dL RDW (11.5-15.5) % Neutrophils # (1.3-7.7) k/uL Lymphocytes # (1.0-4.8) k/uL Chloride 94 L (98-107) mmol/L Carbon Dioxide 31 H (22-30) mmol/L BUN 62 H (9-20) mg/dL Creatinine 1.80 H (0.66-1.25) mg/dL Glucose 162 H (74-99) mg/dL POC Glucose (mg/dL) 213 H 181 H (75-99) mg/dL 03/20/18 Range/Units 06:58 RBC 3.56 L (4.30-5.90) m/uL Hgb 9.4 L D (13.0-17.5) gm/dL Hct 30.2 L (39.0-53.0) % MCHC (31.0-37.0) g/dL RDW 18.3 H (11.5-15.5) % Neutrophils # 8.3 H (1.3-7.7) k/uL Lymphocytes # 0.6 L (1.0-4.8) k/uL Chloride (98-107) mmol/L Carbon Dioxide (22-30) mmol/L BUN (9-20) mg/dL Creatinine (0.66-1.25) mg/dL Glucose (74-99) mg/dL POC Glucose (mg/dL) (75-99) mg/dL Microbiology - Last 24 Hours (Table) 03/16/18 17:49 Blood Culture - Preliminary Blood No Growth after 72 hours Assessment and Plan Assessment: Assessment Acute hypoxic respiratory failure required supplemental oxygen Unstable angina Acute exacerbation of CHF Acute exacerbation of COPD GIOVANY/OHS Diabetes mellitus Left heel wound History of hypertension History of hyperlipidemia Nonspecific diffuse abdominal pain Plan Medications have been reviewed and will be continued as ordered. Continue with antibiotics, taper steroids. Maintain a negative fluid balance.. Cardiology on consult. Infectious disease on consult. Wound care per infectious disease. Continue with pulmonary hygiene, coughing and deep breathing exercises, and supportive care. Supplemental oxygen to maintain oxygen saturations of 92% or better. Uses home CPAP every night and with naps. Sputum culture. Initiate and encourage incentive spirometer use. Continue nebulizer treatments. GI and DVT prophylaxis. PT and OT. We will continue to monitor labs/results and adjust treatment as necessary. Further recommendations pending. I performed an examination of the patient and discussed their management with the nurse practitioner. I have reviewed the nurse practitioner's note and agree with the documented findings and plan of care.
[2018-03-20] MEDS: IPRATROPIUM-ALBUTEROL 3 ML NEB INHALATION SCH ×3 (11:05→19:26)
[2018-03-20 11:30] LABS: Glucose,Whole Blood 311 mg/dL (75-99)
[2018-03-20] MEDS: FUROSEMIDE 250 MG in SODIUM CHLORIDE 0.9% 225 ML IVP SCH (12:00)
--- NOTE | 2018-03-20 12:24 | PN ---
PROGRESS NOTE DATE OF SERVICE: 03/17/2018 Patient is doing fairly well. Patient had been admitted with biventricular failure. He has been diuresing with IV Lasix. Blood pressure is 161/75 mmHg. First and second heart sounds are normal. Lung examination reveals bilateral diminished air entry. Patient's urine output remains good. Patient's hemoglobin is 8.0. Electrolytes are normal. BUN is 38 and creatinine is 1.59. We will continue the patient on the current medications and continue to diurese the patient. MMODL / IJN: [id number] /
[2018-03-20] MEDS: MULTIVITAMINS, THERA 1 EACH TAB PO SCH (12:40)
--- NOTE | 2018-03-20 14:20 | P.PN ---
Subjective Progress Note Date: 03/20/18 This is a 67-year-old male patient of Dr. Johnson with a past medical history of chronic heart failure, COPD, diabetes mellitus type 2 insulin requiring, hypertension, benign prostatic hypertrophy, gastroesophageal reflux disease, hyperlipidemia, obstructive sleep apnea with CPAP, super morbid obesity with plan for gastric sleeve with Dr. Ayala in the near future, chronic anemia seen by Dr. Webb in the past. He had a recent hospitalization for chest pain, acute on chronic hypoxic respiratory failure due to right-sided pneumonia and bilateral pleural effusions and acute kidney injury. Patient was discharged home with home care and oxygen. On last admission, echocardiogram reveals EF of 60-65% with mild aortic valve sclerosis, mild mitral regurgitation , trace tricuspid regurgitation, no pulmonary hypertension. Due to elevated d- dimer, lower extremity duplex was negative for DVT. CTA of the chest showed no evidence of pulmonary embolism. Bilateral pleural effusions with pulmonary mild infiltrate and atelectasis. Chest ultrasound revealed mild bilateral pleural effusions. Patient complains of abdominal bloating and has not have increased anasarca. His weight is up but he is not sure how much as he does not have a scale at home. He currently has home care in place. He does have a cough that he states is nonproductive. He denies any blood in his stool or urine. He has followed up with Dr. Oneil about a week ago. He is supposed to be on Xolair but has been off for quite a while. He has been does diagnosed with asthma and COPD by Dr. Oneil. Patient presented to [facility] emergency center and found to be afebrile, white count was normal, BUN 36 and creatinine 1.5 chest x-ray shows evidence of pleural effusion concerning for heart failure. BNP was 907. Troponin was normal. Foot x-ray did not show osteomyelitis. Blood sugar was 54 and treated with orange juice. EKG was in normal sinus rhythm. Patient was admitted to the selective care unit and consults were requested with Dr. Oneil, cardiology and Dr. Ruiz. Echocardiogram ordered as well as CT of the abdomen and pelvis. Blood culture was obtained. Repeat troponins were negative on 2 draws. His recent hemoglobin A1c was 7.4. A bone scan has been ordered. Consult with Dr. Connor for chronic kidney disease. Patient did require Quinones catheter placement for retention of greater than 1 L. 5/12 Patient examined bedside. Still complains of significant shortness of breath requiring 5 L of oxygen. Currently on 15 mg per hour of Lasix drip. Nephrology recommending holding lisinopril and Aldactone and continue with Lasix drip when metolazone. Patient was evaluated by infectious disease who recommended initiating patient on Unasyn and surgery consult for possible debridement. Creatinine is significantly increased from 0.95-1.59 likely secondary to cardiorenal syndrome. 03/19 {patient assessed bedside. SOB has improved, still requiring 3 l of nasal cannula. Continue lasix drip based on I/ O. Does have abdominal distention with abdomonial wall swelling. Pending vascular surgery evaluation fro debridement 03/20: Left upper extremity Doppler was negative for DVT. For his left foot wound, patient is on local wound care with medihoney and continued on Unasyn. Patient remains on Lasix drip with metolazone. He has had good urine output. Shortness of breath and lower extremity edema and anasarca are improving. He is on a fluid restriction of 1.5 L. Lisinopril and Aldactone remain on hold. Patient has been started on Ferrlecit yesterday for 3 doses daily. Hemoglobin is 9.4. BUN 62 and creatinine 1.8. Patient is currently on Solu-Medrol 60 mg IV every 6 hours per pulmonary which is been decreased to 40 mg every [address] Eduardo on consult for debridement of the left heel ulcer. Objective - Vital Signs Vital signs: Vital Signs Temp 97.5 F L 03/20/18 00:00 Pulse 88 03/20/18 08:20 Resp 17 03/20/18 04:00 BP 157/73 03/20/18 04:00 Pulse Ox 97 03/20/18 08:00 Intake & Output 03/19/18 03/20/18 03/20/18 18:59 06:59 18:59 Intake Total 720 233.5 240 Output Total 5200 4775 1200 Balance -4480 -4541.5 -960 Weight 188.9 kg Intake: Intake, IV Titration 233.5 Amount Furosemide 250 mg In 233.5 Sodium Chloride 0.9% 225 ml @ 15 MG/HR 15 mls/hr IVP .[id number] [facility] Rx#: [id number] Oral 720 0 240 Output: Urine 5200 4775 1200 Other: Voiding Method Indwelling Catheter Indwelling Catheter - Exam - Constitutional General appearance: Present: average body habitus, cooperative, mild distress - EENT Eyes: Present: EOMI, PERRLA ENT: Present: hearing grossly normal, normal oropharynx Ears: bilateral: normal - Neck Neck: Present: normal ROM. Absent: lymphadenopathy Carotids: bilateral: upstroke normal - Respiratory Respiratory: bilateral: diminished, rhonchi - Cardiovascular Rhythm: regular Heart sounds: normal: S1, S2 Abnormal Heart Sounds: Absent: systolic murmur, diastolic murmur, rub, click - Peripheral edema leg Peripheral Edema: bilateral: 2+ (with open draining heel ulcer on the left leg ) - Gastrointestinal General gastrointestinal: Present: distended, soft. Absent: hepatomegaly, tenderness - Integumentary Integumentary: Absent: calor, cyanotic - Neurologic Neurologic: Present: CNII-XII intact - Musculoskeletal Musculoskeletal: Present: generalized weakness, strength equal bilaterally - Psychiatric Psychiatric: Present: A&O x's 3, appropriate affect - Labs CBC & Chem 7: 03/20/18 06:58 03/20/18 06:18 Labs: Abnormal Lab Results - Last 24 Hours (Table) 03/19/18 03/19/18 03/19/18 Range/Units 05:30 11:52 17:01 RBC 2.93 L (4.30-5.90) m/uL Hgb 7.9 L (13.0-17.5) gm/dL Hct 25.7 L (39.0-53.0) % MCHC 30.7 L (31.0-37.0) g/dL RDW 18.2 H (11.5-15.5) % Neutrophils # 8.2 H (1.3-7.7) k/uL Lymphocytes # 0.6 L (1.0-4.8) k/uL Chloride (98-107) mmol/L Carbon Dioxide (22-30) mmol/L BUN (9-20) mg/dL Creatinine (0.66-1.25) mg/dL Glucose (74-99) mg/dL POC Glucose (mg/dL) 227 H 192 H (75-99) mg/dL 03/19/18 03/20/18 03/20/18 Range/Units 20:35 06:00 06:18 RBC (4.30-5.90) m/uL Hgb (13.0-17.5) gm/dL Hct (39.0-53.0) % MCHC (31.0-37.0) g/dL RDW (11.5-15.5) % Neutrophils # (1.3-7.7) k/uL Lymphocytes # (1.0-4.8) k/uL Chloride 94 L (98-107) mmol/L Carbon Dioxide 31 H (22-30) mmol/L BUN 62 H (9-20) mg/dL Creatinine 1.80 H (0.66-1.25) mg/dL Glucose 162 H (74-99) mg/dL POC Glucose (mg/dL) 213 H 181 H (75-99) mg/dL 03/20/18 Range/Units 06:58 RBC 3.56 L (4.30-5.90) m/uL Hgb 9.4 L D (13.0-17.5) gm/dL Hct 30.2 L (39.0-53.0) % MCHC (31.0-37.0) g/dL RDW 18.3 H (11.5-15.5) % Neutrophils # 8.3 H (1.3-7.7) k/uL Lymphocytes # 0.6 L (1.0-4.8) k/uL Chloride (98-107) mmol/L Carbon Dioxide (22-30) mmol/L BUN (9-20) mg/dL Creatinine (0.66-1.25) mg/dL Glucose (74-99) mg/dL POC Glucose (mg/dL) (75-99) mg/dL Microbiology - Last 24 Hours (Table) 03/16/18 17:49 Blood Culture - Preliminary Blood No Growth after 72 hours Assessment and Plan Plan: 1. Chest pain with normal troponins. Continue, aspirin and Nitropaste. Cardiology consult is appreciated. Echocardiogram was recently done on last admission. Patient follows with Dr. Fierro. 2. Acute on chronic hypoxic respiratory failure secondary to acute on chronic diastolic heart failure and pleural effusions with generalized anasarca and acute exacerbation of COPD as well as abdominal distention. Consult Dr. Oneil and cardiology. Lasix drip and metolazone. DuoNeb treatments 4 times daily as needed and Pulmicort twice daily. Solu-Medrol decreased to 40 mg every 8 hours. 3. Diabetes mellitus type 2 uncontrolled, insulin requiring with diabetic neuropathy. Patient presented with hypoglycemia. Continue home dosing of NPH and regular along with NovoLog scale. Continue gabapentin 300 mg twice daily. Hemoglobin A1c 7.7. 4. Abdominal distention secondary to anasarca. 5. Hypertension. Continue Norvasc 5 mg twice daily, lisinopril held due to renal failure. 6. Hyperlipidemia. Continue Lipitor 40 mg at bedtime. 7. Urinary retention secondary to benign prostatic hypertrophy continue Flomax 0.4 mg at bedtime. Quinones catheter 8. Obstructive sleep apnea on CPAP. Patient to continue to use CPAP while hospitalized 9. Diabetic ulcer left heel. Local wound care will be in the form of medihoney. Wound culture to be obtained. [facility] as he has transportation problems. Consult Dr. Ruiz and completed recent antibiotics. Continue Unasyn. Consult Dr. Eduardo for debridement. 10. Morbidly obesity with BMI of 50 with plan for bariatric surgery with Dr. Ayala. 11. Chronic kidney disease stage IIIA. Baseline creatinine is 1.5. 12. Moderate persistent asthma, stable. Patient follows with Dr. Oneil. Continue DuoNeb treatments, Pulmicort, Singulair. 13. DVT prophylaxis. Patient on heparin subcu. 14. GI prophylaxis and gastroesophageal reflux disease and hiatal hernia. Continue Protonix. Discharge plan: [place]. Impression and plan of care have been directed as dictated by the signing physician. Candy Magana nurse practitioner acting as scribe for signing physician.
--- NOTE | 2018-03-20 15:09 | P.PN ---
Subjective Progress Note Date: 03/20/18 This is a 67-year-old gentleman who follows with Dr. Fierro in the office. He has a known history of COPD, diabetes, hypertension, hyperlipidemia , sleep apnea, prior nicotine dependence, morbid obesity, BPH, chronic anemia, seen by Dr. Webb in the past, patient had a recent hospitalization in February of this year for complaints of chest pain, was found to have a right-sided pneumonia. Patient was seen in consultation on that visit by Dr. Holland. He had an echocardiogram with Doppler study performed at that time which revealed an ejection fraction of 60-65% with mild aortic valve sclerosis, mild mitral regurgitation, trace of tricuspid regurg, no pulmonary hypertension. A CTA was also performed last month on that admission which was negative for a pulmonary embolism. Patient presents to the hospital on this occasion with symptoms of abdominal bloating as well as a generally not feeling well, symptoms of shortness of breath and chills. EKG on presentation here showed a normal sinus rhythm with nonspecific ST-T wave changes. Chest x-ray suggests CHF exacerbation with moderate central vascular congestion. Foot x-ray was performed which did not reveal any convincing radiographic evidence for acute osteomyelitis. Blood pressure 150/70, 92% on 5 L of oxygen, heart rate in the 80s to 90s. White blood cell count 5.9, hemoglobin 7.8, platelet count 150. Sodium 142, potassium 4.7, BUN 35, creatinine 1.5. Troponins are negative 2. BNP level 907. At the time of my examination, patient is sitting up at his bedside, complains of feeling extremely chilled, does state that his breathing has improved from yesterday. Patient is currently on IV Lasix. 03/18/2018 Patient was initiated on an IV Lasix drip yesterday, he has diuresed well over the night last night, however his weight is not reflective of this this morning. He has diuresed over 3000 through the night last night and currently has a full catheter bag. Sodium 141, potassium 6.0, BUN 38, creatinine 1.5. is currently on a Lasix drip at 15 mg per hour, metolazone daily was also added today. 03/20/2018 Patient seen and examined this morning, diuresing well on IV Lasix. Weight down 9 kg. Patient is diuresing significant amounts on IV Lasix. Creatinine today 1.8. We will continue IV Lasix for 24 hours, changed over to oral diuretics in the morning. We will also repeat a chest x-ray tomorrow morning. Objective - Vital Signs Vital signs: Vital Signs Temp 97.3 F L 03/20/18 08:00 Pulse 90 03/20/18 11:15 Resp 19 03/20/18 08:00 BP 156/71 03/20/18 08:00 Pulse Ox 96 03/20/18 08:00 Intake & Output 03/19/18 03/20/18 03/20/18 18:59 06:59 18:59 Intake Total 720 233.5 480 Output Total 5200 4775 1200 Balance -4480 -4541.5 -720 Weight 188.9 kg Intake: Intake, IV Titration 233.5 Amount Furosemide 250 mg In 233.5 Sodium Chloride 0.9% 225 ml @ 15 MG/HR 15 mls/hr IVP .[id number] [facility] Rx#: [id number] Oral 720 0 480 Output: Urine 5200 4775 1200 Other: Voiding Method Indwelling Catheter Indwelling Catheter Indwelling Catheter - Exam PHYSICAL EXAMINATION: HEENT: Head is atraumatic, normocephalic. Pupils equal, round. Neck is supple. There is no elevated jugular venous pressure. HEART EXAMINATION: Heart S1, S2 normal. No murmur or gallop heard. CHEST EXAMINATION: Lungs reveal scattered coarse rhonchi throughout with diminished air entry to the bases. ABDOMEN: Soft, obese ,nontender. Bowel sounds are heard. No organomegaly noted. EXTREMITIES: 1+ peripheral pulses with evidence of bilateral chronic venous stasis, 2 pitting edema in the bilateral lower extremities, ulcer to the left heel with serous drainage and foul order. Generalized anasarca.. NEUROLOGIC patient is awake, alert and oriented -3. . - Labs CBC & Chem 7: 03/20/18 06:58 03/20/18 06:18 Labs: Abnormal Lab Results - Last 24 Hours (Table) 03/19/18 03/19/18 03/20/18 Range/Units 17:01 20:35 06:00 RBC (4.30-5.90) m/uL Hgb (13.0-17.5) gm/dL Hct (39.0-53.0) % RDW (11.5-15.5) % Neutrophils # (1.3-7.7) k/uL Lymphocytes # (1.0-4.8) k/uL Chloride (98-107) mmol/L Carbon Dioxide (22-30) mmol/L BUN (9-20) mg/dL Creatinine (0.66-1.25) mg/dL Glucose (74-99) mg/dL POC Glucose (mg/dL) 192 H 213 H 181 H (75-99) mg/dL 03/20/18 03/20/18 03/20/18 Range/Units 06:18 06:58 11:23 RBC 3.56 L (4.30-5.90) m/uL Hgb 9.4 L D (13.0-17.5) gm/dL Hct 30.2 L (39.0-53.0) % RDW 18.3 H (11.5-15.5) % Neutrophils # 8.3 H (1.3-7.7) k/uL Lymphocytes # 0.6 L (1.0-4.8) k/uL Chloride 94 L (98-107) mmol/L Carbon Dioxide 31 H (22-30) mmol/L BUN 62 H (9-20) mg/dL Creatinine 1.80 H (0.66-1.25) mg/dL Glucose 162 H (74-99) mg/dL POC Glucose (mg/dL) 311 H (75-99) mg/dL Microbiology - Last 24 Hours (Table) 03/16/18 17:49 Blood Culture - Preliminary Blood No Growth after 72 hours Assessment and Plan Plan: Assessment and plan #1 acute on chronic hypoxic respiratory failure, secondary to acute on chronic diastolic heart failure and pleural effusions with generalized anasarca. Exacerbation of COPD. Patient currently on IV Lasix drip. #2 hypertension #3 hyperlipidemia #4 obstructive sleep apnea # 5 morbid obesity, hoping to undergo bariatric surgery with Dr. Ulises james #6 asthma #7 acute on chronic kidney disease #8 acute on chronic anemia #9 former tobacco use Plan We will continue current dose of IV Lasix drip, check lytes BUN and creatinine in the morning. DNP note has been reviewed, I agree with a documented findings and plan of care. Patient was seen and examined.
[2018-03-20 16:26] LABS: Glucose,Whole Blood 317 mg/dL (75-99)
[2018-03-20] MEDS: SODIUM CHLORIDE 0.9% 1,000 ML IV SCH (19:42)
[2018-03-20] MEDS: TAMSULOSIN 0.4 MG CAP.ER.24H PO SCH (20:16)
[2018-03-20] MEDS: ATORVASTATIN 40 MG TAB PO SCH (20:16)
[2018-03-20 20:34] LABS: Glucose,Whole Blood 353 mg/dL (75-99)
--- NOTE | 2018-03-20 21:21 | PN ---
PROGRESS NOTE Patient was seen this morning for followup for chronic kidney disease. His serum creatinine was 1.9 yesterday, it is down to 1.8. It was at 1.5 on initial admission. The patient is currently being treated for volume overload and CHF. Currently maintained on Lasix drip with good urine output. The patient has an indwelling Quinones catheter. His weight is significantly down. EXAMINATION: Blood pressure was 162/73, heart rate 100 per minute. He is afebrile. Examination of the heart S1, S2. Examination of the lungs bilateral breath sounds are heard. Abdomen is soft morbidly obese. Examination of the lower extremities shows chronic skin changes chronic edema bilaterally. Lower extremity is wrapped. LAB: Show sodium 141, potassium 5.1, BUN 62, serum creatinine 1.8, hemoglobin 9.4 g/dL. ASSESSMENT: 1. Acute kidney injury mainly cardiorenal. Renal function slightly improved. Patient is being diuresed. He is on Lasix drip. 2. Chronic kidney disease, most likely secondary to underlying diabetic kidney disease. 3. Hyperkalemia associated with acute kidney injury and use of MARTI inhibitors, currently improved. 4. Diastolic heart failure, acute on top of chronic. 5. Left diabetic foot ulcer being followed by ID. 6. Anemia with iron deficiency, maintained on IV iron. PLAN: Repeat labs in a.m. Continue with diuresis. MMODL / IJN: [id number] /
--- NOTE | 2018-03-20 23:09 | PN ---
PROGRESS NOTE DATE OF SERVICE: 03/20/2018. REASON FOR FOLLOWUP: Left diabetic foot infection with secondary cellulitis. INTERVAL HISTORY: The patient is afebrile. He has been breathing comfortably. Denies having any chest pain, shortness of breath or cough, only pain to the left leg area. EXAMINATION: Blood pressure is 137/74 with a pulse of 98, temperature is 97.4. He is 98% on 3 L nasal cannula. General description is an elderly male lying in bed in no distress. RESPIRATORY SYSTEM: Unlabored breathing, clear to auscultation anteriorly. HEART: S1, S2. Regular rate and rhythm. ABDOMEN: Soft, no tenderness. Left leg swelling slightly decreased. No redness. LABS: Hemoglobin 9.4, white count 9.4 with a BUN of 62, creatinine 1.0. DIAGNOSTIC IMPRESSION AND PLAN: Patient with left diabetic foot infection with secondary cellulitis. The patient at this time to continue with the Unasyn. Await vascular evaluation, possible debridement of that wound. Continue supportive care. MMODL / IJN: [id number] /
[2018-03-21] MEDS: FUROSEMIDE 250 MG in SODIUM CHLORIDE 0.9% 225 ML IVP SCH (00:43)
[2018-03-21] MEDS: AMPICILLIN-SULBACTAM 3 GM in SODIUM CHLORIDE 0.9% 100 ML IVPB SCH ×4 (06:04→22:41)
[2018-03-21 06:42] LABS: Glucose,Whole Blood 120 mg/dL (75-99)
[2018-03-21] MEDS: INSULIN ASPART 100 UNIT/ML 1 ML 10 ML VIAL SQ SCH ×4 (06:44→21:09)
[2018-03-21 06:48] LABS: Calcium 9.9 mg/dL (8.4-10.2); Potassium 4.3 mmol/L (3.5-5.1)
[2018-03-21] MEDS: PANTOPRAZOLE 40 MG TABLET PO SCH (07:08)
[2018-03-21] MEDS: INSULIN NPH/REG INSULIN 70/30 300 UNIT/3 ML VIAL SQ SCH ×3 (07:08→18:44)
[2018-03-21 07:32] LABS: Anisocytosis Slight; Basophils % (A) 0 %; Eosinophils % (A) 0 %; HCT 31.2 % (39.0-53.0); HGB 9.5 gm/dL (13.0-17.5); Hypochromasia Marked; Lymphocytes # (A) 1.9 k/uL (1.0-4.8); Lymphocytes % (A) 19 %; MCH 26.1 pg (25.0-35.0); MCHC 30.3 g/dL (31.0-37.0); Mean Platelet Volume 7.7; Monocytes # (A) 0.7 k/uL (0-1.0); Monocytes % (A) 7 %; Neutrophils # (A) 7.2 k/uL (1.3-7.7); Neutrophils % (A) 72 %; Platelet Count 223 k/uL (150-450); RBC 3.63 m/uL (4.30-5.90); RDW 18.5 % (11.5-15.5); WBC 10.1 k/uL (3.8-10.6)
[2018-03-21] MEDS: HEPARIN SODIUM,PORCINE 5,000 UNIT/ML 1 ML VIAL SQ SCH ×3 (08:06→22:26)
[2018-03-21] MEDS: CHOLECALCIFEROL 1,000 UNIT TAB PO SCH (08:07)
[2018-03-21] MEDS: hydrALAZINE HCL 25 MG TAB PO SCH ×3 (08:07→21:08)
[2018-03-21] MEDS: METOLAZONE 5 MG TAB PO SCH (08:07)
[2018-03-21] MEDS: MAGNESIUM OXIDE 400 MG TAB PO SCH (08:07)
[2018-03-21] MEDS: MONTELUKAST 10 MG TAB PO SCH (08:07)
[2018-03-21] MEDS: GABAPENTIN 300 MG CAP PO SCH ×2 (08:07→21:08)
[2018-03-21] MEDS: guaiFENesin 600 MG TABLET.ER PO SCH ×2 (08:07→21:08)
[2018-03-21] MEDS: amLODIPine 5 MG TAB PO SCH ×2 (08:07→21:07)
[2018-03-21] MEDS: HYDROcodone/APAP 7.5-325MG 1 EACH TAB PO PRN ×3 (08:08→22:28)
[2018-03-21] MEDS: BUDESONIDE 1 MG/2 ML NEBU INHALATION SCH ×2 (08:45→20:19)
[2018-03-21] MEDS: IPRATROPIUM-ALBUTEROL 3 ML NEB INHALATION SCH ×4 (08:45→20:19)
[2018-03-21] MEDS: SODIUM FERRIC GLUCONAT-SUCROSE 125 MG in SODIUM CHLORIDE 0.9% 100 ML IVPB SCH (09:15)
--- NOTE | 2018-03-21 10:31 | P.PN ---
Subjective Progress Note Date: 03/21/18 HPI: This is a 67-year-old male patient being seen examined and evaluated today for consultation. This patient is well-known to our services. This patient was then to see his infectious disease doctor for his left heel ulcer yesterday when he was noted to have some dyspnea and desaturations with his oxygen. He was sent over to the emergency room for evaluation and treatment. Patient states he is also been having some chest pain that has been happening for over a week and he has had difficulty breathing when laying down as well. Patient does utilize home oxygen at night with his CPAP and has been using it during the day as well but it has not been enough. Patient states he has been using his CPAP each night for approximately 8 hours and his compliance has been 100%. Patient states he was taking breathing treatments at home 3-4 times per day via nebulizer which was not helping as well. Chest x-ray was reviewed and does show correlation for CHF exacerbation, cardiomegaly with suspected new small tiny bilateral pleural effusions more prominent mild to moderate central vascular congestion. Patient was admitted to the hospital for further evaluation and treatment. Cardiology was also put on consult. Patient had some elevated CK-MB. Patient also complains that his left heel ulcer has been having a more significant foul smell with more drainage. Infectious disease on consult. Denies any fevers nausea vomiting. Upon examination the patient's resting up in bed on 5 L of supplemental oxygen via nasal cannula. He can point of shortness of breath cough congestion and is unable to bring up any secretions. He also has had some generalized abdominal discomfort complaints and is scheduled to go for a CT of the abdomen per primary services. 03/18-03/19/18- Please see Dr. JUAN ANTONIO Jones notes 03/20/18- patient being seen examined and evaluated today on rounds. He is resting up in bed on 3-4 L of supplement oxygen via nasal cannula. He continues to use his incentive spirometer pulling volumes of approximately 1500 MLS. Patient states he feels his breathing is slightly better. Continue following with infectious disease and wound care. Patient is being worked up for possible debridement. He is afebrile no further complaints. All labs and appointment been reviewed. 03/21/18- patient being seen examined and evaluated on rounds. He is resting up in bed on 3 L of supplemental oxygen via nasal cannula. He states his breathing is much better. His steroids have been discontinued. Patient is waiting for vascular consult for possible debridement of his wound. He is afebrile no further complaints. Nephrology also following along with the patient. Objective - Vital Signs Vital signs: Vital Signs Temp 97.1 F L 03/21/18 04:00 Pulse 78 03/21/18 09:00 Resp 16 03/21/18 08:45 BP 135/63 03/21/18 04:00 Pulse Ox 98 03/21/18 08:45 Intake & Output 03/20/18 03/21/18 03/21/18 18:59 06:59 18:59 Intake Total 1900 200 240 Output Total 4800 2800 1300 Balance -2900 -2600 -1060 Weight 182.3 kg Intake: IV 90 200 Furosemide 250 mg In 90 120 Sodium Chloride 0.9% 225 ml @ 15 MG/HR 15 mls/hr IVP .[id number] [facility] Rx#: [id number] Sodium Chloride 0.9% 1, 80 000 ml @ 20 mls/hr IV . Q24H [facility] Rx#:[id number] Intake, IV Titration 570 Amount Ampicillin-Sulbactam 3 gm 100 In Sodium Chloride 0.9% 100 ml @ 100 mls/hr IVPB Q6HR [facility] Rx#:[id number] Furosemide 250 mg In 250 Sodium Chloride 0.9% 225 ml @ 15 MG/HR 15 mls/hr IVP .[id number] [facility] Rx#: [id number] Sodium Chloride 0.9% 1, 120 000 ml @ 20 mls/hr IV . Q24H [facility] Rx#:[id number] Sodium Ferric Gluconat- 100 Sucrose 125 mg In Sodium Chloride 0.9% 100 ml @ 100 mls/hr IVPB DAILY [facility] Rx#:[id number] Oral 1240 240 Output: Urine 4800 2800 1300 Other: Voiding Method Indwelling Catheter Indwelling Catheter # Bowel Movements 1 - Exam GENERAL EXAM: Alert, active, comfortable in no apparent distress. Morbidly obese HEAD: Normocephalic. EYES: Normal reaction of pupils, equal size. NOSE: Clear with pink turbinates. THROAT: No erythema or exudates. NECK: No masses, no JVD. CHEST: No chest wall deformity. LUNGS: Equal air entry with few faint expiratory wheezing noted. Bases diminished CVS: S1 and S2 normal with no audible mumurs, regular rhythm. ABDOMEN: No hepatosplenomegaly, normal bowel sounds, no guarding or rigidity. EXTREMITIES: +1 edema noted. Chronic bilateral lower extremity cellulitis. Left lower heel wound, wrapped clean dry and intact CENTRAL NERVOUS SYSTEM: No focal deficits, tone is normal in all 4 extremities. - Labs CBC & Chem 7: 03/21/18 06:15 03/21/18 06:15 Labs: Abnormal Lab Results - Last 24 Hours (Table) 03/20/18 03/20/18 03/20/18 Range/Units 11:23 16:24 20:33 RBC (4.30-5.90) m/uL Hgb (13.0-17.5) gm/dL Hct (39.0-53.0) % MCHC (31.0-37.0) g/dL RDW (11.5-15.5) % Chloride (98-107) mmol/L Carbon Dioxide (22-30) mmol/L BUN (9-20) mg/dL Creatinine (0.66-1.25) mg/dL Glucose (74-99) mg/dL POC Glucose (mg/dL) 311 H 317 H 353 H (75-99) mg/dL 03/21/18 03/21/18 03/21/18 Range/Units 06:15 06:15 06:40 RBC 3.63 L (4.30-5.90) m/uL Hgb 9.5 L (13.0-17.5) gm/dL Hct 31.2 L (39.0-53.0) % MCHC 30.3 L (31.0-37.0) g/dL RDW 18.5 H (11.5-15.5) % Chloride 91 L (98-107) mmol/L Carbon Dioxide 34 H (22-30) mmol/L BUN 71 H (9-20) mg/dL Creatinine 2.10 H (0.66-1.25) mg/dL Glucose 119 H (74-99) mg/dL POC Glucose (mg/dL) 120 H (75-99) mg/dL Microbiology - Last 24 Hours (Table) 03/16/18 17:49 Blood Culture - Preliminary Blood No Growth after 96 hours Assessment and Plan Assessment: Assessment Acute hypoxic respiratory failure required supplemental oxygen Unstable angina Acute exacerbation of CHF Acute exacerbation of COPD GIOVANY/OHS Diabetes mellitus Left heel wound History of hypertension History of hyperlipidemia Nonspecific diffuse abdominal pain Plan Medications have been reviewed and will be continued as ordered. Continue with antibiotics, steroids have been discontinued. Maintain a negative fluid balance.. Cardiology on consult. Infectious disease on consult. Wound care per infectious disease. Awaiting vascular surgery consult. Continue with pulmonary hygiene, coughing and deep breathing exercises, and supportive care. Supplemental oxygen to maintain oxygen saturations of 92% or better. Uses home CPAP every night and with naps. Sputum culture. Initiate and encourage incentive spirometer use. Continue nebulizer treatments. GI and DVT prophylaxis. PT and OT. We will continue to monitor labs/results and adjust treatment as necessary. Further recommendations pending. I performed an examination of the patient and discussed their management with the nurse practitioner. I have reviewed the nurse practitioner's note and agree with the documented findings and plan of care.
[2018-03-21 11:48] LABS: Glucose,Whole Blood 57 mg/dL (75-99)
[2018-03-21 12:03] LABS: Glucose,Whole Blood 69 mg/dL (75-99)
[2018-03-21 12:20] LABS: Glucose,Whole Blood 103 mg/dL (75-99)
--- NOTE | 2018-03-21 12:20 | XR ---
EXAMINATION TYPE: XR chest 2V DATE OF EXAM: 03/21/2018 COMPARISON: 03/16/2018 HISTORY: 67-year-old male follow-up CHF, shortness of breath TECHNIQUE: AP and lateral views FINDINGS: Heart remains borderline enlarged. Diffuse interstitial and vascular prominence persists. There may b e slight interval improvement in aeration. Small pleural effusions also persist. IMPRESSION: 1. Continued CHF with pulmonary vascular congestion/mild interstitial edema. Aeration is only slightl y improved. 2. Persistent small effusions with adjacent atelectasis and/or consolidation.
[2018-03-21] MEDS: MULTIVITAMINS, THERA 1 EACH TAB PO SCH (12:29)
[2018-03-21] MEDS ORDERED: INSULIN NPH/REG INSULIN 70/30 300 UNIT/3 ML VIAL SQ SCH (12:34)
[2018-03-21 13:15] LABS: Glucose,Whole Blood 108 mg/dL (75-99)
[2018-03-21 14:01] LABS: Glucose,Whole Blood 163 mg/dL (75-99)
--- NOTE | 2018-03-21 14:10 | P.PN ---
Subjective Progress Note Date: 03/21/18 This is a 67-year-old male patient of Dr. Johnson with a past medical history of chronic heart failure, COPD, diabetes mellitus type 2 insulin requiring, hypertension, benign prostatic hypertrophy, gastroesophageal reflux disease, hyperlipidemia, obstructive sleep apnea with CPAP, super morbid obesity with plan for gastric sleeve with Dr. Ayala in the near future, chronic anemia seen by Dr. Webb in the past. He had a recent hospitalization for chest pain, acute on chronic hypoxic respiratory failure due to right-sided pneumonia and bilateral pleural effusions and acute kidney injury. Patient was discharged home with home care and oxygen. On last admission, echocardiogram reveals EF of 60-65% with mild aortic valve sclerosis, mild mitral regurgitation , trace tricuspid regurgitation, no pulmonary hypertension. Due to elevated d- dimer, lower extremity duplex was negative for DVT. CTA of the chest showed no evidence of pulmonary embolism. Bilateral pleural effusions with pulmonary mild infiltrate and atelectasis. Chest ultrasound revealed mild bilateral pleural effusions. Patient complains of abdominal bloating and has not have increased anasarca. His weight is up but he is not sure how much as he does not have a scale at home. He currently has home care in place. He does have a cough that he states is nonproductive. He denies any blood in his stool or urine. He has followed up with Dr. Oneil about a week ago. He is supposed to be on Xolair but has been off for quite a while. He has been does diagnosed with asthma and COPD by Dr. Oneil. Patient presented to [facility] emergency center and found to be afebrile, white count was normal, BUN 36 and creatinine 1.5 chest x-ray shows evidence of pleural effusion concerning for heart failure. BNP was 907. Troponin was normal. Foot x-ray did not show osteomyelitis. Blood sugar was 54 and treated with orange juice. EKG was in normal sinus rhythm. Patient was admitted to the selective care unit and consults were requested with Dr. Oneil, cardiology and Dr. Ruiz. Echocardiogram ordered as well as CT of the abdomen and pelvis. Blood culture was obtained. Repeat troponins were negative on 2 draws. His recent hemoglobin A1c was 7.4. A bone scan has been ordered. Consult with Dr. Connor for chronic kidney disease. Patient did require Quinones catheter placement for retention of greater than 1 L. 5/12 Patient examined bedside. Still complains of significant shortness of breath requiring 5 L of oxygen. Currently on 15 mg per hour of Lasix drip. Nephrology recommending holding lisinopril and Aldactone and continue with Lasix drip when metolazone. Patient was evaluated by infectious disease who recommended initiating patient on Unasyn and surgery consult for possible debridement. Creatinine is significantly increased from 0.95-1.59 likely secondary to cardiorenal syndrome. 03/19 {patient assessed bedside. SOB has improved, still requiring 3 l of nasal cannula. Continue lasix drip based on I/ O. Does have abdominal distention with abdomonial wall swelling. Pending vascular surgery evaluation fro debridement 03/20: Left upper extremity Doppler was negative for DVT. For his left foot wound, patient is on local wound care with medihoney and continued on Unasyn. Patient remains on Lasix drip with metolazone. He has had good urine output. Shortness of breath and lower extremity edema and anasarca are improving. He is on a fluid restriction of 1.5 L. Lisinopril and Aldactone remain on hold. Patient has been started on Ferrlecit yesterday for 3 doses daily. Hemoglobin is 9.4. BUN 62 and creatinine 1.8. Patient is currently on Solu-Medrol 60 mg IV every 6 hours per pulmonary which is been decreased to 40 mg every [address] Eduardo on consult for debridement of the left heel ulcer. 03/21: Patient's blood sugars jumped into the 300s yesterday afternoon and evening and Solu-Medrol was discontinued. He was also changed to a consistent carb diet but today at lunch his blood sugars have dropped to 57 and 69. His morning 70/30 insulin decreased from 126 units to 110 units. Today, BUN 71 and creatinine 2.10. Hemoglobin is 9.5. Weight is down 6.6 kg. Patient does state that his breathing and edema are improving. He remains on an insulin drip. Objective - Vital Signs Vital signs: Vital Signs Temp 97.1 F L 03/21/18 04:00 Pulse 78 03/21/18 09:00 Resp 16 03/21/18 08:45 BP 135/63 03/21/18 04:00 Pulse Ox 98 03/21/18 08:45 Intake & Output 03/20/18 03/21/18 03/21/18 18:59 06:59 18:59 Intake Total 1900 200 240 Output Total 4800 2800 1300 Balance -2900 -2600 -1060 Weight 182.3 kg Intake: IV 90 200 Furosemide 250 mg In 90 120 Sodium Chloride 0.9% 225 ml @ 15 MG/HR 15 mls/hr IVP .[id number] [facility] Rx#: [id number] Sodium Chloride 0.9% 1, 80 000 ml @ 20 mls/hr IV . Q24H [facility] Rx#:[id number] Intake, IV Titration 570 Amount Ampicillin-Sulbactam 3 gm 100 In Sodium Chloride 0.9% 100 ml @ 100 mls/hr IVPB Q6HR [facility] Rx#:[id number] Furosemide 250 mg In 250 Sodium Chloride 0.9% 225 ml @ 15 MG/HR 15 mls/hr IVP .[id number] [facility] Rx#: [id number] Sodium Chloride 0.9% 1, 120 000 ml @ 20 mls/hr IV . Q24H [facility] Rx#:[id number] Sodium Ferric Gluconat- 100 Sucrose 125 mg In Sodium Chloride 0.9% 100 ml @ 100 mls/hr IVPB DAILY [facility] Rx#:[id number] Oral 1240 240 Output: Urine 4800 2800 1300 Other: Voiding Method Indwelling Catheter Indwelling Catheter # Bowel Movements 1 - Exam - Constitutional General appearance: Present: average body habitus, cooperative, mild distress - EENT Eyes: Present: EOMI, PERRLA ENT: Present: hearing grossly normal, normal oropharynx Ears: bilateral: normal - Neck Neck: Present: normal ROM. Absent: lymphadenopathy Carotids: bilateral: upstroke normal - Respiratory Respiratory: bilateral: diminished, rhonchi - Cardiovascular Rhythm: regular Heart sounds: normal: S1, S2 Abnormal Heart Sounds: Absent: systolic murmur, diastolic murmur, rub, click - Peripheral edema leg Peripheral Edema: bilateral: 2+ (with open draining heel ulcer on the left leg ) - Gastrointestinal General gastrointestinal: Present: distended, soft. Absent: hepatomegaly, tenderness - Integumentary Integumentary: Absent: calor, cyanotic - Neurologic Neurologic: Present: CNII-XII intact - Musculoskeletal Musculoskeletal: Present: generalized weakness, strength equal bilaterally - Psychiatric Psychiatric: Present: A&O x's 3, appropriate affect - Labs CBC & Chem 7: 03/21/18 06:15 03/21/18 06:15 Labs: Abnormal Lab Results - Last 24 Hours (Table) 03/20/18 03/20/18 03/20/18 Range/Units 11:23 16:24 20:33 RBC (4.30-5.90) m/uL Hgb (13.0-17.5) gm/dL Hct (39.0-53.0) % MCHC (31.0-37.0) g/dL RDW (11.5-15.5) % Chloride (98-107) mmol/L Carbon Dioxide (22-30) mmol/L BUN (9-20) mg/dL Creatinine (0.66-1.25) mg/dL Glucose (74-99) mg/dL POC Glucose (mg/dL) 311 H 317 H 353 H (75-99) mg/dL 03/21/18 03/21/18 03/21/18 Range/Units 06:15 06:15 06:40 RBC 3.63 L (4.30-5.90) m/uL Hgb 9.5 L (13.0-17.5) gm/dL Hct 31.2 L (39.0-53.0) % MCHC 30.3 L (31.0-37.0) g/dL RDW 18.5 H (11.5-15.5) % Chloride 91 L (98-107) mmol/L Carbon Dioxide 34 H (22-30) mmol/L BUN 71 H (9-20) mg/dL Creatinine 2.10 H (0.66-1.25) mg/dL Glucose 119 H (74-99) mg/dL POC Glucose (mg/dL) 120 H (75-99) mg/dL Microbiology - Last 24 Hours (Table) 03/16/18 17:49 Blood Culture - Preliminary Blood No Growth after 96 hours Assessment and Plan Plan: 1. Chest pain with normal troponins. Continue, aspirin and Nitropaste. Cardiology consult is appreciated. Echocardiogram was recently done on last admission. Patient follows with Dr. Fierro. 2. Acute on chronic hypoxic respiratory failure secondary to acute on chronic diastolic heart failure and pleural effusions with generalized anasarca and acute exacerbation of COPD as well as abdominal distention. Consult Dr. Oneil and cardiology. Lasix drip and metolazone. DuoNeb treatments 4 times daily as needed and Pulmicort twice daily. Solu-Medrol discontinued due to hyperglycemia. 3. Diabetes mellitus type 2 uncontrolled, insulin requiring with diabetic neuropathy. Patient presented with hypoglycemia. Continue 70/30 at 110 units with breakfast, 100 units at lunch 126 units at supper. Continue NovoLog scale. Continue gabapentin 300 mg twice daily. Hemoglobin A1c 7.7. 4. Abdominal distention secondary to anasarca. 5. Hypertension. Continue Norvasc 5 mg twice daily, lisinopril held due to renal failure. 6. Hyperlipidemia. Continue Lipitor 40 mg at bedtime. 7. Urinary retention secondary to benign prostatic hypertrophy continue Flomax 0.4 mg at bedtime. Quinones catheter 8. Obstructive sleep apnea on CPAP. Patient to continue to use CPAP while hospitalized 9. Diabetic ulcer left heel. Local wound care will be in the form of medihoney. Wound culture to be obtained. [facility] as he has transportation problems. Consult Dr. Ruiz and completed recent antibiotics. Continue Unasyn. Consult Dr. Eduardo for debridement. 10. Morbidly obesity with BMI of 50 with plan for bariatric surgery with Dr. Ayala. 11. Chronic kidney disease stage IIIA. Baseline creatinine is 1.5. 12. Moderate persistent asthma, stable. Patient follows with Dr. Oneil. Continue DuoNeb treatments, Pulmicort, Singulair. 13. DVT prophylaxis. Patient on heparin subcu. 14. GI prophylaxis and gastroesophageal reflux disease and hiatal hernia. Continue Protonix. Discharge plan: [facility]. Impression and plan of care have been directed as dictated by the signing physician. Candy Magana nurse practitioner acting as scribe for signing physician.
[2018-03-21] MEDS ORDERED: INSULIN NPH/REG INSULIN 70/30 300 UNIT/3 ML VIAL SQ ONE (14:45)
--- NOTE | 2018-03-21 15:43 | PN ---
PROGRESS NOTE The patient is seen for acute kidney injury on top of chronic kidney disease. He is currently being diuresed. The patient is maintained on Lasix drip. Overall, he is feeling better and his volume status has improved. Serum creatinine however is slightly higher. Today it is 2.1. It was 1.8 mg/dL yesterday. PHYSICAL EXAMINATION: Blood pressure is 137/60, heart rate 78 per minute. Patient is afebrile. Examination of the heart S1, S2. Examination of lungs bilateral breath sounds are heard. ABDOMEN: Soft, morbidly obese. Examination of the lower extremities shows bilateral extremities to be , chronic skin changes. Significant erythema is noted as well in the toes. LABS: Sodium 143, potassium 4.3, chloride 91, CO2 34, BUN 71, serum creatinine 2.1, hemoglobin 9.5 g/dL. ASSESSMENT: 1. Acute kidney injury, currently nonoliguric, mainly cardiorenal with good urine output and maintained on Lasix drip. Serum creatinine is slightly higher today. I will decrease the Lasix dose of 5 mg an hour later on tonight. 2. Chronic kidney disease secondary to diabetic kidney disease and NKF stage III with baseline creatinine 0.95-1.2 mg/dL. The patient does have proteinuria. 3. Lower extremity cellulitis, maintained on antibiotics, being followed by ID. 4. Morbid obesity. 5. Diastolic heart failure, acute on top of chronic. 6. Left foot diabetic ulcer. 7. Severe iron deficiency maintained on IV iron. PLAN: Decrease Lasix drip 5 mg an hour. Repeat labs in a.m. MMODL / IJN: [id number] /
--- NOTE | 2018-03-21 15:49 | PN ---
PROGRESS NOTE DATE OF SERVICE: 03/21/2018. REASON FOR FOLLOWUP: Left diabetic foot ulcer with secondary cellulitis. INTERVAL HISTORY: The patient is afebrile. He has been breathing comfortably. Denies having any chest pain. Occasional cough. No abdominal pain or any significant drainage from his left medial ankle wound. EXAMINATION: Blood pressure 137/60, pulse of 93, temperature 97.5. He is 90% on 3 L. General description is an elderly male up in the chair, in no distress. RESPIRATORY SYSTEM: Unlabored breathing. Clear to auscultation anteriorly. HEART: S1, S2. Regular rate and rhythm. ABDOMEN: Soft, no tenderness. Left leg swelling has slightly decreased. Minimal drainage on the dressing. LABS: Hemoglobin 9.5, white count 10.1, BUN of 71, creatinine 2.10. DIAGNOSTIC IMPRESSION AND PLAN: Patient with left diabetic foot ulcer with secondary cellulitis. Currently covered with Unasyn. Vascular Surgery consult planning for possible debridement of that callus. Hopefully, finish therapy with oral antibiotics. Continue supportive care. MMODL / IJN: [id number] /
[2018-03-21] MEDS ORDERED: FUROSEMIDE 40 MG TAB PO SCH (16:00)
--- NOTE | 2018-03-21 16:07 | P.PN ---
Subjective Progress Note Date: 03/21/18 This is a 67-year-old gentleman who follows with Dr. Fierro in the office. He has a known history of COPD, diabetes, hypertension, hyperlipidemia , sleep apnea, prior nicotine dependence, morbid obesity, BPH, chronic anemia, seen by Dr. Webb in the past, patient had a recent hospitalization in February of this year for complaints of chest pain, was found to have a right-sided pneumonia. Patient was seen in consultation on that visit by Dr. Holland. He had an echocardiogram with Doppler study performed at that time which revealed an ejection fraction of 60-65% with mild aortic valve sclerosis, mild mitral regurgitation, trace of tricuspid regurg, no pulmonary hypertension. A CTA was also performed last month on that admission which was negative for a pulmonary embolism. Patient presents to the hospital on this occasion with symptoms of abdominal bloating as well as a generally not feeling well, symptoms of shortness of breath and chills. EKG on presentation here showed a normal sinus rhythm with nonspecific ST-T wave changes. Chest x-ray suggests CHF exacerbation with moderate central vascular congestion. Foot x-ray was performed which did not reveal any convincing radiographic evidence for acute osteomyelitis. Blood pressure 150/70, 92% on 5 L of oxygen, heart rate in the 80s to 90s. White blood cell count 5.9, hemoglobin 7.8, platelet count 150. Sodium 142, potassium 4.7, BUN 35, creatinine 1.5. Troponins are negative 2. BNP level 907. At the time of my examination, patient is sitting up at his bedside, complains of feeling extremely chilled, does state that his breathing has improved from yesterday. Patient is currently on IV Lasix. 03/18/2018 Patient was initiated on an IV Lasix drip yesterday, he has diuresed well over the night last night, however his weight is not reflective of this this morning. He has diuresed over 3000 through the night last night and currently has a full catheter bag. Sodium 141, potassium 6.0, BUN 38, creatinine 1.5. is currently on a Lasix drip at 15 mg per hour, metolazone daily was also added today. 03/20/2018 Patient seen and examined this morning, diuresing well on IV Lasix. Weight down 9 kg. Patient is diuresing significant amounts on IV Lasix. Creatinine today 1.8. We will continue IV Lasix for 24 hours, changed over to oral diuretics in the morning. We will also repeat a chest x-ray tomorrow morning. 03/21/2018 Patient was seen and examined this morning, continue to diuresis significant amount through the night last night. His weight today is down 6 kg. Sodium 143 , potassium 4.3, BUN 71, creatinine 2.1. Chest x-ray shows continued congestive cardiac failure. Objective - Vital Signs Vital signs: Vital Signs Temp 97.5 F L 03/21/18 08:00 Pulse 79 03/21/18 15:35 Resp 16 03/21/18 15:35 BP 137/60 03/21/18 08:00 Pulse Ox 98 03/21/18 08:45 Intake & Output 03/20/18 03/21/18 03/21/18 18:59 06:59 18:59 Intake Total 1900 200 550 Output Total 4800 2800 5150 Balance -2900 -2600 -4600 Weight 182.3 kg Intake: IV 90 200 30 Furosemide 250 mg In 90 120 30 Sodium Chloride 0.9% 225 ml @ 15 MG/HR 15 mls/hr IVP .[id number] [facility] Rx#: [id number] Sodium Chloride 0.9% 1, 80 000 ml @ 20 mls/hr IV . Q24H [facility] Rx#:[id number] Intake, IV Titration 570 100 Amount Ampicillin-Sulbactam 3 gm 100 In Sodium Chloride 0.9% 100 ml @ 100 mls/hr IVPB Q6HR [facility] Rx#:[id number] Furosemide 250 mg In 250 Sodium Chloride 0.9% 225 ml @ 15 MG/HR 15 mls/hr IVP .[id number] [facility] Rx#: [id number] Sodium Chloride 0.9% 1, 120 000 ml @ 20 mls/hr IV . Q24H [facility] Rx#:[id number] Sodium Ferric Gluconat- 100 100 Sucrose 125 mg In Sodium Chloride 0.9% 100 ml @ 100 mls/hr IVPB DAILY [facility] Rx#:[id number] Oral 1240 420 Output: Urine 4800 2800 5150 Other: Voiding Method Indwelling Catheter Indwelling Catheter Indwelling Catheter # Bowel Movements 1 - Exam PHYSICAL EXAMINATION: HEENT: Head is atraumatic, normocephalic. Pupils equal, round. Neck is supple. There is no elevated jugular venous pressure. HEART EXAMINATION: Heart S1, S2 normal. No murmur or gallop heard. CHEST EXAMINATION: Lungs reveal scattered coarse rhonchi throughout with diminished air entry to the bases. ABDOMEN: Soft, obese ,nontender. Bowel sounds are heard. No organomegaly noted. EXTREMITIES: 1+ peripheral pulses with evidence of bilateral chronic venous stasis, 1 pitting edema in the bilateral lower extremities, ulcer to the left heel with serous drainage and foul order. Generalized anasarca.. NEUROLOGIC patient is awake, alert and oriented -3. . - Labs CBC & Chem 7: 03/21/18 06:15 03/21/18 06:15 Labs: Abnormal Lab Results - Last 24 Hours (Table) 03/20/18 03/20/18 03/21/18 Range/Units 16:24 20:33 06:15 RBC (4.30-5.90) m/uL Hgb (13.0-17.5) gm/dL Hct (39.0-53.0) % MCHC (31.0-37.0) g/dL RDW (11.5-15.5) % Chloride 91 L (98-107) mmol/L Carbon Dioxide 34 H (22-30) mmol/L BUN 71 H (9-20) mg/dL Creatinine 2.10 H (0.66-1.25) mg/dL Glucose 119 H (74-99) mg/dL POC Glucose (mg/dL) 317 H 353 H (75-99) mg/dL 03/21/18 03/21/18 03/21/18 Range/Units 06:15 06:40 11:35 RBC 3.63 L (4.30-5.90) m/uL Hgb 9.5 L (13.0-17.5) gm/dL Hct 31.2 L (39.0-53.0) % MCHC 30.3 L (31.0-37.0) g/dL RDW 18.5 H (11.5-15.5) % Chloride (98-107) mmol/L Carbon Dioxide (22-30) mmol/L BUN (9-20) mg/dL Creatinine (0.66-1.25) mg/dL Glucose (74-99) mg/dL POC Glucose (mg/dL) 120 H 57 L (75-99) mg/dL 03/21/18 03/21/18 03/21/18 Range/Units 12:01 12:17 12:55 RBC (4.30-5.90) m/uL Hgb (13.0-17.5) gm/dL Hct (39.0-53.0) % MCHC (31.0-37.0) g/dL RDW (11.5-15.5) % Chloride (98-107) mmol/L Carbon Dioxide (22-30) mmol/L BUN (9-20) mg/dL Creatinine (0.66-1.25) mg/dL Glucose (74-99) mg/dL POC Glucose (mg/dL) 69 L 103 H 108 H (75-99) mg/dL 03/21/18 Range/Units 13:58 RBC (4.30-5.90) m/uL Hgb (13.0-17.5) gm/dL Hct (39.0-53.0) % MCHC (31.0-37.0) g/dL RDW (11.5-15.5) % Chloride (98-107) mmol/L Carbon Dioxide (22-30) mmol/L BUN (9-20) mg/dL Creatinine (0.66-1.25) mg/dL Glucose (74-99) mg/dL POC Glucose (mg/dL) 163 H (75-99) mg/dL Microbiology - Last 24 Hours (Table) 03/16/18 17:49 Blood Culture - Preliminary Blood No Growth after 96 hours Assessment and Plan Plan: Assessment and plan #1 acute on chronic hypoxic respiratory failure, secondary to acute on chronic diastolic heart failure and pleural effusions with generalized anasarca. Exacerbation of COPD. Patient currently on IV Lasix drip. #2 hypertension #3 hyperlipidemia #4 obstructive sleep apnea # 5 morbid obesity, hoping to undergo bariatric surgery with Dr. Ulises james #6 asthma #7 acute on chronic kidney disease #8 acute on chronic anemia #9 former tobacco use Plan We will decrease the Lasix drip to 10 mg per hour, chest x-ray today showed continuation of congestive heart failure. Continue to monitor intake and output along with daily weights and daily lytes BUN and creatinine. DNP note has been reviewed, I agree with a documented findings and plan of care. Patient was seen and examined.
[2018-03-21] MEDS ORDERED: FUROSEMIDE 250 MG in SODIUM CHLORIDE 0.9% 225 ML IVP SCH (16:15)
[2018-03-21 16:59] LABS: Glucose,Whole Blood 87 mg/dL (75-99)
[2018-03-21 18:32] LABS: Glucose,Whole Blood 100 mg/dL (75-99)
[2018-03-21 19:17] LABS: Glucose,Whole Blood 105 mg/dL (75-99)
[2018-03-21 21:04] LABS: Glucose,Whole Blood 84 mg/dL (75-99)
[2018-03-21] MEDS: ATORVASTATIN 40 MG TAB PO SCH (21:07)
[2018-03-21] MEDS: TAMSULOSIN 0.4 MG CAP.ER.24H PO SCH (21:08)
--- NOTE | 2018-03-21 22:13 | CONS ---
DATE OF CONSULTATION: 03/21/2018 This is a 67-year-old gentleman. I was consulted for pressure ulcer, left foot, Patel grade 2. This patient had this ulcer for some time. He has been treated with local wound care. Patient has been admitted with history of diabetes, congestive heart failure, obesity. On examination, neck is supple. No bruit appreciated. Chest has a few rhonchi at the lung bases. Abdomen is soft. Femoral pulses are 1+. Dorsal pedis is not palpable. Patient has a pressure ulcer on the left heel with some necrotic edges and some callus formation noted. The measurement is 2 x 2 cm. Patient has a history of neuropathy. PLAN: Debridement of the wound. We will follow with you. MMODL / IJN: [id number] / MARQUES
[2018-03-22 04:29] LABS: Glucose,Whole Blood 69 mg/dL (75-99)
[2018-03-22 05:05] LABS: Glucose,Whole Blood 76 mg/dL (75-99)
[2018-03-22] MEDS: SODIUM CHLORIDE 0.9% 1,000 ML IV SCH (05:55)
[2018-03-22] MEDS: INSULIN ASPART 100 UNIT/ML 1 ML 10 ML VIAL SQ SCH ×3 (06:04→16:57)
[2018-03-22 06:05] LABS: Glucose,Whole Blood 102 mg/dL (75-99)
[2018-03-22] MEDS: AMPICILLIN-SULBACTAM 3 GM in SODIUM CHLORIDE 0.9% 100 ML IVPB SCH ×3 (06:07→18:57)
[2018-03-22] MEDS: PANTOPRAZOLE 40 MG TABLET PO SCH (06:08)
[2018-03-22 06:34] LABS: Anisocytosis Slight; Basophils % (A) 0 %; Eosinophils % (A) 1 %; HCT 29.6 % (39.0-53.0); HGB 9.1 gm/dL (13.0-17.5); Hypochromasia Marked; Lymphocytes # (A) 2.1 k/uL (1.0-4.8); Lymphocytes % (A) 27 %; MCH 25.9 pg (25.0-35.0); MCHC 30.6 g/dL (31.0-37.0); MCV 84.7 fL (80.0-100.0); Mean Platelet Volume 7.9; Monocytes # (A) 0.5 k/uL (0-1.0); Monocytes % (A) 6 %; Neutrophils # (A) 4.8 k/uL (1.3-7.7); Neutrophils % (A) 64 %; Platelet Count 153 k/uL (150-450); WBC 7.5 k/uL (3.8-10.6)
[2018-03-22 06:45] LABS: Calcium 9.2 mg/dL (8.4-10.2); Potassium 4.3 mmol/L (3.5-5.1)
[2018-03-22] MEDS ORDERED: INSULIN NPH/REG INSULIN 70/30 300 UNIT/3 ML VIAL SQ SCH ×3 (07:30→17:30)
[2018-03-22] MEDS: HYDROcodone/APAP 7.5-325MG 1 EACH TAB PO PRN ×3 (07:49→20:43)
--- NOTE | 2018-03-22 08:50 | PCN ---
PROCEDURE NOTE DIAGNOSIS: Infected Patel grade 2 ulcer left foot heel. OPERATION: Selective debridement. The patient was seen and left foot was prepped and draped. Drapes were applied in the usual manner. Using scissor, we did the selective debridement then necrotic tissue was removed. We took some deep culture for culture and sensitivity. No active bleeding was noted. The wound was irrigated with saline. Medihoney gel was applied to the wound. Dressing applied. Patient tolerated the procedure well. Post wound debridement is 3 x 2 cm. The tissue was necrotic tissue. Dressing applied. Patient tolerated the procedure well. MMODL / IJN: [id number] /
--- NOTE | 2018-03-22 09:16 | P.PN ---
Subjective Patient is seen in follow-up for acute kidney injury on chronic kidney disease. Creatinine is up to 2.4 today. Patient's currently being treated for left foot ulcer and underwent debridement on March 21. He was noted to be in severe volume overload and is currently maintained on Lasix drip along with metolazone. His urine output in the last 24 hours was over 7 L. Dyspnea is improved. Edema is also gradually improving. Oral intake is good. No vomiting or diarrhea. Vital signs are stable. General: The patient appeared well nourished and normally developed. HEENT: Head exam is unremarkable. Neck is without jugular venous distension. LUNGS: Breath sounds decreased. HEART: Rate and Rhythm are regular. First and second heart sounds normal. No murmurs, rubs or gallops. ABDOMEN: Abdominal exam reveals normal bowel sounds. Non-tender and non- distended. No evidence of peritonitis. EXTREMITITES: 1+ edema. Chronic changes noted. No obvious drainage. Objective - Vital Signs Vital signs: Vital Signs Temp 97.0 F L 03/22/18 04:00 Pulse 90 03/22/18 04:00 Resp 18 03/22/18 04:00 BP 115/62 03/22/18 04:00 Pulse Ox 97 03/22/18 04:00 Intake & Output 03/21/18 03/22/18 03/22/18 18:59 06:59 18:59 Intake Total 790 210 Output Total 5150 1500 Balance -4360 -1290 Weight 183 kg Intake: IV 30 110 Furosemide 250 mg In 30 110 Sodium Chloride 0.9% 225 ml @ 15 MG/HR 15 mls/hr IVP .[id number] [facility] Rx#: [id number] Intake, IV Titration 100 100 Amount Ampicillin-Sulbactam 3 gm 100 In Sodium Chloride 0.9% 100 ml @ 100 mls/hr IVPB Q6HR [facility] Rx#:[id number] Sodium Ferric Gluconat- 100 Sucrose 125 mg In Sodium Chloride 0.9% 100 ml @ 100 mls/hr IVPB DAILY [facility] Rx#:[id number] Oral 660 Output: Urine 5150 1500 Other: Voiding Method Indwelling Catheter Indwelling Catheter - Labs CBC & Chem 7: 03/22/18 05:59 03/22/18 05:59 Labs: Abnormal Lab Results - Last 24 Hours (Table) 05/03/21/18 03/21/18 Range/Units 11:35 12:01 12:17 RBC (4.30-5.90) m/uL Hgb (13.0-17.5) gm/dL Hct (39.0-53.0) % MCHC (31.0-37.0) g/dL RDW (11.5-15.5) % Chloride (98-107) mmol/L Carbon Dioxide (22-30) mmol/L BUN (9-20) mg/dL Creatinine (0.66-1.25) mg/dL POC Glucose (mg/dL) 57 L 69 L 103 H (75-99) mg/dL 03/21/18 03/21/18 03/21/18 Range/Units 12:55 13:58 18:21 RBC (4.30-5.90) m/uL Hgb (13.0-17.5) gm/dL Hct (39.0-53.0) % MCHC (31.0-37.0) g/dL RDW (11.5-15.5) % Chloride (98-107) mmol/L Carbon Dioxide (22-30) mmol/L BUN (9-20) mg/dL Creatinine (0.66-1.25) mg/dL POC Glucose (mg/dL) 108 H 163 H 100 H (75-99) mg/dL 03/21/18 03/22/18 03/22/18 Range/Units 19:15 04:26 05:59 RBC (4.30-5.90) m/uL Hgb (13.0-17.5) gm/dL Hct (39.0-53.0) % MCHC (31.0-37.0) g/dL RDW (11.5-15.5) % Chloride 90 L (98-107) mmol/L Carbon Dioxide 36 H (22-30) mmol/L BUN 81 H* (9-20) mg/dL Creatinine 2.40 H (0.66-1.25) mg/dL POC Glucose (mg/dL) 105 H 69 L (75-99) mg/dL 03/22/18 03/22/18 Range/Units 05:59 06:04 RBC 3.50 L (4.30-5.90) m/uL Hgb 9.1 L (13.0-17.5) gm/dL Hct 29.6 L (39.0-53.0) % MCHC 30.6 L (31.0-37.0) g/dL RDW 18.0 H (11.5-15.5) % Chloride (98-107) mmol/L Carbon Dioxide (22-30) mmol/L BUN (9-20) mg/dL Creatinine (0.66-1.25) mg/dL POC Glucose (mg/dL) 102 H (75-99) mg/dL Microbiology - Last 24 Hours (Table) 03/21/18 17:49 Gram Stain - Preliminary Foot - Left Tissue Culture - Preliminary 03/16/18 17:49 Blood Culture - Preliminary Blood No Growth after 120 hours Assessment and Plan Plan: Assessment: 1. Nonoliguric acute kidney injury mostly prerenal secondary to cardiorenal syndrome. Creatinine up to 2.4 today. Creatinine in May 2017 was 0.95. 2. Rule out chronic kidney disease. Prior UA does reveal proteinuria which is likely secondary to underlying diabetic kidney disease. 3. Hyperkalemia secondary to acute kidney injury and further worsened with the use of lisinopril and Aldactone. Improved with medical management. 4. Diastolic CHF. 5. Volume overload. Gradually improving. Maintaining net negative fluid balance. 6. Left foot diabetic ulcer. Maintain on antibiotics per infectious disease recommendations. Status post debridement on March 21. 7. Insulin-dependent diabetes mellitus. 8. Anemia. Iron deficiency noted. Plan: Discontinue Lasix drip. Start IV Lasix 60 mg twice daily. Maintain metolazone 5 mg daily. 1.5 L fluid restriction. Continue to hold lisinopril and Aldactone. Ferrlecit 125 mg IV daily for 3 days. Third dose today. Repeat electrolytes in the morning.
[2018-03-22] MEDS: IPRATROPIUM-ALBUTEROL 3 ML NEB INHALATION SCH ×4 (09:19→20:16)
[2018-03-22] MEDS: BUDESONIDE 1 MG/2 ML NEBU INHALATION SCH ×2 (09:19→20:16)
[2018-03-22] MEDS: HEPARIN SODIUM,PORCINE 5,000 UNIT/ML 1 ML VIAL SQ SCH ×2 (09:32→15:09)
[2018-03-22] MEDS: guaiFENesin 600 MG TABLET.ER PO SCH ×2 (09:33→20:35)
[2018-03-22] MEDS: MONTELUKAST 10 MG TAB PO SCH (09:33)
[2018-03-22] MEDS: amLODIPine 5 MG TAB PO SCH ×2 (09:33→20:34)
[2018-03-22] MEDS: GABAPENTIN 300 MG CAP PO SCH ×2 (09:33→20:34)
[2018-03-22] MEDS: CHOLECALCIFEROL 1,000 UNIT TAB PO SCH (09:33)
[2018-03-22] MEDS: METOLAZONE 5 MG TAB PO SCH (09:34)
[2018-03-22] MEDS: MAGNESIUM OXIDE 400 MG TAB PO SCH (09:34)
[2018-03-22] MEDS: hydrALAZINE HCL 25 MG TAB PO SCH ×2 (09:34→15:09)
[2018-03-22 09:53] LABS: Glucose,Whole Blood 161 mg/dL (75-99)
[2018-03-22] MEDS: FUROSEMIDE 10 MG/ML 10 ML VIAL IV SCH ×2 (10:00→20:34)
[2018-03-22] MEDS: SODIUM FERRIC GLUCONAT-SUCROSE 125 MG in SODIUM CHLORIDE 0.9% 100 ML IVPB SCH (10:00)
--- NOTE | 2018-03-22 10:11 | P.PN ---
Subjective Progress Note Date: 03/22/18 HPI: This is a 67-year-old male patient being seen examined and evaluated today for consultation. This patient is well-known to our services. This patient was then to see his infectious disease doctor for his left heel ulcer yesterday when he was noted to have some dyspnea and desaturations with his oxygen. He was sent over to the emergency room for evaluation and treatment. Patient states he is also been having some chest pain that has been happening for over a week and he has had difficulty breathing when laying down as well. Patient does utilize home oxygen at night with his CPAP and has been using it during the day as well but it has not been enough. Patient states he has been using his CPAP each night for approximately 8 hours and his compliance has been 100%. Patient states he was taking breathing treatments at home 3-4 times per day via nebulizer which was not helping as well. Chest x-ray was reviewed and does show correlation for CHF exacerbation, cardiomegaly with suspected new small tiny bilateral pleural effusions more prominent mild to moderate central vascular congestion. Patient was admitted to the hospital for further evaluation and treatment. Cardiology was also put on consult. Patient had some elevated CK-MB. Patient also complains that his left heel ulcer has been having a more significant foul smell with more drainage. Infectious disease on consult. Denies any fevers nausea vomiting. Upon examination the patient's resting up in bed on 5 L of supplemental oxygen via nasal cannula. He can point of shortness of breath cough congestion and is unable to bring up any secretions. He also has had some generalized abdominal discomfort complaints and is scheduled to go for a CT of the abdomen per primary services. 03/18-03/19/18- Please see Dr. JUAN ANTONIO Jones notes 03/20/18- patient being seen examined and evaluated today on rounds. He is resting up in bed on 3-4 L of supplement oxygen via nasal cannula. He continues to use his incentive spirometer pulling volumes of approximately 1500 MLS. Patient states he feels his breathing is slightly better. Continue following with infectious disease and wound care. Patient is being worked up for possible debridement. He is afebrile no further complaints. All labs and appointment been reviewed. 03/21/18- patient being seen examined and evaluated on rounds. He is resting up in bed on 3 L of supplemental oxygen via nasal cannula. He states his breathing is much better. His steroids have been discontinued. Patient is waiting for vascular consult for possible debridement of his wound. He is afebrile no further complaints. Nephrology also following along with the patient. 03/22/18- patient is being seen examined and evaluated on rounds. He is resting up in bed on oxygen via nasal cannula. He is more tired today. He was switched from Lasix drip yesterday to IV push Lasix. He did undergo debridement yesterday with vascular surgery. Objective - Vital Signs Vital signs: Vital Signs Temp 97.0 F L 03/22/18 04:00 Pulse 90 03/22/18 09:33 Resp 18 03/22/18 04:00 BP 115/62 03/22/18 04:00 Pulse Ox 97 03/22/18 04:00 Intake & Output 03/21/18 03/22/18 03/22/18 18:59 06:59 18:59 Intake Total 790 210 Output Total 5150 1500 Balance -4360 -1290 Weight 183 kg Intake: IV 30 110 Furosemide 250 mg In 30 110 Sodium Chloride 0.9% 225 ml @ 15 MG/HR 15 mls/hr IVP .[id number] [facility] Rx#: [id number] Intake, IV Titration 100 100 Amount Ampicillin-Sulbactam 3 gm 100 In Sodium Chloride 0.9% 100 ml @ 100 mls/hr IVPB Q6HR [facility] Rx#:[id number] Sodium Ferric Gluconat- 100 Sucrose 125 mg In Sodium Chloride 0.9% 100 ml @ 100 mls/hr IVPB DAILY [facility] Rx#:[id number] Oral 660 Output: Urine 5150 1500 Other: Voiding Method Indwelling Catheter Indwelling Catheter - Exam GENERAL EXAM: Alert, active, comfortable in no apparent distress. Morbidly obese HEAD: Normocephalic. EYES: Normal reaction of pupils, equal size. NOSE: Clear with pink turbinates. THROAT: No erythema or exudates. NECK: No masses, no JVD. CHEST: No chest wall deformity. LUNGS: Equal air entry with few faint expiratory wheezing noted. Bases diminished CVS: S1 and S2 normal with no audible mumurs, regular rhythm. ABDOMEN: No hepatosplenomegaly, normal bowel sounds, no guarding or rigidity. EXTREMITIES: +1 edema noted. Chronic bilateral lower extremity cellulitis. Left lower heel wound, wrapped clean dry and intact CENTRAL NERVOUS SYSTEM: No focal deficits, tone is normal in all 4 extremities. - Labs CBC & Chem 7: 03/22/18 05:59 03/22/18 05:59 Labs: Abnormal Lab Results - Last 24 Hours (Table) 03/21/18 03/21/18 03/21/18 Range/Units 11:35 12:01 12:17 RBC (4.30-5.90) m/uL Hgb (13.0-17.5) gm/dL Hct (39.0-53.0) % MCHC (31.0-37.0) g/dL RDW (11.5-15.5) % Chloride (98-107) mmol/L Carbon Dioxide (22-30) mmol/L BUN (9-20) mg/dL Creatinine (0.66-1.25) mg/dL POC Glucose (mg/dL) 57 L 69 L 103 H (75-99) mg/dL 03/21/18 03/21/18 03/21/18 Range/Units 12:55 13:58 18:21 RBC (4.30-5.90) m/uL Hgb (13.0-17.5) gm/dL Hct (39.0-53.0) % MCHC (31.0-37.0) g/dL RDW (11.5-15.5) % Chloride (98-107) mmol/L Carbon Dioxide (22-30) mmol/L BUN (9-20) mg/dL Creatinine (0.66-1.25) mg/dL POC Glucose (mg/dL) 108 H 163 H 100 H (75-99) mg/dL 03/21/18 03/22/18 03/22/18 Range/Units 19:15 04:26 05:59 RBC (4.30-5.90) m/uL Hgb (13.0-17.5) gm/dL Hct (39.0-53.0) % MCHC (31.0-37.0) g/dL RDW (11.5-15.5) % Chloride 90 L (98-107) mmol/L Carbon Dioxide 36 H (22-30) mmol/L BUN 81 H* (9-20) mg/dL Creatinine 2.40 H (0.66-1.25) mg/dL POC Glucose (mg/dL) 105 H 69 L (75-99) mg/dL 03/22/18 03/22/18 03/22/18 Range/Units 05:59 06:04 09:33 RBC 3.50 L (4.30-5.90) m/uL Hgb 9.1 L (13.0-17.5) gm/dL Hct 29.6 L (39.0-53.0) % MCHC 30.6 L (31.0-37.0) g/dL RDW 18.0 H (11.5-15.5) % Chloride (98-107) mmol/L Carbon Dioxide (22-30) mmol/L BUN (9-20) mg/dL Creatinine (0.66-1.25) mg/dL POC Glucose (mg/dL) 102 H 161 H (75-99) mg/dL Microbiology - Last 24 Hours (Table) 03/21/18 17:49 Gram Stain - Preliminary Foot - Left Tissue Culture - Preliminary 03/16/18 17:49 Blood Culture - Preliminary Blood No Growth after 120 hours Assessment and Plan Assessment: Assessment Acute hypoxic respiratory failure required supplemental oxygen Unstable angina Acute exacerbation of CHF Acute exacerbation of COPD GIOVANY/OHS Diabetes mellitus Left heel wound History of hypertension History of hyperlipidemia Nonspecific diffuse abdominal pain Plan Medications have been reviewed and will be continued as ordered. Continue with antibiotics, steroids have been discontinued. Maintain a negative fluid balance.. Cardiology on consult. Infectious disease on consult. Wound care per infectious disease. Awaiting vascular surgery consult. Continue with pulmonary hygiene, coughing and deep breathing exercises, and supportive care. Supplemental oxygen to maintain oxygen saturations of 92% or better. Uses home CPAP every night and with naps. Sputum culture. Initiate and encourage incentive spirometer use. Continue nebulizer treatments. GI and DVT prophylaxis. PT and OT. We will continue to monitor labs/results and adjust treatment as necessary. Further recommendations pending. I performed an examination of the patient and discussed their management with the nurse practitioner. I have reviewed the nurse practitioner's note and agree with the documented findings and plan of care.
[2018-03-22 11:29] LABS: Glucose,Whole Blood 205 mg/dL (75-99)
--- NOTE | 2018-03-22 11:32 | PN ---
PROGRESS NOTE DATE OF SERVICE: 03/22/2018 REASON FOR FOLLOWUP: Left medial diabetic foot ulcer with secondary cellulitis. INTERVAL HISTORY: The patient is afebrile. The patient did have bedside debridement of his left medial diabetic foot ulcer by Vascular Surgery yesterday. Patient tolerated the procedure, currently denies any significant pain to the ulcer area. The leg swelling has slightly decreased. Denies having any chest pain. Breathing has improved. No abdominal pain, no diarrhea. PHYSICAL EXAMINATION: Blood pressure is 115/52 with a pulse of 90, temperature 97, he is 97% on 2 L nasal cannula. General description is a middle-aged male, lying in bed in no distress. RESPIRATORY SYSTEM: Unlabored breathing, clear to auscultation anteriorly. HEART: S1, S2. Regular rate and rhythm. ABDOMEN: Soft, no tenderness. Left medial ankle wound is currently dressed up, no obvious drainage. LABS: Hemoglobin 9.1, white count 7.5. BUN of 81, creatinine 2.40. DIAGNOSTIC IMPRESSION AND PLAN: Patient with left medial diabetic foot ulcer with secondary cellulitis, currently on Unasyn as we continue to transition him to oral Augmentin on discharge for a short course. Local wound care to continue for Vascular Surgery. Continue supportive care. MMODL / IJN: [id number] /
[2018-03-22] MEDS: MULTIVITAMINS, THERA 1 EACH TAB PO SCH (12:11)
--- NOTE | 2018-03-22 15:00 | P.PN ---
Subjective Progress Note Date: 03/22/18 This is a 67-year-old gentleman who follows with Dr. Fierro in the office. He has a known history of COPD, diabetes, hypertension, hyperlipidemia , sleep apnea, prior nicotine dependence, morbid obesity, BPH, chronic anemia, seen by Dr. Webb in the past, patient had a recent hospitalization in February of this year for complaints of chest pain, was found to have a right-sided pneumonia. Patient was seen in consultation on that visit by Dr. Holland. He had an echocardiogram with Doppler study performed at that time which revealed an ejection fraction of 60-65% with mild aortic valve sclerosis, mild mitral regurgitation, trace of tricuspid regurg, no pulmonary hypertension. A CTA was also performed last month on that admission which was negative for a pulmonary embolism. Patient presents to the hospital on this occasion with symptoms of abdominal bloating as well as a generally not feeling well, symptoms of shortness of breath and chills. EKG on presentation here showed a normal sinus rhythm with nonspecific ST-T wave changes. Chest x-ray suggests CHF exacerbation with moderate central vascular congestion. Foot x-ray was performed which did not reveal any convincing radiographic evidence for acute osteomyelitis. Blood pressure 150/70, 92% on 5 L of oxygen, heart rate in the 80s to 90s. White blood cell count 5.9, hemoglobin 7.8, platelet count 150. Sodium 142, potassium 4.7, BUN 35, creatinine 1.5. Troponins are negative 2. BNP level 907. At the time of my examination, patient is sitting up at his bedside, complains of feeling extremely chilled, does state that his breathing has improved from yesterday. Patient is currently on IV Lasix. 03/18/2018 Patient was initiated on an IV Lasix drip yesterday, he has diuresed well over the night last night, however his weight is not reflective of this this morning. He has diuresed over 3000 through the night last night and currently has a full catheter bag. Sodium 141, potassium 6.0, BUN 38, creatinine 1.5. is currently on a Lasix drip at 15 mg per hour, metolazone daily was also added today. 03/20/2018 Patient seen and examined this morning, diuresing well on IV Lasix. Weight down 9 kg. Patient is diuresing significant amounts on IV Lasix. Creatinine today 1.8. We will continue IV Lasix for 24 hours, changed over to oral diuretics in the morning. We will also repeat a chest x-ray tomorrow morning. 03/21/2018 Patient was seen and examined this morning, continue to diuresis significant amount through the night last night. His weight today is down 6 kg. Sodium 143 , potassium 4.3, BUN 71, creatinine 2.1. Chest x-ray shows continued congestive cardiac failure. 03/22/2018 Patient seen and examined this morning, continues to diurese significant amounts of urine. Creatinine today 2.4. Complaints of feeling exhausted and weak, breathing is overall admitted acutely improved. She Lasix drip was discontinued today and patient was started on Lasix IV push. We will repeat a chest x-ray tomorrow morning. Check lytes BUN and creatinine in the morning , continue to monitor intake and output along with daily weights. Objective - Vital Signs Vital signs: Vital Signs Temp 97.7 F 03/22/18 12:00 Pulse 94 03/22/18 13:24 Resp 20 03/22/18 12:00 BP 120/68 03/22/18 12:00 Pulse Ox 95 03/22/18 12:00 Intake & Output 03/21/18 03/22/18 03/22/18 18:59 06:59 18:59 Intake Total 790 210 118 Output Total 5150 1500 1100 Balance -4360 -1290 -982 Weight 183 kg Intake: IV 30 110 Furosemide 250 mg In 30 110 Sodium Chloride 0.9% 225 ml @ 15 MG/HR 15 mls/hr IVP .[id number] [facility] Rx#: [id number] Intake, IV Titration 100 100 Amount Ampicillin-Sulbactam 3 gm 100 In Sodium Chloride 0.9% 100 ml @ 100 mls/hr IVPB Q6HR [facility] Rx#:[id number] Sodium Ferric Gluconat- 100 Sucrose 125 mg In Sodium Chloride 0.9% 100 ml @ 100 mls/hr IVPB DAILY [facility] Rx#:[id number] Oral 660 118 Output: Urine 5150 1500 1100 Other: Voiding Method Indwelling Catheter Indwelling Catheter Indwelling Catheter - Exam PHYSICAL EXAMINATION: HEENT: Head is atraumatic, normocephalic. Pupils equal, round. Neck is supple. There is no elevated jugular venous pressure. HEART EXAMINATION: Heart S1, S2 normal. No murmur or gallop heard. CHEST EXAMINATION: Lungs reveal scattered coarse rhonchi throughout with diminished air entry to the bases. ABDOMEN: Soft, obese ,nontender. Bowel sounds are heard. No organomegaly noted. EXTREMITIES: 1+ peripheral pulses with evidence of bilateral chronic venous stasis, 1 pitting edema in the bilateral lower extremities, ulcer to the left heel with serous drainage and foul order. Generalized anasarca.. NEUROLOGIC patient is awake, alert and oriented -3. . - Labs CBC & Chem 7: 03/22/18 05:59 03/22/18 05:59 Labs: Abnormal Lab Results - Last 24 Hours (Table) 03/21/18 03/21/18 03/22/18 Range/Units 18:21 19:15 04:26 RBC (4.30-5.90) m/uL Hgb (13.0-17.5) gm/dL Hct (39.0-53.0) % MCHC (31.0-37.0) g/dL RDW (11.5-15.5) % Chloride (98-107) mmol/L Carbon Dioxide (22-30) mmol/L BUN (9-20) mg/dL Creatinine (0.66-1.25) mg/dL POC Glucose (mg/dL) 100 H 105 H 69 L (75-99) mg/dL 03/22/18 03/22/18 03/22/18 Range/Units 05:59 05:59 06:04 RBC 3.50 L (4.30-5.90) m/uL Hgb 9.1 L (13.0-17.5) gm/dL Hct 29.6 L (39.0-53.0) % MCHC 30.6 L (31.0-37.0) g/dL RDW 18.0 H (11.5-15.5) % Chloride 90 L (98-107) mmol/L Carbon Dioxide 36 H (22-30) mmol/L BUN 81 H* (9-20) mg/dL Creatinine 2.40 H (0.66-1.25) mg/dL POC Glucose (mg/dL) 102 H (75-99) mg/dL 03/22/18 03/22/18 Range/Units 09:33 11:26 RBC (4.30-5.90) m/uL Hgb (13.0-17.5) gm/dL Hct (39.0-53.0) % MCHC (31.0-37.0) g/dL RDW (11.5-15.5) % Chloride (98-107) mmol/L Carbon Dioxide (22-30) mmol/L BUN (9-20) mg/dL Creatinine (0.66-1.25) mg/dL POC Glucose (mg/dL) 161 H 205 H (75-99) mg/dL Microbiology - Last 24 Hours (Table) 03/21/18 17:49 Gram Stain - Preliminary Foot - Left Tissue Culture - Preliminary 03/16/18 17:49 Blood Culture - Preliminary Blood No Growth after 120 hours Assessment and Plan Plan: Assessment and plan #1 acute on chronic hypoxic respiratory failure, secondary to acute on chronic diastolic heart failure and pleural effusions with generalized anasarca. Exacerbation of COPD. Patient currently on IV Lasix drip. #2 hypertension #3 hyperlipidemia #4 obstructive sleep apnea # 5 morbid obesity, hoping to undergo bariatric surgery with Dr. Ulises james #6 asthma #7 acute on chronic kidney disease #8 acute on chronic anemia #9 former tobacco use Plan IV Lasix drip has been discontinued and patient has been initiated on IV push Lasix. We will continue to monitor intake and output along with daily weights. Check lytes BUN and creatinine in the morning. He chest x-ray in the morning. DNP note has been reviewed, I agree with a documented findings and plan of care. Patient was seen and examined.
[2018-03-22 16:41] LABS: Glucose,Whole Blood 78 mg/dL (75-99)
[2018-03-22] MEDS: ATORVASTATIN 40 MG TAB PO SCH (20:34)
[2018-03-22] MEDS: TAMSULOSIN 0.4 MG CAP.ER.24H PO SCH (20:35)
[2018-03-22 21:12] LABS: Glucose,Whole Blood 103 mg/dL (75-99)
[2018-03-22] MEDS ORDERED: VANCOMYCIN 1,000 MG in SODIUM CHLORIDE 0.9% 250 ML IVPB STA (23:24)
[2018-03-22] MEDS ORDERED: VANCOMYCIN IV PER PHARMACY 1 EACH MISC MISCELLANE PRN (23:25)
[2018-03-23] MEDS ORDERED: VANCOMYCIN 2,500 MG in SODIUM CHLORIDE 0.9% 500 ML IVPB ONE ×2
[2018-03-23] MEDS: INSULIN ASPART 100 UNIT/ML 1 ML 10 ML VIAL SQ SCH ×5 (00:15→22:11)
[2018-03-23] MEDS: HEPARIN SODIUM,PORCINE 5,000 UNIT/ML 1 ML VIAL SQ SCH ×4 (00:23→23:52)
[2018-03-23] MEDS: hydrALAZINE HCL 25 MG TAB PO SCH ×4 (00:23→21:35)
[2018-03-23] MEDS: SODIUM CHLORIDE 0.9% 1,000 ML IV SCH (00:24)
[2018-03-23] MEDS: AMPICILLIN-SULBACTAM 3 GM in SODIUM CHLORIDE 0.9% 100 ML IVPB SCH (01:49)
[2018-03-23 06:05] LABS: Glucose,Whole Blood 142 mg/dL (75-99)
[2018-03-23 06:27] LABS: Anisocytosis Slight; Basophils % (A) 0 %; Eosinophils # (A) 0.1 k/uL (0-0.7); Eosinophils % (A) 1 %; HCT 27.6 % (39.0-53.0); HGB 8.5 gm/dL (13.0-17.5); Hypochromasia Moderate; Lymphocytes # (A) 1.4 k/uL (1.0-4.8); Lymphocytes % (A) 23 %; MCH 26.5 pg (25.0-35.0); MCHC 30.9 g/dL (31.0-37.0); MCV 85.7 fL (80.0-100.0); Mean Platelet Volume 7.6; Monocytes # (A) 0.4 k/uL (0-1.0); Monocytes % (A) 6 %; Neutrophils # (A) 4.2 k/uL (1.3-7.7); Neutrophils % (A) 68 %; Platelet Count 128 k/uL (150-450); RBC 3.21 m/uL (4.30-5.90); RDW 18.2 % (11.5-15.5); WBC 6.2 k/uL (3.8-10.6)
[2018-03-23] MEDS: PANTOPRAZOLE 40 MG TABLET PO SCH (06:29)
[2018-03-23 06:36] LABS: Calcium 8.4 mg/dL (8.4-10.2); Magnesium 2.2 mg/dL (1.6-2.3); Potassium 4.3 mmol/L (3.5-5.1)
[2018-03-23] MEDS ORDERED: INSULIN NPH/REG INSULIN 70/30 300 UNIT/3 ML VIAL SQ SCH (07:30)
[2018-03-23] MEDS: BUDESONIDE 1 MG/2 ML NEBU INHALATION SCH ×2 (07:39→20:58)
[2018-03-23] MEDS: IPRATROPIUM-ALBUTEROL 3 ML NEB INHALATION SCH ×4 (07:39→20:59)
--- NOTE | 2018-03-23 08:08 | P.PN ---
Subjective Progress Note Date: 03/22/18 This is a 67-year-old male patient of Dr. Johnson with a past medical history of chronic heart failure, COPD, diabetes mellitus type 2 insulin requiring, hypertension, benign prostatic hypertrophy, gastroesophageal reflux disease, hyperlipidemia, obstructive sleep apnea with CPAP, super morbid obesity with plan for gastric sleeve with Dr. Ayala in the near future, chronic anemia seen by Dr. Webb in the past. He had a recent hospitalization for chest pain, acute on chronic hypoxic respiratory failure due to right-sided pneumonia and bilateral pleural effusions and acute kidney injury. Patient was discharged home with home care and oxygen. On last admission, echocardiogram reveals EF of 60-65% with mild aortic valve sclerosis, mild mitral regurgitation , trace tricuspid regurgitation, no pulmonary hypertension. Due to elevated d- dimer, lower extremity duplex was negative for DVT. CTA of the chest showed no evidence of pulmonary embolism. Bilateral pleural effusions with pulmonary mild infiltrate and atelectasis. Chest ultrasound revealed mild bilateral pleural effusions. Patient complains of abdominal bloating and has not have increased anasarca. His weight is up but he is not sure how much as he does not have a scale at home. He currently has home care in place. He does have a cough that he states is nonproductive. He denies any blood in his stool or urine. He has followed up with Dr. Oneil about a week ago. He is supposed to be on Xolair but has been off for quite a while. He has been does diagnosed with asthma and COPD by Dr. Oneil. Patient presented to [facility] emergency center and found to be afebrile, white count was normal, BUN 36 and creatinine 1.5 chest x-ray shows evidence of pleural effusion concerning for heart failure. BNP was 907. Troponin was normal. Foot x-ray did not show osteomyelitis. Blood sugar was 54 and treated with orange juice. EKG was in normal sinus rhythm. Patient was admitted to the selective care unit and consults were requested with Dr. Oneil, cardiology and Dr. Ruiz. Echocardiogram ordered as well as CT of the abdomen and pelvis. Blood culture was obtained. Repeat troponins were negative on 2 draws. His recent hemoglobin A1c was 7.4. A bone scan has been ordered. Consult with Dr. Connor for chronic kidney disease. Patient did require Quinones catheter placement for retention of greater than 1 L. 5/12 Patient examined bedside. Still complains of significant shortness of breath requiring 5 L of oxygen. Currently on 15 mg per hour of Lasix drip. Nephrology recommending holding lisinopril and Aldactone and continue with Lasix drip when metolazone. Patient was evaluated by infectious disease who recommended initiating patient on Unasyn and surgery consult for possible debridement. Creatinine is significantly increased from 0.95-1.59 likely secondary to cardiorenal syndrome. 03/19 {patient assessed bedside. SOB has improved, still requiring 3 l of nasal cannula. Continue lasix drip based on I/ O. Does have abdominal distention with abdomonial wall swelling. Pending vascular surgery evaluation fro debridement 03/20: Left upper extremity Doppler was negative for DVT. For his left foot wound, patient is on local wound care with medihoney and continued on Unasyn. Patient remains on Lasix drip with metolazone. He has had good urine output. Shortness of breath and lower extremity edema and anasarca are improving. He is on a fluid restriction of 1.5 L. Lisinopril and Aldactone remain on hold. Patient has been started on Ferrlecit yesterday for 3 doses daily. Hemoglobin is 9.4. BUN 62 and creatinine 1.8. Patient is currently on Solu-Medrol 60 mg IV every 6 hours per pulmonary which is been decreased to 40 mg every [address] Eduardo on consult for debridement of the left heel ulcer. 03/21: Patient's blood sugars jumped into the 300s yesterday afternoon and evening and Solu-Medrol was discontinued. He was also changed to a consistent carb diet but today at lunch his blood sugars have dropped to 57 and 69. His morning 70/30 insulin decreased from 126 units to 110 units. Today, BUN 71 and creatinine 2.10. Hemoglobin is 9.5. Weight is down 6.6 kg. Patient does state that his breathing and edema are improving. He remains on an insulin drip. 03/22: Patient has been transitioned from Lasix drip to Lasix 60 mg IV every 12 hours. His BUN is 81 creatinine 2.40 with hemoglobin of 9.1. We have increased fluid restriction from 1500 mL to 2 L. Patient had a drop in his blood sugars for which his insulin dosing has been adjusted to 60 units at breakfast and lunch and 40 units at supper. Patient will complete Ferrlecit infusions today. He is continued on vancomycin. Objective - Vital Signs Vital signs: Vital Signs Temp 97.5 F L 03/22/18 08:00 Pulse 90 03/22/18 09:33 Resp 18 03/22/18 08:00 BP 138/72 03/22/18 08:00 Pulse Ox 94 L 03/22/18 08:00 Intake & Output 03/21/18 03/22/18 03/22/18 18:59 06:59 18:59 Intake Total 790 210 118 Output Total 5150 1500 1100 Balance -4360 -5130 -982 Weight 183 kg Intake: IV 30 110 Furosemide 250 mg In 30 110 Sodium Chloride 0.9% 225 ml @ 15 MG/HR 15 mls/hr IVP .[id number] [facility] Rx#: [id number] Intake, IV Titration 100 100 Amount Ampicillin-Sulbactam 3 gm 100 In Sodium Chloride 0.9% 100 ml @ 100 mls/hr IVPB Q6HR [facility] Rx#:[id number] Sodium Ferric Gluconat- 100 Sucrose 125 mg In Sodium Chloride 0.9% 100 ml @ 100 mls/hr IVPB DAILY [facility] Rx#:[id number] Oral 660 118 Output: Urine 5150 1500 1100 Other: Voiding Method Indwelling Catheter Indwelling Catheter Indwelling Catheter - Exam - Constitutional General appearance: Present: average body habitus, cooperative, mild distress - EENT Eyes: Present: EOMI, PERRLA ENT: Present: hearing grossly normal, normal oropharynx Ears: bilateral: normal - Neck Neck: Present: normal ROM. Absent: lymphadenopathy Carotids: bilateral: upstroke normal - Respiratory Respiratory: bilateral: diminished, rhonchi - Cardiovascular Rhythm: regular Heart sounds: normal: S1, S2 Abnormal Heart Sounds: Absent: systolic murmur, diastolic murmur, rub, click - Peripheral edema leg Peripheral Edema: bilateral: 2+ (with open draining heel ulcer on the left leg ) - Gastrointestinal General gastrointestinal: Present: distended, soft. Absent: hepatomegaly, tenderness - Integumentary Integumentary: Absent: calor, cyanotic - Neurologic Neurologic: Present: CNII-XII intact - Musculoskeletal Musculoskeletal: Present: generalized weakness, strength equal bilaterally - Psychiatric Psychiatric: Present: A&O x's 3, appropriate affect - Labs CBC & Chem 7: 03/23/18 05:41 03/23/18 05:41 Labs: Abnormal Lab Results - Last 24 Hours (Table) 03/21/18 03/21/18 03/21/18 Range/Units 12:01 12:17 12:55 RBC (4.30-5.90) m/uL Hgb (13.0-17.5) gm/dL Hct (39.0-53.0) % MCHC (31.0-37.0) g/dL RDW (11.5-15.5) % Chloride (98-107) mmol/L Carbon Dioxide (22-30) mmol/L BUN (9-20) mg/dL Creatinine (0.66-1.25) mg/dL POC Glucose (mg/dL) 69 L 103 H 108 H (75-99) mg/dL 03/21/18 03/21/18 03/21/18 Range/Units 13:58 18:21 19:15 RBC (4.30-5.90) m/uL Hgb (13.0-17.5) gm/dL Hct (39.0-53.0) % MCHC (31.0-37.0) g/dL RDW (11.5-15.5) % Chloride (98-107) mmol/L Carbon Dioxide (22-30) mmol/L BUN (9-20) mg/dL Creatinine (0.66-1.25) mg/dL POC Glucose (mg/dL) 163 H 100 H 105 H (75-99) mg/dL 03/22/18 03/22/18 03/22/18 Range/Units 04:26 05:59 05:59 RBC 3.50 L (4.30-5.90) m/uL Hgb 9.1 L (13.0-17.5) gm/dL Hct 29.6 L (39.0-53.0) % MCHC 30.6 L (31.0-37.0) g/dL RDW 18.0 H (11.5-15.5) % Chloride 90 L (98-107) mmol/L Carbon Dioxide 36 H (22-30) mmol/L BUN 81 H* (9-20) mg/dL Creatinine 2.40 H (0.66-1.25) mg/dL POC Glucose (mg/dL) 69 L (75-99) mg/dL 03/22/18 03/22/18 03/22/18 Range/Units 06:04 09:33 11:26 RBC (4.30-5.90) m/uL Hgb (13.0-17.5) gm/dL Hct (39.0-53.0) % MCHC (31.0-37.0) g/dL RDW (11.5-15.5) % Chloride (98-107) mmol/L Carbon Dioxide (22-30) mmol/L BUN (9-20) mg/dL Creatinine (0.66-1.25) mg/dL POC Glucose (mg/dL) 102 H 161 H 205 H (75-99) mg/dL Microbiology - Last 24 Hours (Table) 03/21/18 17:49 Gram Stain - Preliminary Foot - Left Tissue Culture - Preliminary 03/16/18 17:49 Blood Culture - Preliminary Blood No Growth after 120 hours Assessment and Plan Plan: 1. Chest pain with normal troponins. Continue, aspirin and Nitropaste. Cardiology consult is appreciated. Echocardiogram was recently done on last admission. Patient follows with Dr. Fierro. 2. Acute on chronic hypoxic respiratory failure secondary to acute on chronic diastolic heart failure and pleural effusions with generalized anasarca and acute exacerbation of COPD as well as abdominal distention. Consult Dr. Oneil and cardiology. Lasix 60 mg IV every 12 hours and metolazone. DuoNeb treatments 4 times daily as needed and Pulmicort twice daily. Solu-Medrol discontinued due to hyperglycemia. 2 L fluid restriction. 3. Diabetes mellitus type 2 uncontrolled, insulin requiring with diabetic neuropathy. Patient presented with hypoglycemia. Adjusted 70/30-60 units with breakfast and lunch 40 units at supper. Continue NovoLog scale. Continue gabapentin 300 mg twice daily. Hemoglobin A1c 7.7. 4. Abdominal distention secondary to anasarca. 5. Hypertension. Continue Norvasc 5 mg twice daily, lisinopril held due to renal failure. 6. Hyperlipidemia. Continue Lipitor 40 mg at bedtime. 7. Urinary retention secondary to benign prostatic hypertrophy continue Flomax 0.4 mg at bedtime. Quinones catheter 8. Obstructive sleep apnea on CPAP. Patient to continue to use CPAP while hospitalized 9. Diabetic ulcer left heel. Local wound care will be in the form of medihoney. Wound culture to be obtained. [facility] as he has transportation problems. Consult Dr. Ruiz and completed recent antibiotics. Continue Unasyn. Consult Dr. Eduardo for debridement. 10. Morbidly obesity with BMI of 50 with plan for bariatric surgery with Dr. Ayala. 11. Chronic kidney disease stage IIIA. Baseline creatinine is 1.5. 12. Moderate persistent asthma, stable. Patient follows with Dr. Oneil. Continue DuoNeb treatments, Pulmicort, Singulair. 13. DVT prophylaxis. Patient on heparin subcu. 14. GI prophylaxis and gastroesophageal reflux disease and hiatal hernia. Continue Protonix. Discharge plan: [place]. Impression and plan of care have been directed as dictated by the signing physician. Candy Magana nurse practitioner acting as scribe for signing physician.
--- NOTE | 2018-03-23 08:58 | P.PN ---
Subjective Patient is seen in follow-up for acute kidney injury on chronic kidney disease. Creatinine stable at 2.43 today. Patient's currently being treated for left foot ulcer and underwent debridement on March 21. Tissue culture is positive for MRSA. He was noted to be in severe volume overload and is currently maintained on Lasix 60 mg IV twice daily. His urine output in the last 24 hours was over 4 L. Dyspnea is improved. Edema is also gradually improving. Oral intake is good. No vomiting or diarrhea. Vital signs are stable. General: The patient appeared well nourished and normally developed. HEENT: Head exam is unremarkable. Neck is without jugular venous distension. LUNGS: Breath sounds decreased. HEART: Rate and Rhythm are regular. First and second heart sounds normal. No murmurs, rubs or gallops. ABDOMEN: Abdominal exam reveals normal bowel sounds. Non-tender and non- distended. No evidence of peritonitis. EXTREMITITES: 1+ edema. Chronic changes noted. No obvious drainage. Objective - Vital Signs Vital signs: Vital Signs Temp 98 F 03/23/18 08:00 Pulse 80 03/23/18 08:00 Resp 18 03/23/18 08:00 BP 141/69 03/23/18 08:00 Pulse Ox 96 03/23/18 08:00 Intake & Output 03/22/18 03/23/18 03/23/18 18:59 06:59 18:59 Intake Total 386 500 118 Output Total 2250 2300 Balance -1864 -1800 118 Weight 197 kg Intake: Intake, IV Titration 500 Amount Vancomycin 2,500 mg In 500 Sodium Chloride 0.9% 500 ml @ 167 mls/hr IVPB ONCE ONE Rx#:[id number] Oral 386 118 Output: Urine 2250 2300 Other: Voiding Method Indwelling Catheter Indwelling Catheter - Labs CBC & Chem 7: 03/23/18 05:41 03/23/18 05:41 Labs: Abnormal Lab Results - Last 24 Hours (Table) 03/22/18 03/22/18 03/22/18 Range/Units 09:33 11:26 21:11 RBC (4.30-5.90) m/uL Hgb (13.0-17.5) gm/dL Hct (39.0-53.0) % MCHC (31.0-37.0) g/dL RDW (11.5-15.5) % Plt Count (150-450) k/uL Chloride (98-107) mmol/L Carbon Dioxide (22-30) mmol/L BUN (9-20) mg/dL Creatinine (0.66-1.25) mg/dL Glucose (74-99) mg/dL POC Glucose (mg/dL) 161 H 205 H 103 H (75-99) mg/dL 03/23/18 03/23/18 03/23/18 Range/Units 05:41 05:41 06:02 RBC 3.21 L (4.30-5.90) m/uL Hgb 8.5 L (13.0-17.5) gm/dL Hct 27.6 L (39.0-53.0) % MCHC 30.9 L (31.0-37.0) g/dL RDW 18.2 H (11.5-15.5) % Plt Count 128 L (150-450) k/uL Chloride 91 L (98-107) mmol/L Carbon Dioxide 36 H (22-30) mmol/L BUN 89 H* (9-20) mg/dL Creatinine 2.43 H (0.66-1.25) mg/dL Glucose 105 H (74-99) mg/dL POC Glucose (mg/dL) 142 H (75-99) mg/dL Microbiology - Last 24 Hours (Table) 03/21/18 17:49 Gram Stain - Preliminary Foot - Left Tissue Culture - Preliminary Presumptive MRSA 03/16/18 17:49 Blood Culture - Final Blood No Growth after 144 hours Assessment and Plan Plan: Assessment: 1. Nonoliguric acute kidney injury mostly prerenal secondary to cardiorenal syndrome. Creatinine stable at 2.4 today. Creatinine in May 2017 was 0.95. 2. Rule out chronic kidney disease. Prior UA does reveal proteinuria which is likely secondary to underlying diabetic kidney disease. 3. Hyperkalemia secondary to acute kidney injury and further worsened with the use of lisinopril and Aldactone. Improved with medical management. 4. Diastolic CHF. 5. Volume overload. Gradually improving. Maintaining net negative fluid balance. 6. Left foot diabetic ulcer. Maintain on antibiotics per infectious disease recommendations. Status post debridement on March 21. Tissue culture positive for MRSA. 7. Insulin-dependent diabetes mellitus. 8. Anemia. Iron deficiency noted - status post 3 doses of IV iron. Plan: Maintain Lasix 60 mg twice daily. Maintain metolazone 5 mg daily. 1.5 L fluid restriction. Continue to hold lisinopril and Aldactone. Monitor vancomycin levels. Add Aranesp. Repeat electrolytes in the morning.
[2018-03-23] MEDS ORDERED: DARBEPOETIN ALFA 40 MCG/0.4 ML SYRINGE SQ SCH (09:00)
[2018-03-23] MEDS: FUROSEMIDE 10 MG/ML 10 ML VIAL IV SCH ×2 (09:56→21:35)
[2018-03-23] MEDS: METOLAZONE 5 MG TAB PO SCH (09:57)
[2018-03-23] MEDS: MONTELUKAST 10 MG TAB PO SCH (09:57)
[2018-03-23] MEDS: guaiFENesin 600 MG TABLET.ER PO SCH ×2 (09:57→21:35)
[2018-03-23] MEDS: GABAPENTIN 300 MG CAP PO SCH ×2 (09:57→21:35)
[2018-03-23] MEDS: amLODIPine 5 MG TAB PO SCH ×2 (09:57→21:35)
[2018-03-23] MEDS: CHOLECALCIFEROL 1,000 UNIT TAB PO SCH (09:57)
[2018-03-23] MEDS: HYDROcodone/APAP 7.5-325MG 1 EACH TAB PO PRN (09:57)
[2018-03-23] MEDS: MAGNESIUM OXIDE 400 MG TAB PO SCH (09:58)
[2018-03-23 11:42] LABS: Glucose,Whole Blood 217 mg/dL (75-99)
--- NOTE | 2018-03-23 11:45 | P.PN ---
Subjective Progress Note Date: 03/23/18 This is a 67-year-old male patient of Dr. Johnson with a past medical history of chronic heart failure, COPD, diabetes mellitus type 2 insulin requiring, hypertension, benign prostatic hypertrophy, gastroesophageal reflux disease, hyperlipidemia, obstructive sleep apnea with CPAP, super morbid obesity with plan for gastric sleeve with Dr. Ayala in the near future, chronic anemia seen by Dr. Webb in the past. He had a recent hospitalization for chest pain, acute on chronic hypoxic respiratory failure due to right-sided pneumonia and bilateral pleural effusions and acute kidney injury. Patient was discharged home with home care and oxygen. On last admission, echocardiogram reveals EF of 60-65% with mild aortic valve sclerosis, mild mitral regurgitation , trace tricuspid regurgitation, no pulmonary hypertension. Due to elevated d- dimer, lower extremity duplex was negative for DVT. CTA of the chest showed no evidence of pulmonary embolism. Bilateral pleural effusions with pulmonary mild infiltrate and atelectasis. Chest ultrasound revealed mild bilateral pleural effusions. Patient complains of abdominal bloating and has not have increased anasarca. His weight is up but he is not sure how much as he does not have a scale at home. He currently has home care in place. He does have a cough that he states is nonproductive. He denies any blood in his stool or urine. He has followed up with Dr. Oneil about a week ago. He is supposed to be on Xolair but has been off for quite a while. He has been does diagnosed with asthma and COPD by Dr. Oneil. Patient presented to [facility] emergency center and found to be afebrile, white count was normal, BUN 36 and creatinine 1.5 chest x-ray shows evidence of pleural effusion concerning for heart failure. BNP was 907. Troponin was normal. Foot x-ray did not show osteomyelitis. Blood sugar was 54 and treated with orange juice. EKG was in normal sinus rhythm. Patient was admitted to the selective care unit and consults were requested with Dr. Oneil, cardiology and Dr. Ruiz. Echocardiogram ordered as well as CT of the abdomen and pelvis. Blood culture was obtained. Repeat troponins were negative on 2 draws. His recent hemoglobin A1c was 7.4. A bone scan has been ordered. Consult with Dr. Connor for chronic kidney disease. Patient did require Quinones catheter placement for retention of greater than 1 L. 5/12 Patient examined bedside. Still complains of significant shortness of breath requiring 5 L of oxygen. Currently on 15 mg per hour of Lasix drip. Nephrology recommending holding lisinopril and Aldactone and continue with Lasix drip when metolazone. Patient was evaluated by infectious disease who recommended initiating patient on Unasyn and surgery consult for possible debridement. Creatinine is significantly increased from 0.95-1.59 likely secondary to cardiorenal syndrome. 03/19 {patient assessed bedside. SOB has improved, still requiring 3 l of nasal cannula. Continue lasix drip based on I/ O. Does have abdominal distention with abdomonial wall swelling. Pending vascular surgery evaluation fro debridement 03/20: Left upper extremity Doppler was negative for DVT. For his left foot wound, patient is on local wound care with medihoney and continued on Unasyn. Patient remains on Lasix drip with metolazone. He has had good urine output. Shortness of breath and lower extremity edema and anasarca are improving. He is on a fluid restriction of 1.5 L. Lisinopril and Aldactone remain on hold. Patient has been started on Ferrlecit yesterday for 3 doses daily. Hemoglobin is 9.4. BUN 62 and creatinine 1.8. Patient is currently on Solu-Medrol 60 mg IV every 6 hours per pulmonary which is been decreased to 40 mg every [address] Eduardo on consult for debridement of the left heel ulcer. 03/21: Patient's blood sugars jumped into the 300s yesterday afternoon and evening and Solu-Medrol was discontinued. He was also changed to a consistent carb diet but today at lunch his blood sugars have dropped to 57 and 69. His morning 70/30 insulin decreased from 126 units to 110 units. Today, BUN 71 and creatinine 2.10. Hemoglobin is 9.5. Weight is down 6.6 kg. Patient does state that his breathing and edema are improving. He remains on an insulin drip. 03/22: Patient has been transitioned from Lasix drip to Lasix 60 mg IV every 12 hours. His BUN is 81 creatinine 2.40 with hemoglobin of 9.1. We have increased fluid restriction from 1500 mL to 2 L. Patient had a drop in his blood sugars for which his insulin dosing has been adjusted to 60 units at breakfast and lunch and 40 units at supper. Patient will complete Ferrlecit infusions today. He is continued on vancomycin. 03/23: Patient was very lethargic and sleepy yesterday for her nursing staff. Patient states that he was "out of it." Patient's blood sugars were on the low side and all his scheduled insulin was discontinued. This morning, patient mentation is back to baseline. He is awake alert and oriented 3. He underwent debridement was Dr. Eduardo last evening. Wound culture came back with MRSA. Patient is on vancomycin, pharmacy dosing. Lasix is IV 60 mg every 6 hours. He is continued on metolazone. Patient does have decreased abdominal edema. BUN 89 and creatinine 2.43. Objective - Vital Signs Vital signs: Vital Signs Temp 97.9 F 03/23/18 03:40 Pulse 97 03/23/18 03:40 Resp 18 03/23/18 03:40 BP 149/65 03/23/18 03:40 Pulse Ox 97 03/23/18 03:40 Intake & Output 03/22/18 03/23/18 03/23/18 18:59 06:59 18:59 Intake Total 386 500 118 Output Total 2250 2300 Balance -1864 -1800 118 Weight 197 kg Intake: Intake, IV Titration 500 Amount Vancomycin 2,500 mg In 500 Sodium Chloride 0.9% 500 ml @ 167 mls/hr IVPB ONCE ONE Rx#:[id number] Oral 386 118 Output: Urine 2250 2300 Other: Voiding Method Indwelling Catheter Indwelling Catheter - Exam - Constitutional General appearance: Present: average body habitus, cooperative, mild distress - EENT Eyes: Present: EOMI, PERRLA ENT: Present: hearing grossly normal, normal oropharynx Ears: bilateral: normal - Neck Neck: Present: normal ROM. Absent: lymphadenopathy Carotids: bilateral: upstroke normal - Respiratory Respiratory: bilateral: diminished, rhonchi - Cardiovascular Rhythm: regular Heart sounds: normal: S1, S2 Abnormal Heart Sounds: Absent: systolic murmur, diastolic murmur, rub, click - Peripheral edema leg Peripheral Edema: bilateral: 2+ (with open draining heel ulcer on the left leg ) - Gastrointestinal General gastrointestinal: Present: distended, soft. Absent: hepatomegaly, tenderness - Integumentary Integumentary: Absent: calor, cyanotic - Neurologic Neurologic: Present: CNII-XII intact - Musculoskeletal Musculoskeletal: Present: generalized weakness, strength equal bilaterally - Psychiatric Psychiatric: Present: A&O x's 3, appropriate affect - Labs CBC & Chem 7: 03/23/18 05:41 03/23/18 05:41 Labs: Abnormal Lab Results - Last 24 Hours (Table) 03/22/18 03/22/18 03/22/18 Range/Units 09:33 11:26 21:11 RBC (4.30-5.90) m/uL Hgb (13.0-17.5) gm/dL Hct (39.0-53.0) % MCHC (31.0-37.0) g/dL RDW (11.5-15.5) % Plt Count (150-450) k/uL Chloride (98-107) mmol/L Carbon Dioxide (22-30) mmol/L BUN (9-20) mg/dL Creatinine (0.66-1.25) mg/dL Glucose (74-99) mg/dL POC Glucose (mg/dL) 161 H 205 H 103 H (75-99) mg/dL 03/23/18 03/23/18 03/23/18 Range/Units 05:41 05:41 06:02 RBC 3.21 L (4.30-5.90) m/uL Hgb 8.5 L (13.0-17.5) gm/dL Hct 27.6 L (39.0-53.0) % MCHC 30.9 L (31.0-37.0) g/dL RDW 18.2 H (11.5-15.5) % Plt Count 128 L (150-450) k/uL Chloride 91 L (98-107) mmol/L Carbon Dioxide 36 H (22-30) mmol/L BUN 89 H* (9-20) mg/dL Creatinine 2.43 H (0.66-1.25) mg/dL Glucose 105 H (74-99) mg/dL POC Glucose (mg/dL) 142 H (75-99) mg/dL Microbiology - Last 24 Hours (Table) 03/21/18 17:49 Gram Stain - Preliminary Foot - Left Tissue Culture - Preliminary Presumptive MRSA 03/16/18 17:49 Blood Culture - Final Blood No Growth after 144 hours Assessment and Plan Plan: 1. Chest pain with normal troponins. Continue, aspirin and Nitropaste. Cardiology consult is appreciated. Echocardiogram was recently done on last admission. Patient follows with Dr. Fierro. 2. Acute on chronic hypoxic respiratory failure secondary to acute on chronic diastolic heart failure and pleural effusions with generalized anasarca and acute exacerbation of COPD as well as abdominal distention. Consult Dr. Oneil and cardiology. Lasix 60 mg IV every 12 hours and metolazone. DuoNeb treatments 4 times daily as needed and Pulmicort twice daily. Solu-Medrol discontinued due to hyperglycemia. 2 L fluid restriction. 3. Diabetes mellitus type 2 uncontrolled, insulin requiring with diabetic neuropathy. Patient presented with hypoglycemia. Adjusted 70/30-60 units with breakfast and lunch 40 units at supper. Continue NovoLog scale. Continue gabapentin 300 mg twice daily. Hemoglobin A1c 7.7. 4. Abdominal distention secondary to anasarca. 5. Hypertension. Continue Norvasc 5 mg twice daily, lisinopril held due to renal failure. 6. Hyperlipidemia. Continue Lipitor 40 mg at bedtime. 7. Urinary retention secondary to benign prostatic hypertrophy continue Flomax 0.4 mg at bedtime. Quinones catheter 8. Obstructive sleep apnea on CPAP. Patient to continue to use CPAP while hospitalized 9. Diabetic ulcer left heel. Local wound care will be in the form of medihoney. Wound culture to be obtained. [facility] as he has transportation problems. Consult Dr. Ruiz and completed recent antibiotics. Continue vancomycin for MRSA. Consult Dr. Eduardo status post debridement. 10. Morbidly obesity with BMI of 50 with plan for bariatric surgery with Dr. Ayala. 11. Chronic kidney disease stage IIIA. Baseline creatinine is 1.5. 12. Moderate persistent asthma, stable. Patient follows with Dr. Oneil. Continue DuoNeb treatments, Pulmicort, Singulair. 13. DVT prophylaxis. Patient on heparin subcu. 14. GI prophylaxis and gastroesophageal reflux disease and hiatal hernia. Continue Protonix. Discharge plan: on Tuesday. Impression and plan of care have been directed as dictated by the signing physician. Candy Magana nurse practitioner acting as scribe for signing physician.
--- NOTE | 2018-03-23 13:09 | P.PN ---
Subjective Progress Note Date: 03/23/18 Principal diagnosis: Acute exacerbation of CHF HPI: This is a 67-year-old male patient being seen examined and evaluated today for consultation. This patient is well-known to our services. This patient was then to see his infectious disease doctor for his left heel ulcer yesterday when he was noted to have some dyspnea and desaturations with his oxygen. He was sent over to the emergency room for evaluation and treatment. Patient states he is also been having some chest pain that has been happening for over a week and he has had difficulty breathing when laying down as well. Patient does utilize home oxygen at night with his CPAP and has been using it during the day as well but it has not been enough. Patient states he has been using his CPAP each night for approximately 8 hours and his compliance has been 100%. Patient states he was taking breathing treatments at home 3-4 times per day via nebulizer which was not helping as well. Chest x-ray was reviewed and does show correlation for CHF exacerbation, cardiomegaly with suspected new small tiny bilateral pleural effusions more prominent mild to moderate central vascular congestion. Patient was admitted to the hospital for further evaluation and treatment. Cardiology was also put on consult. Patient had some elevated CK-MB. Patient also complains that his left heel ulcer has been having a more significant foul smell with more drainage. Infectious disease on consult. Denies any fevers nausea vomiting. Upon examination the patient's resting up in bed on 5 L of supplemental oxygen via nasal cannula. He can point of shortness of breath cough congestion and is unable to bring up any secretions. He also has had some generalized abdominal discomfort complaints and is scheduled to go for a CT of the abdomen per primary services. 03/18-03/19/18- Please see Dr. JUAN ANTONIO Jones notes 03/20/18- patient being seen examined and evaluated today on rounds. He is resting up in bed on 3-4 L of supplement oxygen via nasal cannula. He continues to use his incentive spirometer pulling volumes of approximately 1500 MLS. Patient states he feels his breathing is slightly better. Continue following with infectious disease and wound care. Patient is being worked up for possible debridement. He is afebrile no further complaints. All labs and appointment been reviewed. 03/21/18- patient being seen examined and evaluated on rounds. He is resting up in bed on 3 L of supplemental oxygen via nasal cannula. He states his breathing is much better. His steroids have been discontinued. Patient is waiting for vascular consult for possible debridement of his wound. He is afebrile no further complaints. Nephrology also following along with the patient. 03/22/18- patient is being seen examined and evaluated on rounds. He is resting up in bed on oxygen via nasal cannula. He is more tired today. He was switched from Lasix drip yesterday to IV push Lasix. He did undergo debridement yesterday with vascular surgery. 03/23/2018: Patient seen and examined. Patient states his breathing is about at baseline. He is wondering if he should've oxygen to go home with. He is planning on going to [facility] for rehab tomorrow. Creatinine is 2.43 today, BUN is 83. The patient states that he is very weak and can barely walk. Objective - Vital Signs Vital signs: Vital Signs Temp 98 F 03/23/18 08:00 Pulse 88 03/23/18 11:31 Resp 18 03/23/18 08:00 BP 141/69 03/23/18 08:00 Pulse Ox 96 03/23/18 08:00 Intake & Output 03/22/18 03/23/18 03/23/18 18:59 06:59 18:59 Intake Total 386 500 218 Output Total 3250 2300 475 Balance -6224 -1800 -647 Weight 197 kg 197 kg Intake: Intake, IV Titration 500 Amount Vancomycin 2,500 mg In 500 Sodium Chloride 0.9% 500 ml @ 167 mls/hr IVPB ONCE ONE Rx#:[id number] Oral 386 218 Output: Urine 3250 2300 475 Other: Voiding Method Indwelling Catheter Indwelling Catheter Indwelling Catheter - Exam GENERAL EXAM: Alert, active, comfortable in no apparent distress. Morbidly obese HEAD: Normocephalic. EYES: Normal reaction of pupils, equal size. NOSE: Clear with pink turbinates. THROAT: No erythema or exudates. NECK: No masses, no JVD. CHEST: No chest wall deformity. LUNGS: Equal air entry with few faint expiratory wheezing noted. Bases diminished CVS: S1 and S2 normal with no audible mumurs, regular rhythm. ABDOMEN: No hepatosplenomegaly, normal bowel sounds, no guarding or rigidity. EXTREMITIES: +1 edema noted. Chronic bilateral lower extremity cellulitis. Left lower heel wound, wrapped clean dry and intact CENTRAL NERVOUS SYSTEM: No focal deficits, tone is normal in all 4 extremities. - Labs CBC & Chem 7: 03/23/18 05:41 03/23/18 05:41 Labs: Abnormal Lab Results - Last 24 Hours (Table) 03/22/18 03/23/18 03/23/18 Range/Units 21:11 05:41 05:41 RBC 3.21 L (4.30-5.90) m/uL Hgb 8.5 L (13.0-17.5) gm/dL Hct 27.6 L (39.0-53.0) % MCHC 30.9 L (31.0-37.0) g/dL RDW 18.2 H (11.5-15.5) % Plt Count 128 L (150-450) k/uL Chloride 91 L (98-107) mmol/L Carbon Dioxide 36 H (22-30) mmol/L BUN 89 H* (9-20) mg/dL Creatinine 2.43 H (0.66-1.25) mg/dL Glucose 105 H (74-99) mg/dL POC Glucose (mg/dL) 103 H (75-99) mg/dL 03/23/18 03/23/18 Range/Units 06:02 11:41 RBC (4.30-5.90) m/uL Hgb (13.0-17.5) gm/dL Hct (39.0-53.0) % MCHC (31.0-37.0) g/dL RDW (11.5-15.5) % Plt Count (150-450) k/uL Chloride (98-107) mmol/L Carbon Dioxide (22-30) mmol/L BUN (9-20) mg/dL Creatinine (0.66-1.25) mg/dL Glucose (74-99) mg/dL POC Glucose (mg/dL) 142 H 217 H (75-99) mg/dL Microbiology - Last 24 Hours (Table) 03/21/18 17:49 Gram Stain - Preliminary Foot - Left Tissue Culture - Preliminary Presumptive MRSA 03/16/18 17:49 Blood Culture - Final Blood No Growth after 144 hours Assessment and Plan Assessment: Assessment Acute hypoxic respiratory failure required supplemental oxygen Unstable angina Acute exacerbation of CHF, diastolic Acute exacerbation of COPD History of hypersensitivity pneumonitis GIOVANY/OHS Diabetes mellitus Left heel wound History of hypertension History of hyperlipidemia Nonspecific diffuse abdominal pain Plan Medications have been reviewed and will be continued as ordered. Continue with antibiotics, steroids have been discontinued. Maintain a negative fluid balance.. Cardiology on consult. Infectious disease on consult. Wound care per infectious disease. Continue with pulmonary hygiene, coughing and deep breathing exercises, and supportive care. Supplemental oxygen to maintain oxygen saturations of 92% or better. Uses home CPAP every night and with naps. Initiate and encourage incentive spirometer use. Continue nebulizer treatments. GI and DVT prophylaxis. PT and OT. We will continue to monitor labs/results and adjust treatment as necessary. Further recommendations pending. Ambulatory pulse ox prior to discharge to assess for oxygen needs.
[2018-03-23 13:24] LABS: Glucose,Whole Blood 324 mg/dL (75-99)
[2018-03-23] MEDS: MULTIVITAMINS, THERA 1 EACH TAB PO SCH (13:27)
--- NOTE | 2018-03-23 15:07 | P.PN ---
Subjective Progress Note Date: 03/23/18 This is a 67-year-old gentleman who follows with Dr. Fierro in the office. He has a known history of COPD, diabetes, hypertension, hyperlipidemia , sleep apnea, prior nicotine dependence, morbid obesity, BPH, chronic anemia, seen by Dr. Webb in the past, patient had a recent hospitalization in February of this year for complaints of chest pain, was found to have a right-sided pneumonia. Patient was seen in consultation on that visit by Dr. Holland. He had an echocardiogram with Doppler study performed at that time which revealed an ejection fraction of 60-65% with mild aortic valve sclerosis, mild mitral regurgitation, trace of tricuspid regurg, no pulmonary hypertension. A CTA was also performed last month on that admission which was negative for a pulmonary embolism. Patient presents to the hospital on this occasion with symptoms of abdominal bloating as well as a generally not feeling well, symptoms of shortness of breath and chills. EKG on presentation here showed a normal sinus rhythm with nonspecific ST-T wave changes. Chest x-ray suggests CHF exacerbation with moderate central vascular congestion. Foot x-ray was performed which did not reveal any convincing radiographic evidence for acute osteomyelitis. Blood pressure 150/70, 92% on 5 L of oxygen, heart rate in the 80s to 90s. White blood cell count 5.9, hemoglobin 7.8, platelet count 150. Sodium 142, potassium 4.7, BUN 35, creatinine 1.5. Troponins are negative 2. BNP level 907. At the time of my examination, patient is sitting up at his bedside, complains of feeling extremely chilled, does state that his breathing has improved from yesterday. Patient is currently on IV Lasix. 03/18/2018 Patient was initiated on an IV Lasix drip yesterday, he has diuresed well over the night last night, however his weight is not reflective of this this morning. He has diuresed over 3000 through the night last night and currently has a full catheter bag. Sodium 141, potassium 6.0, BUN 38, creatinine 1.5. is currently on a Lasix drip at 15 mg per hour, metolazone daily was also added today. 03/20/2018 Patient seen and examined this morning, diuresing well on IV Lasix. Weight down 9 kg. Patient is diuresing significant amounts on IV Lasix. Creatinine today 1.8. We will continue IV Lasix for 24 hours, changed over to oral diuretics in the morning. We will also repeat a chest x-ray tomorrow morning. 03/21/2018 Patient was seen and examined this morning, continue to diuresis significant amount through the night last night. His weight today is down 6 kg. Sodium 143 , potassium 4.3, BUN 71, creatinine 2.1. Chest x-ray shows continued congestive cardiac failure. 03/22/2018 Patient seen and examined this morning, continues to diurese significant amounts of urine. Creatinine today 2.4. Complaints of feeling exhausted and weak, breathing is overall admitted acutely improved. She Lasix drip was discontinued today and patient was started on Lasix IV push. We will repeat a chest x-ray tomorrow morning. Check lytes BUN and creatinine in the morning , continue to monitor intake and output along with daily weights. 03/23/2018 Patient was seen and examined this morning, feeling significantly better overall. 10 you to diurese well and again through the night last night. Creatinine 2.4 today. Hemoglobin 8.5. Continued on IV Lasix by nephrology. Objective - Vital Signs Vital signs: Vital Signs Temp 97.5 F L 03/23/18 12:00 Pulse 88 03/23/18 12:00 Resp 18 03/23/18 12:00 BP 130/74 03/23/18 12:00 Pulse Ox 98 03/23/18 13:09 Intake & Output 03/22/18 03/23/18 03/23/18 18:59 06:59 18:59 Intake Total 386 500 218 Output Total 3250 2300 1400 Balance -3850 -1800 1181 Weight 197 kg 197 kg Intake: Intake, IV Titration 500 Amount Vancomycin 2,500 mg In 500 Sodium Chloride 0.9% 500 ml @ 167 mls/hr IVPB ONCE ONE Rx#:[id number] Oral [id number] 218 Output: Urine 3250 2300 1400 Other: Voiding Method Indwelling Catheter Indwelling Catheter Indwelling Catheter - Exam PHYSICAL EXAMINATION: HEENT: Head is atraumatic, normocephalic. Pupils equal, round. Neck is supple. There is no elevated jugular venous pressure. HEART EXAMINATION: Heart S1, S2 normal. No murmur or gallop heard. CHEST EXAMINATION: Lungs reveal scattered coarse rhonchi throughout with diminished air entry to the bases. ABDOMEN: Soft, obese ,nontender. Bowel sounds are heard. No organomegaly noted. EXTREMITIES: 1+ peripheral pulses with evidence of bilateral chronic venous stasis, 1 pitting edema in the bilateral lower extremities, ulcer to the left heel with serous drainage and foul order. Generalized anasarca.. NEUROLOGIC patient is awake, alert and oriented -3. . - Labs CBC & Chem 7: 03/23/18 05:41 03/23/18 05:41 Labs: Abnormal Lab Results - Last 24 Hours (Table) 03/22/18 03/23/18 03/23/18 Range/Units 21:11 05:41 05:41 RBC 3.21 L (4.30-5.90) m/uL Hgb 8.5 L (13.0-17.5) gm/dL Hct 27.6 L (39.0-53.0) % MCHC 30.9 L (31.0-37.0) g/dL RDW 18.2 H (11.5-15.5) % Plt Count 128 L (150-450) k/uL Chloride 91 L (98-107) mmol/L Carbon Dioxide 36 H (22-30) mmol/L BUN 89 H* (9-20) mg/dL Creatinine 2.43 H (0.66-1.25) mg/dL Glucose 105 H (74-99) mg/dL POC Glucose (mg/dL) 103 H (75-99) mg/dL 03/23/18 03/23/18 03/23/18 Range/Units 06:02 11:41 13:22 RBC (4.30-5.90) m/uL Hgb (13.0-17.5) gm/dL Hct (39.0-53.0) % MCHC (31.0-37.0) g/dL RDW (11.5-15.5) % Plt Count (150-450) k/uL Chloride (98-107) mmol/L Carbon Dioxide (22-30) mmol/L BUN (9-20) mg/dL Creatinine (0.66-1.25) mg/dL Glucose (74-99) mg/dL POC Glucose (mg/dL) 142 H 217 H 324 H (75-99) mg/dL Microbiology - Last 24 Hours (Table) 03/21/18 17:49 Gram Stain - Preliminary Foot - Left Tissue Culture - Preliminary Presumptive MRSA 03/16/18 17:49 Blood Culture - Final Blood No Growth after 144 hours Assessment and Plan Plan: Assessment and plan #1 acute on chronic hypoxic respiratory failure, secondary to acute on chronic diastolic heart failure and pleural effusions with generalized anasarca. Exacerbation of COPD. Patient currently on IV Lasix drip. #2 hypertension #3 hyperlipidemia #4 obstructive sleep apnea # 5 morbid obesity, hoping to undergo bariatric surgery with Dr. Ulises james #6 asthma #7 acute on chronic kidney disease #8 acute on chronic anemia #9 former tobacco use Plan cardiology's perspective, 's IV Lasix has been continued by nephrology, we will continue to monitor the intake and output along with daily weights. Daily lytes BUN and creatinine DNP note has been reviewed, I agree with a documented findings and plan of care. Patient was seen and examined.
--- NOTE | 2018-03-23 15:25 | CDI ---
Last Revision, October 2017 Documentation Clarification Form Date: 03/23/18 1522 From: Vannessa Trinh RN, CCDS Admit Date: 03/16/2018 7:15:00 PM Patient Name: Mauricio Castaneda Visit Number: [id number] ATTENTION: The Clinical Documentation Specialists (CDI) and [facility] Coding Staff appreciate your assistance in clarifying documentation. Please respond to the clarification below the line at the bottom and electronically sign. The CDI & [facility] Coding staff will review the response and follow-up if needed. Please note: Queries are made part of the Legal Health Record. If you have any questions, please contact the author of this message via ITS. Dr. Deepak Eduardo Per your operative note, a debridement was performed 03/22/18 and requires clarification History/Risk Factors: DM2, bilateral peripheral neuropathy, bilateral lower extremity cellulites, HTN Clinical Indicators: Infected Patel grade 2 ulcers left foot heel. Treatment: Procedure: "Using scissor, we did the selective debridement then necrotic tissue was removed. We took some deep culture for culture and sensitivity." Five elements required for accurate and compliant documentation of a debridement : 1. Technique used (e.g., excisional, excised, cutting, etc.) 2. Instrument(s) used (e.g., scalpel, curette, etc.) 3. Nature of the tissue removed (e.g., necrotic, devitalized tissues, non- viable tissue, etc.) 4. Appearance and size of the wound (e.g., down to fresh bleeding tissue, 7cm x 10cm, etc.) 5. Depth of the debridement* (e.g., skin, subcutaneous tissue, fascia, muscle , bone, etc.) In order to capture the severity of condition and code the appropriate procedure ; could you please document the following: Excisional debridement (the removal of necrotic, devitalized tissue or slough by means of cutting away of tissue) Non-Excisional debridement (the removal of necrotic, devitalized tissue or slough by means of flushing, brushing, or washing. (Irrigation) Other; please specify Unable to determine (no explanation for clinical findings) Please continue to document in your progress notes and discharge summary in order to capture severity of illness and risk of mortality. Include clinical findings that support your diagnosis. MTDD
[2018-03-23 17:05] LABS: Glucose,Whole Blood 277 mg/dL (75-99)
--- NOTE | 2018-03-23 19:59 | PN ---
PROGRESS NOTE DATE OF SERVICE: 03/23/2018. REASON FOR FOLLOWUP: Left diabetic foot ulcer with secondary cellulitis. INTERVAL HISTORY: The patient is afebrile. He has been breathing comfortably. Denies having any chest pain or cough. Denies any worsening pain in the left leg area or any drainage. EXAMINATION: Blood pressure is 141/53 with a pulse of 84, temperature 96.8. He is 95% on 2 L nasal cannula. General description is an elderly male up in the bed in no distress. Respiratory system: Unlabored breathing. Clear to auscultation anteriorly. Heart S1, S2. Regular rate and rhythm. Abdomen soft. No tenderness. Left leg is currently wrapped up. No drainage on the dressing. LABS: Hemoglobin 8.5, white count 6.2 with a BUN of 89, and creatinine is 2.43. Wound cultures done showing presumptive MRSA. Blood cultures have been negative. DIAGNOSTIC IMPRESSION/PLAN: Patient with left diabetic foot ulcer with secondary cellulitis. He did have debridement of the wound culture now showing presumptive MRSA. The patient was started on vancomycin however in view of his borderline kidney function, his high risk of nephrotoxicity from vancomycin, hence Vanco will be discontinued. He will be started on daptomycin 4 mg/kg q48 with the discharge plan hopefully oral while waiting for the sensitivity of this pathogen. Local wound care to continue per Surgery. Continue supportive care. MMODL / IJN: [id number] /
[2018-03-23 21:15] LABS: Glucose,Whole Blood 273 mg/dL (75-99)
[2018-03-23] MEDS: TAMSULOSIN 0.4 MG CAP.ER.24H PO SCH (21:35)
[2018-03-23] MEDS ORDERED: VANCOMYCIN 2,500 MG in SODIUM CHLORIDE 0.9% 500 ML IVPB SCH (23:00)
[2018-03-24 06:55] LABS: Calcium 8.5 mg/dL (8.4-10.2); Magnesium 2.4 mg/dL (1.6-2.3); Potassium 4.4 mmol/L (3.5-5.1)
[2018-03-24 06:56] LABS: Glucose,Whole Blood 326 mg/dL (75-99)
[2018-03-24] MEDS: PANTOPRAZOLE 40 MG TABLET PO SCH (06:57)
[2018-03-24] MEDS: INSULIN ASPART 100 UNIT/ML 1 ML 10 ML VIAL SQ SCH ×4 (06:57→21:36)
[2018-03-24 06:59] LABS: Anisocytosis Slight; Basophils % (A) 0 %; Eosinophils # (A) 0.1 k/uL (0-0.7); Eosinophils % (A) 1 %; HGB 8.7 gm/dL (13.0-17.5); Hypochromasia Slight; Lymphocytes # (A) 1.2 k/uL (1.0-4.8); Lymphocytes % (A) 15 %; MCHC 32.2 g/dL (31.0-37.0); MCV 83.9 fL (80.0-100.0); Mean Platelet Volume 9.4; Monocytes # (A) 0.4 k/uL (0-1.0); Monocytes % (A) 5 %; Neutrophils # (A) 6.1 k/uL (1.3-7.7); Neutrophils % (A) 77 %; Platelet Count 117 k/uL (150-450); RBC 3.22 m/uL (4.30-5.90); RDW 18.3 % (11.5-15.5); WBC 7.9 k/uL (3.8-10.6)
[2018-03-24] MEDS: IPRATROPIUM-ALBUTEROL 3 ML NEB INHALATION SCH ×4 (07:15→19:41)
[2018-03-24] MEDS: BUDESONIDE 1 MG/2 ML NEBU INHALATION SCH ×2 (07:15→19:40)
[2018-03-24] MEDS: SODIUM CHLORIDE 0.9% 1,000 ML IV SCH ×2 (08:43→17:10)
[2018-03-24] MEDS: guaiFENesin 600 MG TABLET.ER PO SCH ×2 (08:44→19:59)
[2018-03-24] MEDS: MULTIVITAMINS, THERA 1 EACH TAB PO SCH (08:44)
[2018-03-24] MEDS: HEPARIN SODIUM,PORCINE 5,000 UNIT/ML 1 ML VIAL SQ SCH ×3 (08:44→21:37)
[2018-03-24] MEDS: FUROSEMIDE 10 MG/ML 10 ML VIAL IV SCH ×2 (08:44→20:00)
[2018-03-24] MEDS: hydrALAZINE HCL 25 MG TAB PO SCH ×3 (08:44→20:00)
[2018-03-24] MEDS: MAGNESIUM OXIDE 400 MG TAB PO SCH (08:44)
[2018-03-24] MEDS: METOLAZONE 5 MG TAB PO SCH (08:45)
[2018-03-24] MEDS: MONTELUKAST 10 MG TAB PO SCH (08:45)
[2018-03-24] MEDS: CHOLECALCIFEROL 1,000 UNIT TAB PO SCH (08:45)
[2018-03-24] MEDS: amLODIPine 5 MG TAB PO SCH ×2 (08:45→20:00)
[2018-03-24] MEDS: GABAPENTIN 300 MG CAP PO SCH ×2 (08:45→20:00)
--- NOTE | 2018-03-24 10:52 | P.PN ---
Subjective Progress Note Date: 03/24/18 HPI: This is a 67-year-old male patient being seen examined and evaluated today for consultation. This patient is well-known to our services. This patient was then to see his infectious disease doctor for his left heel ulcer yesterday when he was noted to have some dyspnea and desaturations with his oxygen. He was sent over to the emergency room for evaluation and treatment. Patient states he is also been having some chest pain that has been happening for over a week and he has had difficulty breathing when laying down as well. Patient does utilize home oxygen at night with his CPAP and has been using it during the day as well but it has not been enough. Patient states he has been using his CPAP each night for approximately 8 hours and his compliance has been 100%. Patient states he was taking breathing treatments at home 3-4 times per day via nebulizer which was not helping as well. Chest x-ray was reviewed and does show correlation for CHF exacerbation, cardiomegaly with suspected new small tiny bilateral pleural effusions more prominent mild to moderate central vascular congestion. Patient was admitted to the hospital for further evaluation and treatment. Cardiology was also put on consult. Patient had some elevated CK-MB. Patient also complains that his left heel ulcer has been having a more significant foul smell with more drainage. Infectious disease on consult. Denies any fevers nausea vomiting. Upon examination the patient's resting up in bed on 5 L of supplemental oxygen via nasal cannula. He can point of shortness of breath cough congestion and is unable to bring up any secretions. He also has had some generalized abdominal discomfort complaints and is scheduled to go for a CT of the abdomen per primary services. 03/18-03/19/18- Please see Dr. JUAN ANTONIO Jones notes 03/20/18- patient being seen examined and evaluated today on rounds. He is resting up in bed on 3-4 L of supplement oxygen via nasal cannula. He continues to use his incentive spirometer pulling volumes of approximately 1500 MLS. Patient states he feels his breathing is slightly better. Continue following with infectious disease and wound care. Patient is being worked up for possible debridement. He is afebrile no further complaints. All labs and appointment been reviewed. 03/21/18- patient being seen examined and evaluated on rounds. He is resting up in bed on 3 L of supplemental oxygen via nasal cannula. He states his breathing is much better. His steroids have been discontinued. Patient is waiting for vascular consult for possible debridement of his wound. He is afebrile no further complaints. Nephrology also following along with the patient. 03/22/18- patient is being seen examined and evaluated on rounds. He is resting up in bed on oxygen via nasal cannula. He is more tired today. He was switched from Lasix drip yesterday to IV push Lasix. He did undergo debridement yesterday with vascular surgery. 03/23/2018: Patient seen and examined. Patient states his breathing is about at baseline. He is wondering if he should've oxygen to go home with. He is planning on going to [facility] for rehab tomorrow. Creatinine is 2.43 today, BUN is 83. The patient states that he is very weak and can barely walk. 03/24/18-patient seen seen examined and evaluated today on rounds. He is resting up in bed on 2 L of supplemental oxygen. Discharge planning in process for possible subacute rehab. Patient's wound culture currently pending however is presumed of MRSA. He is in contact precautions. He continues to have shortness of breath with exertion and activity. Denies any cough or congestion at this time. Objective - Vital Signs Vital signs: Vital Signs Temp 96.7 F L 03/24/18 09:00 Pulse 96 03/24/18 09:01 Resp 20 03/24/18 09:01 BP 145/64 03/24/18 09:00 Pulse Ox 98 03/24/18 09:00 Intake & Output 03/23/18 03/24/18 03/24/18 18:59 06:59 18:59 Intake Total 418 358 Output Total 2400 3250 550 Balance -1979 Weight 197 kg 170 kg Intake: IV 240 Sodium Chloride 0.9% 1, 240 000 ml @ 20 mls/hr IV . Q24H [facility] Rx#:[id number] Oral 418 118 Output: Urine 2400 3250 550 Straight 1300 550 Other: Voiding Method Indwelling Catheter Indwelling Catheter Indwelling Catheter # Voids 1 - Exam GENERAL EXAM: Alert, active, comfortable in no apparent distress. Morbidly obese HEAD: Normocephalic. EYES: Normal reaction of pupils, equal size. NOSE: Clear with pink turbinates. THROAT: No erythema or exudates. NECK: No masses, no JVD. CHEST: No chest wall deformity. LUNGS: Equal air entry with few faint expiratory wheezing noted. Bases diminished CVS: S1 and S2 normal with no audible mumurs, regular rhythm. ABDOMEN: No hepatosplenomegaly, normal bowel sounds, no guarding or rigidity. EXTREMITIES: +1 edema noted. Chronic bilateral lower extremity cellulitis. Left lower heel wound, wrapped clean dry and intact CENTRAL NERVOUS SYSTEM: No focal deficits, tone is normal in all 4 extremities. - Labs CBC & Chem 7: 03/24/18 05:38 03/24/18 05:38 Labs: Abnormal Lab Results - Last 24 Hours (Table) 03/23/18 03/23/18 03/23/18 Range/Units 11:41 13:22 17:04 RBC (4.30-5.90) m/uL Hgb (13.0-17.5) gm/dL Hct (39.0-53.0) % RDW (11.5-15.5) % Plt Count (150-450) k/uL Sodium (137-145) mmol/L Chloride (98-107) mmol/L Carbon Dioxide (22-30) mmol/L BUN (9-20) mg/dL Creatinine (0.66-1.25) mg/dL Glucose (74-99) mg/dL POC Glucose (mg/dL) 217 H 324 H 277 H (75-99) mg/dL Magnesium (1.6-2.3) mg/dL 03/23/18 03/24/18 03/24/18 Range/Units 21:13 05:38 05:38 RBC 3.22 L (4.30-5.90) m/uL Hgb 8.7 L (13.0-17.5) gm/dL Hct 27.0 L (39.0-53.0) % RDW 18.3 H (11.5-15.5) % Plt Count 117 L (150-450) k/uL Sodium 136 L (137-145) mmol/L Chloride 89 L (98-107) mmol/L Carbon Dioxide 35 H (22-30) mmol/L BUN 86 H* (9-20) mg/dL Creatinine 2.10 H (0.66-1.25) mg/dL Glucose 291 H (74-99) mg/dL POC Glucose (mg/dL) 273 H (75-99) mg/dL Magnesium 2.4 H (1.6-2.3) mg/dL 03/24/18 Range/Units 06:45 RBC (4.30-5.90) m/uL Hgb (13.0-17.5) gm/dL Hct (39.0-53.0) % RDW (11.5-15.5) % Plt Count (150-450) k/uL Sodium (137-145) mmol/L Chloride (98-107) mmol/L Carbon Dioxide (22-30) mmol/L BUN (9-20) mg/dL Creatinine (0.66-1.25) mg/dL Glucose (74-99) mg/dL POC Glucose (mg/dL) 326 H (75-99) mg/dL Magnesium (1.6-2.3) mg/dL Microbiology - Last 24 Hours (Table) 03/21/18 17:49 Gram Stain - Preliminary Foot - Left Tissue Culture - Preliminary Presumptive MRSA Assessment and Plan Assessment: Assessment Acute hypoxic respiratory failure required supplemental oxygen Unstable angina Acute exacerbation of CHF Acute exacerbation of COPD GIOVANY/OHS Diabetes mellitus Left heel wound History of hypertension History of hyperlipidemia Nonspecific diffuse abdominal pain Plan Patient is cleared from pulmonary standpoint for discharge. Discharge planning and process to possible subacute rehab. Amphotericin pulse ox prior to discharge for oxygen needs assessment. Medications have been reviewed and will be continued as ordered. Continue with antibiotics, steroids have been discontinued. Maintain a negative fluid balance.. Cardiology on consult. Infectious disease on consult. Wound care per infectious disease. Awaiting vascular surgery consult. Continue with pulmonary hygiene, coughing and deep breathing exercises, and supportive care. Supplemental oxygen to maintain oxygen saturations of 92% or better. Uses home CPAP every night and with naps. Sputum culture. Initiate and encourage incentive spirometer use. Continue nebulizer treatments. GI and DVT prophylaxis. PT and OT. We will continue to monitor labs/results and adjust treatment as necessary. Further recommendations pending. I performed an examination of the patient and discussed their management with the nurse practitioner. I have reviewed the nurse practitioner's note and agree with the documented findings and plan of care.
[2018-03-24] MEDS: HYDROcodone/APAP 7.5-325MG 1 EACH TAB PO PRN ×2 (11:39→20:02)
[2018-03-24 11:41] LABS: Glucose,Whole Blood 306 mg/dL (75-99)
[2018-03-24] MEDS: INSULIN NPH/REG INSULIN 70/30 300 UNIT/3 ML VIAL SQ SCH ×2 (12:08→17:11)
--- NOTE | 2018-03-24 14:01 | P.PN ---
Subjective Progress Note Date: 03/24/18 This is a 67-year-old male patient of Dr. Johnson with a past medical history of chronic heart failure, COPD, diabetes mellitus type 2 insulin requiring, hypertension, benign prostatic hypertrophy, gastroesophageal reflux disease, hyperlipidemia, obstructive sleep apnea with CPAP, super morbid obesity with plan for gastric sleeve with Dr. Ayala in the near future, chronic anemia seen by Dr. Webb in the past. He had a recent hospitalization for chest pain, acute on chronic hypoxic respiratory failure due to right-sided pneumonia and bilateral pleural effusions and acute kidney injury. Patient was discharged home with home care and oxygen. On last admission, echocardiogram reveals EF of 60-65% with mild aortic valve sclerosis, mild mitral regurgitation , trace tricuspid regurgitation, no pulmonary hypertension. Due to elevated d- dimer, lower extremity duplex was negative for DVT. CTA of the chest showed no evidence of pulmonary embolism. Bilateral pleural effusions with pulmonary mild infiltrate and atelectasis. Chest ultrasound revealed mild bilateral pleural effusions. Patient complains of abdominal bloating and has not have increased anasarca. His weight is up but he is not sure how much as he does not have a scale at home. He currently has home care in place. He does have a cough that he states is nonproductive. He denies any blood in his stool or urine. He has followed up with Dr. Oneil about a week ago. He is supposed to be on Xolair but has been off for quite a while. He has been does diagnosed with asthma and COPD by Dr. Oneil. Patient presented to [facility] emergency center and found to be afebrile, white count was normal, BUN 36 and creatinine 1.5 chest x-ray shows evidence of pleural effusion concerning for heart failure. BNP was 907. Troponin was normal. Foot x-ray did not show osteomyelitis. Blood sugar was 54 and treated with orange juice. EKG was in normal sinus rhythm. Patient was admitted to the selective care unit and consults were requested with Dr. Oneil, cardiology and Dr. Ruiz. Echocardiogram ordered as well as CT of the abdomen and pelvis. Blood culture was obtained. Repeat troponins were negative on 2 draws. His recent hemoglobin A1c was 7.4. A bone scan has been ordered. Consult with Dr. Connor for chronic kidney disease. Patient did require Quinones catheter placement for retention of greater than 1 L. 5/12 Patient examined bedside. Still complains of significant shortness of breath requiring 5 L of oxygen. Currently on 15 mg per hour of Lasix drip. Nephrology recommending holding lisinopril and Aldactone and continue with Lasix drip when metolazone. Patient was evaluated by infectious disease who recommended initiating patient on Unasyn and surgery consult for possible debridement. Creatinine is significantly increased from 0.95-1.59 likely secondary to cardiorenal syndrome. 03/19 {patient assessed bedside. SOB has improved, still requiring 3 l of nasal cannula. Continue lasix drip based on I/ O. Does have abdominal distention with abdomonial wall swelling. Pending vascular surgery evaluation fro debridement 03/20: Left upper extremity Doppler was negative for DVT. For his left foot wound, patient is on local wound care with medihoney and continued on Unasyn. Patient remains on Lasix drip with metolazone. He has had good urine output. Shortness of breath and lower extremity edema and anasarca are improving. He is on a fluid restriction of 1.5 L. Lisinopril and Aldactone remain on hold. Patient has been started on Ferrlecit yesterday for 3 doses daily. Hemoglobin is 9.4. BUN 62 and creatinine 1.8. Patient is currently on Solu-Medrol 60 mg IV every 6 hours per pulmonary which is been decreased to 40 mg every [address] Eduardo on consult for debridement of the left heel ulcer. 03/21: Patient's blood sugars jumped into the 300s yesterday afternoon and evening and Solu-Medrol was discontinued. He was also changed to a consistent carb diet but today at lunch his blood sugars have dropped to 57 and 69. His morning 70/30 insulin decreased from 126 units to 110 units. Today, BUN 71 and creatinine 2.10. Hemoglobin is 9.5. Weight is down 6.6 kg. Patient does state that his breathing and edema are improving. He remains on an insulin drip. 03/22: Patient has been transitioned from Lasix drip to Lasix 60 mg IV every 12 hours. His BUN is 81 creatinine 2.40 with hemoglobin of 9.1. We have increased fluid restriction from 1500 mL to 2 L. Patient had a drop in his blood sugars for which his insulin dosing has been adjusted to 60 units at breakfast and lunch and 40 units at supper. Patient will complete Ferrlecit infusions today. He is continued on vancomycin. 03/23: Patient was very lethargic and sleepy yesterday for her nursing staff. Patient states that he was "out of it." Patient's blood sugars were on the low side and all his scheduled insulin was discontinued. This morning, patient mentation is back to baseline. He is awake alert and oriented 3. He underwent debridement was Dr. Eduardo last evening. Wound culture came back with MRSA. Patient is on vancomycin, pharmacy dosing. Lasix is IV 60 mg every 6 hours. He is continued on metolazone. Patient does have decreased abdominal edema. BUN 89 and creatinine 2.43. 03/24: Patient has been afebrile. Heart rate is running in the 80s and 90s. Pulse ox is 98% on 2 L nasal cannula. BUN is 86 and creatinine 2.1. Hemoglobin is at 8.7. Patient has been started on Aranesp. Dr. Ruiz has recommended daptomycin IV for 48 hours and then transitioned to oral option for discharge. Blood sugars are now running high and he will be placed back on 70/ 30 insulin but at a lower dose in his home at 30 units 3 times daily. Patient was transitioned off consistent carb diet as he was artery on renal and heart healthy. He is currently only on NovoLog scale. Patient is complaining of feeling tired with no appetite. Also complains of legs and his back discomfort. He is on [place] which is helping. Anticipate discharge on Tuesday. Objective - Vital Signs Vital signs: Vital Signs Temp 96.7 F L 03/24/18 09:00 Pulse 96 03/24/18 09:01 Resp 20 03/24/18 09:01 BP 145/64 03/24/18 09:00 Pulse Ox 98 03/24/18 09:00 Intake & Output 03/23/18 03/24/18 03/24/18 18:59 06:59 18:59 Intake Total 418 358 Output Total 2400 3250 550 Balance -1979 Weight 197 kg 170 kg Intake: IV 240 Sodium Chloride 0.9% 1, 240 000 ml @ 20 mls/hr IV . Q24H [facility] Rx#:[id number] Oral 418 118 Output: Urine 2400 3250 550 Straight 1300 550 Other: Voiding Method Indwelling Catheter Indwelling Catheter Indwelling Catheter # Voids 1 - Exam - Constitutional General appearance: Present: average body habitus, cooperative, mild distress - EENT Eyes: Present: EOMI, PERRLA ENT: Present: hearing grossly normal, normal oropharynx Ears: bilateral: normal - Neck Neck: Present: normal ROM. Absent: lymphadenopathy Carotids: bilateral: upstroke normal - Respiratory Respiratory: bilateral: diminished, rhonchi - Cardiovascular Rhythm: regular Heart sounds: normal: S1, S2 Abnormal Heart Sounds: Absent: systolic murmur, diastolic murmur, rub, click - Peripheral edema leg Peripheral Edema: bilateral: 2+ (with open draining heel ulcer on the left leg ) - Gastrointestinal General gastrointestinal: Present: distended, soft. Absent: hepatomegaly, tenderness - Integumentary Integumentary: Absent: calor, cyanotic - Neurologic Neurologic: Present: CNII-XII intact - Musculoskeletal Musculoskeletal: Present: generalized weakness, strength equal bilaterally - Psychiatric Psychiatric: Present: A&O x's 3, appropriate affect - Labs CBC & Chem 7: 03/24/18 05:38 03/24/18 05:38 Labs: Abnormal Lab Results - Last 24 Hours (Table) 03/23/18 03/23/18 03/23/18 Range/Units 11:41 13:22 17:04 RBC (4.30-5.90) m/uL Hgb (13.0-17.5) gm/dL Hct (39.0-53.0) % RDW (11.5-15.5) % Plt Count (150-450) k/uL Sodium (137-145) mmol/L Chloride (98-107) mmol/L Carbon Dioxide (22-30) mmol/L BUN (9-20) mg/dL Creatinine (0.66-1.25) mg/dL Glucose (74-99) mg/dL POC Glucose (mg/dL) 217 H 324 H 277 H (75-99) mg/dL Magnesium (1.6-2.3) mg/dL 03/23/18 03/24/18 03/24/18 Range/Units 21:13 05:38 05:38 RBC 3.22 L (4.30-5.90) m/uL Hgb 8.7 L (13.0-17.5) gm/dL Hct 27.0 L (39.0-53.0) % RDW 18.3 H (11.5-15.5) % Plt Count 117 L (150-450) k/uL Sodium 136 L (137-145) mmol/L Chloride 89 L (98-107) mmol/L Carbon Dioxide 35 H (22-30) mmol/L BUN 86 H* (9-20) mg/dL Creatinine 2.10 H (0.66-1.25) mg/dL Glucose 291 H (74-99) mg/dL POC Glucose (mg/dL) 273 H (75-99) mg/dL Magnesium 2.4 H (1.6-2.3) mg/dL 03/24/18 Range/Units 06:45 RBC (4.30-5.90) m/uL Hgb (13.0-17.5) gm/dL Hct (39.0-53.0) % RDW (11.5-15.5) % Plt Count (150-450) k/uL Sodium (137-145) mmol/L Chloride (98-107) mmol/L Carbon Dioxide (22-30) mmol/L BUN (9-20) mg/dL Creatinine (0.66-1.25) mg/dL Glucose (74-99) mg/dL POC Glucose (mg/dL) 326 H (75-99) mg/dL Magnesium (1.6-2.3) mg/dL Microbiology - Last 24 Hours (Table) 03/21/18 17:49 Gram Stain - Preliminary Foot - Left Tissue Culture - Preliminary Presumptive MRSA Assessment and Plan Plan: 1. Chest pain with normal troponins. Continue, aspirin and Nitropaste. Cardiology consult is appreciated. Echocardiogram was recently done on last admission. Patient follows with Dr. Fierro. 2. Acute on chronic hypoxic respiratory failure secondary to acute on chronic diastolic heart failure and pleural effusions with generalized anasarca and acute exacerbation of COPD as well as abdominal distention. Consult Dr. Oneil and cardiology. Lasix 60 mg IV every 12 hours and metolazone. DuoNeb treatments 4 times daily as needed and Pulmicort twice daily. Solu-Medrol discontinued due to hyperglycemia. 2 L fluid restriction. 3. Diabetes mellitus type 2 uncontrolled, insulin requiring with diabetic neuropathy. Patient presented with hypoglycemia all by hyperglycemia. Adjusted 70/30 to 30 unit3 times daily. Continue NovoLog scale. Continue gabapentin 300 mg twice daily. Hemoglobin A1c 7.7. 4. Abdominal distention secondary to anasarca. 5. Hypertension. Continue Norvasc 5 mg twice daily, lisinopril held due to renal failure. 6. Hyperlipidemia. Continue Lipitor 40 mg at bedtime. 7. Urinary retention secondary to benign prostatic hypertrophy continue Flomax 0.4 mg at bedtime. Quinones catheter 8. Obstructive sleep apnea on CPAP. Patient to continue to use CPAP while hospitalized 9. Diabetic ulcer left heel. Local wound care will be in the form of medihoney. Wound culture to be obtained. [facility] as he has transportation problems. Consult Dr. Ruiz and completed recent antibiotics. Continue daptomycin for MRSA. Consult Dr. Eduardo status post debridement. 10. Morbidly obesity with BMI of 50 with plan for bariatric surgery with Dr. Ayala. 11. Acute kidney injury on chronic kidney disease stage IIIA. Baseline creatinine is 1.5. 12. Moderate persistent asthma, stable. Patient follows with Dr. Oneil. Continue DuoNeb treatments, Pulmicort, Singulair. 13. DVT prophylaxis. Patient on heparin subcu. 14. GI prophylaxis and gastroesophageal reflux disease and hiatal hernia. Continue Protonix. Discharge plan: on Tuesday. Impression and plan of care have been directed as dictated by the signing physician. Candy Magana nurse practitioner acting as scribe for signing physician.
--- NOTE | 2018-03-24 15:39 | P.PN ---
Subjective Patient is seen in follow-up for acute kidney injury on chronic kidney disease. Creatinine improved to 2.1 today. Patient's currently being treated for left foot ulcer and underwent debridement on March 21. Tissue culture is positive for MRSA. He was noted to be in severe volume overload and is currently maintained on Lasix 60 mg IV twice daily. His urine output in the last 24 hours was over 5.5 L. Dyspnea is improved. Edema is also gradually improving. Oral intake is good. No vomiting or diarrhea. Vital signs are stable. General: The patient appeared well nourished and normally developed. HEENT: Head exam is unremarkable. Neck is without jugular venous distension. LUNGS: Breath sounds decreased. HEART: Rate and Rhythm are regular. First and second heart sounds normal. No murmurs, rubs or gallops. ABDOMEN: Abdominal exam reveals normal bowel sounds. Non-tender and non- distended. No evidence of peritonitis. EXTREMITITES: 1+ edema. Chronic changes noted. No obvious drainage. Objective - Vital Signs Vital signs: Vital Signs Temp 97.1 F L 03/24/18 11:25 Pulse 88 03/24/18 15:30 Resp 20 03/24/18 11:26 BP 159/73 03/24/18 11:25 Pulse Ox 95 03/24/18 11:25 Intake & Output 03/23/18 03/24/18 03/24/18 18:59 06:59 18:59 Intake Total 418 598 Output Total 2400 3250 2150 Balance -1981 -7240 -2715 Weight 197 kg 170 kg Intake: IV 240 Sodium Chloride 0.9% 1, 240 000 ml @ 20 mls/hr IV . Q24H [facility] Rx#:[id number] Oral 418 358 Output: Urine 2400 3250 2150 Straight 1300 2150 Other: Voiding Method Indwelling Catheter Indwelling Catheter Indwelling Catheter # Voids 1 - Labs CBC & Chem 7: 03/24/18 05:38 03/24/18 05:38 Labs: Abnormal Lab Results - Last 24 Hours (Table) 03/23/18 03/23/18 03/24/18 Range/Units 17:04 21:13 05:38 RBC 3.22 L (4.30-5.90) m/uL Hgb 8.7 L (13.0-17.5) gm/dL Hct 27.0 L (39.0-53.0) % RDW 18.3 H (11.5-15.5) % Plt Count 117 L (150-450) k/uL Sodium (137-145) mmol/L Chloride (98-107) mmol/L Carbon Dioxide (22-30) mmol/L BUN (9-20) mg/dL Creatinine (0.66-1.25) mg/dL Glucose (74-99) mg/dL POC Glucose (mg/dL) 277 H 273 H (75-99) mg/dL Magnesium (1.6-2.3) mg/dL 03/24/18 03/24/18 03/24/18 Range/Units 05:38 06:45 11:36 RBC (4.30-5.90) m/uL Hgb (13.0-17.5) gm/dL Hct (39.0-53.0) % RDW (11.5-15.5) % Plt Count (150-450) k/uL Sodium 136 L (137-145) mmol/L Chloride 89 L (98-107) mmol/L Carbon Dioxide 35 H (22-30) mmol/L BUN 86 H* (9-20) mg/dL Creatinine 2.10 H (0.66-1.25) mg/dL Glucose 291 H (74-99) mg/dL POC Glucose (mg/dL) 326 H 306 H (75-99) mg/dL Magnesium 2.4 H (1.6-2.3) mg/dL Microbiology - Last 24 Hours (Table) 03/21/18 17:49 Gram Stain - Preliminary Foot - Left Tissue Culture - Preliminary Presumptive MRSA Assessment and Plan Plan: Assessment: 1. Nonoliguric acute kidney injury mostly prerenal secondary to cardiorenal syndrome. Creatinine improved to 2.1 today. Creatinine in May 2017 was 0.95. 2. Rule out chronic kidney disease. Prior UA does reveal proteinuria which is likely secondary to underlying diabetic kidney disease. 3. Hyperkalemia secondary to acute kidney injury and further worsened with the use of lisinopril and Aldactone. Improved with medical management. 4. Diastolic CHF. 5. Volume overload. Gradually improving. Maintaining net negative fluid balance. 6. Left foot diabetic ulcer. Maintain on antibiotics per infectious disease recommendations. Status post debridement on March 21. Tissue culture positive for MRSA. 7. Insulin-dependent diabetes mellitus. 8. Anemia. Iron deficiency noted - status post 3 doses of IV iron. 9. Chronic kidney disease mineral bone disease maintained on calcitriol. Plan: Maintain Lasix 60 mg twice daily. Maintain metolazone 5 mg daily. 1.5 L fluid restriction. Avoid nephrotoxins - vancomycin discontinued. Maintain Aranesp. Repeat electrolytes in the morning.
--- NOTE | 2018-03-24 16:12 | P.PN ---
Subjective Progress Note Date: 03/24/18 This 67-year-old gentleman is admitted to the hospital with renal failure, diastolic CHF and significant fluid overload. Patient was on IV Lasix drip which was switched to boluses of IV Lasix. Patient lost several pounds and several liters of fluid. Today patient is not feeling well. He denies any chest pain and doesn't appear to be in acute distress. We'll may be dealing with underlying infection. We'll continue current medical therapy. If necessary. Cultures could be obtained Objective - Vital Signs Vital signs: Vital Signs Temp 97.1 F L 03/24/18 11:25 Pulse 84 03/24/18 15:41 Resp 20 03/24/18 11:26 BP 159/73 03/24/18 11:25 Pulse Ox 95 03/24/18 11:25 Intake & Output 03/23/18 03/24/18 03/24/18 18:59 06:59 18:59 Intake Total 418 598 Output Total 2400 3250 2150 Balance -19810 Weight 197 kg 170 kg Intake: IV 240 Sodium Chloride 0.9% 1, 240 000 ml @ 20 mls/hr IV . Q24H [facility] Rx#:[id number] Oral 418 358 Output: Urine 2400 3250 2150 Straight 1300 2150 Other: Voiding Method Indwelling Catheter Indwelling Catheter Indwelling Catheter # Voids 1 - Exam GENERAL EXAM: Patient is alert and oriented and doesn't appear to be in any acute distress HEENT: Normocephalic. Normal reaction of pupils, equal size, normal range of extraocular motion. No erythema or exudates in the throat. NECK: No masses, no nuchal rigidity. CHEST: No chest wall deformity. LUNGS: Diminished air exchange HEART: S1 and S2 normal with no audible mumurs or gallops. Regular rhythm, femorals equal on both sides.. ABDOMEN: No hepatosplenomegaly, normal bowel sounds, no guarding or rigidity. SKIN: No rashes CENTRAL NERVOUS SYSTEM: No focal deficits. EXTREMITIES: Moderate edema, seems to be resolving - Labs CBC & Chem 7: 03/24/18 05:38 03/24/18 05:38 Labs: Abnormal Lab Results - Last 24 Hours (Table) 03/23/18 03/23/18 03/24/18 Range/Units 17:04 21:13 05:38 RBC 3.22 L (4.30-5.90) m/uL Hgb 8.7 L (13.0-17.5) gm/dL Hct 27.0 L (39.0-53.0) % RDW 18.3 H (11.5-15.5) % Plt Count 117 L (150-450) k/uL Sodium (137-145) mmol/L Chloride (98-107) mmol/L Carbon Dioxide (22-30) mmol/L BUN (9-20) mg/dL Creatinine (0.66-1.25) mg/dL Glucose (74-99) mg/dL POC Glucose (mg/dL) 277 H 273 H (75-99) mg/dL Magnesium (1.6-2.3) mg/dL 03/24/18 03/24/18 03/24/18 Range/Units 05:38 06:45 11:36 RBC (4.30-5.90) m/uL Hgb (13.0-17.5) gm/dL Hct (39.0-53.0) % RDW (11.5-15.5) % Plt Count (150-450) k/uL Sodium 136 L (137-145) mmol/L Chloride 89 L (98-107) mmol/L Carbon Dioxide 35 H (22-30) mmol/L BUN 86 H* (9-20) mg/dL Creatinine 2.10 H (0.66-1.25) mg/dL Glucose 291 H (74-99) mg/dL POC Glucose (mg/dL) 326 H 306 H (75-99) mg/dL Magnesium 2.4 H (1.6-2.3) mg/dL Microbiology - Last 24 Hours (Table) 03/21/18 17:49 Gram Stain - Preliminary Foot - Left Tissue Culture - Preliminary Presumptive MRSA Assessment and Plan (1) Diastolic CHF Current Visit: Yes Status: Acute Code(s): I50.30 - UNSPECIFIED DIASTOLIC ( CONGESTIVE) HEART FAILURE SNOMED Code(s): 777399057 (2) COPD (chronic obstructive pulmonary disease) Current Visit: Yes Status: Acute Code(s): J44.9 - CHRONIC OBSTRUCTIVE PULMONARY DISEASE, UNSPECIFIED SNOMED Code(s): 34644717 (3) Right-sided heart failure Current Visit: Yes Status: Acute Code(s): I50.810 - RIGHT HEART FAILURE, UNSPECIFIED SNOMED Code(s): 745669141 (4) Obesity Current Visit: Yes Status: Acute Code(s): E66.9 - OBESITY, UNSPECIFIED SNOMED Code(s): 736810327 Plan: Continue current medical therapy. If patient develops any fevers and continues to be sick, further workup for any underlying infection and sepsis to be considered.
[2018-03-24 16:51] LABS: Glucose,Whole Blood 311 mg/dL (75-99)
--- NOTE | 2018-03-24 17:58 | PN ---
PROGRESS NOTE DATE OF SERVICE: 03/24/2018 REASON FOR FOLLOWUP: Left diabetic foot ulcer with secondary cellulitis MRSA. INTERVAL HISTORY: The patient is afebrile. He is currently breathing comfortably. Denies having any chest pain or cough. Has some pain to the left heel area. There is no drainage, though. No abdominal pain or any diarrhea. PHYSICAL EXAMINATION: Blood pressure 159/73, pulse 94, temperature 97.1. He is 95% on 2 L nasal cannula. General description is an elderly male lying in bed in no distress. RESPIRATORY SYSTEM: Unlabored breathing. Clear to auscultation anteriorly. HEART: S1, S2. Regular rate and rhythm. ABDOMEN: Soft. No tenderness. Legs are currently wrapped up. No obvious drainage on the dressing. LABS: Hemoglobin 8.6, white count 7.9, BUN of 86, creatinine 2.10. Wound culture presumptive MRSA; sensitivities pending. DIAGNOSTIC IMPRESSION AND PLAN: Patient with left diabetic foot wound with secondary cellulitis. Culture now showing MRSA. We are waiting for the sensitivity to possibly switch him to oral antibiotic on discharge. Continue with daptomycin. He has a high risk of nephrotoxicity from the vancomycin. MMODL / IJN: [id number] /
[2018-03-24] MEDS: TAMSULOSIN 0.4 MG CAP.ER.24H PO SCH (20:00)
[2018-03-24 21:24] LABS: Glucose,Whole Blood 288 mg/dL (75-99)
[2018-03-25 06:45] LABS: Glucose,Whole Blood 227 mg/dL (75-99)
[2018-03-25 06:48] LABS: Calcium 8.6 mg/dL (8.4-10.2); Potassium 4.3 mmol/L (3.5-5.1)
[2018-03-25] MEDS: INSULIN NPH/REG INSULIN 70/30 300 UNIT/3 ML VIAL SQ SCH ×3 (07:03→17:36)
[2018-03-25] MEDS: INSULIN ASPART 100 UNIT/ML 1 ML 10 ML VIAL SQ SCH ×4 (07:03→21:32)
[2018-03-25] MEDS: BUDESONIDE 1 MG/2 ML NEBU INHALATION SCH ×2 (07:44→19:53)
[2018-03-25] MEDS: IPRATROPIUM-ALBUTEROL 3 ML NEB INHALATION SCH ×4 (07:44→19:53)
--- NOTE | 2018-03-25 07:46 | P.PN ---
Subjective Progress Note Date: 03/25/18 Principal diagnosis: This is a 67-year-old obese male with chronic kidney disease and acute kidney injury from a left foot ulcer and chronic edema. He is on antibiotics. His on Lasix 60 mg IV twice a day. He denies any complaints at all. No fever chills. No nausea vomiting diarrhea abdominal pain. Good appetite. No shortness of breath. History of present illness. Patient presented to the hospital with left foot ulcer. Patient states he completed it and it diuretics and did see infectious disease as an outpatient. He was noted to have active drainage with foul odor and was advised to come to the hospital. Patient also states that he was taking Lasix 40 mg twice daily at home but has been progressively gaining weight and feels edematous. Does admit to orthopnea. Patient's chest x-ray is suggestive of volume overload. He is currently maintained on Lasix drip at 10 mL an hour and has good urine output. Denies vomiting. Does have loose bowel movements. His potassium is elevated at 6.0 today. He is maintained on lisinopril as well as Aldactone. Denies use of NSAIDs. He has long-standing history of diabetes mellitus. He is currently maintained on IV Unasyn. Objective - Vital Signs Vital signs: Vital Signs Temp 98 F 03/25/18 04:00 Pulse 93 03/25/18 04:00 Resp 18 03/25/18 04:00 BP 128/68 03/25/18 04:00 Pulse Ox 97 03/25/18 04:00 Intake & Output 03/24/18 03/25/18 03/25/18 18:59 06:59 18:59 Intake Total 718 200 Output Total 2950 2750 Balance -2232 -2550 Weight 169.5 kg Intake: IV 240 Sodium Chloride 0.9% 1, 240 000 ml @ 20 mls/hr IV . Q24H [facility] Rx#:[id number] Oral 478 200 Output: Urine 2950 2750 Straight 2950 0 Other: Voiding Method Indwelling Catheter Indwelling Catheter # Voids 0 Examination awake alert oriented comfortable. He is morbidly obese. HEENT exam no JVP in neck is supple no facial asymmetry Heart sounds unremarkable for any murmur rub gallop Abdomen soft nontender obese difficult exam Lungs are clear to auscultation but air entry bilaterally Both extremities have chronic stasis edema with course thickened skin Extremity exam reveals also left foot ulcer with bandages. Neurologically awake alert oriented. - Labs CBC & Chem 7: 03/24/18 05:38 03/25/18 06:10 Labs: Abnormal Lab Results - Last 24 Hours (Table) 03/24/18 03/24/18 03/24/18 Range/Units 11:36 16:43 21:17 Chloride (98-107) mmol/L Carbon Dioxide (22-30) mmol/L BUN (9-20) mg/dL Creatinine (0.66-1.25) mg/dL Glucose (74-99) mg/dL POC Glucose (mg/dL) 306 H 311 H 288 H (75-99) mg/dL 03/25/18 03/25/18 Range/Units 06:10 06:35 Chloride 91 L (98-107) mmol/L Carbon Dioxide 36 H (22-30) mmol/L BUN 77 H (9-20) mg/dL Creatinine 1.93 H (0.66-1.25) mg/dL Glucose 197 H (74-99) mg/dL POC Glucose (mg/dL) 227 H (75-99) mg/dL Microbiology - Last 24 Hours (Table) 03/21/18 17:49 Gram Stain - Preliminary Foot - Left Tissue Culture - Preliminary Staphylococcus epidermidis Group D Enterococcus Diphtheroid species Assessment and Plan Assessment: Impression 1. Acute kidney injury secondary to cardiorenal syndrome and infected foot creatinine is improved from a peak of 2.43 on 03/23/2018 to 1.93 today. 2. Chronic kidney disease Baseline creatinine is. 3. Metabolic alkalosis from diuretics. Bicarb is 36, slowly trending up 4. Anemia with hemoglobin of 8.7 stable 5. Iron deficiency saturation is 12% dated 03/17/2018.. 6 left foot ulcer on antibiotics 7. Insulin-dependent diabetes Recommendation. 1. Maintain Lasix at 60 mg every 12 close monitoring of intake and output. 2. Currently his blood pressure is at target between 109 systolic to 133 systolic. Currently blood pressure is optimal no change Changes in medical 3. Maintain current medications and watch hemoglobin creatinine blood pressure and edema.
--- NOTE | 2018-03-25 09:57 | P.PN ---
Subjective Progress Note Date: 03/25/18 HPI: This is a 67-year-old male patient being seen examined and evaluated today for consultation. This patient is well-known to our services. This patient was then to see his infectious disease doctor for his left heel ulcer yesterday when he was noted to have some dyspnea and desaturations with his oxygen. He was sent over to the emergency room for evaluation and treatment. Patient states he is also been having some chest pain that has been happening for over a week and he has had difficulty breathing when laying down as well. Patient does utilize home oxygen at night with his CPAP and has been using it during the day as well but it has not been enough. Patient states he has been using his CPAP each night for approximately 8 hours and his compliance has been 100%. Patient states he was taking breathing treatments at home 3-4 times per day via nebulizer which was not helping as well. Chest x-ray was reviewed and does show correlation for CHF exacerbation, cardiomegaly with suspected new small tiny bilateral pleural effusions more prominent mild to moderate central vascular congestion. Patient was admitted to the hospital for further evaluation and treatment. Cardiology was also put on consult. Patient had some elevated CK-MB. Patient also complains that his left heel ulcer has been having a more significant foul smell with more drainage. Infectious disease on consult. Denies any fevers nausea vomiting. Upon examination the patient's resting up in bed on 5 L of supplemental oxygen via nasal cannula. He can point of shortness of breath cough congestion and is unable to bring up any secretions. He also has had some generalized abdominal discomfort complaints and is scheduled to go for a CT of the abdomen per primary services. 03/18-03/19/18- Please see Dr. JUAN ANTONIO Jones notes 03/20/18- patient being seen examined and evaluated today on rounds. He is resting up in bed on 3-4 L of supplement oxygen via nasal cannula. He continues to use his incentive spirometer pulling volumes of approximately 1500 MLS. Patient states he feels his breathing is slightly better. Continue following with infectious disease and wound care. Patient is being worked up for possible debridement. He is afebrile no further complaints. All labs and appointment been reviewed. 03/21/18- patient being seen examined and evaluated on rounds. He is resting up in bed on 3 L of supplemental oxygen via nasal cannula. He states his breathing is much better. His steroids have been discontinued. Patient is waiting for vascular consult for possible debridement of his wound. He is afebrile no further complaints. Nephrology also following along with the patient. 03/22/18- patient is being seen examined and evaluated on rounds. He is resting up in bed on oxygen via nasal cannula. He is more tired today. He was switched from Lasix drip yesterday to IV push Lasix. He did undergo debridement yesterday with vascular surgery. 03/23/2018: Patient seen and examined. Patient states his breathing is about at baseline. He is wondering if he should've oxygen to go home with. He is planning on going to [facility] for rehab tomorrow. Creatinine is 2.43 today, BUN is 83. The patient states that he is very weak and can barely walk. 03/24/18-patient seen seen examined and evaluated today on rounds. He is resting up in bed on 2 L of supplemental oxygen. Discharge planning in process for possible subacute rehab. Patient's wound culture currently pending however is presumed of MRSA. He is in contact precautions. He continues to have shortness of breath with exertion and activity. Denies any cough or congestion at this time. 03/25/18- patient is being seen examined and evaluated today on rounds. He is resting up in bed on 2 L of supplemental oxygen. Patient had a foot wound culture came back for staph epidermidis, group D enterococcus and diphtheroid species. Awaiting infectious disease recommendations for antibiotics for discharge. Patient as well as to be going to [facility] for subacute rehab. Objective - Vital Signs Vital signs: Vital Signs Temp 98 F 03/25/18 04:00 Pulse 84 03/25/18 08:08 Resp 18 03/25/18 04:00 BP 128/68 03/25/18 04:00 Pulse Ox 97 03/25/18 04:00 Intake & Output 03/24/18 03/25/18 03/25/18 18:59 06:59 18:59 Intake Total 718 200 Output Total 2950 2750 Balance -2232 -2550 Weight 169.5 kg Intake: IV 240 Sodium Chloride 0.9% 1, 240 000 ml @ 20 mls/hr IV . Q24H [facility] Rx#:[id number] Oral 478 200 Output: Urine 2950 2750 Straight 2950 0 Other: Voiding Method Indwelling Catheter Indwelling Catheter # Voids 0 - Exam GENERAL EXAM: Alert, active, comfortable in no apparent distress. Morbidly obese HEAD: Normocephalic. EYES: Normal reaction of pupils, equal size. NOSE: Clear with pink turbinates. THROAT: No erythema or exudates. NECK: No masses, no JVD. CHEST: No chest wall deformity. LUNGS: Equal air entry with few faint expiratory wheezing noted. Bases diminished CVS: S1 and S2 normal with no audible mumurs, regular rhythm. ABDOMEN: No hepatosplenomegaly, normal bowel sounds, no guarding or rigidity. EXTREMITIES: +1 edema noted. Chronic bilateral lower extremity cellulitis. Left lower heel wound, wrapped clean dry and intact CENTRAL NERVOUS SYSTEM: No focal deficits, tone is normal in all 4 extremities. - Labs CBC & Chem 7: 03/24/18 05:38 03/25/18 06:10 Labs: Abnormal Lab Results - Last 24 Hours (Table) 03/24/18 03/24/18 03/24/18 Range/Units 11:36 16:43 21:17 Chloride (98-107) mmol/L Carbon Dioxide (22-30) mmol/L BUN (9-20) mg/dL Creatinine (0.66-1.25) mg/dL Glucose (74-99) mg/dL POC Glucose (mg/dL) 306 H 311 H 288 H (75-99) mg/dL 03/25/18 03/25/18 Range/Units 06:10 06:35 Chloride 91 L (98-107) mmol/L Carbon Dioxide 36 H (22-30) mmol/L BUN 77 H (9-20) mg/dL Creatinine 1.93 H (0.66-1.25) mg/dL Glucose 197 H (74-99) mg/dL POC Glucose (mg/dL) 227 H (75-99) mg/dL Microbiology - Last 24 Hours (Table) 03/21/18 17:49 Gram Stain - Preliminary Foot - Left Tissue Culture - Preliminary Staphylococcus epidermidis Group D Enterococcus Diphtheroid species Assessment and Plan Assessment: Assessment Acute hypoxic respiratory failure required supplemental oxygen Unstable angina Acute exacerbation of CHF Acute exacerbation of COPD GIOVANY/OHS Diabetes mellitus Left heel wound History of hypertension History of hyperlipidemia Nonspecific diffuse abdominal pain Plan Patient is cleared from pulmonary standpoint for discharge. Discharge planning and process to possible subacute rehab. Amphotericin pulse ox prior to discharge for oxygen needs assessment. Medications have been reviewed and will be continued as ordered. Continue with antibiotics, steroids have been discontinued. Maintain a negative fluid balance.. Cardiology on consult. Infectious disease on consult. Wound care per infectious disease. Awaiting vascular surgery consult. Continue with pulmonary hygiene, coughing and deep breathing exercises, and supportive care. Supplemental oxygen to maintain oxygen saturations of 92% or better. Uses home CPAP every night and with naps. Sputum culture. Initiate and encourage incentive spirometer use. Continue nebulizer treatments. GI and DVT prophylaxis. PT and OT. We will continue to monitor labs/results and adjust treatment as necessary. Further recommendations pending. I performed an examination of the patient and discussed their management with the nurse practitioner. I have reviewed the nurse practitioner's note and agree with the documented findings and plan of care.
[2018-03-25] MEDS: HYDROcodone/APAP 7.5-325MG 1 EACH TAB PO PRN ×2 (10:50→21:31)
[2018-03-25] MEDS: CHOLECALCIFEROL 1,000 UNIT TAB PO SCH (10:51)
[2018-03-25] MEDS: GABAPENTIN 300 MG CAP PO SCH ×2 (10:52→20:03)
[2018-03-25] MEDS: guaiFENesin 600 MG TABLET.ER PO SCH ×2 (10:53→20:03)
[2018-03-25] MEDS: MAGNESIUM OXIDE 400 MG TAB PO SCH (10:53)
[2018-03-25] MEDS: PANTOPRAZOLE 40 MG TABLET PO SCH (10:54)
[2018-03-25] MEDS: amLODIPine 5 MG TAB PO SCH ×2 (10:54→20:03)
[2018-03-25] MEDS: METOLAZONE 5 MG TAB PO SCH (10:54)
[2018-03-25] MEDS: hydrALAZINE HCL 25 MG TAB PO SCH ×3 (10:54→20:03)
[2018-03-25] MEDS: MONTELUKAST 10 MG TAB PO SCH (10:55)
[2018-03-25] MEDS: MULTIVITAMINS, THERA 1 EACH TAB PO SCH (10:58)
[2018-03-25] MEDS: FUROSEMIDE 10 MG/ML 10 ML VIAL IV SCH (10:59)
[2018-03-25] MEDS: HEPARIN SODIUM,PORCINE 5,000 UNIT/ML 1 ML VIAL SQ SCH ×2 (11:05→16:00)
[2018-03-25 11:22] LABS: Glucose,Whole Blood 306 mg/dL (75-99)
--- NOTE | 2018-03-25 11:24 | P.PN ---
Subjective Progress Note Date: 03/25/18 Principal diagnosis: Diabetic foot ulcer, Patient continued to be hemodynamically stable, no major events reported by nursing staff. Patient is alert and oriented 3 and stated that he never been with chronic Quinones catheter and said that it happened only once in the hospital when he was here back in April 2017 and has been doing fine since he was started on Flomax area patient reported improvement in his breathing and said that since EP pedal of the fluid everything has improved Objective - Vital Signs Vital signs: Vital Signs Temp 98 F 03/25/18 04:00 Pulse 84 03/25/18 08:08 Resp 18 03/25/18 04:00 BP 128/68 03/25/18 04:00 Pulse Ox 97 03/25/18 04:00 Intake & Output 03/24/18 03/25/18 03/25/18 18:59 06:59 18:59 Intake Total 718 200 Output Total 2950 2750 Balance -2232 -2550 Weight 169.5 kg Intake: IV 240 Sodium Chloride 0.9% 1, 240 000 ml @ 20 mls/hr IV . Q24H [facility] Rx#:[id number] Oral 478 200 Output: Urine 2950 2750 Straight 2950 0 Other: Voiding Method Indwelling Catheter Indwelling Catheter # Voids 0 - Exam Gen.: in stated age, no acute distress Heart: Normal S1-S2 Lungs: Clear to auscultation bilaterally Abdomen: Soft, no tenderness, positive bowel sounds in all 4 quadrant no guarding or rebound Skin: No new rash Psych: Alert and oriented 3 Neuro: No focal deficit Lower extremity with chronic lymphedema according to the patient that has improved since admission Left foot ulcer seems to be clean genitourinary positive for Quinones catheter in place positive for clear urine - Labs CBC & Chem 7: 03/24/18 05:38 03/25/18 06:10 Labs: Abnormal Lab Results - Last 24 Hours (Table) 03/24/18 03/24/18 03/24/18 Range/Units 11:36 16:43 21:17 Chloride (98-107) mmol/L Carbon Dioxide (22-30) mmol/L BUN (9-20) mg/dL Creatinine (0.66-1.25) mg/dL Glucose (74-99) mg/dL POC Glucose (mg/dL) 306 H 311 H 288 H (75-99) mg/dL 03/25/18 03/25/18 Range/Units 06:10 06:35 Chloride 91 L (98-107) mmol/L Carbon Dioxide 36 H (22-30) mmol/L BUN 77 H (9-20) mg/dL Creatinine 1.93 H (0.66-1.25) mg/dL Glucose 197 H (74-99) mg/dL POC Glucose (mg/dL) 227 H (75-99) mg/dL Microbiology - Last 24 Hours (Table) 03/21/18 17:49 Gram Stain - Preliminary Foot - Left Tissue Culture - Preliminary Staphylococcus epidermidis Group D Enterococcus Diphtheroid species Assessment and Plan Assessment: 1. Diabetic foot ulcer status post debridement. 2. MRSA infection. 3. Morbid obesity with obstructive sleep apnea. 4. Diabetes mellitus type 2 insulin-dependent. 5. Chronic respiratory failure with hypoxia. 6. Acute urinary retention with history of benign prostatic hypertrophy. 7. Acute kidney injury on chronic kidney disease. 8. Anasarca. 9. Chronic lower extremity lymphedema. 10. Hypertension. 11. Hyperlipidemia. 12. Anemia of chronic disease. 13. Severe debility and deconditioning Plan: I would like to continue wound care, leg elevation, Lasix 60 mg twice daily monitor kidney function closely continue with Quinones catheter and monitor urine output closely avoid nephrotoxic medication follow-up with infectious disease recommendation regarding switching patients to oral agents and discharge planning on Tuesday to a fdc facility. Patient is agreeable to the current treatment plan which was discussed at the bedside in front of the nursing staff. We'll continue insulin sliding scale and change his regimen for better control as his glucose currently 308 area patient counseled regarding medication adherence and adherence to his diabetic diet as well. Patient carries poor prognosis on the long run given his morbid obesity and multiple medical problems
--- NOTE | 2018-03-25 15:29 | P.PN ---
Subjective Progress Note Date: 03/25/18 This 67-year-old gentleman is admitted to the hospital with renal failure, diastolic CHF and significant fluid overload. Patient was on IV Lasix drip which was switched to boluses of IV Lasix. Patient lost several pounds and several liters of fluid. Today patient is not feeling well. He denies any chest pain and doesn't appear to be in acute distress. We'll may be dealing with underlying infection. We'll continue current medical therapy. If necessary. Cultures could be obtained. 03/25/2018: Patient is feeling much better. No complaints of any chest pain or shortness of breath. His edema is significantly improved. His acute creatinine remained stable. Possible discharge on Tuesday Objective - Vital Signs Vital signs: Vital Signs Temp 96.8 F L 03/25/18 11:56 Pulse 85 03/25/18 12:00 Resp 18 03/25/18 12:00 BP 136/61 03/25/18 11:56 Pulse Ox 95 03/25/18 11:56 Intake & Output 03/24/18 03/25/18 03/25/18 18:59 06:59 18:59 Intake Total 718 200 Output Total 2950 2750 Balance -2232 -2550 Weight 169.5 kg Intake: IV 240 Sodium Chloride 0.9% 1, 240 000 ml @ 20 mls/hr IV . Q24H [facility] Rx#:[id number] Oral 478 200 Output: Urine 2950 2750 Straight 2950 0 Other: Voiding Method Indwelling Catheter Indwelling Catheter Indwelling Catheter # Voids 0 - Exam GENERAL EXAM: Patient is alert and oriented and doesn't appear to be in any acute distress HEENT: Normocephalic. Normal reaction of pupils, equal size, normal range of extraocular motion. No erythema or exudates in the throat. NECK: No masses, no nuchal rigidity. CHEST: No chest wall deformity. LUNGS: Diminished air exchange HEART: S1 and S2 normal with no audible mumurs or gallops. Regular rhythm, femorals equal on both sides.. ABDOMEN: No hepatosplenomegaly, normal bowel sounds, no guarding or rigidity. SKIN: No rashes CENTRAL NERVOUS SYSTEM: No focal deficits. EXTREMITIES: Moderate edema, seems to be resolving - Labs CBC & Chem 7: 03/24/18 05:38 03/25/18 06:10 Labs: Abnormal Lab Results - Last 24 Hours (Table) 03/24/18 03/24/18 03/25/18 Range/Units 16:43 21:17 06:10 Chloride 91 L (98-107) mmol/L Carbon Dioxide 36 H (22-30) mmol/L BUN 77 H (9-20) mg/dL Creatinine 1.93 H (0.66-1.25) mg/dL Glucose 197 H (74-99) mg/dL POC Glucose (mg/dL) 311 H 288 H (75-99) mg/dL 03/25/18 03/25/18 Range/Units 06:35 11:19 Chloride (98-107) mmol/L Carbon Dioxide (22-30) mmol/L BUN (9-20) mg/dL Creatinine (0.66-1.25) mg/dL Glucose (74-99) mg/dL POC Glucose (mg/dL) 227 H 306 H (75-99) mg/dL Microbiology - Last 24 Hours (Table) 03/21/18 17:49 Gram Stain - Preliminary Foot - Left Tissue Culture - Preliminary Staphylococcus epidermidis Group D Enterococcus Diphtheroid species Assessment and Plan (1) Diastolic CHF Current Visit: Yes Status: Acute Code(s): I50.30 - UNSPECIFIED DIASTOLIC ( CONGESTIVE) HEART FAILURE SNOMED Code(s): 949468580 (2) COPD (chronic obstructive pulmonary disease) Current Visit: Yes Status: Acute Code(s): J44.9 - CHRONIC OBSTRUCTIVE PULMONARY DISEASE, UNSPECIFIED SNOMED Code(s): 91681266 (3) Right-sided heart failure Current Visit: Yes Status: Acute Code(s): I50.810 - RIGHT HEART FAILURE, UNSPECIFIED SNOMED Code(s): 422214880 (4) Obesity Current Visit: Yes Status: Acute Code(s): E66.9 - OBESITY, UNSPECIFIED SNOMED Code(s): 074875265 Plan: Clinically stable. Possible discharge on Tuesday
[2018-03-25 16:56] LABS: Glucose,Whole Blood 250 mg/dL (75-99)
[2018-03-25] MEDS: SODIUM CHLORIDE 0.9% 1,000 ML IV SCH (19:57)
[2018-03-25] MEDS: TAMSULOSIN 0.4 MG CAP.ER.24H PO SCH (20:03)
[2018-03-25] MEDS: LINEZOLID 600 MG TAB PO SCH (20:03)
[2018-03-25 21:28] LABS: Glucose,Whole Blood 264 mg/dL (75-99)
[2018-03-26] MEDS: HEPARIN SODIUM,PORCINE 5,000 UNIT/ML 1 ML VIAL SQ SCH ×4 (00:41→23:03)
[2018-03-26 06:35] LABS: Glucose,Whole Blood 216 mg/dL (75-99)
[2018-03-26] MEDS: INSULIN ASPART 100 UNIT/ML 1 ML 10 ML VIAL SQ SCH ×4 (06:49→21:09)
[2018-03-26] MEDS: INSULIN NPH/REG INSULIN 70/30 300 UNIT/3 ML VIAL SQ SCH ×3 (06:50→17:13)
[2018-03-26] MEDS: BUDESONIDE 1 MG/2 ML NEBU INHALATION SCH ×2 (07:41→19:26)
[2018-03-26] MEDS: IPRATROPIUM-ALBUTEROL 3 ML NEB INHALATION SCH ×4 (07:41→19:26)
[2018-03-26] MEDS: amLODIPine 5 MG TAB PO SCH ×2 (08:00→21:08)
[2018-03-26] MEDS: PANTOPRAZOLE 40 MG TABLET PO SCH (08:00)
[2018-03-26] MEDS: CHOLECALCIFEROL 1,000 UNIT TAB PO SCH (08:00)
[2018-03-26] MEDS: GABAPENTIN 300 MG CAP PO SCH ×2 (08:01→21:08)
[2018-03-26] MEDS: FUROSEMIDE 80 MG TAB PO SCH ×2 (08:01→16:16)
[2018-03-26] MEDS: LINEZOLID 600 MG TAB PO SCH ×2 (08:01→21:08)
[2018-03-26] MEDS: hydrALAZINE HCL 25 MG TAB PO SCH ×3 (08:01→21:08)
[2018-03-26] MEDS: guaiFENesin 600 MG TABLET.ER PO SCH ×2 (08:01→21:08)
[2018-03-26] MEDS: MAGNESIUM OXIDE 400 MG TAB PO SCH (08:02)
[2018-03-26] MEDS: METOLAZONE 5 MG TAB PO SCH (08:02)
[2018-03-26] MEDS: MONTELUKAST 10 MG TAB PO SCH (08:02)
[2018-03-26] MEDS: HYDROcodone/APAP 7.5-325MG 1 EACH TAB PO PRN ×2 (08:02→23:02)
--- NOTE | 2018-03-26 10:01 | P.PN ---
Subjective Progress Note Date: 03/26/18 HPI: This is a 67-year-old male patient being seen examined and evaluated today for consultation. This patient is well-known to our services. This patient was then to see his infectious disease doctor for his left heel ulcer yesterday when he was noted to have some dyspnea and desaturations with his oxygen. He was sent over to the emergency room for evaluation and treatment. Patient states he is also been having some chest pain that has been happening for over a week and he has had difficulty breathing when laying down as well. Patient does utilize home oxygen at night with his CPAP and has been using it during the day as well but it has not been enough. Patient states he has been using his CPAP each night for approximately 8 hours and his compliance has been 100%. Patient states he was taking breathing treatments at home 3-4 times per day via nebulizer which was not helping as well. Chest x-ray was reviewed and does show correlation for CHF exacerbation, cardiomegaly with suspected new small tiny bilateral pleural effusions more prominent mild to moderate central vascular congestion. Patient was admitted to the hospital for further evaluation and treatment. Cardiology was also put on consult. Patient had some elevated CK-MB. Patient also complains that his left heel ulcer has been having a more significant foul smell with more drainage. Infectious disease on consult. Denies any fevers nausea vomiting. Upon examination the patient's resting up in bed on 5 L of supplemental oxygen via nasal cannula. He can point of shortness of breath cough congestion and is unable to bring up any secretions. He also has had some generalized abdominal discomfort complaints and is scheduled to go for a CT of the abdomen per primary services. 03/18-03/19/18- Please see Dr. JUAN ANTONIO Jones notes 03/20/18- patient being seen examined and evaluated today on rounds. He is resting up in bed on 3-4 L of supplement oxygen via nasal cannula. He continues to use his incentive spirometer pulling volumes of approximately 1500 MLS. Patient states he feels his breathing is slightly better. Continue following with infectious disease and wound care. Patient is being worked up for possible debridement. He is afebrile no further complaints. All labs and appointment been reviewed. 03/21/18- patient being seen examined and evaluated on rounds. He is resting up in bed on 3 L of supplemental oxygen via nasal cannula. He states his breathing is much better. His steroids have been discontinued. Patient is waiting for vascular consult for possible debridement of his wound. He is afebrile no further complaints. Nephrology also following along with the patient. 03/22/18- patient is being seen examined and evaluated on rounds. He is resting up in bed on oxygen via nasal cannula. He is more tired today. He was switched from Lasix drip yesterday to IV push Lasix. He did undergo debridement yesterday with vascular surgery. 03/23/2018: Patient seen and examined. Patient states his breathing is about at baseline. He is wondering if he should've oxygen to go home with. He is planning on going to [facility] for rehab tomorrow. Creatinine is 2.43 today, BUN is 83. The patient states that he is very weak and can barely walk. 03/24/18-patient seen seen examined and evaluated today on rounds. He is resting up in bed on 2 L of supplemental oxygen. Discharge planning in process for possible subacute rehab. Patient's wound culture currently pending however is presumed of MRSA. He is in contact precautions. He continues to have shortness of breath with exertion and activity. Denies any cough or congestion at this time. 03/25/18- patient is being seen examined and evaluated today on rounds. He is resting up in bed on 2 L of supplemental oxygen. Patient had a foot wound culture came back for staph epidermidis, group D enterococcus and diphtheroid species. Awaiting infectious disease recommendations for antibiotics for discharge. Patient as well as to be going to [facility] for subacute rehab. 03/26/18- patient being seen examined and evaluated on rounds. He is resting up in bed on 2 L of supplemental oxygen. He feels his breathing is at his baseline. He has had no significant cough or congestion. Occasionally short of breath with exertion. Plan is for subacute rehab on Tuesday. Objective - Vital Signs Vital signs: Vital Signs Temp 97.2 F L 03/26/18 08:00 Pulse 88 03/26/18 08:01 Resp 18 03/26/18 08:00 BP 128/60 03/26/18 08:00 Pulse Ox 97 03/26/18 08:00 Intake & Output 03/25/18 03/26/18 03/26/18 18:59 06:59 18:59 Intake Total 550 200 Output Total 3600 0 Balance -3050 200 Weight 162 kg Intake: IV 140 Sodium Chloride 0.9% 1, 140 000 ml @ 20 mls/hr IV . Q24H [facility] Rx#:[id number] Oral 410 200 Output: Urine 3600 0 Straight 0 0 Other: Voiding Method Indwelling Catheter Indwelling Catheter # Voids 0 # Bowel Movements 0 - Exam GENERAL EXAM: Alert, active, comfortable in no apparent distress. Morbidly obese HEAD: Normocephalic. EYES: Normal reaction of pupils, equal size. NOSE: Clear with pink turbinates. THROAT: No erythema or exudates. NECK: No masses, no JVD. CHEST: No chest wall deformity. LUNGS: Equal air entry with few faint expiratory wheezing noted. Bases diminished CVS: S1 and S2 normal with no audible mumurs, regular rhythm. ABDOMEN: No hepatosplenomegaly, normal bowel sounds, no guarding or rigidity. EXTREMITIES: +1 edema noted. Chronic bilateral lower extremity cellulitis. Left lower heel wound, wrapped clean dry and intact CENTRAL NERVOUS SYSTEM: No focal deficits, tone is normal in all 4 extremities. - Labs CBC & Chem 7: 03/24/18 05:38 03/25/18 06:10 Labs: Abnormal Lab Results - Last 24 Hours (Table) 03/25/18 03/25/18 03/25/18 Range/Units 11:19 16:52 21:25 POC Glucose (mg/dL) 306 H 250 H 264 H (75-99) mg/dL 03/26/18 Range/Units 06:34 POC Glucose (mg/dL) 216 H (75-99) mg/dL Microbiology - Last 24 Hours (Table) 03/21/18 17:49 Gram Stain - Final Foot - Left Tissue Culture - Final Staphylococcus epidermidis Enterococcus faecalis Diphtheroid species Assessment and Plan Assessment: Assessment Acute hypoxic respiratory failure required supplemental oxygen Unstable angina Acute exacerbation of CHF Acute exacerbation of COPD GIOVANY/OHS Diabetes mellitus Left heel wound History of hypertension History of hyperlipidemia Nonspecific diffuse abdominal pain Plan Patient is cleared from pulmonary standpoint for discharge. Discharge planning and process to possible subacute rehab. Ambulatory pulse ox prior to discharge for oxygen needs assessment. Medications have been reviewed and will be continued as ordered. Continue with antibiotics, steroids have been discontinued. Maintain a negative fluid balance.. Cardiology on consult. Infectious disease on consult. Wound care per infectious disease. Continue with pulmonary hygiene, coughing and deep breathing exercises, and supportive care. Supplemental oxygen to maintain oxygen saturations of 92% or better. Uses home CPAP every night and with naps. Sputum culture. Initiate and encourage incentive spirometer use. Continue nebulizer treatments. GI and DVT prophylaxis. PT and OT. We will continue to monitor labs/results and adjust treatment as necessary. Further recommendations pending. I performed an examination of the patient and discussed their management with the nurse practitioner. I have reviewed the nurse practitioner's note and agree with the documented findings and plan of care.
--- NOTE | 2018-03-26 11:03 | P.PN ---
Subjective Principal diagnosis: This is a 67-year-old obese male with chronic kidney disease and acute kidney injury from a left foot ulcer and chronic stasis edema. He is on antibiotics. His on Lasix 60 mg IV twice a day. He complains of generalized weakness other than this he is doing well. His bedridden has been able to get out but feels very weak. No fever chills. No nausea vomiting diarrhea abdominal pain. Good appetite. No shortness of breath. History of present illness. Patient presented to the hospital with left foot ulcer. Patient states he completed it and it diuretics and did see infectious disease as an outpatient. He was noted to have active drainage with foul odor and was advised to come to the hospital. Patient also states that he was taking Lasix 40 mg twice daily at home but has been progressively gaining weight and feels edematous. Does admit to orthopnea. Patient's chest x-ray is suggestive of volume overload. He is currently maintained on Lasix drip at 10 mL an hour and has good urine output. Denies vomiting. Does have loose bowel movements. His potassium is elevated at 6.0 today. He is maintained on lisinopril as well as Aldactone. Denies use of NSAIDs. He has long-standing history of diabetes mellitus. He is currently maintained on IV Unasyn. Objective - Vital Signs Vital signs: Vital Signs Temp 97.2 F L 03/26/18 08:00 Pulse 88 03/26/18 08:01 Resp 18 03/26/18 08:00 BP 128/60 03/26/18 08:00 Pulse Ox 97 03/26/18 08:00 Intake & Output 03/25/18 03/26/18 03/26/18 18:59 06:59 18:59 Intake Total 550 200 Output Total 3600 0 Balance -3050 200 Weight 162 kg Intake: IV 140 Sodium Chloride 0.9% 1, 140 000 ml @ 20 mls/hr IV . Q24H [facility] Rx#:[id number] Oral 410 200 Output: Urine 3600 0 Straight 0 0 Other: Voiding Method Indwelling Catheter Indwelling Catheter # Voids 0 # Bowel Movements 0 On examination is awake alert oriented HEENT exam no JVP neck supple no facial asymmetry Lungs are clear to auscultation good air entry bilaterally Heart sounds are unremarkable for any murmur rub gallop Abdomen soft nontender obese Extremity exam was chronic and can coarse scaly skin with chronic edema. Neurologically awake alert oriented but generalized weakness - Labs CBC & Chem 7: 03/24/18 05:38 03/25/18 06:10 Labs: Abnormal Lab Results - Last 24 Hours (Table) 03/25/18 03/25/18 03/25/18 Range/Units 11:19 16:52 21:25 POC Glucose (mg/dL) 306 H 250 H 264 H (75-99) mg/dL 03/26/18 Range/Units 06:34 POC Glucose (mg/dL) 216 H (75-99) mg/dL Microbiology - Last 24 Hours (Table) 03/21/18 17:49 Gram Stain - Final Foot - Left Tissue Culture - Final Staphylococcus epidermidis Enterococcus faecalis Diphtheroid species Assessment and Plan Assessment: Impression 1. Acute kidney injury secondary to cardiorenal syndrome and infected foot, creatinine is improved from a peak of 2.43 on 03/23/2018 to 1.93 yesterday and no labs today. 2. Chronic kidney disease Baseline creatinine is 1.3 as of 12/22/2017, likely from accommodation of diabetic nephropathy and nephrosclerosis 2+ protein but not quantified dated 03/18/2008 . 3. Metabolic alkalosis from diuretics. Bicarb is 36, slowly trending up 4. Anemia with hemoglobin of 8.7 stable 5. Iron deficiency saturation is 12% dated 03/17/2018.. 6 left foot ulcer on antibiotics 7. Insulin-dependent diabetes Recommendation. 1. Maintain Lasix at 60 mg every 12 close monitoring of intake and output. 2. Currently blood pressure is optimal no change Changes in medical 3. Maintain current medications and watch hemoglobin creatinine blood pressure and edema. 4. Consider discontinuation of Quinones catheter
--- NOTE | 2018-03-26 11:52 | P.PN ---
Subjective Progress Note Date: 03/26/18 Principal diagnosis: Diabetic foot ulcer, She continued to be hemodynamically stable no major events reported by nursing staff patient lost his IV access yesterday and multiple attempts were unsuccessful in placing new IV line and I switched patient's medication to oral and placed order for single-lumen power line Objective - Vital Signs Vital signs: Vital Signs Temp 97.2 F L 03/26/18 08:00 Pulse 88 03/26/18 11:20 Resp 18 03/26/18 08:00 BP 128/60 03/26/18 08:00 Pulse Ox 97 03/26/18 08:00 Intake & Output 03/25/18 03/26/18 03/26/18 18:59 06:59 18:59 Intake Total 550 200 120 Output Total 3600 0 0 Balance -3050 200 120 Weight 162 kg Intake: IV 140 Sodium Chloride 0.9% 1, 140 000 ml @ 20 mls/hr IV . Q24H [facility] Rx#:[id number] Oral 410 200 120 Output: Urine 3600 0 0 Straight 0 0 0 Other: Voiding Method Indwelling Catheter Indwelling Catheter Indwelling Catheter # Voids 0 # Bowel Movements 0 - Exam Gen.: in stated age, no acute distress Heart: Normal S1-S2 Lungs: Clear to auscultation bilaterally Abdomen: Soft, no tenderness, positive bowel sounds in all 4 quadrant no guarding or rebound Skin: No new rash Psych: Alert and oriented 3 Neuro: No focal deficit Lower extremity with chronic lymphedema according to the patient that has improved since admission Left foot ulcer seems to be clean genitourinary positive for Quinones catheter in place positive for clear urine - Labs CBC & Chem 7: 03/24/18 05:38 03/25/18 06:10 Labs: Abnormal Lab Results - Last 24 Hours (Table) 03/25/18 03/25/18 03/26/18 Range/Units 16:52 21:25 06:34 POC Glucose (mg/dL) 250 H 264 H 216 H (75-99) mg/dL Microbiology - Last 24 Hours (Table) 03/21/18 17:49 Gram Stain - Final Foot - Left Tissue Culture - Final Staphylococcus epidermidis Enterococcus faecalis Diphtheroid species Assessment and Plan Assessment: 1. Diabetic foot ulcer status post debridement. 2. MRSA infection. 3. Morbid obesity with obstructive sleep apnea. 4. Diabetes mellitus type 2 insulin-dependent. 5. Chronic respiratory failure with hypoxia. 6. Acute urinary retention with history of benign prostatic hypertrophy. 7. Acute kidney injury on chronic kidney disease. 8. Anasarca. 9. Chronic lower extremity lymphedema. 10. Hypertension. 11. Hyperlipidemia. 12. Anemia of chronic disease. 13. Severe debility and deconditioning Plan: I would like to continue wound care, leg elevation, switch Lasix to 80 mg by mouth twice daily as patient lost his IV access monitor kidney function closely continue with Quinones catheter and monitor urine output closely avoid nephrotoxic medication follow-up with infectious disease recommendation regarding switching patients to oral agents as I switched patients to Zyvox 600 mg twice daily due to lack of IV access. Patient is agreeable to the current treatment plan which was discussed at the bedside in front of the nursing staff. We'll continue insulin sliding scale and change his regimen for better control as his glucose currently 308 area patient counseled regarding medication adherence and adherence to his diabetic diet as well. Patient carries poor prognosis on the long run given his morbid obesity and multiple medical problems
[2018-03-26 11:55] LABS: Glucose,Whole Blood 272 mg/dL (75-99)
[2018-03-26] MEDS: MULTIVITAMINS, THERA 1 EACH TAB PO SCH (12:02)
[2018-03-26 17:17] LABS: Glucose,Whole Blood 277 mg/dL (75-99)
[2018-03-26 20:51] LABS: Glucose,Whole Blood 263 mg/dL (75-99)
[2018-03-26] MEDS: SODIUM CHLORIDE 0.9% 1,000 ML IV SCH (20:58)
[2018-03-26] MEDS: TAMSULOSIN 0.4 MG CAP.ER.24H PO SCH (21:08)
--- NOTE | 2018-03-26 22:57 | PN ---
PROGRESS NOTE DATE OF SERVICE: 03/26/2018. REASON FOR FOLLOWUP: Left diabetic foot ulcer with cellulitis. INTERVAL HISTORY: The patient is afebrile. He is currently breathing comfortably. Denies having any chest pain or shortness of breath or cough. No abdominal pain or pain in the leg area. EXAMINATION: Blood pressure 129/61 with a pulse of 70, temperature 98. He is 100% on 2 L nasal cannula. General description is an elderly male lying in bed in no distress, respiratory system: Unlabored breathing. Clear to auscultation anteriorly. Heart S1, S2. Regular rate and rhythm. ABDOMEN: Soft, no tenderness. Left foot is currently dressed up, no obviously drainage on the dressing. LABS: Hemoglobin 8.7, white count 7.9, BUN of 77, creatinine 1.93. Wound culture normal with E faecalis. the patient's Staph epi. Faecalis is pansensitive. DIAGNOSTIC IMPRESSION AND PLAN: Patient with left diabetic foot ulcer with secondary cellulitis. Previous culture were reported for present MRSA, but no finalized with Staph epi more likely skin cr and contamination. Enterococcus faecalis may be playing a role in the cellulitis. The patient has no IV access. Antibiotic will be switched over to Augmentin and discontinue the daptomycin. MMODL / IJN: [id number] /
[2018-03-26] MEDS: AMOXIC-POT CLAV 875-125MG 1 EACH TAB PO SCH (23:03)
[2018-03-27] MEDS: HYDROcodone/APAP 7.5-325MG 1 EACH TAB PO PRN ×2 (05:12→15:37)
[2018-03-27 06:01] LABS: Glucose,Whole Blood 229 mg/dL (75-99)
[2018-03-27] MEDS: INSULIN NPH/REG INSULIN 70/30 300 UNIT/3 ML VIAL SQ SCH ×2 (07:05→12:19)
[2018-03-27] MEDS: INSULIN ASPART 100 UNIT/ML 1 ML 10 ML VIAL SQ SCH ×2 (07:06→12:19)
[2018-03-27] MEDS: PANTOPRAZOLE 40 MG TABLET PO SCH (07:07)
[2018-03-27] MEDS: CHOLECALCIFEROL 1,000 UNIT TAB PO SCH (08:09)
[2018-03-27] MEDS: FUROSEMIDE 80 MG TAB PO SCH ×2 (08:09→15:35)
[2018-03-27] MEDS: HEPARIN SODIUM,PORCINE 5,000 UNIT/ML 1 ML VIAL SQ SCH ×2 (08:09→15:35)
[2018-03-27] MEDS: CALCITRIOL 0.25 MCG CAP PO SCH (08:09)
[2018-03-27] MEDS: amLODIPine 5 MG TAB PO SCH (08:09)
[2018-03-27] MEDS: AMOXIC-POT CLAV 875-125MG 1 EACH TAB PO SCH (08:09)
[2018-03-27] MEDS: METOLAZONE 5 MG TAB PO SCH (08:10)
[2018-03-27] MEDS: GABAPENTIN 300 MG CAP PO SCH (08:10)
[2018-03-27] MEDS: MULTIVITAMINS, THERA 1 EACH TAB PO SCH (08:10)
[2018-03-27] MEDS: MAGNESIUM OXIDE 400 MG TAB PO SCH (08:10)
[2018-03-27] MEDS: MONTELUKAST 10 MG TAB PO SCH (08:10)
[2018-03-27] MEDS: hydrALAZINE HCL 25 MG TAB PO SCH ×2 (08:10→15:35)
[2018-03-27] MEDS: guaiFENesin 600 MG TABLET.ER PO SCH (08:10)
[2018-03-27] MEDS: LINEZOLID 600 MG TAB PO SCH (08:11)
[2018-03-27] MEDS: IPRATROPIUM-ALBUTEROL 3 ML NEB INHALATION SCH ×3 (08:12→16:12)
[2018-03-27] MEDS: BUDESONIDE 1 MG/2 ML NEBU INHALATION SCH (08:12)
--- NOTE | 2018-03-27 08:42 | P.PN ---
Subjective Patient is seen in follow-up for acute kidney injury on chronic kidney disease. Creatinine improved to 1.9 as of 03/25. Patient's currently being treated for left foot ulcer and underwent debridement on March 21. Tissue culture is positive for MRSA. He was noted to be in severe volume overload and is currently maintained on Lasix 80 mg twice daily. His urine output in the last 24 hours was over 4 L. Dyspnea is improved. Edema is also gradually improving. Oral intake is good. No vomiting or diarrhea. Quinones catheter was removed this morning. Vital signs are stable. General: The patient appeared well nourished and normally developed. HEENT: Head exam is unremarkable. Neck is without jugular venous distension. LUNGS: Breath sounds decreased. HEART: Rate and Rhythm are regular. First and second heart sounds normal. No murmurs, rubs or gallops. ABDOMEN: Abdominal exam reveals normal bowel sounds. Non-tender and non- distended. No evidence of peritonitis. EXTREMITITES: 1+ edema. Chronic changes noted. No obvious drainage. Objective - Vital Signs Vital signs: Vital Signs Temp 96.9 F L 03/27/18 08:18 Pulse 86 03/27/18 08:29 Resp 18 03/27/18 08:19 BP 136/65 03/27/18 08:18 Pulse Ox 99 03/27/18 08:18 Intake & Output 03/26/18 03/27/18 03/27/18 18:59 06:59 18:59 Intake Total 760 200 Output Total 1800 2500 Balance -1040 -2500 200 Weight 168.8 kg Intake: Oral 760 200 Output: Urine 1800 2500 Straight 0 400 Other: Voiding Method Indwelling Catheter Indwelling Catheter # Voids 1 # Bowel Movements 0 1 - Labs CBC & Chem 7: 03/24/18 05:38 03/25/18 06:10 Labs: Abnormal Lab Results - Last 24 Hours (Table) 03/26/18 03/26/18 03/26/18 Range/Units 11:50 16:56 20:50 POC Glucose (mg/dL) 272 H 277 H 263 H (75-99) mg/dL 03/27/18 Range/Units 06:00 POC Glucose (mg/dL) 229 H (75-99) mg/dL Assessment and Plan Plan: Assessment: 1. Nonoliguric acute kidney injury mostly prerenal secondary to cardiorenal syndrome. Creatinine down to 1.93 as of March 25. Creatinine in May 2017 was 0.95. 2. Rule out chronic kidney disease. Prior UA does reveal proteinuria which is likely secondary to underlying diabetic kidney disease. 3. Hyperkalemia secondary to acute kidney injury and further worsened with the use of lisinopril and Aldactone. Improved with medical management. 4. Diastolic CHF. 5. Volume overload. Gradually improving. Maintaining net negative fluid balance. 6. Left foot diabetic ulcer. Maintain on antibiotics per infectious disease recommendations. Status post debridement on March 21. Tissue culture positive for staph epidermidis, enterococcus facialis and diphtheroid species. 7. Insulin-dependent diabetes mellitus. 8. Anemia. Iron deficiency noted - status post 3 doses of IV iron. 9. Chronic kidney disease mineral bone disease maintained on calcitriol. Plan: Maintain Lasix 80 mg twice daily. Maintain metolazone 5 mg daily. 1.5 L fluid restriction. Avoid nephrotoxins - vancomycin discontinued. Maintain Aranesp. Repeat electrolytes in the morning. Monitor closely for urinary retention. Maintain Flomax.
--- NOTE | 2018-03-27 10:21 | P.PN ---
Subjective Progress Note Date: 03/27/18 HPI: This is a 67-year-old male patient being seen examined and evaluated today for consultation. This patient is well-known to our services. This patient was then to see his infectious disease doctor for his left heel ulcer yesterday when he was noted to have some dyspnea and desaturations with his oxygen. He was sent over to the emergency room for evaluation and treatment. Patient states he is also been having some chest pain that has been happening for over a week and he has had difficulty breathing when laying down as well. Patient does utilize home oxygen at night with his CPAP and has been using it during the day as well but it has not been enough. Patient states he has been using his CPAP each night for approximately 8 hours and his compliance has been 100%. Patient states he was taking breathing treatments at home 3-4 times per day via nebulizer which was not helping as well. Chest x-ray was reviewed and does show correlation for CHF exacerbation, cardiomegaly with suspected new small tiny bilateral pleural effusions more prominent mild to moderate central vascular congestion. Patient was admitted to the hospital for further evaluation and treatment. Cardiology was also put on consult. Patient had some elevated CK-MB. Patient also complains that his left heel ulcer has been having a more significant foul smell with more drainage. Infectious disease on consult. Denies any fevers nausea vomiting. Upon examination the patient's resting up in bed on 5 L of supplemental oxygen via nasal cannula. He can point of shortness of breath cough congestion and is unable to bring up any secretions. He also has had some generalized abdominal discomfort complaints and is scheduled to go for a CT of the abdomen per primary services. 03/18-03/19/18- Please see Dr. JUAN ANTONIO Jones notes 03/20/18- patient being seen examined and evaluated today on rounds. He is resting up in bed on 3-4 L of supplement oxygen via nasal cannula. He continues to use his incentive spirometer pulling volumes of approximately 1500 MLS. Patient states he feels his breathing is slightly better. Continue following with infectious disease and wound care. Patient is being worked up for possible debridement. He is afebrile no further complaints. All labs and appointment been reviewed. 03/21/18- patient being seen examined and evaluated on rounds. He is resting up in bed on 3 L of supplemental oxygen via nasal cannula. He states his breathing is much better. His steroids have been discontinued. Patient is waiting for vascular consult for possible debridement of his wound. He is afebrile no further complaints. Nephrology also following along with the patient. 03/22/18- patient is being seen examined and evaluated on rounds. He is resting up in bed on oxygen via nasal cannula. He is more tired today. He was switched from Lasix drip yesterday to IV push Lasix. He did undergo debridement yesterday with vascular surgery. 03/23/2018: Patient seen and examined. Patient states his breathing is about at baseline. He is wondering if he should've oxygen to go home with. He is planning on going to [facility] for rehab tomorrow. Creatinine is 2.43 today, BUN is 83. The patient states that he is very weak and can barely walk. 03/24/18-patient seen seen examined and evaluated today on rounds. He is resting up in bed on 2 L of supplemental oxygen. Discharge planning in process for possible subacute rehab. Patient's wound culture currently pending however is presumed of MRSA. He is in contact precautions. He continues to have shortness of breath with exertion and activity. Denies any cough or congestion at this time. 03/25/18- patient is being seen examined and evaluated today on rounds. He is resting up in bed on 2 L of supplemental oxygen. Patient had a foot wound culture came back for staph epidermidis, group D enterococcus and diphtheroid species. Awaiting infectious disease recommendations for antibiotics for discharge. Patient as well as to be going to [facility] for subacute rehab. 03/26/18- patient being seen examined and evaluated on rounds. He is resting up in bed on 2 L of supplemental oxygen. He feels his breathing is at his baseline. He has had no significant cough or congestion. Occasionally short of breath with exertion. Plan is for subacute rehab on Tuesday. 03/27/18- patient is being seen examined and evaluated today on rounds. He is resting up in bed on room air. He did not require any supplemental oxygen overnight. Breathing is at baseline. Preparing for discharge to subacute rehab today. Antibiotics have been switched over to oral, per infectious disease. He is afebrile no further complaints. Objective - Vital Signs Vital signs: Vital Signs Temp 96.9 F L 03/27/18 08:18 Pulse 86 03/27/18 08:29 Resp 18 03/27/18 08:19 BP 136/65 03/27/18 08:18 Pulse Ox 99 03/27/18 08:18 Intake & Output 03/26/18 03/27/18 03/27/18 18:59 06:59 18:59 Intake Total 760 200 Output Total 1800 2500 Balance -1040 -2500 200 Weight 168.8 kg Intake: Oral 760 200 Output: Urine 1800 2500 Straight 0 400 Other: Voiding Method Indwelling Catheter Indwelling Catheter # Voids 1 # Bowel Movements 0 1 - Exam GENERAL EXAM: Alert, active, comfortable in no apparent distress. Morbidly obese HEAD: Normocephalic. EYES: Normal reaction of pupils, equal size. NOSE: Clear with pink turbinates. THROAT: No erythema or exudates. NECK: No masses, no JVD. CHEST: No chest wall deformity. LUNGS: Equal air entry with few faint expiratory wheezing noted. Bases diminished CVS: S1 and S2 normal with no audible mumurs, regular rhythm. ABDOMEN: No hepatosplenomegaly, normal bowel sounds, no guarding or rigidity. EXTREMITIES: +1 edema noted. Chronic bilateral lower extremity cellulitis. Left lower heel wound, wrapped clean dry and intact CENTRAL NERVOUS SYSTEM: No focal deficits, tone is normal in all 4 extremities. - Labs CBC & Chem 7: 03/24/18 05:38 03/25/18 06:10 Labs: Abnormal Lab Results - Last 24 Hours (Table) 03/26/18 03/26/18 03/26/18 Range/Units 11:50 16:56 20:50 POC Glucose (mg/dL) 272 H 277 H 263 H (75-99) mg/dL 03/27/18 Range/Units 06:00 POC Glucose (mg/dL) 229 H (75-99) mg/dL Assessment and Plan Assessment: Assessment Acute hypoxic respiratory failure required supplemental oxygen Unstable angina Acute exacerbation of CHF Acute exacerbation of COPD GIOVANY/OHS Diabetes mellitus Left heel wound History of hypertension History of hyperlipidemia Nonspecific diffuse abdominal pain Plan Patient is cleared from pulmonary standpoint for discharge. Discharge planning and process to possible subacute rehab. Medications have been reviewed and will be continued as ordered. Continue with antibiotics, steroids have been discontinued. Maintain a negative fluid balance. Cardiology on consult. Infectious disease on consult. Wound care per infectious disease. Continue with pulmonary hygiene, coughing and deep breathing exercises, and supportive care. Supplemental oxygen to maintain oxygen saturations of 92% or better. Uses home CPAP every night and with naps. Sputum culture. Initiate and encourage incentive spirometer use. Continue nebulizer treatments. GI and DVT prophylaxis. PT and OT. We will continue to monitor labs/results and adjust treatment as necessary. Further recommendations pending. I performed an examination of the patient and discussed their management with the nurse practitioner. I have reviewed the nurse practitioner's note and agree with the documented findings and plan of care.
[2018-03-27 10:50] LABS: Glucose,Whole Blood 307 mg/dL (75-99)
[2018-03-27 11:44] LABS: Calcium 9.4 mg/dL (8.4-10.2); Potassium 4.5 mmol/L (3.5-5.1)
[2018-03-27 11:54] LABS: Glucose,Whole Blood 316 mg/dL (75-99)
--- NOTE | 2018-03-27 11:59 | P.DS ---
Providers Date of admission: 03/16/18 19:15 Attending physician: Bhavna Her Consults: 03/16/18 20:46 Consult Physician Routine Consulting Provider: Denys Saunders Consult Reason/Comments: chf Do you want consulting provider notified?: Yes Consult Physician Urgent Consulting Provider: Ame Oneil Consult Reason/Comments: copd Do you want consulting provider notified?: Yes 03/17/18 09:05 Consult Physician Routine Consulting Provider: Fernando Ruiz Consult Reason/Comments: Left heel ulcer Do you want consulting provider notified?: Yes 03/17/18 11:44 Consult Physician Routine Consulting Provider: Jemma Connor Consult Reason/Comments: CKD Do you want consulting provider notified?: Yes 03/17/18 12:30 Consult Physician Urgent Consulting Provider: Deepak Eduardo Consult Reason/Comments: debridement of left heel wound Do you want consulting provider notified?: Yes Primary care physician: Benjamin Tran [facility] Course: This is a 67-year-old male patient of Dr. Johnson with a past medical history of chronic heart failure, COPD, diabetes mellitus type 2 insulin requiring, hypertension, benign prostatic hypertrophy, gastroesophageal reflux disease, hyperlipidemia, obstructive sleep apnea with CPAP, super morbid obesity with plan for gastric sleeve with Dr. Ayala in the near future, chronic anemia seen by Dr. Webb in the past. He had a recent hospitalization for chest pain, acute on chronic hypoxic respiratory failure due to right-sided pneumonia and bilateral pleural effusions and acute kidney injury. Patient was discharged home with home care and oxygen. On last admission, echocardiogram reveals EF of 60-65% with mild aortic valve sclerosis, mild mitral regurgitation , trace tricuspid regurgitation, no pulmonary hypertension. Due to elevated d- dimer, lower extremity duplex was negative for DVT. CTA of the chest showed no evidence of pulmonary embolism. Bilateral pleural effusions with pulmonary mild infiltrate and atelectasis. Chest ultrasound revealed mild bilateral pleural effusions. Patient complains of abdominal bloating and has not have increased anasarca. His weight is up but he is not sure how much as he does not have a scale at home. He currently has home care in place. He does have a cough that he states is nonproductive. He denies any blood in his stool or urine. He has followed up with Dr. Oneil about a week ago. He is supposed to be on Xolair but has been off for quite a while. He has been does diagnosed with asthma and COPD by Dr. Oneil. Patient presented to [facility] emergency center and found to be afebrile, white count was normal, BUN 36 and creatinine 1.5 chest x-ray shows evidence of pleural effusion concerning for heart failure. BNP was 907. Troponin was normal. Foot x-ray did not show osteomyelitis. Blood sugar was 54 and treated with orange juice. EKG was in normal sinus rhythm. Patient was admitted to the selective care unit and consults were requested with Dr. Oneil, cardiology and Dr. Ruiz. Echocardiogram ordered as well as CT of the abdomen and pelvis. Blood culture was obtained. Repeat troponins were negative on 2 draws. His recent hemoglobin A1c was 7.4. A bone scan has been ordered. Consult with Dr. Connor for chronic kidney disease. Patient did require Quinones catheter placement for retention of greater than 1 L. 03/18 Patient examined bedside. Still complains of significant shortness of breath requiring 5 L of oxygen. Currently on 15 mg per hour of Lasix drip. Nephrology recommending holding lisinopril and Aldactone and continue with Lasix drip when metolazone. Patient was evaluated by infectious disease who recommended initiating patient on Unasyn and surgery consult for possible debridement. Creatinine is significantly increased from 0.95-1.59 likely secondary to cardiorenal syndrome. 03/19 {patient assessed bedside. SOB has improved, still requiring 3 l of nasal cannula. Continue lasix drip based on I/ O. Does have abdominal distention with abdomonial wall swelling. Pending vascular surgery evaluation fro debridement 03/20: Left upper extremity Doppler was negative for DVT. For his left foot wound, patient is on local wound care with [facility] and continued on Unasyn. Patient remains on Lasix drip with metolazone. He has had good urine output. Shortness of breath and lower extremity edema and anasarca are improving. He is on a fluid restriction of 1.5 L. Lisinopril and Aldactone remain on hold. Patient has been started on Ferrlecit yesterday for 3 doses daily. Hemoglobin is 9.4. BUN 62 and creatinine 1.8. Patient is currently on Solu-Medrol 60 mg IV every 6 hours per pulmonary which is been decreased to 40 mg every [address] Eduardo on consult for debridement of the left heel ulcer. 03/21: Patient's blood sugars jumped into the 300s yesterday afternoon and evening and Solu-Medrol was discontinued. He was also changed to a consistent carb diet but today at lunch his blood sugars have dropped to 57 and 69. His morning 70/30 insulin decreased from 126 units to 110 units. Today, BUN 71 and creatinine 2.10. Hemoglobin is 9.5. Weight is down 6.6 kg. Patient does state that his breathing and edema are improving. He remains on an insulin drip. 03/22: Patient has been transitioned from Lasix drip to Lasix 60 mg IV every 12 hours. His BUN is 81 creatinine 2.40 with hemoglobin of 9.1. We have increased fluid restriction from 1500 mL to 2 L. Patient had a drop in his blood sugars for which his insulin dosing has been adjusted to 60 units at breakfast and lunch and 40 units at supper. Patient will complete Ferrlecit infusions today. He is continued on vancomycin. 03/23: Patient was very lethargic and sleepy yesterday for her nursing staff. Patient states that he was "out of it." Patient's blood sugars were on the low side and all his scheduled insulin was discontinued. This morning, patient mentation is back to baseline. He is awake alert and oriented 3. He underwent debridement was Dr. Eduardo last evening. Wound culture came back with MRSA. Patient is on vancomycin, pharmacy dosing. Lasix is IV 60 mg every 6 hours. He is continued on metolazone. Patient does have decreased abdominal edema. BUN 89 and creatinine 2.43. 03/24: Patient has been afebrile. Heart rate is running in the 80s and 90s. Pulse ox is 98% on 2 L nasal cannula. BUN is 86 and creatinine 2.1. Hemoglobin is at 8.7. Patient has been started on Aranesp. Dr. Ruiz has recommended daptomycin IV for 48 hours and then transitioned to oral option for discharge. Blood sugars are now running high and he will be placed back on 70/ 30 insulin but at a lower dose in his home at 30 units 3 times daily. Patient was transitioned off consistent carb diet as he was artery on renal and heart healthy. He is currently only on NovoLog scale. Patient is complaining of feeling tired with no appetite. Also complains of legs and his back discomfort. He is on [place] which is helping. Anticipate discharge on Tuesday. 03/27: patient is more stable, his ulcer in the left foot has improved some, patient had multiple granulated area of small wound in the upper extremity as well as to be followed by [facility] and require probably topical care while he is being treated for MRSA. Patient otherwise feeling well less hypoxic than before and he wants to leave the hospital to go to [facility] today.\\ Assessment and plan: 1. Diabetic ulcer left heel. Local wound care will be in the form of medihoney. Wound culture to be obtained. [facility] as he has transportation problems. Consult Dr. Ruiz and completed recent antibiotics. Continue daptomycin for MRSA. Consult Dr. Eduardo status post debridement. 2. Chest pain with normal troponins. Continue, aspirin and Nitropaste. Cardiology consult is appreciated. Echocardiogram was recently done on last admission. Patient follows with Dr. Fierro. 3. Acute on chronic hypoxic respiratory failure secondary to acute on chronic diastolic heart failure and pleural effusions with generalized anasarca and acute exacerbation of COPD as well as abdominal distention. Consult Dr. Oneil and cardiology. Lasix 60 mg IV every 12 hours and metolazone. DuoNeb treatments 4 times daily as needed and Pulmicort twice daily. Solu-Medrol discontinued due to hyperglycemia. 2 L fluid restriction. 4. Diabetes mellitus type 2 uncontrolled, insulin requiring with diabetic neuropathy. Patient presented with hypoglycemia all by hyperglycemia. Adjusted 70/30 to 30 unit3 times daily. Continue NovoLog scale. Continue gabapentin 300 mg twice daily. Hemoglobin A1c 7.7. 5. Abdominal distention secondary to anasarca. 6. Hypertension. Continue Norvasc 5 mg twice daily, lisinopril held due to renal failure. 7. Hyperlipidemia. Continue Lipitor 40 mg at bedtime. 8. Urinary retention secondary to benign prostatic hypertrophy continue Flomax 0.4 mg at bedtime. Quinones catheter 9. Obstructive sleep apnea on CPAP. Patient to continue to use CPAP while hospitalized 10. Morbidly obesity with BMI of 50 with plan for bariatric surgery with Dr. Ayala. 11. Acute kidney injury on chronic kidney disease stage IIIA. Baseline creatinine is 1.5. 12. Moderate persistent asthma, stable. Patient follows with Dr. Oneil. Continue DuoNeb treatments, Pulmicort, Singulair. 13. DVT prophylaxis. Patient on heparin subcu. 14. GI prophylaxis and gastroesophageal reflux disease and hiatal hernia. Continue Protonix. Patient Condition at Discharge: Good Plan - Discharge Summary Discharge Rx Participant: No New Discharge Prescriptions: New Budesonide [Pulmicort] 1 mg INHALATION RT-BID nebu Cholecalciferol [Vitamin D3] 10,000 unit PO DAILY tab Furosemide [Lasix] 80 mg PO BID@0900,1600 tab guaiFENesin [Mucinex] 1,200 mg PO Q12HR tablet.er hydrALAZINE HCL [Apresoline] 25 mg PO TID tab HYDROcodone/APAP 7.5-325MG [[place] 7.5-325] 1 each PO Q4H PRN tab PRN Reason: Pain Insulin Aspart [NovoLOG (formulary)] 0 unit SQ ACHS vial Insulin NPH/Reg Insulin 70/30 [humuLIN 70/30 VIAL] 40 unit SQ AC-TID vial Linezolid [Zyvox] 600 mg PO Q12HR tab Metolazone [Zaroxolyn] 5 mg PO DAILY tab Continue Atorvastatin [Lipitor] 40 mg PO HS Omeprazole [PriLOSEC] 20 mg PO AC-BRKFST Multivitamins, Thera [Multivitamin (formulary)] 1 tab PO DAILY Montelukast Sodium [Singulair] 10 mg PO DAILY Tamsulosin [Flomax] 0.4 mg PO HS Calcitriol 0.5 mcg PO MO Albuterol Sulfate [Proair Respiclick] 1 puff INHALATION RT-QID PRN PRN Reason: Shortness Of Breath Gabapentin [Neurontin] 300 mg PO BID Ferrous Sulfate [Feosol] 325 mg PO BID amLODIPine [Norvasc] 5 mg PO BID Ipratropium-Albuterol Nebulize [Duoneb 0.5 mg-3 mg/3 ml Soln] 3 ml INHALATION RT-QID PRN PRN Reason: Shortness Of Breath Magnesium Oxide [Mag-Oxide] 200 mg PO DAILY Discontinued Furosemide [Lasix] 40 mg PO BID Beclomethasone Dipropionate [Qvar 80 mcg] 1 puff INHALATION RT-BID metFORMIN HCL 1,000 mg PO BID Cholecalciferol (Vitamin D3) [Vitamin D3] 10,000 unit PO DAILY Insulin NPH Hum/Reg Insulin Hm [NovoLIN 70-30 100 UNIT/ML VIAL] 100 unit SQ AC-LUNCH Insulin NPH Hum/Reg Insulin Hm [NovoLIN 70-30 100 UNIT/ML VIAL] 126 unit SQ AC-SUPPER Insulin NPH Hum/Reg Insulin Hm [NovoLIN 70-30 100 UNIT/ML VIAL] 126 unit SQ AC-BRKFST Quinapril HCl 20 mg PO DAILY Quinapril HCl 10 mg PO HS Discharge Medication List Atorvastatin [Lipitor] 40 mg PO HS 09/11/14 [History] Omeprazole [PriLOSEC] 20 mg PO AC-BRKFST 09/03/15 [History] Albuterol Sulfate [Proair Respiclick] 1 puff INHALATION RT-QID PRN 09/20/17 [ History] Calcitriol 0.5 mcg PO MO 09/20/17 [History] Montelukast Sodium [Singulair] 10 mg PO DAILY 09/20/17 [History] Multivitamins, Thera [Multivitamin (formulary)] 1 tab PO DAILY 09/20/17 [History ] Tamsulosin [Flomax] 0.4 mg PO HS 09/20/17 [History] Gabapentin [Neurontin] 300 mg PO BID 10/24/17 [History] Ferrous Sulfate [Feosol] 325 mg PO BID 01/09/18 [History] amLODIPine [Norvasc] 5 mg PO BID 01/09/18 [History] Ipratropium-Albuterol Nebulize [Duoneb 0.5 mg-3 mg/3 ml Soln] 3 ml INHALATION RT -QID PRN 02/13/18 [History] Magnesium Oxide [Mag-Oxide] 200 mg PO DAILY 02/13/18 [History] Budesonide [Pulmicort] 1 mg INHALATION RT-BID nebu 03/27/18 [Rx] Cholecalciferol [Vitamin D3] 10,000 unit PO DAILY tab 03/27/18 [Rx] Furosemide [Lasix] 80 mg PO BID@0900,1600 tab 03/27/18 [Rx] HYDROcodone/APAP 7.5-325MG [[place] 7.5-325] 1 each PO Q4H PRN tab 03/27/18 [Rx] Insulin Aspart [NovoLOG (formulary)] 0 unit SQ ACHS vial 03/27/18 [Rx] Insulin NPH/Reg Insulin 70/30 [humuLIN 70/30 VIAL] 40 unit SQ AC-TID vial 03/27 [Rx] Linezolid [Zyvox] 600 mg PO Q12HR tab 03/27/18 [Rx] Metolazone [Zaroxolyn] 5 mg PO DAILY tab 03/27/18 [Rx] guaiFENesin [Mucinex] 1,200 mg PO Q12HR tablet.er 03/27/18 [Rx] hydrALAZINE HCL [Apresoline] 25 mg PO TID tab 03/27/18 [Rx] Follow up Appointment(s)/Referral(s): Myke Blanca MD [Medical Doctor] - 1 Week Benjamin Johnson MD [Primary Care Provider] - 1-2 days Discharge Disposition: TRANSFER TO SNF/ECF
--- NOTE | 2018-03-27 12:10 | P.PN ---
Subjective Progress Note Date: 03/27/18 This is a 67-year-old gentleman who follows with Dr. Fierro in the office. He has a known history of COPD, diabetes, hypertension, hyperlipidemia , sleep apnea, prior nicotine dependence, morbid obesity, BPH, chronic anemia, seen by Dr. Webb in the past, patient had a recent hospitalization in February of this year for complaints of chest pain, was found to have a right-sided pneumonia. Patient was seen in consultation on that visit by Dr. Holland. He had an echocardiogram with Doppler study performed at that time which revealed an ejection fraction of 60-65% with mild aortic valve sclerosis, mild mitral regurgitation, trace of tricuspid regurg, no pulmonary hypertension. A CTA was also performed last month on that admission which was negative for a pulmonary embolism. Patient presents to the hospital on this occasion with symptoms of abdominal bloating as well as a generally not feeling well, symptoms of shortness of breath and chills. EKG on presentation here showed a normal sinus rhythm with nonspecific ST-T wave changes. Chest x-ray suggests CHF exacerbation with moderate central vascular congestion. Foot x-ray was performed which did not reveal any convincing radiographic evidence for acute osteomyelitis. Blood pressure 150/70, 92% on 5 L of oxygen, heart rate in the 80s to 90s. White blood cell count 5.9, hemoglobin 7.8, platelet count 150. Sodium 142, potassium 4.7, BUN 35, creatinine 1.5. Troponins are negative 2. BNP level 907. At the time of my examination, patient is sitting up at his bedside, complains of feeling extremely chilled, does state that his breathing has improved from yesterday. Patient is currently on IV Lasix. 03/18/2018 Patient was initiated on an IV Lasix drip yesterday, he has diuresed well over the night last night, however his weight is not reflective of this this morning. He has diuresed over 3000 through the night last night and currently has a full catheter bag. Sodium 141, potassium 6.0, BUN 38, creatinine 1.5. is currently on a Lasix drip at 15 mg per hour, metolazone daily was also added today. 03/20/2018 Patient seen and examined this morning, diuresing well on IV Lasix. Weight down 9 kg. Patient is diuresing significant amounts on IV Lasix. Creatinine today 1.8. We will continue IV Lasix for 24 hours, changed over to oral diuretics in the morning. We will also repeat a chest x-ray tomorrow morning. 03/21/2018 Patient was seen and examined this morning, continue to diuresis significant amount through the night last night. His weight today is down 6 kg. Sodium 143 , potassium 4.3, BUN 71, creatinine 2.1. Chest x-ray shows continued congestive cardiac failure. 03/22/2018 Patient seen and examined this morning, continues to diurese significant amounts of urine. Creatinine today 2.4. Complaints of feeling exhausted and weak, breathing is overall admitted acutely improved. She Lasix drip was discontinued today and patient was started on Lasix IV push. We will repeat a chest x-ray tomorrow morning. Check lytes BUN and creatinine in the morning , continue to monitor intake and output along with daily weights. 03/23/2018 Patient was seen and examined this morning, feeling significantly better overall. 10 you to diurese well and again through the night last night. Creatinine 2.4 today. Hemoglobin 8.5. Continued on IV Lasix by nephrology. 03/27/2018 Patient was seen and examined this morning, sitting up in the chair at bedside. Complained of mild dizziness. Blood pressure 137/80, heart rate in the 70s, 94% on room air. Currently on oral diuretics. Objective - Vital Signs Vital signs: Vital Signs Temp 96.7 F L 03/27/18 11:14 Pulse 74 03/27/18 11:43 Resp 20 03/27/18 11:14 BP 134/63 03/27/18 11:14 Pulse Ox 95 03/27/18 11:14 Intake & Output 03/26/18 03/27/18 03/27/18 18:59 06:59 18:59 Intake Total 760 200 Output Total 1800 2500 Balance -1040 -2500 200 Weight 168.8 kg Intake: Oral 760 200 Output: Urine 1800 2500 Straight 0 400 Other: Voiding Method Indwelling Catheter Indwelling Catheter # Voids 1 # Bowel Movements 0 1 - Exam PHYSICAL EXAMINATION: HEENT: Head is atraumatic, normocephalic. Pupils equal, round. Neck is supple. There is no elevated jugular venous pressure. HEART EXAMINATION: Heart S1, S2 normal. No murmur or gallop heard. CHEST EXAMINATION: Lungs reveal scattered coarse rhonchi throughout with diminished air entry to the bases. ABDOMEN: Soft, obese ,nontender. Bowel sounds are heard. No organomegaly noted. EXTREMITIES: 1+ peripheral pulses with evidence of bilateral chronic venous stasis, 1 pitting edema in the bilateral lower extremities, ulcer to the left heel with serous drainage and foul order. Generalized anasarca.. NEUROLOGIC patient is awake, alert and oriented -3. . - Labs CBC & Chem 7: 03/24/18 05:38 03/27/18 11:06 Labs: Abnormal Lab Results - Last 24 Hours (Table) 03/26/18 03/26/18 03/27/18 Range/Units 16:56 20:50 06:00 Chloride (98-107) mmol/L Carbon Dioxide (22-30) mmol/L BUN (9-20) mg/dL Creatinine (0.66-1.25) mg/dL Glucose (74-99) mg/dL POC Glucose (mg/dL) 277 H 263 H 229 H (75-99) mg/dL 03/27/18 03/27/18 03/27/18 Range/Units 10:47 11:06 11:51 Chloride 90 L (98-107) mmol/L Carbon Dioxide 34 H (22-30) mmol/L BUN 59 H (9-20) mg/dL Creatinine 1.80 H (0.66-1.25) mg/dL Glucose 290 H (74-99) mg/dL POC Glucose (mg/dL) 307 H 316 H (75-99) mg/dL Assessment and Plan Plan: Assessment and plan #1 acute on chronic hypoxic respiratory failure, secondary to acute on chronic diastolic heart failure and pleural effusions with generalized anasarca. Exacerbation of COPD. Patient currently on IV Lasix drip. #2 hypertension #3 hyperlipidemia #4 obstructive sleep apnea # 5 morbid obesity, hoping to undergo bariatric surgery with Dr. Ulises james #6 asthma #7 acute on chronic kidney disease #8 acute on chronic anemia #9 former tobacco use Plan From cardiology's perspective, patient may be able to be discharged once cleared by primary, we'll make him a follow-up appointment in the office post discharge. DNP note has been reviewed, I agree with a documented findings and plan of care. Patient was seen and examined.
--- NOTE | 2018-03-27 12:27 | PN ---
PROGRESS NOTE DATE OF SERVICE: 03/27/2018 REASON FOR FOLLOWUP: Left diabetic foot ulcer with cellulitis. INTERVAL HISTORY: The patient is afebrile. He is currently breathing comfortably. Denies having any chest pain. No cough, no abdominal pain or any pain to the left medial foot area. PHYSICAL EXAMINATION: On examination, blood pressure 134/53, pulse of 72, temperature 96.7. He is 95% on room air. General description is an elderly male up in the bed in no distress. RESPIRATORY SYSTEM: Unlabored breathing, clear to auscultation anteriorly. HEART: S1, S2. Regular rate and rhythm. ABDOMEN: Soft, no tenderness. Left medial ankle wound with no slough tissue. The surrounding swelling and redness has improved. LABS: BUN of 59, creatinine 1.80. DIAGNOSTIC IMPRESSION AND PLAN: Patient with left diabetic foot ulcer with secondary cellulitis. Initial culture reported positive for possible methicillin-resistant Staphylococcus aureus, but now is Staphylococcus epidermidis more likely contamination. Enterococcus faecalis may be playing , hence, recommend Augmentin 875 b.i.d. for another 10 days. Local wound care to continue per Vascular Surgery. Continue with supportive care. MMODL / IJN: [id number] /
[2018-03-27 15:00] VITALS: BP 147/67; RESP 18; TEMP 96.8
--- NOTE | 2018-03-27 15:27 | CDI ---
Last Revision, October 2017 Documentation Clarification Form 2nd request Date: 03/23/2018 3:25:00 PM From: Vannessa Trinh RN, CCDS Admit Date: 03/16/2018 7:15:00 PM Patient Name: Muaricio Castaneda Visit Number: [id number] ATTENTION: The Clinical Documentation Specialists (CDI) and [facility] Coding Staff appreciate your assistance in clarifying documentation. Please respond to the clarification below the line at the bottom and electronically sign. The CDI & [facility] Coding staff will review the response and follow-up if needed. Please note: Queries are made part of the Legal Health Record. If you have any questions, please contact the author of this message via ITS. Dr. Deepak Eduardo Per your operative note, a debridement was performed 03/22/18 and requires clairifcation History/Risk Factors: DM2, bilateral peripheral neuropathy, bilateral lower extremity cellulitis, HTN Clinical Indicators: Infected Patel grade 2 ulcer left foot heel. Treatment: Procedure: "Using scissor, we did the selective debridement then necrotic tissue was removed. We took some deep culture for culture and sensitivity." Five elements required for accurate and compliant documentation of a debridement : 1. Technique used (e.g., excisional, excised, cutting, etc.) 2. Instrument(s) used (e.g., scalpel, curette, etc.) 3. Nature of the tissue removed (e.g., necrotic, devitalized tissues, non- viable tissue, etc.) 4. Appearance and size of the wound (e.g., down to fresh bleeding tissue, 7cm x 10cm, etc.) 5. Depth of the debridement* (e.g., skin, subcutaneous tissue, fascia, muscle , bone, etc.) In order to capture the severity of condition and code the appropriate procedure ; could you please document the following: Excisional debridement (the removal of necrotic, devitalized tissue or slough by means of cutting away of tissue) Non-excisional debridement (the removal of necrotic, devitalized tissue or slough by means of flushing, brushing, or washing. (Irrigation) Other; please specify Unable to determine (no explanation for clinical findings) Please continue to document in your progress notes and discharge summary in order to capture severity of illness and risk of mortality. Include clinical findings that support your diagnosis. MTDD
[2018-03-27 16:23] VITALS: PULSE 73
[2018-03-27] MEDS: SODIUM CHLORIDE 0.9% 1,000 ML IV SCH (16:40)
--- NOTE | 2018-03-28 14:20 | CDI ---
Last Revision, October 2017 Documentation Clarification Form 3rd Request Date: 03/23/2018 3:25:00 PM From: Vannessa Trinh RN, CCDS Admit Date: 03/16/2018 7:15:00 PM Patient Name: Mauricio Castaneda Visit Number: [id number] ATTENTION: The Clinical Documentation Specialists (CDI) and [facility] Coding Staff appreciate your assistance in clarifying documentation. Please respond to the clarification below the line at the bottom and electronically sign. The CDI & [facility] Coding staff will review the response and follow-up if needed. Please note: Queries are made part of the Legal Health Record. If you have any questions, please contact the author of this message via ITS. Dr. Deepak Eduardo Per your operative note, a debridement was performed 03/22/18 and requires clarification History/Risk Factors: DM2, bilateral peripheral neuropathy, bilateral lower extremity cellulitis, HTN Clinical Indicators: Infected Patel grade 2 ulcers left foot heel. Treatment: Procedure: "Using scissor, we did the selective debridement then necrotic tissue was removed. We took some deep culture for culture and sensitivity." Five elements required for accurate and compliant documentation of a debridement : 1. Technique used (e.g., excisional, excised, cutting, etc.) 2. Instrument(s) used (e.g., scalpel, curette, etc.) 3. Nature of the tissue removed (e.g., necrotic, devitalized tissues, non- viable tissue, etc.) 4. Appearance and size of the wound (e.g., down to fresh bleeding tissue, 7cm x 10cm, etc.) 5. Depth of the debridement* (e.g., skin, subcutaneous tissue, fascia, muscle , bone, etc.) In order to capture the severity of condition and code the appropriate procedure ; could you please document the following: Excisional debridement (the removal of necrotic, devitalized tissue or slough by means of cutting away of tissue) Non-excisional debridement (the removal of necrotic, devitalized tissue or slough by means of flushing, brushing, or washing. (Irrigation) Other; please specify Unable to determine (no explanation for clinical findings) Please continue to document in your progress notes and discharge summary in order to capture severity of illness and risk of mortality. Include clinical findings that support your diagnosis. MTDD
--- NOTE | 2018-04-05 15:32 | CDI ---
Last Revision, October 2017 Documentation Clarification Form 4th Request Date: 03/23/2018 3:25:00 PM From: Vannessa Trinh RN, CCDS Admit Date: 03/16/2018 7:15:00 PM Patient Name: Mauricio Castaneda Visit Number: [id number] ATTENTION: The Clinical Documentation Specialists (CDI) and [facility] Coding Staff appreciate your assistance in clarifying documentation. Please respond to the clarification below the line at the bottom and electronically sign. The CDI & [facility] Coding staff will review the response and follow-up if needed. Please note: Queries are made part of the Legal Health Record. If you have any questions, please contact the author of this message via ITS. Dr. Deepak Eduardo Per your operative note, a debridement was performed 03/22/18 and requires clarification History/Risk Factors: DM2, bilateral peripheral neuropathy, bilateral lower extremity cellulitis, HTN Clinical Indicators: Infected Patel grade 2 ulcer left foot heel. Treatment: Procedure: "Using scissor, we did the selective debridement then necrotic tissue was removed. We took some deep culture for culture and sensitivity." Five elements required for accurate and compliant documentation of a debridement : 1. Technique used (e.g., excisional, excised, cutting, etc.) 2. Instrument(s) used (e.g., scalpel, curette, etc.) 3. Nature of the tissue removed (e.g., necrotic, devitalized tissues, non- viable tissue, etc.) 4. Appearance and size of the wound (e.g., down to fresh bleeding tissue, 7cm x 10cm, etc.) 5. Depth of the debridement* (e.g., skin, subcutaneous tissue, fascia, muscle , bone, etc.) In order to capture the severity of condition and code the appropriate procedure ; could you please document the following: Excisional debridement (the removal of necrotic, devitalized tissue or slough by means of cutting away of tissue) Non-excisional debridement (the removal of necrotic, devitalized tissue or slough by means of flushing, brushing, or washing. (Irrigation) Other; please specify Unable to determine (no explanation for clinical findings) Please continue to document in your progress notes and discharge summary in order to capture severity of illness and risk of mortality. Include clinical findings that support your diagnosis. MTDD
--- NOTE | 2018-04-07 14:42 | OP ---
OPERATIVE REPORT ADDENDUM: PROCEDURE: Excisional biopsy. MMODL / IJN: [id number] /
--- NOTE | 2018-04-10 19:17 | OP ---
OPERATIVE REPORT ADDENDUM: DATE OF PROCEDURE: 03/22/2018. PROCEDURE PERFORMED: Excisional debridement of the left foot. MMODL / IJN: [id number] /
== END 2018-03-27 16:48 | DRG 166 ==
LOC: EC 16:00 → 6SEL 19:15
PROVIDERS: ADMIT Family Medicine; ATTEND Family Medicine
PROC: 0JBR0ZZ Excision of Left Foot Subcutaneous Tissue and Fascia, Open Approach (ICD-10-PCS; principal; 2018-03-22)
DX: J44.1 Chronic obstructive pulmonary disease with (acute) exacerbation (principal); I50.33 Acute on chronic diastolic (congestive) heart failure; J96.21 Acute and chronic respiratory failure with hypoxia; J18.9 Pneumonia, unspecified organism; I13.0 Hypertensive heart and chronic kidney disease with heart failure and stage 1 through stage 4 chronic kidney disease, or unspecified chronic kidney disease; Z68.43 Body mass index [BMI] 50.0-59.9, adult; N17.9 Acute kidney failure, unspecified; L03.116 Cellulitis of left lower limb; L03.115 Cellulitis of right lower limb; I20.0 Unstable angina; E87.3 Alkalosis; J98.11 Atelectasis; L97.421 Non-pressure chronic ulcer of left heel and midfoot limited to breakdown of skin; J44.0 Chronic obstructive pulmonary disease with (acute) lower respiratory infection; E11.21 Type 2 diabetes mellitus with diabetic nephropathy; E11.22 Type 2 diabetes mellitus with diabetic chronic kidney disease; E11.621 Type 2 diabetes mellitus with foot ulcer; E11.628 Type 2 diabetes mellitus with other skin complications; E11.649 Type 2 diabetes mellitus with hypoglycemia without coma; E11.65 Type 2 diabetes mellitus with hyperglycemia; E66.01 Morbid (severe) obesity due to excess calories; E78.5 Hyperlipidemia, unspecified; D50.9 Iron deficiency anemia, unspecified; E87.5 Hyperkalemia; G47.33 Obstructive sleep apnea (adult) (pediatric); I08.0 Rheumatic disorders of both mitral and aortic valves; R79.1 Abnormal coagulation profile; N18.3 Chronic kidney disease, stage 3 (moderate); N40.1 Benign prostatic hyperplasia with lower urinary tract symptoms; R33.8 Other retention of urine; J45.40 Moderate persistent asthma, uncomplicated; K21.9 Gastro-esophageal reflux disease without esophagitis; L89.629 Pressure ulcer of left heel, unspecified stage; I50.82 Biventricular heart failure; I89.0 Lymphedema, not elsewhere classified; B95.62 Methicillin resistant Staphylococcus aureus infection as the cause of diseases classified elsewhere; K44.9 Diaphragmatic hernia without obstruction or gangrene; D63.8 Anemia in other chronic diseases classified elsewhere; Z83.3 Family history of diabetes mellitus; Z86.010 Personal history of colon polyps; Z87.891 Personal history of nicotine dependence; Z74.01 Bed confinement status; Z82.0 Family history of epilepsy and other diseases of the nervous system; Z79.4 Long term (current) use of insulin; Z79.899 Other long term (current) drug therapy
CPT/HCPCS: 36415; 71045; 71046; 80048; 80053; 81001; 82150; 82550; 82553; 82728; 83036; 83540; 83550; 83690; 83735; 83880; 84132; 84484; 85025; 85610; 85730; 87040; 87070; 87077; 87186; 87205; 93005; 94640; 94760; 96365; 96366; 96375; 99285

== ENCOUNTER → 2018-04-27 | Outpatient (CLI) | payer MEDICARE, BC ==
--- NOTE | 2018-04-27 15:38 | US ---
LOWER EXTREMITY VENOUS INSUFFICIENCY SIDE PERFORMED: Bilateral 1) Color flow is present and patency is documented in the following vessels. No DVT or SVT is noted . EIV Common Femoral Vein Deep Femoral Vein Femoral Vein Popliteal Vein Proximal Calf Veins Greater Saph Vein Upper Small Saph Vein 2) There is venous reflux noted at the following venous levels: right greater saph vein IMPRESSION: 1. No sonographic evidence of deep venous thrombosis or superficial venous thrombosis. 2. Venous reflux within the right greater saphenous vein.
--- NOTE | 2018-05-02 10:47 | P.ARTDOP ---
Arterial Doppler LOWER EXTREMITY ARTERIAL DOPPLER: DATE OF SERVICE: 04/27/2018 Reason for study: Left heel ulcer. Doppler waveforms: Multiphasic bilaterally throughout. Pulse volume recording: Fairly normal configuration including toes. Pressure gradients: Cannot be occluded. Ankle-brachial indices: Cannot be occluded. Toe pressures: Toes 2 large for pressure cuff Impression: Unable to get pressure readings. Flow patterns on PVR and Doppler looked good however. Suspect calcific wall disease. Flow patterns to suggest however that this is a nonobstructive phenomenon and perfusion should be adequate for healing. Clinical correlation recommended.
== END | disposition home or self-care (01) ==
LOC: RADUSWWP 13:22
PROVIDERS: ATTEND Family Medicine
DX: I87.2 Venous insufficiency (chronic) (peripheral) (principal); E11.621 Type 2 diabetes mellitus with foot ulcer; L97.429 Non-pressure chronic ulcer of left heel and midfoot with unspecified severity
CPT/HCPCS: 93923; 93970

== ENCOUNTER → 2019-01-01 | Outpatient (CLI) | payer MEDICARE, BC ==
[2019-01-01 15:35] LABS: Anisocytosis Slight; HCT 29.9 % (39.0-53.0); HGB 9.4 gm/dL (13.0-17.5); Hypochromasia Slight; MCH 28.5 pg (25.0-35.0); MCHC 31.3 g/dL (31.0-37.0); MCV 90.9 fL (80.0-100.0); Platelet Count 140 k/uL (150-450); RBC 3.29 m/uL (4.30-5.90); RDW 17.5 % (11.5-15.5); WBC 7.2 k/uL (3.8-10.6)
[2019-01-01 18:47] LABS: Iron Saturation 14.63 (15.00-50.00)
[2019-01-01 18:51] LABS: Albumin/Globulin Ratio 1.03 (1.60-3.17); Anion Gap 10.7 mmol/L (4.00-12.00); Calcium 8.9 mg/dL (8.7-10.3); Carbon Dioxide 27.3 mmol/L (21.6-31.8); Globulin 3.9 g/dL (1.6-3.3); Magnesium 1.6 mg/dL (1.5-2.4); Potassium 4.1 mmol/L (3.5-5.5); Total Bilirubin 0.4 mg/dL (0.3-1.2); Total Protein 7.9 g/dL (6.2-8.2); Uric Acid 10.1 mg/dL (3.7-8.7)
[2019-01-01 18:59] LABS: Parathyroid Hormone Intact 76.5 pg/mL (14.0-72.0)
== END | disposition home or self-care (01) ==
LOC: LABWHC1 14:50
PROVIDERS: ATTEND Nurse Practitioner Family
DX: N39.0 Urinary tract infection, site not specified (principal); R80.9 Proteinuria, unspecified; M10.9 Gout, unspecified; D63.1 Anemia in chronic kidney disease; N18.3 Chronic kidney disease, stage 3 (moderate); N25.81 Secondary hyperparathyroidism of renal origin; I12.9 Hypertensive chronic kidney disease with stage 1 through stage 4 chronic kidney disease, or unspecified chronic kidney disease
CPT/HCPCS: 36415; 80053; 82728; 83540; 83550; 83735; 83970; 84100; 84134; 84550; 85027

== ENCOUNTER → 2021-03-18 | Outpatient (CLI) | payer MEDICARE, BC ==
--- NOTE | 2021-03-19 02:58 | MR ---
EXAMINATION TYPE: MR foot LT wo/w con DATE OF EXAM: 03/18/2021 COMPARISON: None HISTORY: Pressure ulcer of left heel, pain and redness CONTRAST: Standard multiplanar, multisequence MRI departmental protocol utilizing 15 mL intravenous Gadavist ga dolinium contrast. There is subcutaneous edema of the forefoot. This is seen mostly on the dorsum of the foot. The metat arsals appear intact. The toes appear intact. I see no bony destructive process. There is no evidence of a fracture. The bones of the midfoot appear intact. I see no bone edema. The calcaneus is intact. The plantar fascia appears intact. There is some mild thickening of the Achilles tendon. Medial and lateral flexor tendons appear intact. There is some thinning of the soft tissues over the posterior c alcaneus. This could relate to ulceration. IMPRESSION: Subcutaneous edema and swelling of the forefoot. There is skin thinning over the posterior plantar aspect of the calcaneus consistent with atrophy and ulceration. No definite bone destruction seen in the calcaneus to suggest osteomyelitis.
== END | disposition home or self-care (01) ==
LOC: RADMRIMAIN 08:57
PROVIDERS: ATTEND Internal Medicine
DX: M79.89 Other specified soft tissue disorders (principal)
CPT/HCPCS: 73720; A9585